=== PATIENT | female | born 1970 | race Caucasian/White ===

== ENCOUNTER 2018-01-13 11:43 | Observation (INO) | payer BC, SELFPAY ==
[2018-01-13] VITALS (8 sets, daily range): BP systolic 118–160; BP diastolic 68–99; PULSE 69–103; RESP 16–19; TEMP 36.6–36.8; O2SAT 94–99; BMI 38.9; BMI 39.0; BMI 38.4
--- NOTE | 2018-01-13 12:11 | EKG12_ITS ---
Test Reason : CP Blood Pressure : / mmHG Vent. Rate : 093 BPM Atrial Rate : 093 BPM P-R Int : 152 ms QRS Dur : 094 ms QT Int : 360 ms P-R-T Axes : 039 -40 021 degrees QTc Int : 447 ms Normal sinus rhythm Left axis deviation /LAHB Possible old AWMI Abnormal ECG Confirmed by STANISLAV THOMSON ([id number]), movie editor MONTSE STEEN ([id number]) on 01/15/2018 2:23:10 PM Referred By: DEYAINRA Confirmed By:STANISLAV THOMSON
[2018-01-13 13:17] LABS: Absolute Lymphocyte Count 1.76 X10^3/ul (0.83-4.51); Basophil# 0.04 X10^3/uL; Basophil% 0.5 % (0-1); Eosinophils% 1.2 % (0-5); Hemoglobin 14.9 g/dl (12.0-15.0); Lymphocyte # 1.76 X10^3/ul (4.0); Lymphocyte % 21.1 % (19-41); Mean Corp Hgb Conc 33.9 g/gl (32-36); Mean Corpuscular Hgb 33.6 pg (27.0-32.0); Mean Corpuscular Volume 99.1 fL (81-99); Mean Platelet Vol. 9.7 fl (6.2-12.0); Monocyte# 0.45 X10^3/uL; Monocyte% 5.4 % (0-10); Neutrophil # 5.98 X10^3/uL (2.7-7.7); Neutrophil % 71.7 % (47-70); POSITIVE COUNT NO; POSITIVE DIFFERENTIAL NO; POSITIVE MORPHOLOGY NO; Platelet Count 338 K/mm3 (150-450); RBC Distribution Width CV 12.5 % (11.6-14.6); RBC Distribution Width SD 45.7 fl (35.1-43.9); Red Blood Count 4.44 M/mm3 (4.2-5.4); White Blood Count 8.3 K/mm3 (4.4-11.0)
[2018-01-13] MEDS: Aspirin 81 MG TAB.CHEW 324 MG PO (13:24)
[2018-01-13 13:25] LABS: AST(SGOT) 13 U/L (15-37); Alanine Aminotransfer ALT/SGPT 24 U/L (13-56); Albumin, Serum 3.8 g/dL (3.2-5.0); Alkaline Phosphatase 93 U/L (45-117); Anion Gap 10 (5-15); BUN 16 mg/dL (7-18); BUN/Creat Ratio 21.9 RATIO (10-20); Bilirubin, Direct 0.14 mg/dL (0.00-0.30); Calcium,Total 8.9 mg/dL (8.5-10.1); Chloride 103 mmol/L (98-107); Creatinine, Serum 0.73 mg/dL (0.55-1.02); EST Glomerular Filtration Rate 91 mL/min (>60); Est Glom Filt Rate - Afr Amer 110 mL/min (>60); Estimated Creatinine Clearance 83.15 ml/min; Globulin 3.8 g/dL (2.2-4.2); Glucose 89 mg/dL (74-106); Lipase 111 U/L (73-393); Potassium 3.3 mmol/L (3.5-5.1); Protein, Total 7.6 g/dL (6.4-8.2); Sodium Level 140 mmol/L (136-145)
[2018-01-13 13:33] LABS: D-Dimer Quantitative (DVT/PE) 0.36 FEU/ug/m (0.27-0.49)
--- NOTE | 2018-01-13 13:35 | RAD_ITS ---
STUDY: X-RAY CHEST REASON FOR EXAM: Female, 47 years old. Chest pain. TECHNIQUE: PA and lateral views of the chest. COMPARISON: Comparison is made with prior study dated February 06, 2017. FINDINGS: EKG electrodes are seen. The lungs are clear and expanded. There is no demonstrated pleural abnormality. Normal size heart. Normal mediastinum and nate. Normal visualized pulmonary arteries. Normal visualized aortic arch and descending thoracic aorta. There are degenerative changes of the visualized thoracic spine. Normal visualized ribs, clavicles, and shoulders. There is no demonstrated abnormality of the visualized soft tissue structures of the upper abdomen. RAD/Chest PA and Lateral IMPRESSION: Normal x-ray examination of the chest. Electronically Signed: Jean Van MD at 13:55 EDT Tel [phone], Service support ,
--- NOTE | 2018-01-13 14:16 | ED.VISSUMM ---
- ER Visit Summary Date of Service: 01/13/18 Chief Complaint: Chest pain and abdominal pain History of Present Illness: The patient is a 47 F presenting for evaluation secondary to chest and abdominal pain. Patient states that over the course last 3 days she has had a waxing and waning type pain that is located in her epigastrium and chest. Patient describes it as a burning sensation that is worse with taking a deep breath. She states it has been associated with some nausea, and today she felt significantly fatigued as well as diaphoretic with it. Patient states that she took some Tums did not really seem to help. Patient denies any history DVT or PE, recent travel was back in August where she flew to and from [place]. She denies any asymmetric leg swelling. Patient does have an underlying history of hypertension, obesity, and a premature family history of cardiac disease. She has never had a cardiac stress test. She denies any dissection or aneurysm risk factors. Review of systems otherwise negative. Physical Examination: Vital signs are within normal limits, patient is afebrile. General: Patient is well-nourished well-developed and in no acute distress. Head: Normocephalic, atraumatic Eyes: Pupils equal round and reactive bilaterally, extra occular motion intact bialterally ENT: Moist mucous membranes Neck: Supple, no lymphadenopathy, no JVD, no meningismus CVS: Heart regular rate and rhythm, no murmurs, rubs or gallops, radial pulses 2+ bilaterally Resp: Respirations nondistressed, lung sounds clear bilaterally Abdomen: Soft, nontender, nondistended, no palpable masses, normal bowel sounds Back: Nontender Extremities: Nontender, atraumatic, active full range of motion, no peripheral edema Skin: warm, no rashes, no petechia Neuro: Alert and oriented x 4, CN 2-12 intact, no lateralizing neurological defecits Psyc: Normal affect Test Results: CBC unremarkable, chemistry shows mildly low potassium at 3.3 liver panel and lipase unremarkable. Troponin negative. D-dimer negative. Chest x-ray two-view per radiology and my personal review are found to be negative. EKG shows sinus rhythm of [address] segments normal T waves. There is some left axis deviation. Emergency Department Course and Treatment: Patient presented secondary to abdominal and chest pain. I was somewhat concerned about a anginal equivalent given the patient's diaphoresis as well as her generalized fatigue and risk factors. Cardiovascular workup was obtained. This was found to be negative. D-dimer was obtained due to the patient's reported pleuritic nature of this pain was negative. Patient's MELL score is 1 her heart score however is 4 I believe that she requires admission for cardiac rule out and stress testing. I will discuss this with the hospitalist. Disposition: Admit Impression: 1. Chest pain This note was generated with [employer] dictation software. It may contain incorrect words, spelling, and punctuation that were not noted in review of the chart prior to signing ED Disposition - Plan for ED Patient: Chief Complaint: Abd Pain Referrals: Shawn Norton MD [Primary Care Provider] -
--- NOTE | 2018-01-13 14:20 | ED.DCSUM_ITS ---
- ER Visit Summary Date of Service: 01/13/18 Chief Complaint: Chest pain and abdominal pain History of Present Illness: The patient is a 47 F presenting for evaluation secondary to chest and abdominal pain. Patient states that over the course last 3 days she has had a waxing and waning type pain that is located in her epigastrium and chest. Patient describes it as a burning sensation that is worse with taking a deep breath. She states it has been associated with some nausea, and today she felt significantly fatigued as well as diaphoretic with it. Patient states that she took some Tums did not really seem to help. Patient denies any history DVT or PE, recent travel was back in August where she flew to and from [place]. She denies any asymmetric leg swelling. Patient does have an underlying history of hypertension, obesity, and a premature family history of cardiac disease. She has never had a cardiac stress test. She denies any dissection or aneurysm risk factors. Review of systems otherwise negative. Physical Examination: Vital signs are within normal limits, patient is afebrile. General: Patient is well-nourished well-developed and in no acute distress. Head: Normocephalic, atraumatic Eyes: Pupils equal round and reactive bilaterally, extra occular motion intact bialterally ENT: Moist mucous membranes Neck: Supple, no lymphadenopathy, no JVD, no meningismus CVS: Heart regular rate and rhythm, no murmurs, rubs or gallops, radial pulses 2 + bilaterally Resp: Respirations nondistressed, lung sounds clear bilaterally Abdomen: Soft, nontender, nondistended, no palpable masses, normal bowel sounds Back: Nontender Extremities: Nontender, atraumatic, active full range of motion, no peripheral edema Skin: warm, no rashes, no petechia Neuro: Alert and oriented x 4, CN 2-12 intact, no lateralizing neurological defecits Psyc: Normal affect Test Results: CBC unremarkable, chemistry shows mildly low potassium at 3.3 liver panel and lipase unremarkable. Troponin negative. D-dimer negative. Chest x-ray two-view per radiology and my personal review are found to be negative. EKG shows sinus rhythm of [address] segments normal T waves. There is some left axis deviation. Emergency Department Course and Treatment: Patient presented secondary to abdominal and chest pain. I was somewhat concerned about a anginal equivalent given the patient's diaphoresis as well as her generalized fatigue and risk factors. Cardiovascular workup was obtained. This was found to be negative. D -dimer was obtained due to the patient's reported pleuritic nature of this pain was negative. Patient's MELL score is 1 her heart score however is 4 I believe that she requires admission for cardiac rule out and stress testing. I will discuss this with the hospitalist. Disposition: Admit Impression: 1. Chest pain This note was generated with [employer] dictation software. It may contain incorrect words, spelling, and punctuation that were not noted in review of the chart prior to signing ED Disposition - Plan for ED Patient: Chief Complaint: Abd Pain Referrals: Shawn Norton MD [Primary Care Provider] -
--- NOTE | 2018-01-13 14:39 | PCM.HP.STD ---
Problem List (1) GERD (gastroesophageal reflux disease) Status: Acute (2) Chest pain Status: Acute History of Present Illness Date of Admission: 01/13/18 Chief Complaint: Worsening GI upset , chest discomfort. The patient is a 47 year old F medical history of essential hypertension, morbid obesity, gastroesophageal reflux disease, she is status post cholecystectomy, the to the emergency room today due to GI upset since Friday, her symptoms worsen times Tums with improvement. Chest discomfort and became diaphoretic and she became concerned and decided to come to the emergency room for further evaluation. Her Cardiac biomarkers are normal and her EKG showed normal sinus rhythm with left axis deviation. Has history of gastroesophageal reflux disease and is on Prevacid but has not taken it for the past 3 months. We are placing her in the hospital for further workup and management. Past Medical History Allergies No Known Allergies Allergy (Verified 02/06/17 12:17) Home Medications: Ambulatory Orders Medication Instructions Recorded Hydrochlorothiazide [Hctz] 25 mg PO DAILY 03/05/17 Lansoprazole [Prevacid] 30 mg PO DAILY 03/05/17 Fexofenadine HCl [Alia Allergy] 180 mg PO DAILY 01/13/18 Losartan Potassium [Losartan 25 mg PO DAILY 01/13/18 Potassium] Smoking Status: Never smoker Review of Systems Comment: All Systems were reviewed with pertinent positives mentioned in the HPI above. VTE Information - Inpt Only VTE Present on Admission: No VTE Mechan Device Prophylaxis: SCD's VTE Pharm Prophylaxis ordered?: Yes Patient Problems: Active and Suspected Problems GERD (gastroesophageal reflux disease) (Acute) Chest pain (Acute) - Physical Exam General: Alert, Oriented x3 HEENT: Atraumatic Oral: Moist Mucosa Neck: Supple, No JVD Lungs: Clear to auscultation Cardiovascular: Regular rate, Normal S1, Normal S2 Abdomen: Bowel Sounds Present, Soft, Non Tender, Non-Distended Extremities: No clubbing Vital Signs Temp Pulse Resp BP Pulse Ox 97.9 F 86 19 H 132/97 H 99 01/13/18 11:44 01/13/18 14:16 01/13/18 14:16 01/13/18 14:16 01/13/18 14:16 Oxygen Delivery Method Room Air Weight: 102.965 kg Body Mass Index (BMI) 38.9 Laboratory Tests Past 24 Hrs 01/13/18 01/13/18 01/13/18 12:50 12:50 12:50 WBC 8.3 RBC 4.44 Hgb 14.9 Hct 44.0 MCV 99.1 H MCH 33.6 H MCHC 33.9 RDW 12.5 RDW Differential 45.7 H Plt Count 338 MPV 9.7 Immature Gran % (Auto) 0.100 Neut % (Auto) 71.7 H Lymph % (Auto) 21.1 [place] % (Auto) 5.4 Eos % (Auto) 1.2 Baso % (Auto) 0.5 Absolute Neuts (auto) 6.0 Absolute Lymphs (auto) 1.76 Total Counted Not Reportable D-Dimer Quant (PE/DVT) 0.36 Sodium 140 Potassium 3.3 L Chloride 103 Carbon Dioxide 27.0 Anion Gap 10 BUN 16 Creatinine 0.73 Estim Creat Clear Calc 83.15 Est GFR (MDRD) Af Amer 110 Est GFR (MDRD) Non-Af 91 BUN/Creatinine Ratio 21.9 H Glucose 89 Calcium 8.9 Total Bilirubin 0.60 Direct Bilirubin 0.14 AST 13 L ALT 24 Alkaline Phosphatase 93 Troponin I < 0.02 Total Protein 7.6 Albumin 3.8 Globulin 3.8 Lipase 111 Assessment/Plan Active and Suspected Problems GERD (gastroesophageal reflux disease) (Acute) Chest pain (Acute) 1. Chest pain; will obtain serial cardiac enzymes and EKGs to rule out acute coronary syndrome. And will be scheduled for a stress test in the morning to rule out ischemia. 2. GERD; we will place her on Protonix,if her stress test t is negative, she would need to undergo EGD as an outpatient. This can be done through her primary care doctor. 3. Essential hypertension; we will continue on her losartan and hydrochlorothiazide without change. 4. Hypokalemia; likely due to hydrochlorothiazide therapy , we would maintain her on 20 mEq of potassium chloride daily while on diuretic therapy. 5. Obesity; weight loss recommended. 6. Early ambulation for DVT prophylaxis.
[2018-01-13] MEDS: Pantoprazole Sodium 40 MG Tablet PO (21:33)
[2018-01-14 03:01] VITALS: PULSE 65
[2018-01-14 03:24] VITALS: BP 109/56; PULSE 72; RESP 16; TEMP 37; O2SAT 96
[2018-01-14 03:25] LABS: Hematocrit 40.8 % (37-47); Hemoglobin 14.2 g/dl (12.0-15.0); Mean Corp Hgb Conc 34.8 g/gl (32-36); Mean Corpuscular Hgb 34.2 pg (27.0-32.0); Mean Corpuscular Volume 98.3 fL (81-99); Mean Platelet Vol. 9.5 fl (6.2-12.0); Platelet Count 334 K/mm3 (150-450); RBC Distribution Width CV 12.2 % (11.6-14.6); RBC Distribution Width SD 43.3 fl (35.1-43.9); Red Blood Count 4.15 M/mm3 (4.2-5.4); White Blood Count 8.4 K/mm3 (4.4-11.0)
[2018-01-14 03:26] LABS: Scan Indicated on CBC? Y/N NO
--- NOTE | 2018-01-14 04:00 | EKG12_ITS ---
Test Reason : AM EKG Blood Pressure : / mmHG Vent. Rate : 065 BPM Atrial Rate : 065 BPM P-R Int : 156 ms QRS Dur : 096 ms QT Int : 452 ms P-R-T Axes : 044 -06 033 degrees QTc Int : 470 ms Normal sinus rhythm Low voltage QRS (LIMB LEADS) Poor R wave progression Confirmed by HARIKA CHAO, GORDON ([id number]), publishing editor MONTSE STEEN ([id number]) on 01/16/2018 1:30:22 PM Referred By: ARGENTINA Confirmed By:GORDON SHABAZZ MD
[2018-01-14 04:08] LABS: Partial Thromboplast Time 28.4 Seconds (24.1-36.2); Prothrombin Time (Protime)PT. 13.4 SECONDS (11.7-14.9)
[2018-01-14 04:16] LABS: Anion Gap 12 (5-15); BUN 16 mg/dL (7-18); BUN/Creat Ratio 22.9 RATIO (10-20); Calcium,Total 8.3 mg/dL (8.5-10.1); Chloride 105 mmol/L (98-107); EST Glomerular Filtration Rate 96 mL/min (>60); Est Glom Filt Rate - Afr Amer 116 mL/min (>60); Estimated Creatinine Clearance 86.72 ml/min; Glucose 101 mg/dL (74-106); Potassium 3.4 mmol/L (3.5-5.1); Sodium Level 143 mmol/L (136-145)
[2018-01-14] MEDS: Losartan Potassium 25 MG Tablet PO (05:29)
[2018-01-14 08:32] VITALS: PULSE 93
--- NOTE | 2018-01-14 09:10 | STRESSREP_ITS ---
Stress Test Report Exercise myocardial perfusion stress test. 47-year-old lady with a history of chest pain. Stress protocol: Resting EKG demonstrates normal sinus rhythm with a rate of 81 bpm resting blood pressure is 130/72 mmHg. The patient exercised according to the regular John protocol for a total duration of 7 minutes. The patient completed 1 minute into stage III of the John protocol. The maximum heart rate attained was 179 bpm. This was 102% of maximum predicted heart rate the maximum workload attained was 8.5 metabolic equivalents. At rest there were no ST or T- wave changes noticed ischemia peak exercise upsloping ST changes were noted with no meet the criteria for ischemia. The resting blood pressure 730/72 with a peak blood pressure 170/64. No clinical angina was noted the test was terminated due to shortness of breath. Myocardial perfusion protocol. 14.6 mCi of technetium 99m sestamibi was injected at rest. The patient exercised according to regular John protocol for 7 minutes. At peak exercise 44.6 mCi of technetium 99m sestamibi was injected stress images were obtained stress and rest images were reconstructed and compared in the short axis vertical long and horizontal long axis. Gated images were also obtained pre- Perfusion SPECT analysis. Review of the stress images demonstrate normal uptake of tracer noted in all areas of the myocardium. The resting images similarly demonstrate normal uptake of tracer noted in all areas of the myocardium. No areas of reversibility are noted suggest ischemia no previous infarct is noted. Gated SPECT analysis: The gated ejection fraction is noted to be 83%. Conclusion: Normal exercise myocardial perfusion stress test at a moderate workload. Preserved ejection fraction. No clinical angina noted.
[2018-01-14 09:20] VITALS: BP 124/66; PULSE 92; RESP 14; TEMP 36.7; O2SAT 96
[2018-01-14] MEDS: Pantoprazole Sodium 40 MG Tablet PO (09:25)
[2018-01-14] MEDS: hydroCHLOROthiazide 25 MG Tablet PO (09:25)
[2018-01-14] MEDS: Loratadine 10 MG Tablet PO (09:25)
--- NOTE | 2018-01-14 10:54 | PCM.DC ---
- Discharge Diagnoses Current Active Problems: Current Active and Chronic Problems GERD (gastroesophageal reflux disease) (Acute) Chest pain (Acute) You will use the following diet at home:: Cardiac Discharge Activity: Return to Normal Activity Call your doctor if you observe: Fever of 101 or Higher, Dizziness, Fainting spells, Chest pain, Increased palpitations (irregular heartbeat) Allergies/Adverse Reactions: Allergies No Known Allergies Allergy (Verified 02/06/17 12:17) Medications to take at Discharge Hydrochlorothiazide [Hctz] 25 mg PO DAILY 03/05/17 Fexofenadine HCl [Alia Allergy] 180 mg PO DAILY 01/13/18 Losartan Potassium 25 mg PO DAILY 01/13/18 Pantoprazole Sodium [Protonix] 40 mg PO BID #60 tab 01/14/18 The following prescriptions were given: Pantoprazole Sodium [Protonix] 40 mg PO BID #60 tab Orders to be completed after discharge: Basic Metabolic Profile (BMP) Time Frame: 1 Week, Location: Laboratory Primary Care Physician: Shawn Norton MD [Primary Care Provider] - Please follow up with your Primary Care Physician in: 1 Week Proposed Discharge Date: 01/14/18
--- NOTE | 2018-01-14 11:00 | PCM.DC.SUM ---
Discharge Date and Diagnosis Date of Admission: 01/13/18 Date of Discharge: 01/14/18 - Primary Discharge Diagnosis Active and Suspected Problems 1. Chest pain-ACS ruled out. Suspect secondary to untreated GERD. 2. Hypokalemia - Secondary Discharge Diagnosis HTN GERD Hospital Course and Treatment Imaging Results: Diagnostic Data Chest X-Ray 01/13/18 13:35 IMPRESSION: Normal x-ray examination of the chest. Electronically Signed: Jean Van MD at 13:55 EDT Tel [phone], Service support , Operations: None Procedures: Stress test Summary of Care Provided: The patient is a 47 year old F admitted 01/13/18 due to worsening esophageal burning and chest discomfort. Patient states she had issues with acid reflux in the past and was placed on Prevacid for a short time. She has a past medical history of hypertension, GERD, morbid obesity. She has not taken Prevacid for approximately 3 months. Troponin negative ?4. EKG without evidence of ischemia. Patient underwent nuclear stress test which was negative for ischemia. Patient was noted to have mild hyperkalemia suspected secondary to hydrochlorothiazide. Her potassium was replaced orally. Recommend repeat BMP in 1 week to be followed by primary care physician. Patient was placed on Protonix 40 mg twice daily for 1 month given increased gastric burning. Recommend Protonix 40 mg daily after 1 month. Patient states she has had an EGD approximately a year ago with Dr. Christiansen. Recommend follow-up with Dr. Richardson in 1-2 weeks. Follow-up with primary care physician in 1 week. Patient seen and examined prior to discharge. Heart rate regular in rate and rhythm, no murmur. Lungs clear. Abdomen soft, nontender. Neuro grossly intact. Vital signs stable. Patient is stable for discharge home with recommendations as noted above. This patient was seen by BHAVESH Clayton under the supervision of Dr. Mortensen. Discharge Diet: Low fat/ Low Cholesterol Discharge Activity: Return to Normal Activity Call your doctor if you observe: Fever of 101 or Higher, Dizziness, Fainting spells, Chest pain, Increased palpitations (irregular heartbeat) Home Medications: Medications to take at Discharge Hydrochlorothiazide [Hctz] 25 mg PO DAILY 03/05/17 Fexofenadine HCl [Alia Allergy] 180 mg PO DAILY 01/13/18 Losartan Potassium 25 mg PO DAILY 01/13/18 Pantoprazole Sodium [Protonix] 40 mg PO BID #60 tab 01/14/18 Following Prescrptions Were Given to Patient: Pantoprazole Sodium [Protonix] 40 mg PO BID #60 tab Other Amb Orders: Basic Metabolic Profile (BMP) Time Frame: 1 Week, Location: Laboratory Primary Care Physician: Shawn Norton MD [Primary Care Provider] - Please follow up with your Primary Care Physician in: 1 Week Disposition: Home Minutes spent on discharge:: 35 Patient Condition:: Stable Medical Necessity - Tobacco Use Smoking Status: Never smoker Meaningful Use Info Meaningful Use Diagnoses (Choose all that apply): None applicable
[2018-01-14 11:01] VITALS: PULSE 112
--- NOTE | 2018-01-14 11:08 | DS.PCM_ITS ---
Addendum entered and electronically signed by BHAVESH Clayton 01/14/18 11:19: Code Visit Additional follow up with Dr. Richardson in 2 weeks. Original Note: Discharge Date and Diagnosis Date of Admission: 01/13/18 Date of Discharge: 01/14/18 - Primary Discharge Diagnosis Active and Suspected Problems 1. Chest pain-ACS ruled out. Suspect secondary to untreated GERD. 2. Hypokalemia - Secondary Discharge Diagnosis HTN GERD Hospital Course and Treatment Imaging Results: Diagnostic Data Chest X-Ray 01/13/18 13:35 IMPRESSION: Normal x-ray examination of the chest. Electronically Signed: Jean Van MD at 13:55 EDT Tel [phone], Service support , Operations: None Procedures: Stress test Summary of Care Provided: The patient is a 47 year old F admitted 01/13/18 due to worsening esophageal burning and chest discomfort. Patient states she had issues with acid reflux in the past and was placed on Prevacid for a short time. She has a past medical history of hypertension, GERD, morbid obesity. She has not taken Prevacid for approximately 3 months. Troponin negative ?4. EKG without evidence of ischemia. Patient underwent nuclear stress test which was negative for ischemia. Patient was noted to have mild hyperkalemia suspected secondary to hydrochlorothiazide. Her potassium was replaced orally. Recommend repeat BMP in 1 week to be followed by primary care physician. Patient was placed on Protonix 40 mg twice daily for 1 month given increased gastric burning. Recommend Protonix 40 mg daily after 1 month. Patient states she has had an EGD approximately a year ago with Dr. Christiansen. Recommend follow-up with Dr. Richardson in 1-2 weeks. Follow-up with primary care physician in 1 week. Patient seen and examined prior to discharge. Heart rate regular in rate and rhythm, no murmur. Lungs clear. Abdomen soft, nontender. Neuro grossly intact. Vital signs stable. Patient is stable for discharge home with recommendations as noted above. This patient was seen by BHAVESH Clayton under the supervision of Dr. Mortensen. Discharge Diet: Low fat/ Low Cholesterol Discharge Activity: Return to Normal Activity Call your doctor if you observe: Fever of 101 or Higher, Dizziness, Fainting spells, Chest pain, Increased palpitations (irregular heartbeat) Home Medications: Medications to take at Discharge Hydrochlorothiazide [Hctz] 25 mg PO DAILY 03/05/17 Fexofenadine HCl [Alia Allergy] 180 mg PO DAILY 01/13/18 Losartan Potassium 25 mg PO DAILY 01/13/18 Pantoprazole Sodium [Protonix] 40 mg PO BID #60 tab 01/14/18 Following Prescrptions Were Given to Patient: Pantoprazole Sodium [Protonix] 40 mg PO BID #60 tab Other Amb Orders: Basic Metabolic Profile (BMP) Time Frame: 1 Week, Location: Laboratory Primary Care Physician: Shawn Norton MD [Primary Care Provider] - Please follow up with your Primary Care Physician in: 1 Week Disposition: Home Minutes spent on discharge:: 35 Patient Condition:: Stable Medical Necessity - Tobacco Use Smoking Status: Never smoker Meaningful Use Info Meaningful Use Diagnoses (Choose all that apply): None applicable
--- NOTE | 2018-01-14 11:30 | NURSING ---
all pt care, medication administration, & documentation by Randal Lundberg, student nurse, done under the supervision of this RN.
== END 2018-01-14 10:55 | disposition home or self-care (01) ==
LOC: ED 14:28 → PCU 14:36
PROVIDERS: Admitting Provider Internal Medicine; Emergency Provider Emergency Medicine; Family Provider Family Medicine; PCP Family Medicine; Visit Provider Internal Medicine
DX: R07.89 Other chest pain (principal); K21.9 Gastro-esophageal reflux disease without esophagitis; I10 Essential (primary) hypertension; E66.01 Morbid (severe) obesity due to excess calories; Z68.38 Body mass index [BMI] 38.0-38.9, adult; Z71.3 Dietary counseling and surveillance; E87.6 Hypokalemia
CPT/HCPCS: 36415; 71046; 78452; 80048; 80076; 83690; 84484; 85025; 85027; 85379; 85610; 85730; 93005; 93017; 99218; 99285; A9500; A4216; G0378

== ENCOUNTER → 2018-01-21 07:31 | Outpatient (CLI) | payer BC, SELFPAY ==
[2018-01-21 08:52] LABS: Anion Gap 7 (5-15); BUN 15 mg/dL (7-18); Calcium,Total 9.2 mg/dL (8.5-10.1); Chloride 106 mmol/L (98-107); Creatinine, Serum 0.68 mg/dL (0.55-1.02); EST Glomerular Filtration Rate 98 mL/min (>60); Est Glom Filt Rate - Afr Amer 119 mL/min (>60); Glucose 101 mg/dL (74-106); Potassium 3.7 mmol/L (3.5-5.1); Sodium Level 141 mmol/L (136-145)
== END ==
PROVIDERS: Family Provider Family Medicine; PCP Family Medicine; Visit Provider Nurse Practitioner Family
DX: E87.6 Hypokalemia (principal)
CPT/HCPCS: 36415; 80048

== ENCOUNTER → 2018-07-20 15:22 | Outpatient (CLI) | payer BC, SELFPAY ==
--- NOTE | 2018-07-20 15:37 | MRI_ITS ---
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 10 ml of Gadavist contrast material was administered intravenously for the contrast portion of the examination. COMPARISON: March 05, 2017 FINDINGS: Normal size of the ventricles and extra-axial spaces for the patient's age. Normal white matter tracts of the supratentorial brain. Normal bilateral basal ganglia. Normal thalami. There is no extra-axial fluid accumulation. Normal flow voids within the major intracranial circulation suggesting patency by spin echo criteria. Normal venous enhancement. There is no enhancing intra-axial or extra-axial abnormality. Normal sella turcica, pituitary gland, infundibular stalk, optic chiasm and hypothalamus. Normal tectal plate and pineal gland. There is a mass measuring 1.3 x 2.3 x 1.05 cm in the posterior fossa immediately posterior and to the right of the medulla and anterior to the right inferior cerebellar hemisphere producing mild mass effect but no evidence for obstructive hydrocephalus which may be consistent with ependymal cyst or other benign cystic neoplasm. Normal basal cisterns. Normal bilateral temporal bones. Normal bilateral internal auditory canals. No demonstrated orbital abnormality, within the constraints of a routine brain study. Mild mucosal thickening of the ethmoid sinuses. Normal calvarium and skull base. Normal visualized soft tissue structures. Normal visualized upper cervical spine. 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 Otherwise unremarkable study Electronically Signed: Shawn Sprague MD at 17:27 EDT , Service support ,
== END ==
PROVIDERS: Family Provider Family Medicine; PCP Family Medicine
DX: G93.0 Cerebral cysts (principal)
CPT/HCPCS: 70553; A9585

== ENCOUNTER 2018-10-05 08:17 | Emergency (ER) | payer BC, SELFPAY ==
[2018-10-05 08:18] VITALS: BP 156/91; PULSE 79; RESP 16; TEMP 36.7; O2SAT 96; BMI 40.4
--- NOTE | 2018-10-05 08:31 | ED.RN ---
LT SIDE ABD PAIN/LT FLANK PAIN.
--- NOTE | 2018-10-05 08:38 | ED.DCSUM_ITS ---
- ER Visit Summary Date of Service: 10/05/18 Chief Complaint: Left upper quadrant abdominal pain History of Present Illness: The patient is a 48 F history of hypertension and gastritis. Has never had upper endoscopy. Patient states that she was diagnosed with this around September 04. Was started on Protonix and it gave her significant relief. He says the pain seems to be slightly more lateral now. At times it is associated with food. Or bending over. She denies any fever. She denies any vomiting. She does intermittently have some nausea. No dysuria. No melena. No hematemesis. No weight change. She has had a prior cholecystectomy. She is scheduled to follow-up with a general surgeon out of [facility] for consideration for upper endoscopy. Physical Examination: Well-appearing middle-age female. Vital signs are stable. She is afebrile. H EENT exam unremarkable. Moist weeks membranes. Neck nontender. No lymphadenopathy. Lungs clear to auscultation bilaterally. Heart regular rate and rhythm no murmur. Abdomen is soft. Nondistended normal bowel sounds. Very minimal if any tenderness in the left upper quadrant. No hernias or masses. Normal bowel sounds. Both the right upper right lower quadrants are unremarkable. Patient is moving all 4 extremities. Neurovascular intact. Calves are nontender without edema. Neurologically patient has no focal deficits. Test Results: CBC shows normal white count of 5. Hemoglobin of 14 which is her baseline. Chemistries normal normal BUN and creatinine and gap. BMP shows Emergency Department Course and Treatment: Patient treated with p.o. Pepcid and GI cocktail. Repeat exam patient is doing well at 0 9:50 AM.. We went over her test results and follow-up. Treatment Plan: We will up with her general surgeon and discuss upper endoscopy. Continue his current medications Disposition: Discharge Impression: Left upper quadrant abdominal pain consistent with gastritis This note was generated with [employer] dictation software. It may contain incorrect words, spelling, and punctuation that were not noted in review of the chart prior to signing ED Disposition - Plan for ED Patient: Disposition: Home or Assisted Living Chief Complaint: Abd Pain Instructions: ED Abdominal Pain Unkn Cause, ED Gastritis Referrals: Shawn Norton MD [Primary Care Provider] - As Needed Additional Instructions: Continue your Protonix. Follow-up with your general surgeon appointment and you on her can discuss possible upper endoscopy.
[2018-10-05] MEDS: Mag Hydrox/Al Hydrox/Simeth 30 ML UDC PO (09:02)
[2018-10-05] MEDS: Famotidine 20 MG Tablet 40 MG PO (09:02)
[2018-10-05 09:22] LABS: Absolute Lymphocyte Count 0.96 X10^3/ul (0.83-4.51); Absolute Neutrophil Count 3.7 X10^3/uL (2.0-7.7); Basophil# 0.04 X10^3/uL; Basophil% 0.7 % (0-1); Eosinophil# 0.16 X10^3/uL; Hematocrit 42.7 % (37-47); Hemoglobin 14.3 g/dl (12.0-15.0); Lymphocyte # 0.96 X10^3/ul (4.0); Lymphocyte % 17.9 % (19-41); Mean Corp Hgb Conc 33.5 g/gl (32-36); Mean Corpuscular Hgb 33.1 pg (27.0-32.0); Mean Corpuscular Volume 98.8 fL (81-99); Mean Platelet Vol. 9.5 fl (6.2-12.0); Monocyte# 0.55 X10^3/uL; Monocyte% 10.2 % (0-10); Neutrophil # 3.65 X10^3/uL (2.7-7.7); Platelet Count 288 K/mm3 (150-450); RBC Distribution Width CV 12.5 % (11.6-14.6); RBC Distribution Width SD 45.5 fl (35.1-43.9); Red Blood Count 4.32 M/mm3 (4.2-5.4); White Blood Count 5.4 K/mm3 (4.4-11.0)
[2018-10-05 09:23] LABS: POSITIVE COUNT NO; POSITIVE DIFFERENTIAL NO; POSITIVE MORPHOLOGY NO
[2018-10-05 09:34] LABS: Anion Gap 7 (5-15); BUN 18 mg/dL (7-18); BUN/Creat Ratio 27.1 RATIO (10-20); Calcium,Total 8.6 mg/dL (8.5-10.1); Chloride 107 mmol/L (98-107); Creatinine, Serum 0.66 mg/dL (0.55-1.02); EST Glomerular Filtration Rate 101 mL/min (>60); Est Glom Filt Rate - Afr Amer 123 mL/min (>60); Estimated Creatinine Clearance 90.99 ml/min; Glucose 109 mg/dL (74-106); Potassium 3.8 mmol/L (3.5-5.1); Sodium Level 140 mmol/L (136-145)
[2018-10-05 10:14] VITALS: BP 143/76; PULSE 83; RESP 14; O2SAT 99
== END 2018-10-05 10:15 | disposition home or self-care (01) ==
PROVIDERS: Emergency Provider Emergency Medicine; Family Provider Family Medicine; PCP Family Medicine
DX: K29.70 Gastritis, unspecified, without bleeding (principal); R10.12 Left upper quadrant pain; I10 Essential (primary) hypertension; Z87.19 Personal history of other diseases of the digestive system; Z90.49 Acquired absence of other specified parts of digestive tract; Z79.899 Other long term (current) drug therapy
CPT/HCPCS: 80048; 85025; 99285; A4216

== ENCOUNTER 2024-09-09 08:43 | Emergency (ER) | payer OTHER, BC, SELFPAY ==
[2024-09-09 08:45] VITALS: BP 136/88; PULSE 84; RESP 16; TEMP 36.7; O2SAT 97; BMI 39.1
--- NOTE | 2024-09-09 08:51 | ED.VIS.FALL ---
HPI HPI - Fall History of Present Illness Chief Complaint: Fall [facility] Medical History (Updated 09/09/24 @ 09:02 by Edith Mitchell) Arachnoid cyst Hypokalemia Hypertension GERD (gastroesophageal reflux disease) Home Medications ?Medication ?Instructions ?Recorded ?Last Taken ?Type hydrochlorothiazide 25 mg tablet 25 mg PO DAILY diuretic/water pill 03/05/17 01/13/18 History losartan 25 mg tablet 25 mg PO DAILY blood pressure 01/13/18 01/13/18 History pantoprazole 40 mg tablet,delayed 40 mg PO DAILY 10/05/18 Unknown History release potassium 99 mg tablet 99 mg PO DAILY 10/05/18 Unknown History Allergy/AdvReac Type Severity Reaction Status Date / Time No Known Allergies Allergy Verified 09/09/24 08:43 Social History Smoking Status: Never smoker EXAM Physical Exam Const Vital Signs: 09/09/24 08:45 Temperature 98.1 F Temperature Source Temporal Pulse Rate 84 Respiratory Rate 16 Blood Pressure 136/88 H Blood Pressure Mean 104 Pulse Ox 97 Oxygen Delivery Method Room Air MDM MDM MDM Narrative Medical decision making narrative: HISTORY OF PRESENT ILLNESS: 54-year-old female who is not anticoagulated presents with mechanical fall. No she was at work and she fell down injuring her head, right wrist, left hip, left knee. She is unsure if she lost consciousness. She is not taking blood thinners. REVIEW OF SYSTEMS: Pertinent positives: Fall, left hip, left knee, right wrist pain, head trauma Pertinent negatives: Focal weakness, loss of sensation, and coordination PHYSICAL EXAM: Nursing triage notes reviewed, Vital signs reviewed Primary Survey Airway: Intact Breathing: Bilateral breath sounds Circulation: Palpable bilateral femorals, Palpable bilateral radial, Palpable bilateral DP and Palpable bilateral PT Disability / Spine precautions GCS Score: Eye Openin Verbal Response: 5 Motor Response: 6 Secondary Survey Constitutional: Please see MDM Head: Atraumatic, Midface stable, NO jaw malocclusion, No Cephalohematoma, and No Lacerations noted Eye: Pupils equal round and reactive to light, Extraocular muscles intact and No periorbital ecchymosis or stepoff, no evidence of entrapment ENT: Oropharynx clear, no lacerations, no hemotympanum, no raccoon eyes or danielson sign Cervical spine / Neck: No cervical spine bony tenderness, crepitance, or stepoff deformity Trachea midline Lungs: Clear to auscultation, No asymmetric rise and No crepitus, no flail chest Cardiac: Regular rate and rhythm and No murmurs Abdomen: Soft, Nontender and No rebound Pelvis: Pelvis stable to compression : No evidence of genital injury Back: No midline bony tenderness to thoracic/lumbar/sacral spines Neuro: At baseline, intact strength and sensation in bilateral upper and lower extremities. 2+ patellar reflexes bilaterally. Extremities: NO gross Deformities Psych: Normal affect Nursing triage notes reviewed, Vital signs reviewed MEDICAL DECISION MAKING: Chief Complaint: Fall, extremity pain External records reviewed: Reviewed prior medications: No blood thinners noted Factors affecting care: Hypertension Social determinants of health: none History obtained from others: none Consults: none MDM Narrative: The patient was initially hemodynamically stable, afebrile and nontoxic-appearing. Primary secondary trauma surveys concerning for I considered the following differential diagnosis: ICH, fracture/dislocation of the wrist/hip/knee Exam was grossly unremarkable. Patient is greater than 16, is not on blood thinners, no seizure after injury, GCS was stable 2 hours postinjury, no depressed skull fracture, no evidence of basilar skull fracture, no vomiting. Age less than 65, no retrograde amnesia and mechanism is not dangerous. CT scan of the head is not indicated at this time. I considered obtaining advanced imaging of the head, extremities however the patient's exam was reassuring. She had no red flag symptoms for ICH or skull fracture. There is no sign of extremity injury. She had full range of motion all extremities able to ambulate without difficulty. She was alert and orient x 3 and displayed no confusion. There is no report of vomiting etc. I offer the patient advanced imaging however the patient refused stating she nothing is necessary. I agree that it was not necessary given lack of high risk features. The patient is appropriate discharge home. Strict return precautions were discussed The patient and/or family, caregivers express understanding. The patient and/or family, caregivers agrees with the plan. Shared decision making: I will have a discussion with the patient and or visitors regarding risk/benefits of further testing or admission. They will be made aware of of the risk/benefits inherent in this decision they will be given the opportunity to voice understanding. Total critical care time today provided was at least 0 minutes. This excludes separately billable procedures. Critical care time (if documented) is secondary to the patient having high probability of clinically significant/life threatening deterioration in the patient's condition which required my urgent intervention. Impression: 1. Closed head injury 2. Concussion 3. Hip contusion 4. Wrist contusion Dispo: Discharge home This note was generated with [employer] dictation software. It may contain incorrect words, spelling, and punctuation that were not noted in review of the chart prior to signing. Discharge Plan Triage Chief Complaint: Fall ED Provider: Jony Huber Dx/Rx/DC Orders Prescriptions: No Action hydrochlorothiazide 25 MG tablet 25 mg PO DAILY losartan 25 MG tablet 25 mg PO DAILY Patient Comments: pantoprazole 40 MG tablet 40 mg PO DAILY potassium 99 MG tablet 99 mg PO DAILY Primary Care Provider: Shawn Norton Referrals: Shawn Norton MD [Primary Care Provider] - Print Language: Citizen Of [place]
== END 2024-09-09 09:36 | disposition home or self-care (01) ==
LOC: ED 09:23
PROVIDERS: Emergency Provider Emergency Medicine; PCP Family Medicine; Visit Provider Emergency Medicine
DX: S06.0X0A Concussion without loss of consciousness, initial encounter (principal); S70.02XA Contusion of left hip, initial encounter; S60.212A Contusion of left wrist, initial encounter; S89.82XA Other specified injuries of left lower leg, initial encounter; W19.XXXA Unspecified fall, initial encounter; Y99.0 Civilian activity done for income or pay; I10 Essential (primary) hypertension; K21.9 Gastro-esophageal reflux disease without esophagitis; Z79.899 Other long term (current) drug therapy
CPT/HCPCS: 99282

== ENCOUNTER 2025-05-06 06:46 | Day surgery (SDC) | payer BC, SELFPAY ==
--- NOTE | 2025-04-27 17:17 | PCM.HP.BLA ---
History and Physical Date of Admission: 05/06/25 Expand All Collapse All Pre-Op History and Physical HPI: The patient is a 54 year old female presenting for discussion regarding AUB, submucosal fibroid. pre-operative visit. She is scheduled for Hysteroscopy D&C and myomectomy, possible polypectomy with symphion, for AUB, submucosal fibroid on 05/06/25. Procedure discussed along with risks, benefits and complications. Other alternatives discussed for management. Consent form signed? Yes. PAST MEDICAL HISTORY PAST MEDICAL HISTORY Diagnosis Date ? Anal fissure 01/04/2019 ? 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 ? GERD (gastroesophageal reflux disease) 10/27/2013 ? Hypertension ? Psoriasis ? Shingles outbreak 09/2017 had for 3.5 weeks PAST SURGICAL HISTORY PAST SURGICAL HISTORY Procedure Laterality Date ? CHOLECYSTECTOMY 02/2017 ? COLONOSCOPY AND BIOPSY 11/02/2018 ? EGD x 2 ? EGD BIOPSY SING OR MULT 11/02/2018 ? ESSURE 03/12/2012 ? LAPROSCOPIC REPAIR UMBILICAL HERNIA 2016 ? REVISE MEDIAN N/CARPAL TUNNEL SURG Right ? SKIN BX, 1 LESION 11/1997 scar tissue r buttocks CURRENT MEDICATIONS Current Outpatient Medications Medication Sig Dispense Refill ? norethindrone (AYGESTIN) 5 mg tablet 1 tab 3x/day until bleeding stops. 1 tab 2x/day x 2 days. 1 tab daily x 5 days 35 tablet 0 ? albuterol HFA (PROVENTIL HFA, VENTOLIN HFA) 90 mcg/actuation inhaler Inhale 2 Puffs as instructed every 6 hours as needed for wheezing/shortness of breath. 8 g 0 ? pantoprazole DR (PROTONIX) 40 mg tablet take 1 tablet daily 90 tablet 3 ? hydroCHLOROthiazide 25 mg tablet take 1 tablet daily 90 tablet 3 ? losartan (COZAAR) 25 mg tablet Take 1 tablet by mouth every afternoon. 90 tablet 3 ? elderberry fruit (ELDERBERRY ORAL) Take 1 tablet by mouth once daily. ? fluticasone (FLONASE) 50 mcg/actuation nasal spray Use 2 Sprays in each nostril once daily. 18.2 mL 3 ? cholecalciferol (VITAMIN D3) 50 mcg (2,000 unit) tablet Take 2,000 Units by mouth once daily. ? ZINC ORAL Take 1 capsule by mouth once daily. ? ascorbic acid, vitamin C, (VITAMIN C) 250 mg tablet Take 250 mg by mouth once daily. ? multivitamin tablet Take 1 tablet by mouth once daily. ? potassium chloride (KLOR-CON 10) 10 mEq tablet Take 1 tablet by mouth daily with breakfast. 0 ? TURMERIC PO Take by mouth as needed. No current facility-administered medications for this visit. ALLERGIES: Keflex [Cephalexin], Dotarem [Gadoterate Meglumine], Pollen, Ragweed Pollen, Valtrex [Valacyclovir], and Dust PERSONAL HISTORY: SOCIAL HISTORY Social History Tobacco Use ? Smoking status: Never ? Smokeless tobacco: Never Vaping Use ? Vaping status: Never Used Substance Use Topics ? Alcohol use: Yes Comment: 1-4 drinks per weekend ? Drug use: No FAMILY HISTORY: FAMILY HISTORY FAMILY HISTORY Problem Relation Age of Onset ? Diabetes Mother ? Heart Mother hx of SC ? Hypertension Mother ? other (endometrosis) Mother Hysterectomy ? Hypertension Father ? Prostate Cancer Father ? Hypertension Brother ? Diabetes Brother ? Heart Maternal Grandmother ? Colon Cancer Paternal Grandmother 74 ? Cancer Paternal Grandfather prostate ? other (Other) Paternal Grandfather No breast/chief technical officer cancer ? No Known Problems Daughter ? No Known Problems Son ? other (pre cancer) Paternal Aunt had to have hysterectomy ? Anesthesia Problems No Family History REVIEW OF SYMPTOMS: negative except as noted above PHYSICAL EXAMINATION: VITALS: Blood pressure 116/72, height 162.6 cm (5' 4), weight 104.8 kg (231 lb), last menstrual period 04/08/2025. GENERAL: The patient is well nourished, well hydrated in no acute distress. , The patient is oriented to time, place, and person. NECK: full range of motion LUNGS: Clear to auscultation bilaterally. no wheezes, rhonchi or rales HEART: Regular rate and rhythm, Normal heart sounds, and No murmurs or gallops IMPRESSION: 54yo with AUB and submucosal fibroid PLAN: Hysteroscopy, D&C, myomectomy with symphion Pt has been counseled on risks/benefits and alternatives of surgery including but not limited to anesthesia, bleeding, infection, uterine perforation with subsequent injury to pelvic structures including bowel, bladder, ureters and vessels. Pt wishes to proceed with surgery at this time. I have reviewed and updated past medical and surgical history, medications and allergies Flavia Garcia MD
[2025-05-06] VITALS (8 sets, daily range): BP systolic 107–137; BP diastolic 70–111; PULSE 77–84; RESP 18–20; TEMP 36.6–36.9; O2SAT 96–100; BMI 39.7
--- OUTSIDE RECORDS SUMMARY | 2025-05-06 06:50 | XMS RPT_ITS | CCD ---
Author Organization [facility] Care Team Providers Care Repair Service Dispatcher Name Role Phone Oliverio Will MD Primary Care Provider Tammie Ramirez Unavailable PROVIDER, UNKNOWN Attending Unavailable PROVIDER, UNKNOWN Admitting Unavailable OLIVERIO WILL Primary Care Unavailable Oliverio Will MD Primary Care Provider Tammie Ramirez Unavailable Tammie Ramirez MD Unavailable [phone] Oliverio Will MD Primary Care Provider Trang CAR PACKER.ROXANE, Jhonny Unavailable JOSE ENCARNACION Referring Unavailable OLIVERIO WILL Primary Care Unavailable JOSE ENCARNACION Attending Unavailable OLIVERIO WILL Primary Care Unavailable OLIVERIO WILL Primary Care Unavailable SHAWN SUN Referring Unavailable OLIVERIO WILL Primary Care Unavailable JHONNY COSTELLO Referring Unavailable OLIVERIO WILL Primary Care Unavailable ANABEL ALANIS Attending Unavailable OLIVERIO WILL Primary Care Unavailable ISELA DORMAN Referring Unavailable OLIVERIO WILL Primary Care Unavailable JHONNY COSTELLO Referring Unavailable OLIVERIO WILL Primary Care Unavailable OLIVERIO WILL Primary Care Unavailable ANABEL ALANIS Attending Unavailable OLIVERIO WILL Primary Care Unavailable ISELA DORMAN Attending Unavailable OLIVERIO WILL Primary Care Unavailable ISELA DORMAN Attending Unavailable ISELA DORMAN Referring Unavailable ISELA DORMAN Referring Unavailable OLIVERIO WILL Primary Care Unavailable FLAVIA MARCELO Attending Unavail able OLIVERIO WILL Primary Care Unavailable OLIVERIO WILL Primary Care Unavailable OLIVERIO WILL Attending Unavailable OLIVERIO WILL Primary Care Unavailable SELF Referring Unavailable JHONNY COSTELLO Attending Unavailable OLIVERIO WILL Primary Care Unavailable OLIVERIO WILL Primary Care Unavailable OLIVERIO WILL Attending Unavailable Flavia Abad Referring Unavail able Flavia Abad Attending Unavail able Shawn Will Primary Care Unavailable Shawn Will Primary Care Unavailable Jony Huber Attending Unavailable Allergies Allergy Classification Reported Allergen(s) Allergy Type Date of Onset Reaction(s) Facility (20 sources) Dust; Translations: [DUST] Propensity to adverse reactions 5 Intolerance [facility] (20 sources) gadoterate meglumine; Translations: [GADOTERATE MEGLUMINE] Drug Allergy 2 Rash [facility] (20 sources) Pollen; Translations: [POLLEN] Propensity to adverse reactions 9 Cough [facility] (20 sources) Ragweed pollen; Translations: [RAGWEED POLLEN] Drug Allergy 8 Unknown, Itching [facility] (20 sources) valACYclovir; Translations: [VALACYCLOVIR] Drug Allergy 8 Rash [facility] Work Phone: (20 sources) mint dental floss [Other] Propensity to adverse reactions 5 Intolerance [facility] (1 source) OTHER; Translations: [OTHER] Propensity to adverse reactions (disorder) 5 [facility] Other [facility] (20 sources) Cephalexin; Translations: [CEPHALEXIN] Drug Allergy 4 Other: See Comments [facility] Work Phone: Medications Current Medications Medication Drug Class(es) Dates Sig (Normalized) Sig (Original) [id number] 200 actuat albuterol 0.09 mg/actuat metered dose inhaler (20 sources) beta2-Adrenergic Agonist Start: 08-16-2024 take 2 puff(s) by inhalation every six hours as needed for wheezing albuterol HFA (PROVENTIL HFA, VENTOLIN HFA) 90 mcg/actuation inhaler Inhale 2 Puffs as instructed every 6 hours as needed for wheezing/shortnes s of breath. 8 g 08/16/2024 Active Start: 07-26-2019 albuterol sulf ate (PROAIR RESPICLICK) 90 mcg/actuation aepb Indications: Cough , Chest tightness Inhale 2 Inhalation as instructed every 6 hours as needed. 1 Inhaler 0 07/26/2019 Active Comment on above: Inhale 2 Inhalation as instructed every 6 hours as needed. amoxicillin 875 mg / clavulanate 125 mg oral tablet (1 source) Penicillin-class Antibacterial Start: End: take 1 tablet by mouth twice daily amoxicillin-clavulana te potassium (AUGMENTIN) 875-125 mg per tablet Indications: Acute non-recurrent maxillary sinusitis Take 1 tablet by mouth two times a day for 7 days. 14 tablet 0 12/08/2023 12/15/2023 Active Comment on above: Take 1 tablet by kirby two times a day for 7 days. ascorbic acid 250 mg oral tablet (20 sources) Vitamin C take 1 tablet by mouth once daily ascorbic acid, vitamin C, (VITAMIN C) 250 mg tablet Take 250 mg by mouth once daily. Active Comment on above: Take 250 mg by mouth once daily. benzonatate 100 mg oral capsule (2 sources) Non-narcotic Antitussive Start: End: take 1 capsule by mouth every eight hours as needed benzonatate (TESSALON PERLE) 100 mg capsule Take 1 capsule by mouth three times a day as needed for cough for up to 7 days. 21 capsule 08/16/2024 08/23/2024 Active cholecalciferol 0.05 mg oral tablet (20 sources) Vitamin D take 1 tablet by mouth once daily cholecalciferol (VITAMIN D3) 50 mcg (2,000 unit) tablet Take 2,000 Units by mouth once daily. Active Comment on above: Take 2,000 Units by mouth once daily. clobetasol propionate 0.5 mg/ml topical cream (6 sources) Corticosteroid Start: End: clobetasol (TEMOVATE) 0.05 % cream Indications: Poison marta Apply to affected area two times a day for 14 days. 45 g 05/19/2024 06/02/2024 Active ELDERBERRY FRUIT (20 sources) take 1 tablet by mouth once daily elderberry fruit (ELDERBERRY ORAL) Take 1 tablet by mouth once daily. Active take 1 tablet by mouth once zoltan y elderberry fruit (ELDERBERRY ORAL) Take 1 tablet by mouth once daily. 0 Active Comment on above: Take 1 tablet by kirby th once daily. fluticasone propionate 0.05 mg/actuat metered dose nasal spray (20 sources) Corticosteroid Start: 2020 End: 2022 take 2 spray(s) nasal route once daily fluticasone (FLONASE) 50 mcg/actuation nasal spray Indications: Sinus congestion Use 2 Sprays in each nostril once daily. 18.2 mL 3 04/08/2023 Active Comment on above: Use 2 Sprays in each nostril once daily. hydroCHLOROthiazide 25 mg oral tablet (20 sources) Thiazide Diuretic Start: 2022 End: 2023 hydroCHLOROthiazide 25 mg tablet Indications: Essential hypertension take 1 tablet daily 90 tablet 3 06/08/2024 Active Start: 09-20-2021 End: 12-19-2021 hydroCHLOROthiazide (HYDRODI URIL, ESIDRIX) 25 mg tablet Indications: Essential hypertension TAKE 1 TABLET DAILY 90 tablet 3 12/19/2021 Active Comment on above: TAKE 1 TABLET DAILY Inhalational Spacing Device (2 sources) Start: End: 4 Inhalational Spacing Device 1 Device one time only for 1 dose. 1 Each 08/16/2024 08/16/2024 Active losartan potassium 25 mg oral tablet (20 sources) Angiotensin 2 Receptor Peter Start: 1 End: 5 losartan (COZAAR) 25 mg tablet Indications: Essential hypertension TAKE 1 TABLET EVERY AFTERNOON 90 tablet 04/25/2025 Active Comment on above: TAKE 1 TABLET DAILY multivitamin tablet (20 sources) take 1 tablet by mouth once daily multivitamin tablet Take 1 tablet by mouth once daily. Active take 1 tablet by mouth once zoltan y multivitamin tablet Take 1 tablet by mouth once daily. 0 Active Comment on above: Take 1 tablet by kirby th once daily. norethindrone acetate 5 mg oral tablet (8 sources) Start: 03-21-2025 norethindrone (AYGESTIN) 5 mg tablet 1 tab 3x/day until bleeding stops. 1 tab 2x/day x 2 days. 1 tab daily x 5 days 35 tablet 03/21/2025 Active pantoprazole 40 mg delayed release oral tablet (20 sources) Proton Pump Inhibitor Start: 07-08-2022 End: 06-28-[address] (PROTONIX) 40 mg tablet Indications: Gastroesophageal reflux disease, unspecified whether esophagitis present take 1 tablet daily 90 tablet 3 06/28/2024 Active Start: 04-08-2022 pantoprazole D R (PROTONIX) 40 mg tablet Indications: Gastroesophageal reflux disease, unspecified whether esophagitis present TAKE 1 TABLET DAILY 90 tablet 0 04/08/2022 Active Start: 01-07-2022 take 1 tablet by kirby th once daily pantoprazole DR (PROTONIX) 40 mg tablet Indications: Gastroesophageal reflux disease, unspecified whether esophagitis present Take 1 tablet by mouth once daily. 90 tablet 0 01/07/2022 Active Start: 10-08-2021 End: 01-05-2022 take 1 tablet by mouth once daily pantoprazole DR (PROTONIX) 40 mg tablet Indications: Gastroesophageal reflux disease, unspecified whether esophagitis present Take 1 tablet by mouth once daily. 90 tablet 0 10/08/2021 01/05/2022 Discontinued Comment on above: Take 1 tablet by kirby once daily. TAKE 1 TABLET DAILY potassium chloride 10 meq extended release oral tablet (20 sources) Start: 01-14-2017 take 1 tablet by mouth once daily at breakfast potassium chloride (KLOR-CON 10) 10 mEq tablet Take 1 tablet by mouth daily with breakfast. 0 01/14/2017 Active Comment on above: Take 1 tablet by kirby th daily with breakfast. Turmeric extract (4 sources) TURMERIC PO Take by mouth as needed. Active Zinc (20 sources) take 1 capsule by mouth once daily ZINC ORAL Take 1 capsule by mouth once daily. Active take 1 capsule by mouth once patrick ly ZINC ORAL Take 1 capsule by mouth once daily. 0 Active ZINC ORAL Take b y mouth. 0 Active Comment on above: Take by mouth. Take 1 capsule by mo [facility] once daily. Completed/Discontinued Medications Medication Drug Class(es) Dates Sig (Normalized) Sig (Original) betamethasone 0.5 mg/ml / calcipotriene 0.05 mg/ml topical lotion (20 sources) Corticosteroid, Vitamin D Analog Start: 10-19-2021 End: 12-08-2023 Betamethasone-Calci potriene (TACLONEX) external suspension Apply 1 application to affected area once daily. Psoriasis on back of neck 120 g 3 10/19/2021 12/08/2023 Discontinued (Course of therapy completed) Comment on above: Apply 1 application to affected area once daily. Psoriasis on back of neck cephalexin 500 mg oral capsule (4 sources) Cephalosporin Antibacterial Start: 05-19-2024 End: 05-26-2024 take 1 capsule by mouth four times daily cephALEXin (KEFLEX) 500 mg capsule Indications: Cellulitis of skin Take 1 capsule by mouth four times daily for 7 days. 28 capsule 05/19/2024 05/21/2024 Discontinued cyclobenzaprine hydrochloride 10 mg oral tablet (12 sources) Muscle Relaxant Start: 07-20-2024 End: 11-02-2024 take 1 tablet by mouth every twenty-four hours as needed cyclobenzaprine (FLEXERIL) 10 mg tablet Take 1 tablet by mouth at bedtime as needed for muscle spasm. 20 tablet 07/20/2024 11/02/2024 Discontinued ergocalciferol, vitamin D2, (VITAMIN D2 ORAL) (4 sources) ergocalciferol, vitamin D2, (VITAMIN D2 ORAL) Take by mouth. 0 Active Comment on above: Take by mouth. fexofenadine hydrochloride 180 mg oral tablet (20 sources) Histamine-1 Receptor Antagonist Start: 10-19-2021 End: 10-31-2023 take 1 tablet by mouth once daily fexofenadine (SUSAN ALLERGY) 180 mg tablet Take 1 tablet by mouth once daily. 0 10/19/2021 10/31/2023 Discontinued Comment on above: Take 1 tablet by kirby once daily. iv contrast (will be provided with radiology test) (20 sources) Start: 11-02-2024 End: 04-25-2025 inject 1 dose intravenously once iv contrast (will be provided with radiology test) Indications: Intracranial arachnoid cysts MRI Brain Inject, intravenously, once for 1 dose.No IV access, insert saline lock prior to beginning of sedation, infusion, injection of imaging exam.Discontinue saline lock post exam. If Pt. has a central line or IVAD, may access for administration according to line specific nursing protocol.Once exam is complete flush line and de-access according to line specific nursing protocol in the MR contrast administration guidelines link 1 Each 11/02/2024 04/25/2025 Discontinued Start: 11-02-2024 inject 1 dose intravenously on ce iv contrast (will be provided with radiology test) Indications: Intracranial arachnoid cysts MRI Brain Inject, intravenously, once for 1 dose.No IV access, insert saline lock prior to beginning of sedation, infusion, injection of imaging exam.Discontinue saline lock post exam. If Pt. has a central line or IVAD, may access for administration according to line specific nursing protocol.Once exam is complete flush line and de-access according to line specific nursing protocol in the MR contrast administration guidelines link 1 Each 11/02/2024 Active Start: 10-26-2024 End: 11-02-2024 inject 1 dose intravenously once iv contrast (will be provided with radiology test) Indications: Intracranial arachnoid cysts MRI Brain Inject, intravenously, once for 1 dose.No IV access, insert saline lock prior to beginning of sedation, infusion, injection of imaging exam.Discontinue saline lock post exam. If Pt. has a central line or IVAD, may access for administration according to line specific nursing protocol.Once exam is complete flush line and de-access according to line specific nursing protocol in the MR contrast administration guidelines link 1 Each 10/26/2024 11/02/2024 Discontinued Start: 10-26-2024 inject 1 dose intravenously on ce iv contrast (will be provided with radiology test) Indications: Intracranial arachnoid cysts MRI Brain Inject, intravenously, once for 1 dose.No IV access, insert saline lock prior to beginning of sedation, infusion, injection of imaging exam.Discontinue saline lock post exam. If Pt. has a central line or IVAD, may access for administration according to line specific nursing protocol.Once exam is complete flush line and de-access according to line specific nursing protocol in the MR contrast administration guidelines link 1 Each 10/26/2024 Active Start: 10-24-2022 End: 04-08-2023 inject 1 dose intravenously once iv contrast (will be provided with radiology test) Indications: Intracranial arachnoid cysts MRI Brain Inject, intravenously, once for 1 dose.No IV access, insert saline lock prior to beginning of sedation, infusion, injection of imaging exam.Discontinue saline lock post exam. If Pt. has a central line or IVAD, may access for administration according to line specific nursing protocol.Once exam is complete flush line and de-access according to line specific nursing protocol in the MR contrast administration guidelines link 1 Each 0 10/24/2022 04/08/2023 Discontinued Start: 10-24-2022 inject 1 dose intravenously on ce iv contrast (will be provided with radiology test) Indications: Intracranial arachnoid cysts MRI Brain Inject, intravenously, once for 1 dose.No IV access, insert saline lock prior to beginning of sedation, infusion, injection of imaging exam.Discontinue saline lock post exam. If Pt. has a central line or IVAD, may access for administration according to line specific nursing protocol.Once exam is complete flush line and de-access according to line specific nursing protocol in the MR contrast administration guidelines link 1 Each 0 10/24/2022 Active Start: 10-25-2021 End: 10-09-2022 inject 1 dose intravenously once iv contrast (will be provided with radiology test) Indications: Intracranial arachnoid cysts , Cerebral cysts MRI Brain Inject, intravenously, once for 1 dose.No IV access, insert saline lock prior to beginning of sedation, infusion, injection of imaging exam.Discontinue saline lock post exam. If Pt. has a central line or IVAD, may access for administration according to line specific nursing protocol.Once exam is complete flush line and de-access according to line specific nursing protocol in the MR contrast administration guidelines link 1 Each 0 10/25/2021 10/09/2022 Discontinued Start: 10-25-2021 inject 1 dose intravenously on ce iv contrast (will be provided with radiology test) Indications: Intracranial arachnoid cysts , Cerebral cysts MRI Brain Inject, intravenously, once for 1 dose.No IV access, insert saline lock prior to beginning of sedation, infusion, injection of imaging exam.Discontinue saline lock post exam. If Pt. has a central line or IVAD, may access for administration according to line specific nursing protocol.Once exam is complete flush line and de-access according to line specific nursing protocol in the MR contrast administration guidelines link 1 Each 0 10/25/2021 Active Comment on above: MRI Brain Inject, in travenously, once for 1 dose.No IV access, insert saline lock prior to beginning of sedation, infusion, injection of imaging exam.Discontinue saline lock post exam. If Pt. has a central line or IVAD, may access for administration according to line specific nursing protocol.Once exam is complete flush line and de-access according to line specific nursing protocol in the MR contrast administration guidelines link traMADol hydrochloride 50 mg oral tablet (1 source) Opioid Agonist Start: End: take 1 tablet by mouth every four hours as needed for pain traMADol (ULTRAM) 50 mg tablet Indications: Postoperative pain Take 1 tablet by mouth every 4 hours as needed for pain. 15 tablet 0 03/04/2023 04/08/2023 Discontinued Comment on above: Take 1 tablet by kirby th every 4 hours as needed for pain. Problems Active Problems Problem Classification Problem Date Documented Date Episodic/Chronic Abdominal pain (20 sources) Abdominal pain; Translations: [Unspecified abdominal pain] Onset: 10-19-2018 Resolved: 11-20-2018 11-20-2018 Episodic Allergic reactions (1 source) Contact dermatitis due to poison marta; Translations: [Allergic contact dermatitis due to plants, except food] 05-19-2024 Episodic Benign neoplasm of uterus (2 sources) Submucous leiomyoma of uterus; Translations: [Submucous leiomyoma of uterus] Onset: 04-25-2025 04-25-2025 Episodic Diabetes mellitus without complication (1 source) Hyperglycemia; Translations: [Hyperglycemia, unspecified] Episodic Esophageal disorders (20 sources) Gastroesophageal reflux disease; Translations: [Gastro-esophageal reflux disease without esophagitis] Onset: 10-27-2013 10-27-2013 Chronic Essential hypertension (20 sources) Essential hypertension; Translations: [Essential (primary) hypertension] Onset: 09-16-2016 Chronic Menstrual disorders (4 sources) Mid-cycle bleeding; Translations: [Ovulation bleeding] Onset: 03-14-2025 Chronic Other ear and sense organ disorders (1 source) Hearing loss of right ear; Translations: [Unspecified hearing loss, right ear] 04-28-2024 Chronic Other female genital disorders (10 sources) Abnormal uterine bleeding; Translations: [Other specified abnormal uterine and vaginal bleeding] Chronic Other female genital disorders (2 sources) Abnormal uterine and vaginal bleeding, unspecified; Translations: [Abnormal uterine bleeding] Onset: 03-14-2025 Chronic Other injuries and conditions due to external causes (1 source) Injury of head; Translations: [Unspecified injury of head, initial encounter] 09-09-2024 Episodic Other lower respiratory disease (2 sources) Cough; Translations: [Acute cough] 08-16-2024 Episodic Other nervous system disorders (20 sources) Cerebral cyst; Translations: [Cerebral cysts] Onset: 03-19-2017 10-17-2020 Chronic Other nervous system disorders (20 sources) Cerebral arachnoid cyst; Translations: [Cerebral cysts] Onset: 06-24-2019 06-24-2019 Chronic Other nervous system disorders (4 sources) Carpal tunnel syndrome of right wrist; Translations: [Carpal tunnel syndrome, right upper limb] Chronic Other nervous system disorders (1 source) Cerebral cysts; Translations: [Intracranial arachnoid cysts] Onset: 06-24-2019 Chronic Other nervous system disorders (2 sources) Pain in limb - multiple; Translations: [Paresthesia of skin] Episodic Other nervous system disorders (1 source) Paresthesia; Translations: [Paresthesia of skin] Episodic Other nervous system disorders (1 source) Other acute postprocedural pain; Translations: [Postoperative pain] Onset: 03-04-2023 Episodic Other non-traumatic joint disorders (1 source) Pain in right knee; Translations: [Pain in joint, lower leg] 04-28-2024 Episodic Other nutritional; endocrine; and metabolic disorders (20 sources) Obese class II; Translations: [Obesity, unspecified] Onset: 02-20-2023 Chronic Other nutritional; endocrine; and metabolic disorders (1 source) Overweight; Translations: [Overweight] 04-29-2025 Episodic Other screening for suspected conditions (not mental disorders or infectious disease) (13 sources) Patient encounter status; Translations: [Encounter for screening for malignant neoplasm of cervix] Onset: 08-13-2024 Episodic Other skin disorders (1 source) Eruption; Translations: [Rash and other nonspecific skin eruption] 06-03-2024 Episodic Other upper respiratory disease (1 source) Seasonal allergic rhinitis; Translations: [Other seasonal allergic rhinitis] Chronic Other upper respiratory disease (1 source) Congestion of nasal sinus; Translations: [Nasal congestion] 04-08-2023 Episodic Other upper respiratory infections (4 sources) Pharyngitis; Translations: [Acute pharyngitis, unspecified] 12-01-2023 Episodic Otitis media and related conditions (1 source) Finding of fluid behind tympanic membrane; Translations: [Unspecified nonsuppurative otitis media, right ear] 12-08-2023 Episodic Residual codes; unclassified (1 source) Past history of procedure; Translations: [Personal history of other specified conditions] Episodic Residual codes; unclassified (1 source) Pain; Translations: [Pain, unspecified] Episodic Skin and subcutaneous tissue infections (1 source) Cellulitis of skin; Translations: [Cellulitis, unspecified] 05-19-2024 Episodic Spondylosis; intervertebral disc disorders; other back problems (2 sources) Acute low back pain; Translations: [Acute left-sided low back pain without sciatica] 07-20-2024 Episodic Unclassified (1 source) Patient encounter status 03-14-2025 Unclassified (1 source) Obesity, Class II, BMI 35-39.9; Translations: [Obesity, Class II, BMI 35-39.9] Onset: 02-20-2023 Unclassified (1 source) Acute cough; Translations: [Acute cough] Onset: 08-16-2024 Viral infection (1 source) Acute viral disease; Translations: [Viral infection, unspecified] 12-01-2023 Episodic Past or Other Problems Problem Classification Problem Date Documented Da te Episodic/Chronic Anal and rectal conditions (20 sources) Anal fissure; Translations: [Anal fissure, unspecified] Onset: 01-04-2019 01-04-2019 Episodic Biliary tract disease (20 sources) Biliary colic; Translations: [Calculus of bile duct without cholangitis or cholecystitis without obstruction] Onset: 03-16-2017 Resolved: 04-07-2017 04-07-2017 Episodic Gastritis and duodenitis (20 sources) Gastritis; Translations: [Gastritis, unspecified, without bleeding] Onset: 10-19-2018 11-02-2018 Episodic Genitourinary symptoms and ill-defined conditions (20 sources) Urinary incontinence; Translations: [Unspecified urinary incontinence] Onset: 10-06-2006 Resolved: 03-10-2013 03-10-2013 Chronic Other connective tissue disease (20 sources) Muscle pain; Translations: [Myalgia, other site] Onset: 11-20-2018 11-20-2018 Episodic Other gastrointestinal disorders (20 sources) Diarrhea; Translations: [Diarrhea, unspecified] Onset: 10-19-2018 11-02-2018 Episodic Other injuries and conditions due to external causes (1 source) Encounter for examination and observation following other accident; Translations: [Encounter for examination and observation following other accident] Onset: 10-18-2024 Episodic Results Test Name Value Interpretation Reference Range Facility [facility] 04-28-2025 CNOV Office Visit ([facility] ) NORMA ROMERO ([id number]) 1970 F Date Time Provider Department 04/28/25 3:40 PM OLIVERIO WILL During your visit today, we recorded the following information about you: Pulse Blood pressure Weight Height 94/minute 110/74 103 kg 1.626 m Oliverio Will MD 04/29/2025 5:27 PM Signed Subjective Norma Romero is a 54-year-old female with a history of GERD, HTN, and obesity, presenting for preoperative evaluation for an upcoming hysteroscopy, DANDC, and fibroid removal. Preoperative Evaluation: - Scheduled for hysteroscopy, DANDC, and fibroid removal via laparoscope on 06/06. - No recent cardiac evaluations since a normal stress test in 2018. - Denies current chest pain or other cardiac symptoms. - Well-controlled HTN. - Denies smoking or diabetes. - Engages in regular physical activity, including chores and yard work. GERD: - Managed with Protonix; experiences flare-ups if doses are missed. - Believes GERD was the reason for the stress test in 2018. - History of cholecystectomy. Obesity: - Weight fluctuates; Norma has tried various weight loss methods including Noom and dietary changes with limited success. - Reports constipation with high-protein diets. - Prefers spinach over iceberg lettuce due to digestive issues. - Allergic to vinegar; uses ranch dressing or cottage cheese on salads. Gastrointestinal: (+) acid reflux, (+) constipation Objective Blood pressure 110/74, pulse 94, height 162.6 cm (5' 4), weight 103 kg (227 lb 1.2 oz), last menstrual period 04/08/2025, SpO2 99%. General: Well-appearing. Imaging: (2018) Nuclear Stress Test: Normal results. Assessment AND Plan 1. Abnormal uterine bleeding (N93.9) 2. Preop general physical exam (Z01.818) - Reviewed normal nuclear stress test from 2018; no cardiac symptoms since. - No significant cardiac risk factors aside from well-controlled hypertension and overweight status. - No contraindications to proceeding with scheduled hysteroscopy, DANDC, and fibroid removal on Friday, the . - Discussed standard surgical risks; advised early postoperative mobilization to reduce risk of DVT. 3. Essential (primary) hypertension (I10) - Well-controlled. - Continue current management. 4. Gastroesophageal reflux disease without esophagitis (K21.9) - Symptoms well managed with Protonix; advised to continue as prescribed. 5. Overweight (E66.3) - Discussed challenges with weight loss, including prior attempts with Noom and dietary modifications. - Advised moderate caloric deficit (200-300 kcal/day) and increased physical activity, emphasizing resistance training for metabolic benefits. - Recommended dietary adjustments: reduce bread, pasta, and rice; incorporate lean protein and healthy fats (e.g., avocado); use low-fat cottage cheese or Pakistani yogurt as salad dressing alternatives. Recording using Studio SBV software for draft documentation of the visit was discussed with the patient/authorized leasing representative; all questions welcomed and answered. Patient/authorized leasing representative agreed to proceed Oliverio Will MD Allergies As of Date: 04/28/2025 Noted Allergy Reaction KEFLEX (CEPHALEXIN) 05/21/2024 14 - Other: See Comments Comments: Racing heartbeat DOTAREM (GADOTERATE MEGLUMINE) 10/19/2021 2 - Rash POLLEN 07/19/2009 3 - Cough RAGWEED POLLEN 11/24/2017 9 - Itching Comments: Eye itching VALTREX (VALACYCLOVIR) 10/10/2017 2 - Rash DUST 09/03/2005 5 - Intolerance Date Reviewed: 04/28/2025 Reviewed by: Dominic Murray LPN - Fully Assessed Reason for Visit: Follow Up [171] Primary Visit Diagnosis:Abnormal uterine bleeding [N93.9] Other Visit Diagnoses:Preop general physical exam [Z01.818] Essential (primary) hypertension [I10] Gastroesophageal reflux disease without esophagitis [K21.9] Overweight [E66.3] Prescriptions as of 04/29/2025 - losartan (COZAAR) 25 mg tablet TAKE 1 TABLET EVERY AFTERNOON - TURMERIC PO Take by mouth as needed. - norethindrone (AYGESTIN) 5 mg tablet 1 tab 3x/day until bleeding stops. 1 tab 2x/day x 2 days. 1 tab daily x 5 days - albuterol HFA (PROVENTIL HFA, VENTOLIN HFA) 90 mcg/actuation inhaler Inhale 2 Puffs as instructed every 6 hours as needed for wheezing/shortness of breath. - pantoprazole DR (PROTONIX) 40 mg tablet take 1 tablet daily - hydroCHLOROthiazide 25 mg tablet take 1 tablet daily - elderberry fruit (ELDERBERRY ORAL) Take 1 tablet by mouth once daily. - fluticasone (FLONASE) 50 mcg/actuation nasal spray Use 2 Sprays in each nostril once daily. - cholecalciferol (VITAMIN D3) 50 mcg (2,000 unit) tablet Take 2,000 Units by mouth once daily. - ZINC ORAL Take 1 capsule by mouth once daily. - ascorbic acid, vitamin C, (VITAMIN C) 250 mg tablet Take 250 mg by mouth once daily. - multivitamin tablet Take 1 tablet by mouth (more content not included)... Normal [facility] 04-28-2025 [facility] Telephone (JOHN) NORMA ROMERO ([id number]) 1970 F Date Time Provider Department 04/28/25 OLIVERIO WILL During your visit today, we recorded the following information about you: Dominic Murray LPN 04/28/2025 10:16 AM Signed Received h and p site technician from [facility]. Placed in provider's inbox for review. Route to MA scanning Allergies As of Date: 04/28/2025 Noted Allergy Reaction KEFLEX (CEPHALEXIN) 05/21/2024 14 - Other: See Comments Comments: Racing heartbeat DOTAREM (GADOTERATE MEGLUMINE) 10/19/2021 2 - Rash POLLEN 07/19/2009 3 - Cough RAGWEED POLLEN 11/24/2017 9 - Itching Comments: Eye itching VALTREX (VALACYCLOVIR) 10/10/2017 2 - Rash DUST 09/03/2005 5 - Intolerance Date Reviewed: 04/25/2025 Reviewed by: Nahomy Polanco MA - Fully Assessed Reason for Visit: Received Outside Medical Records [[id number]] Cmt: [facility] VARNISH MELTER Prescriptions as of 04/28/2025 - losartan (COZAAR) 25 mg tablet TAKE 1 TABLET EVERY AFTERNOON - TURMERIC PO Take by mouth as needed. - norethindrone (AYGESTIN) 5 mg tablet 1 tab 3x/day until bleeding stops. 1 tab 2x/day x 2 days. 1 tab daily x 5 days - albuterol HFA (PROVENTIL HFA, VENTOLIN HFA) 90 mcg/actuation inhaler Inhale 2 Puffs as instructed every 6 hours as needed for wheezing/shortness of breath. - pantoprazole DR (PROTONIX) 40 mg tablet take 1 tablet daily - hydroCHLOROthiazide 25 mg tablet take 1 tablet daily - elderberry fruit (ELDERBERRY ORAL) Take 1 tablet by mouth once daily. - fluticasone (FLONASE) 50 mcg/actuation nasal spray Use 2 Sprays in each nostril once daily. - cholecalciferol (VITAMIN D3) 50 mcg (2,000 unit) tablet Take 2,000 Units by mouth once daily. - ZINC ORAL Take 1 capsule by mouth once daily. - ascorbic acid, vitamin C, (VITAMIN C) 250 mg tablet Take 250 mg by mouth once daily. - multivitamin tablet Take 1 tablet by mouth once daily. - potassium chloride (KLOR-CON 10) 10 mEq tablet Take 1 tablet by mouth daily with breakfast. Problem List As Of Date 04/28/2025 Noted Resolved Unspecified urinary incontinence [R32] 10/06/2006 03/10/2013 GERD (gastroesophageal reflux disease) [K21.9] 10/27/2013 Essential hypertension [I10] 09/16/2016 Biliary colic [K80.50] 03/16/2017 04/07/2017 Thickening of wall of gallbladder [K82.8] 03/16/2017 04/07/2017 Cerebral cysts [G93.0] 03/19/2017 Diarrhea [R19.7] 10/19/2018 Abdominal pain [R10.9] 10/19/2018 11/20/2018 Gastritis [K29.70] 10/19/2018 Pain of paraspinal muscle [M79.18] 11/20/2018 Anal fissure [K60.2] 01/04/2019 Intracranial arachnoid cysts [G93.0] 06/24/2019 Obesity, Class II, BMI 35-39.9 [E66.812] 02/20/2023 Encounter Status:Closed by DOMINIC MURRAY on 04/28/25 [facility] H AND P Exam - OB/GYNon 07-3 H&P Exam - VARNISH MELTER [facility] Medical Records Department [address] [place] [address] H P Exam - VARNISH MELTER 04/27/25 1717 MR#: [id number] Acct: [id number] Name: NORMA ROMERO Rep #: [id number] : 1970 54 From: Flavia Abad MD PCP: Dr. Shawn Will MD Status:PRE [facility] Location: [facility] History and Physical Date of Admission: 05/06/25 Expand All Collapse All Pre-Op History and Physical HPI: The patient is a 54 year old female presenting for discussion regarding AUB, submucosal fibroid. pre-operative visit. She is scheduled for Hysteroscopy D C and myomectomy, possible polypectomy with symphion, for AUB, submucosal fibroid on 05/06/25. Procedure discussed along with risks, benefits and complications. Other alternatives discussed for management. Consent form signed? Yes. PAST MEDICAL HISTORY PAST MEDICAL HISTORY Diagnosis Date ??? Anal fissure 01/04/2019 ??? 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 ??? GERD (gastroesophageal reflux disease) 10/27/2013 ??? Hypertension ??? Psoriasis ??? Shingles outbreak 09/2017 had for 3.5 weeks PAST SURGICAL HISTORY PAST SURGICAL HISTORY Procedure Laterality Date ??? CHOLECYSTECTOMY 02/2017 ??? COLONOSCOPY AND BIOPSY 11/02/2018 ??? EGD x 2 ??? EGD BIOPSY SING OR MULT 11/02/2018 ??? ESSURE 03/12/2012 ??? LAPROSCOPIC REPAIR UMBILICAL HERNIA 2016 ??? REVISE MEDIAN N/CARPAL TUNNEL SURG Right ??? SKIN BX, 1 LESION 11/1997 scar tissue r buttocks CURRENT MEDICATIONS Current Outpatient Medications Medication Sig Dispense Refill ??? norethindrone (AYGESTIN) 5 mg tablet 1 tab 3x/day until bleeding stops. 1 tab 2x/day x 2 days. 1 tab daily x 5 days 35 tablet 0 ??? albuterol HFA (PROVENTIL HFA, VENTOLIN HFA) 90 mcg/actuation inhaler Inhale 2 Puffs as instructed every 6 hours as needed for wheezing/shortness of breath. 8 g 0 ??? pantoprazole DR (PROTONIX) 40 mg tablet take 1 tablet daily 90 tablet 3 ??? hydroCHLOROthiazide 25 mg tablet take 1 tablet daily 90 tablet 3 ??? losartan (COZAAR) 25 mg tablet Take 1 tablet by mouth every afternoon. 90 tablet 3 ??? elderberry fruit (ELDERBERRY ORAL) Take 1 tablet by mouth once daily. ??? fluticasone (FLONASE) 50 mcg/actuation nasal spray Use 2 Sprays in each nostril once daily. 18.2 mL 3 ??? cholecalciferol (VITAMIN D3) 50 mcg (2,000 unit) tablet Take 2,000 Units by mouth once daily. ??? ZINC ORAL Take 1 capsule by mouth once daily. ??? ascorbic acid, vitamin C, (VITAMIN C) 250 mg tablet Take 250 mg by mouth once daily. ??? multivitamin tablet Take 1 tablet by mouth once daily. ??? potassium chloride (KLOR-CON 10) 10 mEq tablet Take 1 tablet by mouth daily with breakfast. 0 ??? TURMERIC PO Take by mouth as needed. No current facility-administered medications for this visit. ALLERGIES: Keflex [Cephalexin], Dotarem [Gadoterate Meglumine], Pollen, Ragweed Pollen, Valtrex [Valacyclovir], and Dust PERSONAL HISTORY: SOCIAL HISTORY Social History Tobacco Use ??? Smoking status: Never ??? Smokeless tobacco: Never Vaping Use ??? Vaping status: Never Used Substance Use Topics ??? Alcohol use: Yes Comment: 1-4 drinks per weekend ??? Drug use: No FAMILY HISTORY: FAMILY HISTORY FAMILY HISTORY Problem Relation Age of Onset ??? Diabetes Mother ??? Heart Mother hx of MD ??? Hypertension Mother ??? other (endometrosis) Mother Hysterectomy ??? Hypertension Father ??? Prostate Cancer Father ??? Hypertension Brother ??? Diabetes Brother ??? Heart Maternal Grandmother ??? Colon Cancer Paternal Grandmother 74 ??? Cancer Paternal Grandfather prostate ??? other (Other) Paternal Grandfather No breast/media center assistant cancer ??? No Known Problems Daughter ??? No Known Problems Son ??? other (pre cancer) Paternal Aunt had to have hysterectomy ??? Anesthesia Problems No Family History REVIEW OF SYMPTOMS: negative except as noted above PHYSICAL EXAMINATION: VITALS: Blood pressure 116/72, height 162.6 cm (5' 4), weight 104.8 kg (231 lb), last menstrual period 04/08/2025. GENERAL: The patient is well nourished, well hydrated in no acute distress. , The patient is oriented to time, place, and person. NECK: full range of motion LUNGS: Clear to auscultation bilaterally. no wheezes, rhonchi or rales HEART: Regular rate and rhythm, Normal heart sounds, and No murmurs or gallops IMPRESSION: 54yo with AUB and submucosal fibroid PLAN: Hysteroscopy, D C, myomectomy with symphion Pt has been counseled on risks/benefits and alternatives of surgery including but not limited to anesthesia, bleeding, infection, uterine perforation with subsequent injury to pelvic structures including bowel, bladder, ureters and vessels. Pt wishes to proceed with surgery at this time. I have reviewed and updated past medical and surgical history, medications and (more content not included)... Normal [facility] CNOVon 04-25-2025 CNOV Office Visit (OBGYWM ) NORMA ROMERO ([id number]) 1970 F Date Time Provider Department 04/25/25 9:40 AM FLAVIA MARCELO OBGYWPauline During your visit today, we recorded the following information about you: Blood pressure Weight Height Last Period 116/72 104.8 kg 1.626 m 04/08/25 Flavia Marcelo MD 04/25/2025 10:00 AM Signed Pre-Op History and Physical HPI: The patient is a 54 year old female presenting for discussion regarding AUB, submucosal fibroid. pre-operative visit. She is scheduled for Hysteroscopy DANDC and myomectomy, possible polypectomy with symphion, for AUB, submucosal fibroid on 05/06/25. Procedure discussed along with risks, benefits and complications. Other alternatives discussed for management. Consent form signed? Yes. 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 GERD (gastroesophageal reflux disease) 10/27/2013 Hypertension Psoriasis Shingles outbreak 09/2017 had for 3.5 weeks PAST SURGICAL HISTORY Procedure Laterality Date CHOLECYSTECTOMY 02/2017 COLONOSCOPY AND BIOPSY 11/02/2018 EGD x 2 EGD BIOPSY SING OR MULT 11/02/2018 ESSURE 03/12/2012 LAPROSCOPIC REPAIR UMBILICAL HERNIA 2017 REVISE MEDIAN N/CARPAL TUNNEL SURG Right SKIN BX, 1 LESION 11/1997 scar tissue r buttocks Current Outpatient Medications Medication Sig Dispense Refill norethindrone (AYGESTIN) 5 mg tablet 1 tab 3x/day until bleeding stops. 1 tab 2x/day x 2 days. 1 tab daily x 5 days 35 tablet 0 albuterol HFA (PROVENTIL HFA, VENTOLIN HFA) 90 mcg/actuation inhaler Inhale 2 Puffs as instructed every 6 hours as needed for wheezing/shortness of breath. [address] (PROTONIX) 40 mg tablet take 1 tablet daily 90 tablet 3 hydroCHLOROthiazide 25 mg tablet take 1 tablet daily 90 tablet 3 losartan (COZAAR) 25 mg tablet Take 1 tablet by mouth every afternoon. 90 tablet 3 elderberry fruit (ELDERBERRY ORAL) Take 1 tablet by mouth once daily. fluticasone (FLONASE) 50 mcg/actuation nasal spray Use 2 Sprays in each nostril once daily. 18.2 mL 3 cholecalciferol (VITAMIN D3) 50 mcg (2,000 unit) tablet Take 2,000 Units by mouth once daily. ZINC ORAL Take 1 capsule by mouth once daily. ascorbic acid, vitamin C, (VITAMIN C) 250 mg tablet Take 250 mg by mouth once daily. multivitamin tablet Take 1 tablet by mouth once daily. potassium chloride (KLOR-CON 10) 10 mEq tablet Take 1 tablet by mouth daily with breakfast. 0 TURMERIC PO Take by mouth as needed. No current facility-administered medications for this visit. ALLERGIES: Keflex [Cephalexin], Dotarem [Gadoterate Meglumine], Pollen, Ragweed Pollen, Valtrex [Valacyclovir], and Dust PERSONAL HISTORY: Social History Tobacco Use Smoking status: Never Smokeless tobacco: Never Vaping Use Vaping status: Never Used Substance Use Topics Alcohol use: Yes Comment: 1-4 drinks per weekend Drug use: No FAMILY HISTORY: FAMILY HISTORY Problem Relation Age of Onset Diabetes Mother Heart Mother hx of MD Hypertension Mother other (endometrosis) Mother Hysterectomy Hypertension Father Prostate Cancer Father Hypertension Brother Diabetes Brother Heart Maternal Grandmother Colon Cancer Paternal Grandmother 74 Cancer Paternal Grandfather prostate other (Other) Paternal Grandfather No breast/media center assistant cancer No Known Problems Daughter No Known Problems Son other (pre cancer) Paternal Aunt had to have hysterectomy Anesthesia Problems No Family History REVIEW OF SYMPTOMS: negative except as noted above PHYSICAL EXAMINATION: VITALS: Blood pressure 116/72, height 162.6 cm (5' 4), weight 104.8 kg (231 lb), last menstrual period 04/08/2025. GENERAL: The patient is well nourished, well hydrated in no acute distress. , The patient is oriented to time, place, and person. NECK: full range of motion LUNGS: Clear to auscultation bilaterally. no wheezes, rhonchi or rales HEART: Regular rate and rhythm, Normal heart sounds, and No murmurs or gallops IMPRESSION: 54yo with AUB and submucosal fibroid PLAN: Hysteroscopy, DANDC, myomectomy with symphion Pt has been counseled on risks/benefits and alternatives of surgery including but not limited to anesthesia, bleeding, infection, uterine perforation with subsequent injury to pelvic structures including bowel, bladder, ureters and vessels. Pt wishes to proceed with surgery at this time. I have reviewed and updated past medical and surgical history, medications and allergies Flavia Anthony MD Allergies As of Date: 04/25/2025 Noted Allergy Reaction KEFLEX (CEPHALEXIN) 05/21/2024 14 - Other: See Comments Comments: Racing heartbeat DOTAREM (GADOTERATE MEGLUMINE) 10/19/2021 2 - Rash POLLEN 07/19/2009 3 - Cough RAGWEED POLLEN 11/24/2017 9 - Itching Comments: Eye itching VALTREX (VALACYCLOVIR) (more content not included)... Normal [facility] HISTORY PHYSICALon HISTORY PHYSICAL HNO ID: [id number] Author: FLAVIA MARCELO MD Service: ? Author Type: Physician Type: H&P Filed: 04/25/2025 10:00 Note Text: Pre-Op History and Physical HPI: The patient is a 54 year old female presenting for discussion regarding AUB, submucosal fibroid. pre-operative visit. She is scheduled for Hysteroscopy DANNM and myomectomy, possible polypectomy with symphion, for AUB, submucosal fibroid on 05/06/25. Procedure discussed along with risks, benefits and complications. Other alternatives discussed for management. Consent form signed? Yes. 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 GERD (gastroesophageal reflux disease) 10/27/2013 Hypertension Psoriasis Shingles outbreak 09/2017 had for 3.5 weeks PAST SURGICAL HISTORY Procedure Laterality Date CHOLECYSTECTOMY 02/2017 COLONOSCOPY AND BIOPSY 11/02/2018 EGD x 2 EGD BIOPSY SING OR MULT 11/02/2018 ESSURE 03/12/2012 LAPROSCOPIC REPAIR UMBILICAL HERNIA 2017 REVISE MEDIAN N/CARPAL TUNNEL SURG Right SKIN BX, 1 LESION 11/1997 scar tissue r buttocks Current Outpatient Medications Medication Sig Dispense Refill norethindrone (AYGESTIN) 5 mg tablet 1 tab 3x/day until bleeding stops. 1 tab 2x/day x 2 days. 1 tab daily x 5 days 35 tablet 0 albuterol HFA (PROVENTIL HFA, VENTOLIN HFA) 90 mcg/actuation inhaler Inhale 2 Puffs as instructed every 6 hours as needed for wheezing/shortness of breath. [address] (PROTONIX) 40 mg tablet take 1 tablet daily 90 tablet 3 hydroCHLOROthiazide 25 mg tablet take 1 tablet daily 90 tablet 3 losartan (COZAAR) 25 mg tablet Take 1 tablet by mouth every afternoon. 90 tablet 3 elderberry fruit (ELDERBERRY ORAL) Take 1 tablet by mouth once daily. fluticasone (FLONASE) 50 mcg/actuation nasal spray Use 2 Sprays in each nostril once daily. 18.2 mL 3 cholecalciferol (VITAMIN D3) 50 mcg (2,000 unit) tablet Take 2,000 Units by mouth once daily. ZINC ORAL Take 1 capsule by mouth once daily. ascorbic acid, vitamin C, (VITAMIN C) 250 mg tablet Take 250 mg by mouth once daily. multivitamin tablet Take 1 tablet by mouth once daily. potassium chloride (KLOR-CON 10) 10 mEq tablet Take 1 tablet by mouth daily with breakfast. 0 TURMERIC PO Take by mouth as needed. No current facility-administered medications for this visit. ALLERGIES: Keflex [Cephalexin], Dotarem [Gadoterate Meglumine], Pollen, Ragweed Pollen, Valtrex [Valacyclovir], and Dust PERSONAL HISTORY: Social History Tobacco Use Smoking status: Never Smokeless tobacco: Never Vaping Use Vaping status: Never Used Substance Use Topics Alcohol use: Yes Comment: 1-4 drinks per weekend Drug use: No FAMILY HISTORY: FAMILY HISTORY Problem Relation Age of Onset Diabetes Mother Heart Mother hx of MD Hypertension Mother other (endometrosis) Mother Hysterectomy Hypertension Father Prostate Cancer Father Hypertension Brother Diabetes Brother Heart Maternal Grandmother Colon Cancer Paternal Grandmother 74 Cancer Paternal Grandfather prostate other (Other) Paternal Grandfather No breast/media center assistant cancer No Known Problems Daughter No Known Problems Son other (pre cancer) Paternal Aunt had to have hysterectomy Anesthesia Problems No Family History REVIEW OF SYMPTOMS: negative except as noted above PHYSICAL EXAMINATION: VITALS: Blood pressure 116/72, height 162.6 cm (5' 4), weight 104.8 kg (231 lb), last menstrual period 04/08/2025. GENERAL: The patient is well nourished, well hydrated in no acute distress. , The patient is oriented to time, place, and person. NECK: full range of motion LUNGS: Clear to auscultation bilaterally. no wheezes, rhonchi or rales HEART: Regular rate and rhythm, Normal heart sounds, and No murmurs or gallops IMPRESSION: 54yo with AUB and submucosal fibroid PLAN: Hysteroscopy, DANDC, myomectomy with symphion Pt has been counseled on risks/benefits and alternatives of surgery including but not limited to anesthesia, bleeding, infection, uterine perforation with subsequent injury to pelvic structures including bowel, bladder, ureters and vessels. Pt wishes to proceed with surgery at this time. I have reviewed and updated past medical and surgical history, medications and allergies Flavia Anthony MD Normal [facility] US Pelvison 03-28-2025 Indication Abnormal uterine bleeding Impression 1. Normal appearing anteverted uterus that measures 81 mm x 46 mm x 47 mm. 2. There is a 10 mm x 8 mm x 8 mm submucosal fibroid noted 3. Both ovaries are visualized and appear normal. 4. No adnexal masses were observed. 5. There is no free fluid visualized in the peritoneal cavity. Recommendations Consider hysteroscopic evaluation and management of intracavitary lesion History [employer] History Other: endometrial biopsy 03-21-2025 Menstrual History LMP on 02/25/2025. Day of cycle 32 Method Transabdominal, transvaginal, 3D ultrasound examination, Color Doppler examination Uterus Uterus: Visualized Uterus position: anteverted Description of uterine malformations: normally shaped Myometrium: heterogeneous Endometrium: possible fibroid Cervix details: normal Uterus length 81 mm Uterus width 47 mm Uterus height 46 mm Uterus Vol 90.8 cm Endometrial thickness, total 5.5 mm Fibroids: Fibroids identified Uterine fibroid D1 10 mm Uterine fibroid D2 8 mm Uterine fibroid D3 8 mm Uterine fibroid mean 8.7 mm Uterine fibroid vol 0.335 cm Uterine fibroids findings: submucosal Right Ovary Rt ovary: Suboptimal Outline: smooth Rt ovary morphology: normal Rt ovary D1 25 mm Rt ovary D2 17 mm Rt ovary D3 11 mm Rt ovary Vol 2.6 cm Left Ovary Lt ovary: Not visualized Cul de Sac Visualized. no free fluid visualized Performed By: Crystal Duran RDMS Read By: Parvin Francois M.D. MATERNAL MEDICINE [facility] Radiology Study observation (narrative) [facility] James 03-22-2025 CNPN Telephone (OBGYWM) NORMA ROMERO ([id number]) 1970 F Date Time Provider Department 03/22/25 ISELA DORMAN During your visit today, we recorded the following information about you: Trudi Smiley RN 03/22/2025 9:06 AM Signed Pt was seen in office on 03/21/25 for EMB for abnormal uterine bleeding. Pt started bleeding yesterday-did pill at noon and dinner time. Has since stopped bleeding. Pt is asking if she should do 3 pills today or just take 2 times like she did yesterday (took this AM) and is it normal to feel slightly light headed/Pt did vomit once this AM after taking pills. Pt states she is staying hydrated, but it is possible she needs to drink more. Advised Pt to continue drinking plenty of fluids-especially with this heat and if she begins to experience increased light headedness/dizziness to let our office know. Informed her message would be sent to MARSHA for further guidance and we would call her back. SHAAN Adame Jessica, APRN.CNM 03/22/2025 11:03 AM Signed I would recommend the three times a day at least for the first 5 days then go to 2 times a day for 5 days then once a day till she returns from her trip. Thanks, ALANA Colon Tara, RN 03/22/2025 1:17 PM Signed Spoke to MARSHA to clarify- Pt will be advised to take 2 tablets for 10 days, then 1 tablet until she returns from trip. Pt should stay hydrated, limit time in the heat/sun exposure with high temperatures at this time, and informed that MARSHA advises Pt to continue to monitor sx and notify office if continues/She does not feel the light headedness/vomiting was from the pill. Caregiverst message sent to Pt. SHAAN Adame Tara, RN 04/11/2025 1:11 PM Signed Pt calling back stating she did 2 tablets for 10 days as advised, then did 1 tablet for 8 days. States the last 3 of 8 days, just spotting. She stopped taking on Friday. On Friday evening, Pt states she started with pelvic pain (not as bad today) AND passing blood clots (a little bit bigger than a 50 cent piece)-happened on Friday and Friday, noted every time she went to the bathroom. Now today smaller clots, but still bleeding. Rating pelvic pain now 5/10. Not taking anything for the pain. Last 2 days has taken ibuprofen-helped a little, and has used ice and heat-Pt states this has helped. Advised Pt that message would be sent to [facility] re: what to do next re: bleeding. Pt is concerned and asking if this is normal after stopping Norethindrone. In the meantime, advised Pt to continue using the heat/ice since it has helped, take ibuprofen/or try tylenol to see if that may help decrease her pelvic pain, and stay hydrated. Pt denies shortness of breath, chest pain, dizziness, AND fatigue AND advised to notify office or go to ER if develops any of these sx or if bleeding increases before we call her back. SHAAN Adame Jessica, APRN.CNM 04/11/2025 3:11 PM Signed Yes, this can happen. If she is ok to continue taking it then to one tablet a day. Can continue until preop visit. ALANA Colon Jennifer, RN 04/11/2025 4:54 PM Signed Spoke with patient. She does not plan to take the Aygestin at this time. Feels that her bleeding should slow and stop soon. Would like to see what her next cycle will be like. She did not take it according to the directions originally. Aware senior master scheduler will reach out to her regarding next surgery dates. Kaci Abreu RN Allergies As of Date: 03/22/2025 Noted Allergy Reaction KEFLEX (CEPHALEXIN) 05/21/2024 14 - Other: See Comments Comments: Racing heartbeat DOTAREM (GADOTERATE MEGLUMINE) 10/19/2021 2 - Rash POLLEN 07/19/2009 3 - Cough RAGWEED POLLEN 11/24/2017 9 - Itching Comments: Eye itching VALTREX (VALACYCLOVIR) 10/10/2017 2 - Rash DUST 09/03/2005 5 - Intolerance Date Reviewed: 03/21/2025 Reviewed by: Reba Tyler MA - Fully Assessed Reason for Visit: Post EMB appointment [Other] Prescriptions as of 04/11/2025 - norethindrone (AYGESTIN) 5 mg tablet 1 tab 3x/day until bleeding stops. 1 tab 2x/day x 2 days. 1 tab daily x 5 days - iv contrast (will be provided with radiology test) MRI Brain Inject, intravenously, once for 1 dose.No IV access, insert saline lock prior to beginning of sedation, infusion, injection of imaging exam.Discontinue saline lock post exam. If Pt. has a central line or IVAD, may access for administration according to line specific nursing protocol.Once exam is complete flush line and de-access according to line specific nursing protocol in the MR contrast administration guidelines link - albuterol HFA (PROVENTIL HFA, VENTOLIN HFA) 90 mcg/actuation inhaler Inhale 2 Puffs as instructed every 6 hours as needed for wheezing/shortness of breath. - pantoprazole DR (PROTONIX) 40 mg tablet take 1 tablet daily - hydroCHLOROthiazide 25 mg (more content not included)... Normal [facility] CNOVon 03-21-2025 CNOV Office Visit (OBGYWM ) NORMA ROMERO ([id number]) 1970 F Date Time Provider Department 03/21/25 9:30 AM ISELA DORMAN OBGYWM During your visit today, we recorded the following information about you: Blood pressure Weight 120/80 103.4 kg Isela Dorman APRN.CNM 03/21/2025 10:21 AM Signed Joint Creaser offered: Patient accepts, visit chaperoned by Reba Tyler MA. Norma is a 54 year old who presents today for an endometrial biopsy for abnormal uterine bleeding. test: negative UNIVERSAL PROTOCOL / SAFETY CHECKLIST Procedure to be Performed: Endometrial Biopsy Sign In: A Moment of CARE was completed. Appropriate PPE (Personal Protective Equipment) worn by all providers involved with the procedure. Special equipment not required. Patient/Surrogate Stated/Verified: Patient name, Date of , Relevant allergies, and The intended procedure Time Out: Relevant labs, photos, and/or imaging studies have been reviewed. Intended patient and procedure match the source document(s) (e.g. consent, HANDP, associated studies [imaging, pathology]) match the intended patient and procedure. Consent obtained and matches the intended procedure. Yes. Correct side/site has been marked and visible. Medications required for this procedure are not applicable. Fire risk assessed and is not applicable. Implants: are not applicable. Sign Out: Specimens are all correctly labeled and sent. All instruments, equipment, possible retained foreign bodies are accounted for. Yes. The post-procedure plan of care has been communicated to the patient or surrogate. PROCEDURE: EXTERNAL GENITALIA: Normal in appearance without lesions VAGINA: Normal in appearance without lesions BIOPSY: Speculum placed into the vagina with excellent visualization of the cervix. Cervix cleaned with betadine. Anterior lip of cervix grasped with single toothed tenaculum. Uterus sounded to 9 cm. Pipelle inserted into the uterus without difficulty and endometrial biopsy obtained. Specimen labeled and sent to pathology. Hemostasis achieved. Procedure Summary: Patient tolerated procedure well. ASSESSMENT: abnormal uterine bleeding PLAN: Specimens labeled and sent to Pathology. Will notify patient of results in 1-2 weeks. Will start Aygestin taper as she is leaving for vacation. Will follow up after results to discuss plan of care. ALANA Colon Jessica, APRN.CNM 03/21/2025 10:04 AM Addendum Endometrial Biopsy Your provider has recommended an endometrial biopsy. For more information, My [facility] Endometrial Biopsy How do I prepare for an endometrial biopsy? You shouldn?t need to do much to prepare for an endometrial biopsy. Let your healthcare provider know what medications or supplements you take and if you have any allergies. They can let you know if you should stop taking certain medications before the biopsy. Some healthcare providers recommend taking a nonsteroidal anti-inflammatory drug (NSAID) like ibuprofen before the biopsy to help with pain. Your provider may recommend a medication to help prepare your cervix for the biopsy, often taken by mouth one and two days before the procedure. Ask your healthcare provider any questions you have before the procedure so you know exactly what to expect. Generally, an endometrial biopsy is very low-risk and safe. Take Aygestin 3 times a day for 7 days then decrease to 2 times a day for the next week and then daily till you return. Referring Provider: ISELA DORMAN [[id number]] Allergies As of Date: 03/21/2025 Noted Allergy Reaction KEFLEX (CEPHALEXIN) 05/21/2024 14 - Other: See Comments Comments: Racing heartbeat DOTAREM (GADOTERATE MEGLUMINE) 10/19/2021 2 - Rash POLLEN 07/19/2009 3 - Cough RAGWEED POLLEN 11/24/2017 9 - Itching Comments: Eye itching VALTREX (VALACYCLOVIR) 10/10/2017 2 - Rash DUST 09/03/2005 5 - Intolerance Date Reviewed: 03/21/2025 Reviewed by: Reba Tyler MA - Fully Assessed Reason for Visit: Endometrial Biopsy [7501] Primary Visit Diagnosis:Pelvic pain in female [R10.2] Other Visit Diagnosis:Abnormal uterine bleeding (AUB) [N93.9] Order(s):ENDOMETRIAL BIOPSY [0586531] Order #: [id number] SURGICAL PATHOLOGY [ZAA0692] Order #: [id number]. #:[id number] UA DIP,URINE HCG (POC) [9083751] Order #: [id number]. #:[id number] norethindrone (AYGESTIN) 5 mg tablet1 tab 3x/day until bleeding stops. 1 tab 2x/day x 2 days. 1 tab daily x 5 daysDisp: 35 tabletRfl: 0 Prescriptions as of 03/21/2025 - norethindrone (AYGESTIN) 5 mg tablet 1 tab 3x/day until bleeding stops. 1 tab 2x/day x 2 days. 1 tab daily x 5 days - iv contrast (will be provided with radiology test) MRI Brain Inject, intravenously, once for 1 dose.No IV access, insert saline lock prior to beginning of sedation, infusion, inje (more content not included)... Normal [facility] Pathology biopsy report Artemio (Tiss)on 03-21-2025 AP DISCLAIMER Normal [facility] Comment on above: Order Comment: Speci men Type: TISSUE SPECIMENOrdering Facility: [facility] Address: [address] [place] [address] Result Comment: Tiffany Art Test (LDT) Disclaimer: Performance characteristics of immunohistochemical, immunofluorescent, and chromogenic in-situ hybridization tests have been determined by the performing laboratory within [facility]'s [facility] Pathology and Laboratory Medicine Department ([facility], [facility], [facility], [facility], [facility], [facility], or [facility]) in a manner consistent with CLIA requirements. One or more of these tests may not have been cleared or approved by the FDA. RT[facility]M is regulated under CLIA as qualified to perform high-complexity testing. These tests are used for clinical purposes. These should not be regarded as investigational or for research. Positive and negative controls stain appropriately. Performed By: #### 6 6121-5 ####[facility] LABCLIA [id number] [place] [address] [place] CASE REPORT Normal [facility] Comment on above: Order Comment: Speci men Type: TISSUE SPECIMENOrdering Facility: [facility] Address: [address] [place] [address] Result Comment: Surg [facility] Pathology Report Case: [id number] Authorizing Provider: Isela Dorman APRN.CNM Collected: 03/21/2025 10:11 AM Ordering Location: OB/Gynecology Received: 03/21/2025 12:11 PM Pathologist: Elizabeth Rubi MD Specimen: Endometrium, Biopsy Performed By: #### 6 6121-5 ####[facility] LABCLIA [id number] [place] [address] [place] CLINICAL HISTORY abnormal uterine bleeding Normal [facility] Comment on above: Order Comment: Speci men Type: TISSUE SPECIMENOrdering Facility: [facility] Address: [address] [place] [address] Performed By: #### 6 6121-5 ####[facility] LABCLIA [id number] [place] [id number] [place] FINAL DIAGNOSIS Normal [facility] Comment on above: Order Comment: Speci men Type: TISSUE SPECIMENOrdering Facility: [facility] Address: [address] [place] [address] Result Comment: A. E ndometrium, Biopsy: - Secretory endometrium. at 1650 EDT Performed By: #### 6 6121-5 ####[facility] LABCLIA [id number] [place] [address] [place] FINAL PERFORMING LAB Normal [facility] Comment on above: Order Comment: Speci men Type: TISSUE SPECIMENOrdering Facility: [facility] Address: [address] [place] [address] Result Comment: Diag nostic interpretation performed at: [facility], [address] [place] [address] CLIA# [id number] Test Technician: Adriano Negron MD Performed By: #### 6 6121-5 ####[facility] LABCLIA [id number] [place] [address] [place] GROSS DESCRIPTION Normal [facility] Comment on above: Order Comment: Speci men Type: TISSUE SPECIMENOrdering Facility: [facility] Address: [address] [place] [address] Result Comment: A. E ndometrium, Biopsy Received in formalin are multiple brown, soft feathery segments of tissue admixed with mucinous material aggregating to 2.0 x 1.5 x 0.5 cm. Totally submitted in one cassette. SS March 22, 2025 12:05 AM Gross examination performed at [facility], [address] [place] [address] Performed By: #### 6 6121-5 ####[facility] LABCLIA [id number] [address] [address] [place] UA DIP,URINE HCG (POC)on Beta HCG ( test) Ql (U) Negative Negative [facility] Comment on above: Location:[facility], [address] , [place], [address] Tin Can Feeder (POCT) Internal QC [facility] Location:[facility], [address] , [place], [address] [facility] POINT OF CARE [facility] CBC W Auto Differential pane l (Bld)on 03-14-2025 Basophils (Bld) [#/Vol] 0.06 10*3/uL [facility] Basophils/100 WBC (Bld) 0.9 % [facility] Differential cell count method Nom (Bld) Auto [facility] Eosinophils (Bld) [#/Vol] 0.26 10*3/uL [facility] Eosinophils/100 WBC (Bld) 3.7 % [facility] Erythrocyte distribution width (RBC) [Ratio] 12.2 % 11.5 - 15.0 % [facility] Hematocrit (Bld) [Volume fraction] 39.7 % 36.0 - 46.0 % [facility] Hemoglobin (Bld) [Mass/Vol] 13.8 g/dL 11.5 - 15.5 g/dL [facility] Immature granulocytes (Bld) [#/Vol] [facility] Immature granulocytes/100 WBC (Bld) 0.1 % [facility] Lymphocytes (Bld) [#/Vol] 1.81 10*3/uL [facility] Lymphocytes/100 WBC (Bld) 25.7 % [facility] MCH (RBC) [Entitic mass] 33.3 pg 26.0 - 34.0 pg [facility] MCHC (RBC) [Mass/Vol] 34.8 g/dL 30.5 - 36.0 g/dL [facility] MCV (RBC) [Entitic vol] 95.9 fL 80.0 - 100.0 fL [facility] Monocytes (Bld) [#/Vol] 0.61 10*3/uL [facility] Monocytes/100 WBC (Bld) 8.7 % [facility] Neutrophils (Bld) [#/Vol] 4.29 10*3/uL [facility] Neutrophils/100 WBC (Bld) 60.9 % [facility] Nucleated RBC (Bld) [#/Vol] NINF [facility] Nucleated RBC/100 WBC (Bld) [Ratio] 0 % /100 WBC [facility] Platelet mean volume (Bld) [Entitic vol] 9.7 fL 9.0 - 12.7 fL [facility] Platelets (Bld) [#/Vol] 296 10*3/uL [facility] RBC (Bld) [#/Vol] 4.14 10*6/uL 3.90 - 5.2 0 m/uL [facility] WBC (Bld) [#/Vol] 7.04 10*3/uL [facility] Basophils (Bld) [#/Vol] 0.06 10*3/uL Normal <0.11 [facility] Comment on above: Order Comment: Speci men Type: BLOOD SPECIMENOrdering Facility: [facility] Address: [address] [place] [address] Performed By: #### 5 7021-8 ####[facility] [id number] [place] [address] [place] Basophils/100 WBC (Bld) 0.9 % Normal [facility] Comment on above: Order Comment: Speci men Type: BLOOD SPECIMENOrdering Facility: [facility] Address: [address] [place] [address] Performed By: #### 5 7021-8 ####[facility] [id number] [place] [address] [place] Differential cell count method Nom (Bld) Auto Normal [facility] Comment on above: Order Comment: Speci men Type: BLOOD SPECIMENOrdering Facility: [facility] Address: [address] [place] [address] Performed By: #### 5 7021-8 ####[facility] [id number] [place] [address] [place] Eosinophils (Bld) [#/Vol] 0.26 10*3/uL Normal <0.46 [facility] Comment on above: Order Comment: Speci men Type: BLOOD SPECIMENOrdering Facility: [facility] Address: [address] [place] [address] Performed By: #### 5 7021-8 ####[facility] MANSI AVILA [id number] [place] [address] [place] Eosinophils/100 WBC (Bld) 3.7 % Normal [facility] Comment on above: Order Comment: Speci men Type: BLOOD SPECIMENOrdering Facility: [facility] Address: [address] [place] [address] Performed By: #### 5 7021-8 ####[facility] AURELIANURISCresencio [id number] [place] [address] [place] Erythrocyte distribution width (RBC) [Ratio] 12.2 % Normal 11.5-15.0 [facility] Comment on above: Order Comment: Speci men Type: BLOOD SPECIMENOrdering Facility: [facility] Address: [address] [place] [address] Performed By: #### 5 7021-8 ####[facility] KATHARINEMARLETTENURISA [id number] [place] [address] [place] Hematocrit (Bld) [Volume fraction] 39.7 % Normal 36.0-46.0 [facility] Comment on above: Order Comment: Speci men Type: BLOOD SPECIMENOrdering Facility: [facility] Address: [address] [place] [address] Performed By: #### 5 7021-8 ####[facility] KATHARINEMARLETTEDARINLIA [id number] [place] [address] [place] Hemoglobin (Bld) [Mass/Vol] 13.8 g/dL Normal 11.5-15.5 [facility] Comment on above: Order Comment: Speci men Type: BLOOD SPECIMENOrdering Facility: [facility] Address: [address] [place] [address] Performed By: #### 5 7021-8 ####[facility] MILLWNCLIA [id number] [place] [address] [place] Immature granulocytes (Bld) [#/Vol] 10*3/uL Normal <0.10 [facility] Comment on above: Order Comment: Speci men Type: BLOOD SPECIMENOrdering Facility: [facility] Address: [address] [place] [address] Performed By: #### 5 7021-8 ####[facility]ENTERLIA [id number] [place] [address] [place] Immature granulocytes/100 WBC (Bld) 0.1 % Normal [facility] Comment on above: Order Comment: Speci men Type: BLOOD SPECIMENOrdering Facility: [facility] Address: [address] [place] [address] Performed By: #### 5 7021-8 ####[facility] [id number] [place] [address] [place] Lymphocytes (Bld) [#/Vol] 1.81 10*3/uL Normal 1.00-4.00 [facility] Comment on above: Order Comment: Speci men Type: BLOOD SPECIMENOrdering Facility: [facility] Address: [address] [place] [address] Performed By: #### 5 7021-8 ####[facility]ENTERLIA [id number] [place] [address] [place] Lymphocytes/100 WBC (Bld) 25.7 % Normal [facility] Comment on above: Order Comment: Speci men Type: BLOOD SPECIMENOrdering Facility: [facility] Address: [address] [place] [address] Performed By: #### 5 7021-8 ####[facility] [id number] [place] [address] [place] MCH (RBC) [Entitic mass] 33.3 pg Normal 26.0-34.0 [facility] Comment on above: Order Comment: Speci men Type: BLOOD SPECIMENOrdering Facility: [facility] Address: [address] [place] [address] Performed By: #### 5 7021-8 ####[facility] [id number] [place] [address] [place] MCHC (RBC) [Mass/Vol] 34.8 g/dL Normal 30.5-36.0 [facility] Comment on above: Order Comment: Speci men Type: BLOOD SPECIMENOrdering Facility: [facility] Address: [address] [place] [address] Performed By: #### 5 7021-8 ####[facility] [id number] [place] [address] [place] MCV (RBC) [Entitic vol] 95.9 fL Normal 80.0-100.0 [facility] Comment on above: Order Comment: Speci men Type: BLOOD SPECIMENOrdering Facility: [facility] Address: [address] [place] [address] Performed By: #### 5 7021-8 ####[facility] [id number] [place] [address] [place] Monocytes (Bld) [#/Vol] 0.61 10*3/uL Normal <0.87 [facility] Comment on above: Order Comment: Speci men Type: BLOOD SPECIMENOrdering Facility: [facility] Address: [address] [place] [address] Performed By: #### 5 7021-8 ####[facility] [id number] [place] [address] [place] Monocytes/100 WBC (Bld) 8.7 % Normal [facility] Comment on above: Order Comment: Speci men Type: BLOOD SPECIMENOrdering Facility: [facility] Address: [address] [place] [address] Performed By: #### 5 7021-8 ####[facility]ENTERLIA [id number] [place] [address] [place] Neutrophils (Bld) [#/Vol] 4.29 10*3/uL Normal 1.45-7.50 [facility] Comment on above: Order Comment: Speci men Type: BLOOD SPECIMENOrdering Facility: [facility] Address: [address] [place] [address] Performed By: #### 5 7021-8 ####[facility]ENTERLIA [id number] [place] [address] [place] Neutrophils/100 WBC (Bld) 60.9 % Normal [facility] Comment on above: Order Comment: Speci men Type: BLOOD SPECIMENOrdering Facility: [facility] Address: [address] [place] [address] Performed By: #### 5 7021-8 ####[facility] [id number] [place] [address] [place] Nucleated RBC (Bld) [#/Vol] 10*3/uL Normal <0.01 [facility] Comment on above: Order Comment: Speci men Type: BLOOD SPECIMENOrdering Facility: [facility] Address: [address] [place] [address] Performed By: #### 5 7021-8 ####[facility]ENC[facility]CL[facility] [id number] [place] [address] [place] Nucleated RBC/100 WBC (Bld) [Ratio] 0.0 /100 WBC Normal [facility] Comment on above: Order Comment: Speci men Type: BLOOD SPECIMENOrdering Facility: [facility] Address: [address] [place] [address] Performed By: #### 5 7021-8 ####[facility]ENTERWNCLIA [id number] [place] [address] [place] Platelet mean volume (Bld) [Entitic vol] 9.7 fL Normal 9.0-12.7 [facility] Comment on above: Order Comment: Speci men Type: BLOOD SPECIMENOrdering Facility: [facility] Address: [address] [place] [address] Performed By: #### 5 7021-8 ####[facility] KATHARINEANTONIALIA [id number] [place] [address] [place] Platelets (Bld) [#/Vol] 296 10*3/uL Normal 150-400 [facility] Comment on above: Order Comment: Speci men Type: BLOOD SPECIMENOrdering Facility: [facility] Address: [address] [place] [address] Performed By: #### 5 7021-8 ####[facility]GENCYDARINDENISEA [id number] [place] [address] [place] RBC (Bld) [#/Vol] 4.14 10*6/uL Normal 3.90-5.20 [facility] Comment on above: Order Comment: Speci men Type: BLOOD SPECIMENOrdering Facility: [facility] Address: [address] [place] [address] Performed By: #### 5 7021-8 ####[facility]GENCYDARINLIA [id number] [place] [address] [place] WBC (Bld) [#/Vol] 7.04 10*3/uL Normal 3.70-11.00 [facility] Comment on above: Order Comment: Speci men Type: BLOOD SPECIMENOrdering Facility: [facility] Address: [address] [place] [address] Performed By: #### 5 7021-8 ####[facility]ERGENCYNCLIA [id number] [place] [address] [facility] CNOVon 03-14-2025 CNOV Office Visit (OBGYWM ) NORMA ROMERO ([id number]) 1970 F Date Time Provider Department 03/14/25 10:50 AM ISELA DORMAN OBGYWM During your visit today, we recorded the following information about you: Blood pressure Weight Height Last Period 128 103.6 kg 1.626 m 02/25/25 Isela Dorman APRN.CNM 03/14/2025 11:55 AM Signed Joint Creaser offered: Patient declines. Norma is a 54 year old who presents for an annual gynecologic exam with complaints, has multiple concerns: bleeding every 3 weeks, bleeds for 5 days, passes big clots and junks of jell-o. Cannnot use tampons, gets swollen. Wonders if she has endometriosis, has a family history of it. Postmenopausal: No. Menstrual cycle every 21 days Flow 5 days HRT use: No. Still get period: Yes LMP: 02/25/2025 Menses: cycles every 21 days and 5 days of flow Bleeding amount bothersome: Yes Bleeding between periods: Yes Period symptoms: Breast tenderness; Cramps; Mood change; Pelvic pain Menopause symptoms: Hot flashes; Night sweats; Vaginal dryness Time with current partner: 37 year Number of lifetime partners: 1 Other control: Essure control frequency: Never HPV vaccine: Unsure; Last pap smear: 04/25/2022 History of abnormal pap: No, all prior PAP smears have been normal Bothersome pelvic pain: Yes Last mammogram: 2023 normal History of abnormal mammogram: No OB History Gravida2 Para2 Term2 Preterm0 AB0 Living2 SAB0 IAB0 Ectopic0 Multiple0 Live Births0 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 History LMP: 02/25/2025 (Exact Date), Perimenopausal Age at Menarche: 14 Age at First : Age at Menopause: 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 History Comments: Sexual Activity: Yes; Male; Essure Contraception: No contraception data on record Menstrual Tracking History Flowsheet Row Office Visit from 03/14/2025 in OB/Gynecology Period Duration (Days) 5 Menstrual Flow Heavy 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 GERD (gastroesophageal reflux disease) 10/27/2013 Hypertension Psoriasis Shingles outbreak 09/2017 had for 3.5 weeks PAST SURGICAL HISTORY Procedure Laterality Date CHOLECYSTECTOMY 02/2017 COLONOSCOPY AND BIOPSY 11/02/2018 EGD x 2 EGD BIOPSY SING OR MULT 11/02/2018 ESSURE 03/12/2012 LAPROSCOPIC REPAIR UMBILICAL HERNIA 2016 REVISE MEDIAN N/CARPAL TUNNEL SURG Right SKIN BX, 1 LESION 11/1997 scar tissue r buttocks FAMILY HISTORY Problem Relation Age of Onset Diabetes Mother Heart Mother hx of MD Hypertension Mother other (endometrosis) Mother Hysterectomy Hypertension Father Prostate Cancer Father Hypertension Brother Diabetes Brother Heart Maternal Grandmother Colon Cancer Paternal Grandmother 74 Cancer Paternal Grandfather prostate other (Other) Paternal Grandfather No breast/media center assistant cancer No Known Problems Daughter No Known Problems Son other (pre cancer) Paternal Aunt had to have hysterectomy Anesthesia Problems No Family History SOCIAL HISTORY Social History Tobacco Use Smoking status: Never Smokeless tobacco: Never Vaping Use Vaping status: Never Used Substance Use Topics Alcohol use: Yes Comment: 1-4 drinks per weekend Drug use: No REVIEW OF SYSTEMS Abdomen: No abdominal pain, nausea, vomiting, diarrhea, or constipation. No bloating, early satiety, indigestion, or increased flatulence. Bladder: No dysuria, gross hematuria, urinary frequency, urinary urgency, or incontinence Breast: No breast lumps, nipple d/c, overlying skin changes, redness or skin retraction Allergies and current medication updated:Yes SENSITIVE EXAM: The sensitive examination was discussed with the Patient or Patient's Authorized Drill Press Operator Helper. As applicable, any other physician, advance practice provider, medical student, or other health professional student that will be observing or involved in the sensitive examination for educational or training purposes was discussed with the Patient or Authorized Drill Press Operator Helper. The Patient or Authorized Drill Press Operator Helper has agreed to proceed with the sensitive examination. (Sensitive examination includes inspection and/or palpation of the breasts, pelvis, prostate and anorectal regions). EXAM: BP 128/84 Ht 5' 4 (1.63m) Wt 228 lb 6.4 oz (103.6kg) LMP 02/25/2025 BMI 39.19 kg/(m2). GENERAL: pleasant, female in no apparent distress HEENT: Normocephalic, atraumatic, mucus membranes moist, and no lesions NECK: Supple, full range of motion, no adenopathy, and thyroid normal DERMATOLOGY: Normal, without lesions, non-icteric, and non-hirsute BREAST: soft, non-tender, symmetric, no dominant mass, normal nipple-areolar complex, no lymphadenopathy, and no nipple discharge CHEST: Normal inspiratory effort ABDOMEN: soft, non-tender, and no masses PELVIC: external genitalia normal, normal Bartholin's gland (more content not included)... Normal [facility] Prolactin SerP-ncon 03-14 Prolactin [Mass/Vol] 18.2 ng/mL Normal 4.4-33.8 [facility] Comment on above: Order Comment: Speci men Type: BLOOD SPECIMENOrdering Facility: [facility] Address: [address] [place] [address] Result Comment: Prol actin test is performed using the [employer] Electrochemiluminescence Immunoassay method. Results obtained with different methods or kits cannot be used interchangeably. Performed By: #### 3 016-3, 2842-3 ####[facility] LABIA [id number] [place] [address] [place] TSH SerPl-aCncon 03-14-2025 TSH Qn 2.290 m[IU]/L Normal 0.270-4.200 [facility] Comment on above: Order Comment: Speci men Type: BLOOD SPECIMENOrdering Facility: [facility] Address: [address] [place] [address] Performed By: #### 3 016-3, 2842-3 ####[facility] LABIA [id number] [place] [address] [place] CNCOon 11-02-2024 CNCO Letter Text Normal [facility] CNOVon 11-02-2024 CNOV Office Visit (NEAGCL M) NORMA ROMERO ([id number]) 1970 F Date Time Provider Department 11/02/24 1:00 PM JOSE ENCARNACION NEAGCLM During your visit today, we recorded the following information about you: Pulse Respiration Blood pressure Weight 86/minute 16/minute 122/77 106 kg Height 1.638 m Jose Encarnacion MD 11/02/2024 1:13 PM Signed NEUROSURGERY FOLLOW UP OFFICE NOTE Dr. Jose Encarnacion MD, [facility] Date of visit: November 02, 2024 Patient Name: Ms.Misty Pauline Romero Date of : 1970 Current Age: [age] year old Sex: female MRN/E# [id number] Last Office Visit: October 31, 2023 CHIEF COMPLAINT: Patient presents with: Established Patient SUBJECTIVE: The patient presents as a follow up with imaging (MRI B) for evaluation. This is a 54-year-old female with a PMHx of GERD, HTN, psoriasis and cerebral cyst. 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 This has been nonsurgical in nature. She has been seen over the years routinely for evaluation with imaging and has overall remained stable. She was last seen in October 2023 and denied any new or concerning issues. She continued with intermittent headaches which were unchanged and chronic in nature. Neurologically she was intact on exam without focal deficit. MRI was reviewed and showed that the cyst in the right foramen of Luschka with a CSF signal density had not changed when compared to prior imaging.When compared to 2016 through 2023 there had been a slight decrease in the maximum size of the described cyst. Once again no surgical intervention was advised. Recommendation was to follow-up in 1 year with repeat MRI prompting her visit today. Since last visit she states she is overall doing well. She denies headache, visual changes, speech deficits, seizure activity, motor or sensory deficits. She presents for image review, evaluation and plan of care. 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 GERD (gastroesophageal reflux disease) 10/27/2013 Hypertension Psoriasis Shingles outbreak 09/2017 had for 3.5 weeks PAST SURGICAL HISTORY Procedure Laterality Date CHOLECYSTECTOMY 02/2017 COLONOSCOPY AND BIOPSY 11/02/2018 EGD x 2 EGD BIOPSY SING OR MULT 11/02/2018 ESSURE 03/12/2012 LAPROSCOPIC REPAIR UMBILICAL HERNIA 2016 SKIN BX, 1 LESION 11/1997 scar tissue r buttocks FAMILY HISTORY Problem Relation Age of Onset Diabetes Mother Heart Mother hx of MD Hypertension Mother other (endometrosis) Mother Hysterectomy Hypertension Father Prostate Cancer Father Hypertension Brother Diabetes Brother No Known Problems Daughter No Known Problems Son Heart Maternal Grandmother Colon Cancer Paternal Grandmother 74 Cancer Paternal Grandfather prostate other (Other) Paternal Grandfather 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 [address] (PROTONIX) 40 mg tablet take 1 tablet daily 90 tablet 3 hydroCHLOROthiazide 25 mg tablet take 1 tablet daily 90 tablet 3 losartan (COZAAR) 25 mg tablet Take 1 tablet by mouth every afternoon. 90 tablet 3 elderberry fruit (ELDERBERRY ORAL) Take 1 tablet by mouth once daily. fluticasone (FLONASE) 50 mcg/actuation nasal spray Use 2 Sprays in each nostril once daily. 18.2 mL 3 cholecalciferol (VITAMIN D3) 50 mcg (2,000 unit) tablet Take 2,000 Units by mouth once daily. ZINC ORAL Take 1 capsule by mouth once daily. ascorbic acid, vitamin C, (VITAMIN C) 250 mg tablet Take 250 mg by mouth once daily. multivitamin tablet Take 1 tablet by mouth once daily. potassium chloride (KLOR-CON 10) 10 mEq tablet Take 1 tablet by mouth daily with breakfast. 0 iv contrast (will be provided with radiology test) MRI Brain Inject, intravenously, once for 1 dose.No IV access, insert saline lock prior to beginning of sedation, infusion, injection of imaging exam.Discontinue saline lock post exam. If Pt. has a central line or IVAD, may access (more content not included)... Normal [facility] CNCOon 10-29-2024 CNCO Letter Text Normal [facility] MRI BRAIN WO/W IVCONon 10-29 MRI BRAIN WO/W IVCON * * *Final Report* * * DATE OF EXAM: Oct 29 2024 8:55AM A1M 0295 - MRI BRAIN WO/W IVCON / PROCEDURE REASON: Intracranial arachnoid cysts * * * * Physician Interpretation * * * * COMPARISONS: 10/24/2023. HISTORY: Intracranial arachnoid cyst. TECHNIQUE: MRI brain without and with contrast. MQ: [id number] CONTRAST: 10 mL Elucirem IV. RESULT: MRI BRAIN: Acute abnormality: None. Allowing for change in scan plane stable CSF intensity 7 (AP) x 11 (T) x 25 (CC) mm CSF intensity focus at dorsal inferior medulla oblongata projecting into fourth ventricle with ballooning of inferior aspect of fourth ventricle with questionable fibrotic strand inferiorly with mass effect and distortion of subjacent anatomy without gliosis or enhancement or restricted diffusion. Given appearance possibility of arachnoid cyst versus fibrotic stranding and trapping of CSF at foramen of Luschka/Magendie causing ballooning of inferior fourth ventricle would be the differential. No associated proximal obstruction to cause hydrocephalus or dilation of proximal fourth ventricle. No restricted diffusion concerning for acute ischemia. No susceptibility concerning for acute hemorrhage. Age expected stable sulci, gyri, ventricles, CSF spaces, brain, bones and skull base. No mass effect or collections. On contrast no abnormal enhancement in brain or meninges. IMPRESSION: Stable cystic focus at inferior fourth ventricle with differential provided. Shine Worker: NATTY Transcribe Date/Time: Oct 30 2024 2:07P Dictated by : MELLISA DE LA VEGA MD This examination was interpreted and the report reviewed and electronically signed by: MELLISA DE LA VEGA MD on Oct 30 2024 2:11PM EST [id number] Normal [facility] CNOVon 09-09-2024 CNOV Office Visit (UCWSTR ) NORMA RMOERO ([id number]) 1970 F Date Time Provider Department 09/09/24 8:30 AM TAMMIE BENTLEY [facility] During your visit today, we recorded the following information about you: Tammie Bentley PA-C 09/09/2024 8:39 AM Signed This note was created using [employer]. Subjective Norma Romero is a 54 year old female. Patient is a 54-year-old female who is brought by her son for evaluation of head pain and confusion secondary to a fall injury that the patient sustained immediately prior to arrival this morning. Patient states that she slipped on the ice and fell backwards onto the pavement striking her head forcefully. Patient is able to bear weight and ambulate but does complain of knee and wrist pain. Upon arrival at this [facility] the patient was unable to recall her address and other details. Patient denies blurred vision, double vision, tinnitus but is experiencing mild dizziness. Patient does not take anticoagulant medication. Review of Systems Neurological: Positive for dizziness and headaches. Psychiatric/Behavioral: Positive for confusion. All other systems reviewed and are negative. Objective [facility] 07/01/2024 (Exact Date) Physical Exam Vitals and nursing note reviewed. Constitutional: Appearance: Normal appearance. She is normal weight. HENT: Head: Normocephalic and atraumatic. Right Ear: External ear normal. Left Ear: External ear normal. Nose: Nose normal. Mouth/Throat: Mouth: Mucous membranes are moist. Pharynx: Oropharynx is clear. Eyes: Extraocular Movements: Extraocular movements intact. Conjunctiva/sclera: Conjunctivae normal. Pupils: Pupils are equal, round, and reactive to light. Cardiovascular: Rate and Rhythm: Normal rate. Pulses: Normal pulses. Heart sounds: Normal heart sounds. Pulmonary: Effort: Pulmonary effort is normal. Breath sounds: Normal breath sounds. Abdominal: General: Abdomen is flat. Palpations: Abdomen is soft. Musculoskeletal: General: Normal range of motion. Cervical back: Normal range of motion and neck supple. No rigidity or tenderness. Skin: General: Skin is warm and dry. Capillary Refill: Capillary refill takes less than 2 seconds. Neurological: General: No focal deficit present. Mental Status: She is alert and oriented to person, place, and time. Cranial Nerves: No cranial nerve deficit. Motor: No weakness. Gait: Gait normal. Psychiatric: Mood and Affect: Mood normal. Behavior: Behavior normal. Judgment: Judgment normal. Assessment and Plan Physical exam findings as noted above. Patient was immediately advised that she requires evaluation in an emergency department where CT scan imaging is available. Patient and her son verbalized complete agreement with this recommendation and state that they will report to the [facility] emergency department after [facility]. CLINICAL IMPRESSION: Head Injury ASSESSMENT/PLAN: 1. Traumatic injury of head, initial encounter - ICD9: 959.01, ICD10: S09.90XA Tammie Bentley PA-C Referring Provider: SELF [200] Allergies As of Date: 09/09/2024 Noted Allergy Reaction KEFLEX (CEPHALEXIN) 05/21/2024 14 - Other: See Comments Comments: Racing heartbeat DOTAREM (GADOTERATE MEGLUMINE) 10/19/2021 2 - Rash POLLEN 07/19/2009 3 - Cough RAGWEED POLLEN 11/24/2017 9 - Itching Comments: Eye itching VALTREX (VALACYCLOVIR) 10/10/2017 2 - Rash DUST 09/03/2005 5 - Intolerance Date Reviewed: 08/25/2024 Reviewed by: Anabel Alanis RD - Fully Assessed Primary Visit Diagnosis:Traumatic injury of head, initial encounter [S09.90XA] Prescriptions as of 09/09/2024 - albuterol HFA (PROVENTIL HFA, VENTOLIN HFA) 90 mcg/actuation inhaler Inhale 2 Puffs as instructed every 6 hours as needed for wheezing/shortness of breath. - cyclobenzaprine (FLEXERIL) 10 mg tablet Take 1 tablet by mouth at bedtime as needed for muscle spasm. - pantoprazole DR (PROTONIX) 40 mg tablet take 1 tablet daily - hydroCHLOROthiazide 25 mg tablet take 1 tablet daily - losartan (COZAAR) 25 mg tablet Take 1 tablet by mouth every afternoon. - elderberry fruit (ELDERBERRY ORAL) Take 1 tablet by mouth once daily. - fluticasone (FLONASE) 50 mcg/actuation nasal spray Use 2 Sprays in each nostril once daily. - cholecalciferol (VITAMIN D3) 50 mcg (2,000 unit) tablet Take 2,000 Units by mouth once daily. - ZINC ORAL Take 1 capsule by mouth once daily. - ascorbic acid, vitamin C, (VITAMIN C) 250 mg tablet Take 250 mg by mouth once daily. - multivitamin tablet Take 1 tablet by mouth once daily. - potassium chloride (KLOR-CON 10) 10 mEq tablet Take 1 tablet by mouth daily with breakfast. Problem List As Of Date 09/09/2024 Noted Resolved Unspecified urinary incontinence [R32] 10/06/2006 03/10/2013 GERD (gastroesophageal ref (more content not included)... Normal [facility] James 09-09-2024 ROXANEN Telephone (SABRINAWA) NORMA ROMERO ([id number]) 1970 F Date Time Provider Department 09/09/24 OLIVERIO WILL During your visit today, we recorded the following information about you: Dominic Murray LPN 09/09/2024 2:46 PM Signed Received visit summary for a fall from [facility] ED. Placed in provider's inbox for review. Route to MA scanning Allergies As of Date: 09/09/2024 Noted Allergy Reaction KEFLEX (CEPHALEXIN) 05/21/2024 14 - Other: See Comments Comments: Racing heartbeat DOTAREM (GADOTERATE MEGLUMINE) 10/19/2021 2 - Rash POLLEN 07/19/2009 3 - Cough RAGWEED POLLEN 11/24/2017 9 - Itching Comments: Eye itching VALTREX (VALACYCLOVIR) 10/10/2017 2 - Rash DUST 09/03/2005 5 - Intolerance Date Reviewed: 08/25/2024 Reviewed by: Anabel Alanis RD - Fully Assessed Reason for Visit: Received Outside Medical Records [[id number]] Cmt: [facility] ED Prescriptions as of 09/09/2024 - albuterol HFA (PROVENTIL HFA, VENTOLIN HFA) 90 mcg/actuation inhaler Inhale 2 Puffs as instructed every 6 hours as needed for wheezing/shortness of breath. - cyclobenzaprine (FLEXERIL) 10 mg tablet Take 1 tablet by mouth at bedtime as needed for muscle spasm. - pantoprazole DR (PROTONIX) 40 mg tablet take 1 tablet daily - hydroCHLOROthiazide 25 mg tablet take 1 tablet daily - losartan (COZAAR) 25 mg tablet Take 1 tablet by mouth every afternoon. - elderberry fruit (ELDERBERRY ORAL) Take 1 tablet by mouth once daily. - fluticasone (FLONASE) 50 mcg/actuation nasal spray Use 2 Sprays in each nostril once daily. - cholecalciferol (VITAMIN D3) 50 mcg (2,000 unit) tablet Take 2,000 Units by mouth once daily. - ZINC ORAL Take 1 capsule by mouth once daily. - ascorbic acid, vitamin C, (VITAMIN C) 250 mg tablet Take 250 mg by mouth once daily. - multivitamin tablet Take 1 tablet by mouth once daily. - potassium chloride (KLOR-CON 10) 10 mEq tablet Take 1 tablet by mouth daily with breakfast. Problem List As Of Date 09/09/2024 Noted Resolved Unspecified urinary incontinence [R32] 10/06/2006 03/10/2013 GERD (gastroesophageal reflux disease) [K21.9] 10/27/2013 Essential hypertension [I10] 09/16/2016 Biliary colic [K80.50] 03/16/2017 04/07/2017 Thickening of wall of gallbladder [K82.8] 03/16/2017 04/07/2017 Cerebral cysts [G93.0] 03/19/2017 Diarrhea [R19.7] 10/19/2018 Abdominal pain [R10.9] 10/19/2018 11/20/2018 Gastritis [K29.70] 10/19/2018 Pain of paraspinal muscle [M79.18] 11/20/2018 Anal fissure [K60.2] 01/04/2019 Intracranial arachnoid cysts [G93.0] 06/24/2019 Obesity, Class II, BMI 35-39.9 [E66.812] 02/20/2023 Encounter Status:Closed by DOMINIC MURRAY on 09/09/24 Normal [facility] Emergency Department Summary on 09-09-2024 Emergency Department Summary [facility] Medical Records Department [address] [place] [address] Emergency Department Summary 09/09/24 MR#: [id number] Acct: [id number] Name: NORMA ROMERO Rep #: [id number] : 1970 54 From: Jony Huber DO PCP: Dr. Shawn Will MD Status:PRE ER Location: ED HPI HPI - Fall History of Present Illness Chief Complaint: Fall [facility] Medical History (Updated 09/09/24 @ 09:02 by Edith Mitchell) Arachnoid cyst Hypokalemia Hypertension GERD (gastroesophageal reflux disease) Home Medications ???Medication ???Instructions ???Recorded ???Last Taken ???Type hydrochlorothiazide 25 mg tablet 25 mg PO DAILY diuretic/water pill 03/05/17 01/13/18 History losartan 25 mg tablet 25 mg PO DAILY blood pressure 01/13/18 01/13/18 History pantoprazole 40 mg tablet,delayed 40 mg PO DAILY 10/05/18 Unknown History release potassium 99 mg tablet 99 mg PO DAILY 10/05/18 Unknown History Allergy/AdvReac Type Severity Reaction Status Date / Time No Known Allergies Allergy Verified 09/09/24 08:43 Social History Smoking Status: Never smoker EXAM Physical Exam Const Vital Signs: 09/09/24 08:45 Temperature 98.1 F Temperature Source Temporal Pulse Rate 84 Respiratory Rate 16 Blood Pressure 136/88 H Blood Pressure Mean 104 Pulse Ox 97 Oxygen Delivery Method Room Air MDM MDM MDM Narrative Medical decision making narrative: HISTORY OF PRESENT ILLNESS: 54-year-old female who is not anticoagulated presents with mechanical fall. No she was at work and she fell down injuring her head, right wrist, left hip, left knee. She is unsure if she lost consciousness. She is not taking blood thinners. REVIEW OF SYSTEMS: Pertinent positives: Fall, left hip, left knee, right wrist pain, head trauma Pertinent negatives: Focal weakness, loss of sensation, and coordination PHYSICAL EXAM: Nursing triage notes reviewed, Vital signs reviewed Primary Survey Airway: Intact Breathing: Bilateral breath sounds Circulation: Palpable bilateral femorals, Palpable bilateral radial, Palpable bilateral DP and Palpable bilateral PT Disability / Spine precautions GCS Score: Eye Openin Verbal Response: 5 Motor Response: 6 Secondary Survey Constitutional: Please see [facility] Head: Atraumatic, Midface stable, NO jaw malocclusion, No Cephalohematoma, and No Lacerations noted Eye: Pupils equal round and reactive to light, Extraocular muscles intact and No periorbital ecchymosis or stepoff, no evidence of entrapment ENT: Oropharynx clear, no lacerations, no hemotympanum, no raccoon eyes or danielson sign Cervical spine / Neck: No cervical spine bony tenderness, crepitance, or stepoff deformity Trachea midline Lungs: Clear to auscultation, No asymmetric rise and No crepitus, no flail chest Cardiac: Regular rate and rhythm and No murmurs Abdomen: Soft, Nontender and No rebound Pelvis: Pelvis stable to compression : No evidence of genital injury Back: No midline bony tenderness to thoracic/lumbar/sacral spines Neuro: At baseline, intact strength and sensation in bilateral upper and lower extremities. 2+ patellar reflexes bilaterally. Extremities: NO gross Deformities Psych: Normal affect Nursing triage notes reviewed, Vital signs reviewed MEDICAL DECISION MAKING: Chief Complaint: Fall, extremity pain External records reviewed: Reviewed prior medications: No blood thinners noted Factors affecting care: Hypertension Social determinants of health: none History obtained from others: none Consults: none [facility] Narrative: The patient was initially hemodynamically stable, afebrile and nontoxic-appearing. Primary secondary trauma surveys concerning for I considered the following differential diagnosis: ICH, fracture/dislocation of the wrist/hip/knee Exam was grossly unremarkable. Patient is greater than 16, is not on blood thinners, no seizure after injury, GCS was stable 2 hours postinjury, no depressed skull fracture, no evidence of basilar skull fracture, no vomiting. Age less than 65, no retrograde amnesia and mechanism is not dangerous. CT scan of the head is not indicated at this time. I considered obtaining advanced imaging of the head, extremities however the patient's exam was reassuring. She had no red flag symptoms for ICH or skull fracture. There is no sign of extremity injury. She had full range of motion all extremities able to ambulate without difficulty. She was alert and orient x 3 and displayed no confusion. There is no report of vomiting etc. I offer the patient advanced imaging however the patient refused stating she nothing is necessary. I agree that it was not necessary given lack of high risk features. The patient is appropriate discharge home. Strict return preca (more content not included)... Normal [facility] CNOVon 08-16-2024 CNOV Office Visit (UCWSTR ) NORMA ROMERO ([id number]) 1970 F Date Time Provider Department 08/16/24 7:15 AM SHAWN SUN [facility] During your visit today, we recorded the following information about you: Temperature Pulse Respiration Blood pressure 97.7 degrees 80/minute 16/minute 136/80 Weight 106.5 kg Shawn Sun APRN.PUPPET MAKER 08/16/2024 8:29 AM Signed Subjective HPI Nontoxic-appearing female presents urgent care chief complaint cough sore throat. Duration of symptoms 5 days. Associated symptoms listed above. Most prominent symptom today is cough. Has became productive. 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 Denies any chest pain or shortness of breath. No hemoptysis. Afebrile today. Did have a fever beginning of illness. Past medical history prescription medications and allergies reviewed. .Patient presents with: Cough: congestion, drainage and sore throat x 5 days 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 GERD (gastroesophageal reflux disease) 10/27/2013 Hypertension Psoriasis Shingles outbreak 09/2017 had for 3.5 weeks PAST SURGICAL HISTORY Procedure Laterality Date CHOLECYSTECTOMY 02/2017 COLONOSCOPY AND BIOPSY 11/02/2018 EGD x 2 EGD BIOPSY SING OR MULT 11/02/2018 ESSURE 03/12/2012 LAPROSCOPIC REPAIR UMBILICAL HERNIA 2017 SKIN BX, 1 LESION 11/1997 scar tissue r buttocks ALLERGIES Keflex [Cephalexin], Dotarem [Gadoterate Meglumine], Pollen, Ragweed Pollen, Valtrex [Valacyclovir], and Dust MEDICATIONS cyclobenzaprine (FLEXERIL) 10 mg tablet Take 1 tablet by mouth at bedtime as needed for muscle spasm. pantoprazole DR (PROTONIX) 40 mg tablet take 1 tablet daily hydroCHLOROthiazide 25 mg tablet take 1 tablet daily losartan (COZAAR) 25 mg tablet Take 1 tablet by mouth every afternoon. elderberry fruit (ELDERBERRY ORAL) Take 1 tablet by mouth once daily. fluticasone (FLONASE) 50 mcg/actuation nasal spray Use 2 Sprays in each nostril once daily. cholecalciferol (VITAMIN D3) 50 mcg (2,000 unit) tablet Take 2,000 Units by mouth once daily. ZINC ORAL Take 1 capsule by mouth once daily. ascorbic acid, vitamin C, (VITAMIN C) 250 mg tablet Take 250 mg by mouth once daily. multivitamin tablet Take 1 tablet by mouth once daily. potassium chloride (KLOR-CON 10) 10 mEq tablet Take 1 tablet by mouth daily with breakfast. FAMILY HISTORY Problem Relation Age of Onset Diabetes Mother Heart Mother hx of MD Hypertension Mother other (endometrosis) Mother Hysterectomy Hypertension Father Prostate Cancer Father Hypertension Brother Diabetes Brother No Known Problems Daughter No Known Problems Son Heart Maternal Grandmother Colon Cancer Paternal Grandmother 74 Cancer Paternal Grandfather prostate other (Other) Paternal Grandfather No breast/media center assistant cancer Anesthesia Problems No Family History Social History Tobacco Use Smoking status: Never Smokeless tobacco: Never Vaping Use Vaping status: Never Used Substance Use Topics Alcohol use: Yes Comment: 1-4 drinks per weekend Drug use: No BP 136/80 Pulse 80 Temp 36.5 ?C (97.7 ?F) Resp 16 Wt 106.5 kg (234 lb 12.6 oz) LMP 07/01/2024 (Exact Date) SpO2 96% BMI 39.69 kg/m? Review of Systems Constitutional: Positive for malaise/fatigue. Negative for chills and fever. HENT: Positive for congestion and sore throat. Negative for ear discharge, ear pain and sinus pain. Eyes: Negative for blurred vision, pain, discharge and redness. Respiratory: Positive for cough. Negative for hemoptysis, sputum production, shortness of breath, wheezing and stridor. Cardiovascular: Negative for chest pain. Gastrointestinal: Negative for abdominal pain, diarrhea, nausea and vomiting. Musculoskeletal: Positive for myalgias. Skin: Negative for itching and rash. Neurological: Negative for dizziness and headaches. Objective Physical Exam Constitutional: General: She is not in acute distress. Appearance: She is not diaphoretic. HENT: Head: Normocephalic. Jaw: No trismus, tenderness, swelling or pain on movement. Nose: Congestion present. Mouth/Throat: Mouth: Mucous membranes are moist. Pharynx: Oropharynx is clear. Uvula midline. Posterior oropharyngeal erythema present. No pharyngeal swelling, oropharyngeal exudate or uvula swelling. Eyes: Conjunctiva/sclera: Conjunctivae normal. Pupils: Pupils are equal, round, and reactive to light. Cardiovascular: Rate and Rhythm: Normal rate and regular rhythm. Heart sounds: Normal heart sounds. Pulmonary: Effort: Pulmonary effort is normal. No tachypnea, accessory muscle usage or respiratory distress. Breath sounds: No stridor. Wheezing present. No rhonchi or rales. Abdominal: General: There is no distension. Palpations: Abdomen is soft (more content not included)... Normal [facility] NORMA ROMERO ([id number]) 1970 F Date Time Provider Department 08/16/24 SHAWN SUN [facility] During your visit today, we recorded the following information about you: Shawn Sun APRN.ROXANE 08/16/2024 8:39 AM Signed Please inform patient that chest x-ray was negative. Medication sent to pharmacy. Follow-up if symptoms do not improve or fever develops. Shawn Sun APRN.Jessie Orlando MA 08/16/2024 9:04 AM Signed Patient given results and verbalized understanding of instructions given. Jessie Mckeon MA Allergies As of Date: 08/16/2024 Noted Allergy Reaction KEFLEX (CEPHALEXIN) 05/21/2024 14 - Other: See Comments Comments: Racing heartbeat DOTAREM (GADOTERATE MEGLUMINE) 10/19/2021 2 - Rash POLLEN 07/19/2009 3 - Cough RAGWEED POLLEN 11/24/2017 9 - Itching Comments: Eye itching VALTREX (VALACYCLOVIR) 10/10/2017 2 - Rash DUST 09/03/2005 5 - Intolerance Date Reviewed: 08/16/2024 Reviewed by: Shawn Sun APRN.PUPPET MAKER - Fully Assessed Reason for Visit: Results [95] Prescriptions as of 08/16/2024 - albuterol HFA (PROVENTIL HFA, VENTOLIN HFA) 90 mcg/actuation inhaler Inhale 2 Puffs as instructed every 6 hours as needed for wheezing/shortness of breath. - Inhalational Spacing Device 1 Device one time only for 1 dose. - benzonatate (TESSALON PERLE) 100 mg capsule Take 1 capsule by mouth three times a day as needed for cough for up to 7 days. - cyclobenzaprine (FLEXERIL) 10 mg tablet Take 1 tablet by mouth at bedtime as needed for muscle spasm. - pantoprazole DR (PROTONIX) 40 mg tablet take 1 tablet daily - hydroCHLOROthiazide 25 mg tablet take 1 tablet daily - losartan (COZAAR) 25 mg tablet Take 1 tablet by mouth every afternoon. - elderberry fruit (ELDERBERRY ORAL) Take 1 tablet by mouth once daily. - fluticasone (FLONASE) 50 mcg/actuation nasal spray Use 2 Sprays in each nostril once daily. - cholecalciferol (VITAMIN D3) 50 mcg (2,000 unit) tablet Take 2,000 Units by mouth once daily. - ZINC ORAL Take 1 capsule by mouth once daily. - ascorbic acid, vitamin C, (VITAMIN C) 250 mg tablet Take 250 mg by mouth once daily. - multivitamin tablet Take 1 tablet by mouth once daily. - potassium chloride (KLOR-CON 10) 10 mEq tablet Take 1 tablet by mouth daily with breakfast. Problem List As Of Date 08/16/2024 Noted Resolved Unspecified urinary incontinence [R32] 10/06/2006 03/10/2013 GERD (gastroesophageal reflux disease) [K21.9] 10/27/2013 Essential hypertension [I10] 09/16/2016 Biliary colic [K80.50] 03/16/2017 04/07/2017 Thickening of wall of gallbladder [K82.8] 03/16/2017 04/07/2017 Cerebral cysts [G93.0] 03/19/2017 Diarrhea [R19.7] 10/19/2018 Abdominal pain [R10.9] 10/19/2018 11/20/2018 Gastritis [K29.70] 10/19/2018 Pain of paraspinal muscle [M79.18] 11/20/2018 Anal fissure [K60.2] 01/04/2019 Intracranial arachnoid cysts [G93.0] 06/24/2019 Obesity, Class II, BMI 35-39.9 [E66.812] 02/20/2023 Encounter Status:Closed by JESSIE MCKEON on 08/16/24 Normal [facility] STREP A MOLECULAR (POC)on Procedural Control Valid [facility] Strep A (POCT) Negative Negative [facility] XR CHEST 2V FRONTAL/LATon XR CHEST 2V FRONTAL/LAT * * *Final Report* * * DATE OF EXAM: Aug 16 2024 8:14AM WOX [id number] - XR CHEST 2V FRONTAL/LAT / PROCEDURE REASON: Acute cough * * * * Physician Interpretation * * * * EXAMINATION: CHEST RADIOGRAPH (2 VIEW FRONTAL and LATERAL) CLINICAL HISTORY: Acute cough MQ: XC2_6 EXAM DATE/TIME: 08/16/2024 8:14 AM COMPARISON: Chest x-ray on 07/26/2019 RESULT: Lines, tubes, and devices: None. Lungs and pleura: No consolidation. No lung mass. No pleural effusion. No pneumothorax. Cardiomediastinal silhouette: Normal cardiomediastinal silhouette. Bones and soft tissues: There are degenerative changes in the spine. IMPRESSION: No acute radiographic abnormality. Shine Worker: NATTY Transcribe Date/Time: Aug 16 2024 8:18A Dictated by : JESSIE GAMBOA MD This examination was interpreted and the report reviewed and electronically signed by: JESSIE GAMBOA MD on Aug 16 2024 8:19AM EST [id number] Normal [facility] XR Chest PA and Lateralon IMPRESSION: No acute radiographic abnormality. Shine Worker: NATTY Transcribe Date/Time: Aug 16 2024 8:18A Dictated by : JESSIE GAMBOA MD This examination was interpreted and the report reviewed and electronically signed by: JESSIE GAMBOA MD on Aug 16 2024 8:19AM EST DIVISION OF RADIOLOGY * * *Final Report* * * DATE OF EXAM: Aug 16 2024 8:14AM WOX [id number] - XR CHEST 2V FRONTAL/LAT / PROCEDURE REASON: Acute cough * * * * Physician Interpretation * * * * EXAMINATION: CHEST RADIOGRAPH (2 VIEW FRONTAL & LATERAL) CLINICAL HISTORY: Acute cough MQ: XC2_6 EXAM DATE/TIME: 08/16/2024 8:14 AM COMPARISON: Chest x-ray on 07/26/2019 RESULT: Lines, tubes, and devices: None. Lungs and pleura: No consolidation. No lung mass. No pleural effusion. No pneumothorax. Cardiomediastinal silhouette: Normal cardiomediastinal silhouette. Bones and soft tissues: There are degenerative changes in the spine. DIVISION OF RADIOLOGY Provider, [facility] - 08/16/2024 * * *Final Report* * * DATE OF EXAM: Aug 16 2024 8:14AM WOX [id number] - XR CHEST 2V FRONTAL/LAT / PROCEDURE REASON: Acute cough * * * * Physician Interpretation * * * * EXAMINATION: CHEST RADIOGRAPH (2 VIEW FRONTAL & LATERAL) CLINICAL HISTORY: Acute cough MQ: XC2_6 EXAM DATE/TIME: 08/16/2024 8:14 AM COMPARISON: Chest x-ray on 07/26/2019 RESULT: Lines, tubes, and devices: None. Lungs and pleura: No consolidation. No lung mass. No pleural effusion. No pneumothorax. Cardiomediastinal silhouette: Normal cardiomediastinal silhouette. Bones and soft tissues: There are degenerative changes in the spine. IMPRESSION IMPRESSION: No acute radiographic abnormality. Shine Worker: NATTY Transcribe Date/Time: Aug 16 2024 8:18A Dictated by : JESSIE GAMBOA MD This examination was interpreted and the report reviewed and electronically signed by: JESSIE GAMBOA MD on Aug 16 2024 8:19AM EST [facility] Radiology Study observation (narrative) [facility] XR Chest PA and LateralOrder ed By: [facility] Provider on 08-16-2024 [facility] MARY ELLEN SCREENING W TOMOon 08-13 MARY ELLEN SCREENING W BIB * * *Final Report* * * DATE OF EXAM: Aug 13 2024 11:26AM [id number] - MARY ELLEN SCREENING W BIB / PROCEDURE REASON: Screening mammogram for breast cancer * * * * Physician Interpretation * * * * RESULT: [address] [address] [place] [address] HISTORY: Patient is 54 years old and is seen for screening and is asymptomatic in both breasts. Patient states no personal history of breast cancer. Patient states no personal history of other cancers. COMPARISON STUDIES: The present examination has been compared to prior imaging studies dated 06/13/2020 (mammogram), 06/19/2021 (mammogram), 06/10/2022 (mammogram) and 08/11/2023 (mammogram). MAMMOGRAM TECHNIQUE: The study was acquired using full field digital technology and interpreted from soft copy. Digital Breast Tomosynthesis (DBT) images were obtained and used to assist in the interpretation of this examination. Computer-aided detection was utilized by the radiologist in the interpretation of this examination. MAMMOGRAM FINDINGS: There are scattered areas of fibroglandular density. No suspicious masses, calcifications or other abnormalities are seen in either breast. There are no significant changes from the prior study. IMPRESSION: There is no mammographic evidence of malignancy in either breast. Routine screening mammogram is recommended. Annual mammogram will be due in 1 year. BI-RADS Category 1: Negative RISK: Based on the Tyrer-Cuzick (TC) risk assessment model, this patient has a 6.8% lifetime risk of developing breast cancer, meaning they are at average risk for developing breast cancer. However, this is only an estimate based on available history provided on the patient's questionnaire. We encourage all patients to talk with their providers about these results, further recommendations for managing breast health, and appropriate supplemental screening options if the patient has dense breast tissue. Interpreting Radiologist: Sameer Morales M.D. Electronically signed on: 08/15/2024 Shine Worker: BRITNEY Transcribe Date/Time: Aug 13 2024 11:15A Dictated by: SAMEER MORALES MD This examination was interpreted and the report reviewed and electronically signed by: SAMEER MORALES MD on Aug 15 2024 3:12PM EST [id number] Normal [facility] CNCOon 07-20-2024 CNCO Letter Text Normal [facility] CNOVon 07-20-2024 CNOV Office Visit (FPWADS ) NORMA ROMERO ([id number]) 1970 F Date Time Provider Department 07/20/24 11:00 AM OLIVERIO WILL FPWADS During your visit today, we recorded the following information about you: Temperature Pulse Blood pressure Weight 98.7 degrees 76/minute 126/82 106 kg Height Last Period 1.638 m 07/01/24 Oliverio Will MD 07/20/2024 5:23 PM Signed CHIEF COMPLAINT Patient presents with: Back Pain HISTORY OF PRESENT ILLNESS Norma Romero is a 53 year old female who presents here today for back pain. I last saw this patient on 04/08/2023. - Endorses left back pain, mid back - Pain radiates down to low back - Originally though it might be a pinched nerve - Today pain is radiating up towards shoulder - Ongoing for 2 weeks - States that she was at work on Friday, when she thought she pulled a muscle, a child pushed on her back - Friday pain was a little worse - Tried ice therapy with some benefit - Denies leg swelling or pain radiating down leg - Also reports having a swollen gland in axilla area - Flares with cycle, notes that she should start her next cycle in about 1 week Health Maintenance Due for Influenza Vaccine (1) Due for Covid-19 Vaccine ( season) Due for Hep B Vaccine (1 of 3-3 dose series) Labs reviewed. Past medical history, appointments, medications, allergies reviewed. REVIEW OF SYSTEMS General: Feels well, no weight changes, fevers or chills. HEENT: No sinus congestion, earache, sore throat. Cardiac: No chest pain, palpitations Resp: No cough, wheeze, shortness of breath GI: No reflux symptoms, food intolerance, bowel changes. : No urinary frequency, dysuria. MS: +left sided mid back pain PAST MEDICAL HISTORY 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 GERD (gastroesophageal reflux disease) 10/27/2013 Hypertension Psoriasis Shingles outbreak 09/2017 had for 3.5 weeks PHYSICAL EXAMINATION BP 126/82 Pulse 76 Temp 37.1 ?C (98.7 ?F) Ht 163.8 cm (5' 4.49) Wt 106 kg (233 lb 11 oz) LMP 07/01/2024 (Exact Date) SpO2 98% BMI 39.51 kg/m? General: Alert, well developed, well nourished, no distress, pleasant and cooperative. Obese. Heart: Regular rate and rhythm. Normal S1 and S2. No murmurs, rubs, or gallops. Lungs: Clear to auscultation bilaterally. No respiratory distress. No wheezes, rales, or rhonchi. Abdomen: Soft, non-tender, no distention., no abd pain. Back: pain L lateral flank area, no CVAT. Tenderness lower rib area. Upper lateral lumbar. Extremities: Feet/ankles without edema, posterior tibial pulses full and symmetrical. Data Reviewed Assessment/Plan (M54.50) Acute left-sided low back pain without sciatica (primary encounter diagnosis) (M54.6) Lower thoracic back pain (R10.9) Left flank pain Comment: Ongoing x 2 weeks. Will check urine to rule out kidney stone Plan: UA DIP, URINE (POC)- negative Start cyclobenzaprine (FLEXERIL) 10 mg tablet Requested Prescriptions Signed Prescriptions Disp Refills cyclobenzaprine (FLEXERIL) 10 mg tablet 20 tablet 0 Sig: Take 1 tablet by mouth at bedtime as needed for muscle spasm. RTO: as needed Scribe Attestation: By signing my name below, I, Mandi Mckinnon, attest that this documentation has been prepared under the direction and in the presence of Shawn Will M.D. Electronically Signed: Maninder Kohli. July 20, 2024 11:15 AM Provider Attestation: I, Oliverio Will MD, personally performed the services described in this documentation. All medical record entries made by the scribe were at my direction and in my telephonic presence. I have reviewed the chart and discharge instructions (if applicable), and agree that the record reflects my personal performance and is accurate and complete. Electronically Signed: Oliverio Will MD July 20, 2024 5:21 PM Allergies As of Date: 07/20/2024 Noted Allergy Reaction KEFLEX (CEPHALEXIN) 05/21/2024 14 - Other: See Comments Comments: Racing heartbeat DOTAREM (GADOTERATE MEGLUMINE) 10/19/2021 2 - Rash POLLEN 07/19/2009 3 - Cough RAGWEED POLLEN 11/24/2017 9 - Itching Comments: Eye itching VALTREX (VALACYCLOVIR) 10/10/2017 2 - Rash DUST 09/03/2005 5 - Intolerance Date Reviewed: 07/20/2024 Reviewed by: Dominic Murray LPN - Fully Assessed Reason for Visit: Back Pain [12] Primary Visit Diagnosis:Acute left-sided low back pain without sciatica [M54.50] Other Visit Diagnoses:Lower thoracic back pain [M54.6] Left flank pain [R10.9] Order(s):UA DIP, URINE (POC) [[id number]] Order #: [id number]. #:[id number] cyclobenzaprine (FLEXERIL) 10 mg tabletTake 1 tablet by mouth at bedtime as needed for muscle spasm.Disp: 20 tabletRfl: 0 Prescriptions as of 07/20/2024 - cyclobenzaprine (FLEXERIL) 10 mg tablet (more content not included)... Normal [facility] UA DIP, URINE (POC)on 2023 BILIRUBIN UA (POCT) Negative Negative [facility] CLARITY UA (POCT) Clear [facility] COLOR UA (POCT) Yellow [facility] GLUCOSE UA (POCT) Negative Negative mg/dL [facility] Hemoglobin Ql (U) Negative Negative [facility] KETONE UA (POCT) Negative Negative mg/dL [facility] LEUKOCYTES UA (POCT) Negative Negative [facility] NITRITE UA (POCT) Negative Negative [facility] PH UA (POCT) 7.0 4.5 - 8.0 [facility] Protein Ql (U) Negative Negative mg/dL [facility] SPECIFIC GRAVITY UA (POCT) 1.020 1.005 - 1.030 [facility] UROBILINOGEN UA (POCT) 0.2 Normal E.U./dL [facility] Location:[facility] Office, [address] [place] [address], [address] [place] [address] POINT OF CARE [facility] CNOVon 06-03-2024 CNOV Office Visit (FPWADS ) NORMA ROMERO ([id number]) 1970 F Date Time Provider Department 06/03/24 3:20 PM JHONNY QUESADA FPWADS During your visit today, we recorded the following information about you: Temperature Pulse Blood pressure Weight 98.2 degrees 87/minute 113/77 106.7 kg Height 1.638 m Jhonny Quesdaa APRN.PUPPET MAKER 06/03/2024 3:54 PM Signed This note was created using NoteWriter. Subjective Norma Romero is a 53 year old female. Patient was treated on 05/19 for right arm possible poison marta and cellulitis with cephalexin and topical steroid. She had heart palpitations with the cephalexin and stopped it, the rash and redness has resolved. Patient has new rashes since treatment for poison marta on chest, abdomen, and arms. Has taken claritin and topical steroid with no improvement. Cold water helps. Very itchy at night when under the covers, states that she'll have more flares and bumps at night. No new plant exposures. Denies any other new exposures. No ill symptoms, feels at baseline. Does have a couple sores at end of tongue. 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 The history is provided by the patient. Review of Systems Constitutional: Negative for chills, fatigue and fever. Skin: Positive for rash. Negative for color change. PAST MEDICAL HISTORY 01/04/2019: Anal fissure 03/19/2017: Brain cyst Comment: posterior fossa 10/27/2013: GERD (gastroesophageal reflux disease) No date: Hypertension No date: Psoriasis 09/2017: Shingles outbreak Comment: had for 3.5 weeks PAST SURGICAL HISTORY 02/2017: CHOLECYSTECTOMY 11/02/2018: COLONOSCOPY AND BIOPSY No date: EGD Comment: x 2 11/02/2018: EGD BIOPSY SING OR MULT 03/12/2012: ESSURE 2017: LAPROSCOPIC REPAIR UMBILICAL HERNIA 11/1997: SKIN BX, 1 LESION Comment: scar tissue r buttocks ALLERGIES Keflex [Cephalexin], Dotarem [Gadoterate Meglumine], Pollen, Ragweed Pollen, Valtrex [Valacyclovir], and Dust MEDICATIONS losartan (COZAAR) 25 mg tablet Take 1 tablet by mouth every afternoon. elderberry fruit (ELDERBERRY ORAL) Take 1 tablet by mouth once daily. pantoprazole DR (PROTONIX) 40 mg tablet take 1 tablet daily hydroCHLOROthiazide 25 mg tablet take 1 tablet daily fluticasone (FLONASE) 50 mcg/actuation nasal spray Use 2 Sprays in each nostril once daily. cholecalciferol (VITAMIN D3) 50 mcg (2,000 unit) tablet Take 2,000 Units by mouth once daily. ZINC ORAL Take 1 capsule by mouth once daily. ascorbic acid, vitamin C, (VITAMIN C) 250 mg tablet Take 250 mg by mouth once daily. multivitamin tablet Take 1 tablet by mouth once daily. potassium chloride (KLOR-CON 10) 10 mEq tablet Take 1 tablet by mouth daily with breakfast. FAMILY HISTORY Problem Relation Age of Onset Diabetes Mother Heart Mother hx of MD Hypertension Mother other (endometrosis) Mother Hysterectomy Hypertension Father Prostate Cancer Father Hypertension Brother Diabetes Brother No Known Problems Daughter No Known Problems Son Heart Maternal Grandmother Colon Cancer Paternal Grandmother 74 Cancer Paternal Grandfather prostate other (Other) Paternal Grandfather No breast/media center assistant cancer Anesthesia Problems No Family History Social History Tobacco Use Smoking status: Never Smokeless tobacco: Never Vaping Use Vaping status: Never Used Substance Use Topics Alcohol use: Yes Comment: 1-4 drinks per weekend Drug use: No Objective BP 113/77 (BP Site: Left Arm, BP Position: Sitting, BP Cuff Size: Large Adult) Pulse 87 Temp 36.8 ?C (98.2 ?F) Ht 163.8 cm (5' 4.49) Wt 106.7 kg (235 lb 3.7 oz) LMP 04/19/2024 (Exact Date) BMI 39.77 kg/m? Physical Exam Vitals and nursing note reviewed. Constitutional: Appearance: She is well-developed. She is not ill-appearing. Pulmonary: Effort: Pulmonary effort is normal. Skin: General: Skin is warm and dry. Comments: Right forearm with small healing scab, no surrounding erythema/edema, no drainage Bilateral upper breasts with a few scattered erythematous macules and linear areas; upper mid abdomen with a few vertical pink linear streaks, not raised; lower right abdomen with one small pink patch, nontender Neurological: Mental Status: She is alert and oriented to person, place, and time. Gait: Gait normal. Psychiatric: Mood and Affect: Mood normal. Assessment and Plan 1. Rash Unclear etiology. Recommend to continue claritin in the morning, add oral Benadryl at night. Stop topical steroid, trial topical benadryl. Cool compresses/ice packs PRN for itching. F/u with PCP in one week if new/worsening. Jhonny Quesada APRN.PUPPET MAKER Referring Provider: SELF [[id number]] Allergies As of Date: 06/03/2024 Noted Allergy Reaction KEFLEX (CEPHALEXIN) 05/21/2024 14 - Other: See Comments Comments: Racing heartbeat DOTAREM (GADOTERATE MEGLUMINE) 10/19/2021 2 - R (more content not included)... Normal [facility] CNOVon 05-19-2024 CNOV Office Visit (WALKWA ) NORMA ROMERO ([id number]) 1970 F Date Time Provider Department 05/19/24 6:40 PM MARIA ISABEL MCELROY During your visit today, we recorded the following information about you: Pulse Respiration Blood pressure Weight 87/minute 16/minute 137/89 103.3 kg Nguyen APRN. [facility] 05/19/2024 7:07 PM Signed Chief Complaint Patient presents with: Rash: Right forearm has a spot. Thinks it might be poison marta HPI Patient presents today for concerns for poison marta. Reports she was pulling out poison marta 3 days ago. 2 days ago looked to be a hole with scabbed spot on right forearm. Since there has been severeal bumpy rash. There is expanding redness around initial spot. Area is itchy and tender. This morning noticed red streak coming from red area. Streak has not gotten bigger. She has been using calamine lotion. 9 x 6.5, 10. PAST MEDICAL HISTORY 01/04/2019: Anal fissure 03/19/2017: Brain cyst Comment: posterior fossa 10/27/2013: GERD (gastroesophageal reflux disease) No date: Hypertension No date: Psoriasis 09/2017: Shingles outbreak Comment: had for 3.5 weeks ALLERGIES Allergen Reactions Dotarem [Gadoterate* Rash Pollen Cough Ragweed Pollen Itching Eye itching Valtrex [Valacyclov* Rash Dust Intolerance Review of Systems Review of Systems Constitutional: Negative for chills and fever. Gastrointestinal: Negative for nausea and vomiting. Skin: Positive for color change and rash. BP 137/89 Pulse 87 Resp 16 Wt 103.3 kg (227 lb 10 oz) LMP 04/19/2024 (Exact Date) SpO2 98% BMI 38.48 kg/m? Physical Exam Vitals and nursing note reviewed. Constitutional: General: She is awake. She is not in acute distress. Appearance: Normal appearance. She is not ill-appearing or toxic-appearing. Cardiovascular: Rate and Rhythm: Normal rate. Pulmonary: Effort: Pulmonary effort is normal. Skin: Findings: Erythema and rash present. Rash is vesicular. Comments: Vesicular/ulcerated rash noted to distal right anterior forearm. There is 9 cm by 6.5 cm area of erythema, tenderness and mild swelling and warmth. There is a 10 cm erythematous streak extending proximally. Mildly erythematous papulovesicular rash noted to right upper arm. Neurological: Mental Status: She is alert. Psychiatric: Behavior: Behavior is cooperative. Assessment and Plan 1. Cellulitis of skin - ICD9: 682.9, ICD10: L03.90 (primary diagnosis) Vesicular/ulcerated rash noted to distal right anterior forearm. There is 9 cm by 6.5 cm area of erythema, tenderness and mild swelling and warmth. There is a 10 cm erythematous streak extending proximally. No fevers, chills, nausea, vomiting. Discussed secondary bacterial infection from poison marta vs possible insect bite. Discussed strict follow up and ER precautions. - Begin treatment with Cephalaxin (Keflex) - Area of cellulitis/lymphangitis defined with pen, seek further attention if this area continues to enlarge -Follow up in 48-72 hours if no improvement or for worsening redness, swelling, tenderness, warmth or drainage. -ER for significant worsening redness, swelling, tenderness, warmth, drainage, fevers, chills, nausea, vomiting or any other concerning symptoms. 2. Poison marta - ICD9: 692.6, ICD10: L23.7 - Topical steriod tx with CLOBETASOL 0.05 % TOPICAL CREAM - Anti itch therapy of Oral Benydryl and or Zyrtec recommended - discussed skin care of rash - follow up if symptoms persist or worsen. VÍCTOR Carballo Stephanie, APRN.CNP 05/19/2024 6:55 PM Signed -Keflex every 6 hours for 7 days -Clobetasol cream twice daily -Keep wound clean and dry -Follow up in 48-72 hours if no improvement or for worsening redness, swelling, tenderness, warmth or drainage. -ER for significant worsening redness, swelling, tenderness, warmth, drainage, fevers, chills, nausea, vomiting or any other concerning symptoms. Maria Isabel Mcelroy APRN.CNP 05/19/2024 7:16 PM Signed Addended by: MARIA ISABEL MCELROY on: 05/19/2024 07:16 PM Modules accepted: Orders Allergies As of Date: 05/19/2024 Noted Allergy Reaction DOTAREM (GADOTERATE MEGLUMINE) 10/19/2021 2 - Rash POLLEN 07/19/2009 3 - Cough RAGWEED POLLEN 11/24/2017 9 - Itching Comments: Eye itching VALTREX (VALACYCLOVIR) 10/10/2017 2 - Rash DUST 09/03/2005 5 - Intolerance Date Reviewed: 05/19/2024 Reviewed by: Maria Isabel Mcelroy APRN.PUPPET MAKER - Fully Assessed Reason for Visit: Rash [1087] Cmt: Right forearm has a spot. Thinks it might be poison marta Primary Visit Diagnosis:Cellulitis of skin [L03.90] Other Visit Diagnosis:Poison marta [L23.7] Order(s):cephALEXin (KEFLEX) 500 mg capsuleTake 1 capsule by mouth four times daily for 7 days.Disp: 28 capsuleRfl: 0 clobetasol (TEMOVATE) 0.05 % creamApply to affected area two times a day for 14 days.Disp: 45 gRfl: 0 Prescriptio (more content not included)... Normal [facility] STREP A MOLECULAR (POC)on Procedural Control Valid [facility] Strep A (POCT) Negative Negative [facility] ANES POSTPROC EVALon 023 ANES POSTPROC EVAL HNO ID: [id number] Author: Qamar Oropeza MD Service: Anesthesiology Author Type: Anesthesiologist Type: Anesthesia Postprocedure Evaluation Filed: 03/04/2023 12:24 PM Note Text: POST ANESTHESIA EVALUATION NOTE : 1970 Procedure Summary Date: 03/04/23 [facility] An[facility]hesia Start: 1013 Anesthesia Stop: 1048 Procedure: DECOMPRESSION NERVE MEDIAN CARPAL TUNNEL (Right: Wrist) Diagnosis: Carpal tunnel syndrome, right (Carpal tunnel syndrome, right [G56.01]) Surgeons: Nory Sevilla DO Responsible Provider: Qamar Oropeza MD Anesthesia Type: MAC ASA Status: 3 Anesthesia Type: MAC Last Vitals Vitals Value Taken Time BP 161/82 03/04/23 1115 Temp 36 ?C (96.8 ?F) 03/04/23 1050 Pulse 79 03/04/23 1120 Resp 17 03/04/23 1120 SpO2 98 % 03/04/23 1120 Vitals shown include unvalidated device data. Post Anesthesia Patient Status Patient Evaluation: PACU. PACU/ICU Patient Condition: stable. Anticipated Disposition: phase 2 then home. Neurological Status: aware and responsive. Pulmonary Status: breathing comfortably on room air Airway Control: returned to baseline unsupported. Cardiovascular Status: stable. Pain Management: clinically adequate - multimodal analgesia pain management approach Postoperative Hydration: acceptable. Intraoperative Events: no significant anesthesia events Recommendation: continue current plan of care. Anesthesia Observations No Documentation SIGNATURE: Qamar Oropeza MD PATIENT NAME: Norma Romero DATE: March 04, 2023 TIME: 12:24 PM CSN: [id number] [facility] ANES PRE-OPon 03-04-2023 ANES PRE-OP HNO ID: [id number] Author: Qamar Oropeza MD Service: Anesthesiology Author Type: Anesthesiologist Type: Anesthesia Preprocedure Evaluation Filed: 03/04/2023 9:21 AM Note Text: ANESTHESIOLOGY DAY OF SURGERY NOTE : 1970 Procedure Information Date/Time: 03/04/23 1007 Procedure: DECOMPRESSION NERVE MEDIAN CARPAL TUNNEL (Right: Wrist) [facility] Surgeons: Nory Sevilla DO Estimated body mass index is 39.48 kg/m? as calculated from the following: Height as of 02/20/23: 162.6 cm (5' 4). Weight as of 02/20/23: 104.3 kg (230 lb). Most recent hematocrit and potassium results: Hematocrit 40.5 06/05/2021 Potassium 4.0 10/03/2022 Relevant Problems CARDIO (+) Essential hypertension GI (+) GERD (gastroesophageal reflux disease) I - PHYSICAL EVALUATION AIRWAY Patient intubated: No. Tracheostomy tube not present Mallampati: II. TM distance: >3 FB. Neck ROM: full ROM without neurological symptoms. Mouth opening: adequate. Additional exam findings: yes. CARDIOVASCULAR Rhythm: regular PULMONARY Breath sounds clear to auscultation. II - ANESTHESIA PLAN ASA Score: 3 Anesthetic Plan: MAC NPO Status: adequate Beta Peter Monitoring Plan Monitoring plan: standard ASA. Post Procedure Analgesic Plan Postoperative analgesic plan: parenteral or oral opioids and multimodal analgesia. Patient / Surrogate agrees to blood products: blood products not planned Significant changes in the patient condition since the History and Physical, not otherwise documented in primary service progress note: no. No vitals data found for the desired time range. Facility-Administered Medications as of 03/04/2023 Medication Dose Route Frequency - lactated ringers iv infusion 5-30 mL/hr INTRAVENOUS CONTINUOUS - metoclopramide HCl 10 mg injection (REGLAN) 10 mg INTRAVENOUS Pre-Op Once - famotidine 20 mg injection (PEPCID) 20 mg INTRAVENOUS Pre-Op Once Outpatient Medications as of 03/04/2023 Medication Sig - hydroCHLOROthiazide 25 mg tablet TAKE 1 TABLET DAILY - iv contrast (will be provided with radiology test) MRI Brain Inject, intravenously, once for 1 dose.No IV access, insert saline lock prior to beginning of sedation, infusion, injection of imaging exam.Discontinue saline lock post exam. If Pt. has a central line or IVAD, may access for administration according to line specific nursing protocol.Once exam is complete flush line and de-access according to line specific nursing protocol in the MR contrast administration guidelines link - pantoprazole DR (PROTONIX) 40 mg tablet TAKE 1 TABLET DAILY - cholecalciferol (VITAMIN D3) 50 mcg (2,000 unit) tablet Take 2,000 Units by mouth once daily. - fexofenadine (SUSAN ALLERGY) 180 mg tablet Take 1 tablet by mouth once daily. - Betamethasone-Calcipotriene (TACLONEX) external suspension Apply 1 application to affected area once daily. Psoriasis on back of neck - fluticasone (FLONASE) 50 mcg/actuation nasal spray Use 2 Sprays in each nostril once daily. - ZINC ORAL Take 1 capsule by mouth once daily. - ascorbic acid, vitamin C, (VITAMIN C) 250 mg tablet Take 250 mg by mouth once daily. - multivitamin tablet Take 1 tablet by mouth once daily. - potassium chloride (KLOR-CON 10) 10 mEq tablet Take 1 tablet by mouth daily with breakfast. I have interviewed and examined the patient. I have reviewed the medical record and/or the pre-anesthesia evaluation, pertinent labs, and test results. This contains updated information obtained within 48 hours of Surgery/Procedure. SIGNATURE: Qamar Oropeza MD PATIENT NAME: Norma Romero DATE: March 04, 2023 TIME: 9:11 AM CSN: [id number] [facility] OPERATIVE NOon 03-04-2023 OPERATIVE NO HNO ID: [id number] Author: Nory Sevilla DO Service: Orthopaedic Surgery Author Type: Physician Type: Operative Report Filed: 03/04/2023 11:05 AM Note Text: OPERATIVE/PROCEDURE REPORT LOG ID: [id number] SURGERY/PROCEDURE DATE: 03/04/2023 INCISION/PROCEDURE START TIME: 10:30 AM INCISION CLOSE/PROCEDURE END TIME: 10:43 AM SURGEON(S)/PROCEDURALIST(S) AND IT DIRECTOR(S): Surgeon(s) and Role: * Nory Sevilla DO - Primary Physician Barbed Wire Machine Operator: Claudette Watson PA-C Registered Nurse Aoc Director Combat Plans Officer: Katty De Leon RN SURGERY/PROCEDURE(S): OPERATIVE/PROCEDURE REPORT LOG ID: [id number] Surgery/Procedure Date: 03/04/2023 Incision/Procedure Start Time: 10:30 AM Incision Close/Procedure End Time: 10:43 AM Surgeon(s)/Proceduralist(s) and Barbed Wire Machine Operator(s): Surgeon(s) and Role: * Nory Sevilla DO - Primary Physician Barbed Wire Machine Operator: Claudette Watson PA-C Registered Nurse Aoc Director Combat Plans Officer: Katty De Leon RN Procedure(s): OPERATION: Right carpal tunnel release, open. ANESTHESIA: local. PREOPERATIVE DIAGNOSIS: Right carpal tunnel syndrome. POSTOPERATIVE DIAGNOSIS: Right carpal tunnel syndrome. OPERATIVE INDICATIONS: This is a pleasant 52 year old female who had worsening, numbness, and tingling. Her electrodiagnostic showed carpal tunnel syndrome. She exhausted conservative management and in the office, we discussed the risks, benefits, alternatives, and potential complications involving carpal tunnel release and he wished to pursue surgical intervention. OPERATIVE FINDINGS: Consistent with postoperative diagnosis. OPERATIVE PROCEDURE: On March 04, 2023, the patient was clearly identified in the preoperative area and marked accordingly on the Right palm by myself. She was taken to the operative suite and placed in the supine position with an armboard on the Right. All other bony landmarks were appropriately padded in standard fashion. The arm was then sterilely prepped and draped in standard fashion after ever block. An appropriate time-out was conducted and all in the room were in agreement, signed consent form was on the chart. A longitudinal incision was made with in line with the third web space from 1 cm distal of the wrist crease to Esparza's cardinal line. I used Harshil Rakes to retract the soft tissues. Bipolar electrocautery was used for hemostasis. I bluntly dissected down with Littler scissors to distal edge of the transverse carpal ligament until a flash of fat was noted. I directly divided distal edge of the transverse carpal ligament with a #15 blade. Attention was then focused on the proximal portion and I used Littler scissors to bluntly dissect off the volar surface of the transverse carpal ligament. A carpal tunnel and median nerve protection guide was slid directly under the ligament for dilation and a second time for appropriate positioning, this was passed freely without any resistance. Subsequently, I selected a mini meniscotome Red Devil blade and slid this in the protective guide, completely dividing the transverse carpal ligament. Harshil rakes were used to view up the wound to visualize for complete release and a [place] elevator was used to palpate for complete release. hemostasis was observed. The wound was copiously irrigated with normal saline and I closed with 3-0 nylons in horizontal mattress fashion for a total of 3. Xeroform gauze, sterile 4 x 4 gauze, Webril padding, and a Bias roll was used for final bandage. There were no complications during the procedure. The patient was safely transferred to the Postanesthetic Care Unit in stable condition. I performed the entire procedure. SIGNATURE: Nory Sevilla DO PATIENT NAME: Norma Romero DATE: March 04, 2023 TIME: 11:03 AM PAGER/CONTACT #: ANESTHESIA: Monitored Anesthesia Care SURGERY/PROCEDURE DETAILS: right carpal tunnel release PRE-OP/PRE-PROCEDURE DIAGNOSIS: right carpal tunnel POST-OP/POST-PROCEDURE DIAGNOSIS: Same as Preop ESTIMATED BLOOD LOSS: 0 ml SPECIMENS: None IMPLANTABLE DEVICES: NONE DRAINS: None COMPLICATIONS: None CLOSURE TECHNIQUE: Primary PARTICIPATION IN SURGERY/PROCEDURE: I/primary surgeon/proceduralist performed the procedure with assistance. No qualified resident/fellow was available. SIGNATURE: Nory Sevilla DO PATIENT NAME: Norma Romero DATE: March 04, 2023 TIME: 11:03 AM [facility] EMG(NEURO/NI)on 11-15-2022 [facility] MRI BRAIN WO/W IVCONon 01-18 -2023 [facility] MARY ELLEN SCREENING W TOMOon 06-10 [facility] HCG QUAL UR B/Oon 05-31-2022 status Negative neg - pos Priscilla mixon [facility] Quality Check Yes [facility] MRI BRAIN WO/W IVCONon 09-20 MRI BRAIN WO/W IVCON Final Report DATE OF EXAM: Sep 20 2020 9:10AM A1M 0295 - MRI BRAIN WO/W IVCON / PROCEDURE REASON: multiple diagnoses Physician Interpretation EXAMINATION: MRI BRAIN WO/W IVCON CLINICAL HISTORY: Intracranial arachnoid cysts Cerebral cysts TECHNIQUE: Routine brain MRI protocol without and with contrast including diffusion images. MQ: [id number] Contrast: 19cc mL Dotarem IV COMPARISON: MR brain 06/14/2019 RESULT: Acute Change: There is no evidence of an acute intracranial process. Hemorrhage: No evidence of prior parenchymal hemorrhage on the gradient echo images. Mass Lesion/ Mass Effect: Unchanged 2.3 x 1 x 2.2 cm nonenhancing lesion in the right fourth ventricle following CSF signal on all sequences, with stable mass effect to the adjacent parenchyma. No extra-axial fluid collection. No abnormal parenchymal or leptomeningeal enhancement is noted following contrast administration. Chronic Change: The white matter is within normal limits of signal intensity for age. Parenchyma: No significant volume loss for age. The brain parenchyma is otherwise within normal limits of signal intensity and morphology. Ventricles: Normal caliber and morphology. Skull Base: Hypothalamic and pituitary region are grossly normal. Craniocervical junction is normal. No significant marrow replacement process. Vasculature: Major intracranial arterial structures, and dural venous sinuses show typical flow void, suggesting patency by spin echo criteria. Other: The visualized paranasal sinuses and mastoid air cells are clear. The orbits and extracranial soft tissues are unremarkable. IMPRESSION: Stable fourth ventricle CSF signal lesion, which may represent an ependymal cyst, and is almost certainly benign. No hydrocephalus. Otherwise unremarkable study. Shine Worker: PSCB Transcribe Date/Time: Sep 20 2020 1:53P Dictated by : JHON DONALD MD This examination was interpreted and the report reviewed and electronically signed by: JHON DONALD MD on Sep 20 2020 2:05PM EST Normal [facility] BUNon 09-02-2017 Urea nitrogen 14 mg/dL Normal 7-21 [facility] Comment on above: Performed By: #### B UN, CRET1 ####[facility] LaboratoriesRoutine [id number], [place] [phone] Creatinineon 09-02-2017 Creatinine 0.73 mg/dL Normal 0.58-0.96 [facility] Comment on above: Performed By: #### B UN, CRET1 ####[facility] [address], [place] [phone] eGFR (non-black) mL/min/{1.73_m2} Normal [facility] Comment on above: Performed By: #### B CHANI, CRET1 ####[facility] [id number] [place], [place] [phone] Vital Signs Date Time Vital Sign Value Performing Clinician Faci lity 04-28-2025 15:35-0400 Body height 162.6 cm Oliverio Will MD Work Phone: [facility] 04-28-2025 15:35-0400 Body mass index (BMI) [Ratio] 38.98 kg/m2 Oliverio Will MD Work Phone: [facility] 04-28-2025 15:35-0400 Body weight 103 kg Oliverio Will MD Work Phone: [facility] 04-28-2025 15:35-0400 Diastolic blood pressure 74 mm[Hg] Oliverio Will MD Work Phone: [facility] 04-28-2025 15:35-0400 Heart rate 94 /min Oliverio Will MD Work Phone: [facility] 04-28-2025 15:35-0400 SaO2% (BldA) [Mass fraction] 99 % Oliverio Will MD Work Phone: [facility] 04-28-2025 15:35-0400 Systolic blood pressure 110 mm[Hg] Oliverio Will MD Work Phone: [facility] 04-25-2025 09:31-0400 Body height 162.6 cm Flavia Anthony MD Work Phone: [facility] 04-25-2025 09:31-0400 Body mass index (BMI) [Ratio] 39.65 kg/m2 Flavia Anthony MD Work Phone: [facility] 04-25-2025 09:31-0400 Body weight 104.78 kg Flavia Anthony MD Work Phone: [facility] 04-25-2025 09:31-0400 Diastolic blood pressure 72 mm[Hg] Flavia Anthony MD Work Phone: [facility] 04-25-2025 09:31-0400 Systolic blood pressure 116 mm[Hg] Flaiva Anthony MD Work Phone: [facility] 03-21-2025 09:47-0400 Body mass index (BMI) [Ratio] 39.14 kg/m2 Isela Dorman CAR PACKER.CNM Work Phone: [facility] 03-21-2025 09:47-0400 Body weight 103.42 kg Isela Dorman CAR PACKER.CNM Work Phone: [facility] 03-21-2025 09:47-0400 Diastolic blood pressure 80 mm[Hg] Isela Dorman CAR PACKER.CNM Work Phone: [facility] 03-21-2025 09:47-0400 Systolic blood pressure 120 mm[Hg] Isela Dorman CAR PACKER.CNM Work Phone: [facility] 03-14-2025 10:30-0400 Body height 162.6 cm Isela Dorman CAR PACKER.CNM Work Phone: [facility] 03-14-2025 10:30-0400 Body mass index (BMI) [Ratio] 39.2 kg/m2 Isela Dorman CAR PACKER.CNM Work Phone: [facility] 03-14-2025 10:30-0400 Body weight 103.6 kg Isela Dorman CAR PACKER.CNM Work Phone: [facility] 03-14-2025 10:30-0400 Diastolic blood pressure 84 mm[Hg] Iselatracy Dorman APRN.CNM Work Phone: [facility] 03-14-2025 10:30-0400 Systolic blood pressure 128 mm[Hg] Isela Dorman APRN.CNM Work Phone: [facility] 11-02-2024 12:54-0500 Body height 163.8 cm oJse Encarnacion MD Work Phone: [facility] 11-02-2024 12:54-0500 Body mass index (BMI) [Ratio] 39.49 kg/m2 Jose Encarnacion MD Work Phone: [facility] 11-02-2024 12:54-0500 Body weight 106 kg Jose Encarnacion MD Work Phone: [facility] 11-02-2024 12:54-0500 Diastolic blood pressure 77 mm[Hg] Jose Encarnacion MD Work Phone: [facility] 11-02-2024 12:54-0500 Heart rate 86 /min Jose Encarnacion MD Work Phone: [facility] 11-02-2024 12:54-0500 Respiratory rate 16 /min Jose Encarnacion MD Work Phone: [facility] 11-02-2024 12:54-0500 SaO2% (BldA) [Mass fraction] 98 % Jose Encarnacion MD Work Phone: [facility] 11-02-2024 12:54-0500 Systolic blood pressure 122 mm[Hg] Jose Encarnacion MD Work Phone: [facility] 10-11-2024 15:05-0500 Body height 163.[address] [facility] 10-11-2024 15:05-0500 Body mass index (BMI) [Ratio] 38.04 kg/m2 Anabel Alanis [facility] 10-11-2024 15:05-0500 Body weight 102.[address] [facility] 08-25-2024 08:42-0500 Body height 163.[address] [facility] 08-25-2024 08:42-0500 Body mass index (BMI) [Ratio] 38.8 kg/m2 Anabel Alanis RD [facility] 08-25-2024 08:42-0500 Body weight 104.[address] [facility] 08-16-2024 07:10-0500 Body mass index (BMI) [Ratio] 39.69 kg/m2 Shawn Sun CAR PACKER.PUPPET MAKER Work Phone: [facility] 08-16-2024 07:10-0500 Body temperature 97.7 [degF] Shawn Mendozajosé manuel CAR PACKER.PUPPET MAKER Work Phone: [facility] 08-16-2024 07:10-0500 Body weight 106.5 kg Shawn Sun CAR PACKER.PUPPET MAKER Work Phone: [facility] 08-16-2024 07:10-0500 Diastolic blood pressure 80 mm[Hg] Shawn [facility] CAR PACKER.PUPPET MAKER Work Phone: [facility] 08-16-2024 07:10-0500 Heart rate 80 /min Shawnpearl Mendozayale [facility] CAR PACKER.PUPPET MAKER Work Phone: [facility] 08-16-2024 07:10-0500 Respiratory rate 16 /min Shawn Mendozayale [facility] CAR PACKER.PUPPET MAKER Work Phone: [facility] 08-16-2024 07:10-0500 SaO2% (BldA) [Mass fraction] 96 % Shawn Mendozajosé manuel CAR PACKER.PUPPET MAKER Work Phone: [facility] 08-16-2024 07:10-0500 Systolic blood pressure 136 mm[Hg] Shawn Mendozayale [facility] CAR PACKER.PUPPET MAKER Work Phone: [facility] 07-20-2024 11:03-0400 Body height 163.8 cm Oliverio Will MD Work Phone: [facility] 07-20-2024 11:03-0400 Body mass index (BMI) [Ratio] 39.51 kg/m2 Oliverio Will MD Work Phone: [facility] 07-20-2024 11:03-0400 Body temperature 98.71 [degF] Oliverio Will MD Work Phone: [facility] 07-20-2024 11:03-0400 Body weight 106 kg Oliverio Will MD Work Phone: [facility] 07-20-2024 11:03-0400 Diastolic blood pressure 82 mm[Hg] Oliverio Will MD Work Phone: [facility] 07-20-2024 11:03-0400 Heart rate 76 /min Oliverio Will MD Work Phone: [facility] 07-20-2024 11:03-0400 SaO2% (BldA) [Mass fraction] 98 % Oliverio Will MD Work Phone: [facility] 07-20-2024 11:03-0400 Systolic blood pressure 126 mm[Hg] Oliverio Will MD Work Phone: [facility] 06-03-2024 15:00-0400 Body height 163.8 cm Jhonny Tita CAR PACKER.PUPPET MAKER Work Phone: [facility] [facility] 06-03-2024 15:00-0400 Body mass index (BMI) [Ratio] 39.77 kg/m2 Jhonny Tita CAR PACKER.PUPPET MAKER Work Phone: [facility] 06-03-2024 15:00-0400 Body temperature 98.2 [degF] Jhonny Tita CAR PACKER.PUPPET MAKER Work Phone: [facility] 06-03-2024 15:00-0400 Body weight 106.7 kg Jhonny Tita CAR PACKER.PUPPET MAKER Work Phone: [facility] 06-03-2024 15:00-0400 Diastolic blood pressure 77 mm[Hg] Jhonny Tita CAR PACKER.PUPPET MAKER Work Phone: [facility] 06-03-2024 15:00-0400 Heart rate 87 /min Jhonny Gabrielins CAR PACKER.PUPPET MAKER Work Phone: [facility] 06-03-2024 15:00-0400 Systolic blood pressure 113 mm[Hg] Jhonny Itta CAR PACKER.PUPPET MAKER Work Phone: [facility] 05-19-2024 18:43-0400 Body mass index (BMI) [Ratio] 38.48 kg/m2 Maria Isabel Nguyen CAR PACKER.PUPPET MAKER Work Phone: [facility] 05-19-2024 18:43-0400 Body weight 103.25 kg Maria Isabel Mcelroy CAR PACKER.PUPPET MAKER Work Phone: [facility] 05-19-2024 18:43-0400 Diastolic blood pressure 89 mm[Hg] Maria Isabel Ashrafome CAR PACKER.PUPPET MAKER Work Phone: [facility] 05-19-2024 18:43-0400 Heart rate 87 /min Maria Isabel Ashrafome CAR PACKER.PUPPET MAKER Work Phone: [facility] 05-19-2024 18:43-0400 Respiratory rate 16 /min Maria Isabel Ashrafome CAR PACKER.PUPPET MAKER Work Phone: [facility] 05-19-2024 18:43-0400 SaO2% (BldA) [Mass fraction] 98 % Maria Isabel Barnes CAR PACKER.PUPPET MAKER Work Phone: [facility] 05-19-2024 18:43-0400 Systolic blood pressure 137 mm[Hg] Maria Isabel Nguyen CAR PACKER.PUPPET MAKER Work Phone: [facility] 04-28-2024 10:06-0400 Body height 163.8 cm Jhonny Tita CAR PACKER.PUPPET MAKER Work Phone: [facility] 04-28-2024 10:06-0400 Body mass index (BMI) [Ratio] 38.72 kg/m2 Jhonny Tita CAR PACKER.PUPPET MAKER Work Phone: [facility] 04-28-2024 10:06-0400 Body weight 103.9 kg Jhonny Tita CAR PACKER.PUPPET MAKER Work Phone: [facility] 04-28-2024 10:06-0400 Diastolic blood pressure 77 mm[Hg] Jhonny Tita CAR PACKER.PUPPET MAKER Work Phone: [facility] 04-28-2024 10:06-0400 Heart rate 83 /min Jhonny Tita CAR PACKER.PUPPET MAKER Work Phone: [facility] 04-28-2024 10:06-0400 SaO2% (BldA) [Mass fraction] 98 % Jhonny Tita CAR PACKER.PUPPET MAKER Work Phone: [facility] 04-28-2024 10:06-0400 Systolic blood pressure 112 mm[Hg] Jhonny Tita CAR PACKER.PUPPET MAKER Work Phone: [facility] 12-08-2023 13:57-0400 Body height 163.8 cm Jhonny Tita CAR PACKER.PUPPET MAKER Work Phone: [facility] 12-08-2023 13:57-0400 Body weight 103.9 kg Jhonny Tita CAR PACKER.PUPPET MAKER Work Phone: [facility] 12-08-2023 13:57-0400 Diastolic blood pressure 82 mm[Hg] Jhonny Tita CAR PACKER.PUPPET MAKER Work Phone: [facility] 12-08-2023 13:57-0400 Heart rate 84 /min Jhonny Tita CAR PACKER.PUPPET MAKER Work Phone: [facility] 12-08-2023 13:57-0400 Systolic blood pressure 118 mm[Hg] Jhonny Tita CAR PACKER.PUPPET MAKER Work Phone: [facility] 12-01-2023 11:42-0500 Body height 163.8 cm Jhonny Tita CAR PACKER.PUPPET MAKER Work Phone: [facility] 12-01-2023 11:42-0500 Body temperature 98.01 [degF] Jhonny Tita CAR PACKER.PUPPET MAKER Work Phone: [facility] 12-01-2023 11:42-0500 Body weight 103 kg Jhonny Tita CAR PACKER.PUPPET MAKER Work Phone: [facility] 12-01-2023 11:42-0500 Diastolic blood pressure 79 mm[Hg] Jhonny Tita CAR PACKER.PUPPET MAKER Work Phone: [facility] 12-01-2023 11:42-0500 Heart rate 92 /min Jhonny Tita CAR PACKER.PUPPET MAKER Work Phone: [facility] 12-01-2023 11:42-0500 Systolic blood pressure 115 mm[Hg] Jhonny Tita CAR PACKER.PUPPET MAKER Work Phone: [facility] 10-31-2023 11:37-0500 Body height 163.8 cm Jose Encarnacion MD Work Phone: [facility] 10-31-2023 11:37-0500 Body weight 106.3 kg Jose Encarnacion MD Work Phone: [facility] 10-31-2023 11:37-0500 Diastolic blood pressure 78 mm[Hg] Jose Encarnacion MD Work Phone: [facility] 10-31-2023 11:37-0500 Heart rate 87 /min Jose Encarnacion MD Work Phone: [facility] 10-31-2023 11:37-0500 Respiratory rate 16 /min Jose Encarnacion MD Work Phone: [facility] 10-31-2023 11:37-0500 SaO2% (BldA) [Mass fraction] 99 % Jose Encarnacion MD Work Phone: [facility] 10-31-2023 11:37-0500 Systolic blood pressure 121 mm[Hg] Jose Encarnacion MD Work Phone: [facility] 04-08-2023 10:03-0400 Body height 163.8 cm Oliverio Will MD Work Phone: [facility] 04-08-2023 10:03-0400 Body weight 105.69 kg Oliverio Will MD Work Phone: [facility] 04-08-2023 10:03-0400 Diastolic blood pressure 70 mm[Hg] Oliverio Will MD Work Phone: [facility] 04-08-2023 10:03-0400 Heart rate 75 /min Oliverio Will MD Work Phone: [facility] 04-08-2023 10:03-0400 SaO2% (BldA) [Mass fraction] 96 % Oliverio Will MD Work Phone: [facility] 04-08-2023 10:03-0400 Systolic blood pressure 127 mm[Hg] Oliverio Will MD Work Phone: [facility] 10-24-2022 14:06-0500 Body height 163.8 cm Jose Encarnacion MD Work Phone: [facility] 10-24-2022 14:06-0500 Body weight 104.78 kg Jose Encarnacion MD Work Phone: [facility] 10-24-2022 14:06-0500 Diastolic blood pressure 84 mm[Hg] Jose Encarnacion MD Work Phone: [facility] 10-24-2022 14:06-0500 Heart rate 83 /min Jose Encarnacion MD Work Phone: [facility] 10-24-2022 14:06-0500 Systolic blood pressure 133 mm[Hg] Jose Encarnacion MD Work Phone: [facility] 10-09-2022 15:50-0500 Body height 163.8 cm Oliverio Will MD Work Phone: [facility] 10-09-2022 15:50-0500 Body weight 104.78 kg Oliverio Will MD Work Phone: [facility] 10-09-2022 15:50-0500 Diastolic blood pressure 75 mm[Hg] Oliverio Will MD Work Phone: [facility] 10-09-2022 15:50-0500 Heart rate 86 /min Oliverio Will MD Work Phone: [facility] 10-09-2022 15:50-0500 SaO2% (BldA) [Mass fraction] 97 % Oliverio Will MD Work Phone: [facility] 10-09-2022 15:50-0500 Systolic blood pressure 115 mm[Hg] Oliverio Will MD Work Phone: [facility] 05-31-2022 09:10-0400 Body weight 103.78 kg Domonique Sharma MD Work Phone: [facility] 05-31-2022 09:10-0400 Diastolic blood pressure 70 mm[Hg] Domonique Sharma MD Work Phone: [facility] 05-31-2022 09:10-0400 Systolic blood pressure 110 mm[Hg] Domonique Sharma MD Work Phone: [facility] 04-24-2022 09:04-0400 Body height 163.8 cm Domonique Sharma MD Work Phone: [facility] 04-24-2022 09:04-0400 Body weight 104.33 kg Domonique Sahrma MD Work Phone: [facility] 04-24-2022 09:04-0400 Diastolic blood pressure 74 mm[Hg] Domonique Sharma MD Work Phone: [facility] 04-24-2022 09:04-0400 Systolic blood pressure 122 mm[Hg] Domonique Sharma MD Work Phone: [facility] Encounters Encounter Date Encounter Type Care Provider Facility Start: 05-06-2025 ambulatory Flaviajustin Abad Facility:[facility] Start: 04-29-2025 Encounter for other preprocedural examination Flavia Abad [facility] Start: 04-28-2025 End: 04-28-2025 Office outpatient visit 25 minutes Oliverio Will MD Work Phone: [facility] Comment on above: Abnormal uterine ble eding (Primary Dx); Preop general physical exam; Essential (primary) hypertension; Gastroesophageal reflux disease without esophagitis; Overweight Start: 04-28-2025 End: 04-28-2025 ambulatory OLIVERIO WILL Facility:[facility] Start: 04-28-2025 End: 04-28-2025 Physical examination Oliverio Will MD Work Phone: [facility] Start: 04-28-2025 End: 04-28-2025 Telephone encounter Oliverio Will MD Work Phone: [facility] Comment on above: Received Outside [facility] Records ([facility]) Start: 04-25-2025 End: 04-25-2025 Refill Jhonny Costello APRN.CNP Work Phone: [facility] Comment on above: Refill Request Start: 04-25-2025 End: 04-25-2025 Patient encounter procedure Flavia Anthony MD Work Phone: OB/Gynecology Comment on above: Abnormal uterine ble eding (AUB) (Primary Dx); Submucous uterine fibroid; Pre-op exam Start: 04-25-2025 End: 04-25-2025 Preprocedural examination done Flavia Anthony MD Work Phone: [facility] Start: 04-25-2025 End: 04-25-2025 ambulatory FLAVIA ANTHONY Facility:[facility] Start: 04-25-2025 Encounter for other preprocedural examination FLAVIA ANTHONY [facility] Start: 03-28-2025 End: 03-28-2025 Patient encounter procedure Us Tech 1 [facility] Work Phone: OB/Gynecology Start: 03-28-2025 End: 03-28-2025 ambulatory Family Consultant [facility] Work Phone: OB/Gynecology Start: 03-23-2025 End: 04-22-2025 Follow-up encounter Isela Dorman APRN.CNM Work Phone: OB/Gynecology Start: 03-22-2025 End: 03-24-2025 Telephone encounter Isela Dorman APRN.CNM Work Phone: OB/Gynecology Comment on above: Post EMB appointment Start: 03-21-2025 End: 03-21-2025 Patient encounter procedure Isela Dorman APRN.CNM Work Phone: OB/Gynecology Comment on above: Pelvic pain in femal e (Primary Dx); Abnormal uterine bleeding (AUB) Start: 03-21-2025 End: 03-21-2025 ambulatory OLIVERIO WILL Facility:[facility] Start: 03-14-2025 End: 03-14-2025 Patient encounter procedure Isela Dorman APRN.CNM Work Phone: OB/Gynecology Comment on above: Encounter for gyneco logical examination (general) (routine) without abnormal findings (Primary Dx); Encounter for screening mammogram for breast cancer; Abnormal uterine bleeding (AUB); Dysmenorrhea; Pelvic pain in female Start: 03-14-2025 End: 03-14-2025 Patient encounter status Isela Dorman APRN.CNM Work Phone: [facility] Start: 03-14-2025 End: 03-14-2025 ambulatory OLIVERIO WILL Facility:[facility] Start: 03-14-2025 Encounter for gynecological examination (general) (routine) without abnormal findings ISELA DORMAN [facility] Start: 11-02-2024 End: 11-02-2024 Patient encounter procedure Jose Encarnacion MD Work Phone: [facility] Comment on above: Intracranial arachno id cysts (Primary Dx) Start: 11-02-2024 End: 11-02-2024 ambulatory JOSE ENCARNACION Facility:[facility] Start: 10-29-2024 ambulatory JOSE ENCARNACION Facil ity:[facility] Start: 10-29-2024 End: 10-29-2024 Subsequent hospital visit by physician Mri [place] [employer] [facility] [employer] Comment on above: brain Start: 10-26-2024 End: 10-26-2024 Orders Only Mar Winter APRN.PUPPET MAKER Work Phone: [facility] Comment on above: Intracranial arachno id cysts (Primary Dx) Start: 10-11-2024 End: 10-11-2024 ambulatory OLIVERIO WILL Facility:[facility] Start: 10-11-2024 End: 10-11-[address] Anabel Alanis RD Nutrition Therapy Comment on above: Obesity, Class II, B MD 35-39.9 (Primary Dx); Hypertension, unspecified type; Dietary counseling Start: 10-11-2024 End: 10-11-2024 Telemedicine consultation with patient Anabel Alanis RD Nutrition Therapy Start: 09-09-2024 End: 09-09-2024 Telephone encounter Oliverio Will MD Work Phone: [facility] Comment on above: [facility] Start: 09-09-2024 End: 09-09-2024 Emergency department patient visit Shawn Will Facility:[facility] Start: 09-09-2024 End: 09-09-2024 ambulatory OLIVERIO R [facility] Facility:[facility] Start: 09-09-2024 End: 09-09-2024 Office outpatient new 30 minutes Tammie Bentley PA-C Work Phone: [facility] Comment on above: Traumatic injury of head, initial encounter (Primary Dx) Start: 08-25-2024 End: 08-25-2024 ambulatory JHONNY [facility] Facility:[facility] Start: 08-25-2024 End: 08-25-2024 Nutrition therapy Anabel Alanis RD Nutrition Therapy Comment on above: Dietary counseling ( Primary Dx); Obesity, Class II, BMI 35-39.9 Start: 08-25-2024 End: 08-25-2024 Telemedicine consultation with patient Anabel Alanis RD Nutrition Therapy Start: 08-16-2024 End: 08-16-2024 Telephone encounter Shawn Sun APRN.PUPPET MAKER Work Phone: [facility] Comment on above: Results Start: 08-16-2024 End: 08-16-2024 Subsequent hospital visit by physician Xr [facility] Work Phone: Radiology Comment on above: Acute cough [R05.1] Start: 08-16-2024 End: 08-16-2024 ambulatory OLIVERIO WILL Facility:[facility] Start: 08-16-2024 End: 08-16-2024 Office outpatient visit 25 minutes Shawn Sun APRN.PUPPET MAKER Work Phone: [facility] Comment on above: Sore throat (Primary Dx); Acute cough; URI with cough and congestion Start: 08-13-2024 End: 08-13-2024 ambulatory JHONNY COSTELLO Facility:[facility] Start: 08-13-2024 End: 08-13-2024 Subsequent hospital visit by physician Screen Mammo [facility] Comment on above: Screening mammogram for breast cancer [Z12.31] Start: 07-20-2024 End: 07-20-2024 ambulatory OLIVERIO WILL Facility:[facility] Start: 07-20-2024 End: 07-20-2024 Office outpatient visit 15 minutes Oliverio Will MD Work Phone: [facility] Comment on above: Acute left-sided low back pain without sciatica (Primary Dx); Lower thoracic back pain; Left flank pain Start: 07-14-2024 End: 07-14-2024 ambulatory David Senior RN NURSE NOC TECHNICIAN Comment on above: Overdose Start: 06-28-2024 End: 06-28-2024 Refill Maria Isabel Grullon APRN.CNP Work Phone: Internal Medicine [place] Comment on above: Refill Request Start: 06-07-2024 End: 06-08-2024 Refill Jhonny Quesada APRN.PUPPET MAKER Work Phone: [facility] Comment on above: Refill Request Start: 06-03-2024 End: 06-03-2024 ambulatory SELF Facility:[facility] Start: 06-03-2024 End: 06-03-2024 Office outpatient visit 15 minutes Jhonny Quesada APRN.PUPPET MAKER Work Phone: [facility] Comment on above: Rash (Primary Dx) Start: 06-02-2024 End: 06-02-2024 ambulatory Angela Blancas LPN NURSE NOC TECHNICIAN Start: 06-02-2024 End: 06-02-2024 Patient encounter procedure Angela Blancas LPN NURSE NOC TECHNICIAN Comment on above: Appointment Start: 05-25-2024 End: 05-25-2024 ambulatory Oliverio Will MD Work Phone: [facility] Comment on above: Picture of arm Start: 05-21-2024 End: 05-25-2024 ambulatory Oliverio Will MD Work Phone: [facility] Comment on above: Question about medic ation. Start: 05-19-2024 End: 05-19-2024 Patient encounter procedure Maria Isabel Mcelroy APRN.PUPPET MAKER Work Phone: [facility] Comment on above: Cellulitis of skin ( Primary Dx); Poison marta Start: 05-19-2024 End: 05-20-2024 ambulatory Kaci Camacho RN NURSE NOC TECHNICIAN Comment on above: Rash Opened In Error Poison marta Start: 04-28-2024 End: 04-28-2024 Patient encounter procedure Jhonny Quesada APRN.PUPPET MAKER Work Phone: [facility] Comment on above: Well adult exam (Torie bianca Dx); Essential hypertension; Gastroesophageal reflux disease without esophagitis; Acute pain of right knee; Hearing loss of right ear, unspecified hearing loss type; Obesity, Class II, BMI 35-39.9; Screening for depression; Encounter for screening examination for other mental health and behavioral disorders; Screening mammogram for breast cancer; Encounter for immunization Start: 04-28-2024 End: 04-28-2024 Patient encounter status Jhonny Quesada APRN.PUPPET MAKER Work Phone: [facility] Work Phone: Start: 02-18-2024 Refill Jhonny AYALA.PUPPET MAKER Work Phone: [facility] Comment on above: Refill Request Start: 12-08-2023 End: 12-08-2023 Office outpatient visit 15 minutes Jhonny Tita CAR PACKER.PUPPET MAKER Work Phone: [facility] Comment on above: Acute non-recurrent maxillary sinusitis (Primary Dx); Middle ear effusion, right Start: 12-01-2023 End: 12-01-2023 Office outpatient visit 15 minutes Jhonny Tita CAR PACKER.PUPPET MAKER Work Phone: [facility] Comment on above: Pharyngitis, unspeci fied etiology (Primary Dx); Acute viral syndrome Start: 10-31-2023 End: 10-31-2023 Patient encounter procedure Jose Encarnacion MD Work Phone: [facility] Comment on above: Intracranial arachno id cysts (Primary Dx) Start: 08-12-2023 Documentation procedure Mammog carrie Coordinator [facility] Start: 08-12-2023 Letter encounter Mammography Coordinator [facility] Department Start: 08-11-2023 End: 08-11-2023 Subsequent hospital visit by physician Screen Mammo [facility] Comment on above: Encounter for screen ing mammogram for breast cancer [Z12.31] Start: 07-16-2023 ambulatory Oliverio patel MD Work Phone: Internal Medicine [facility] Start: 07-02-2023 Refill Jhonny Tita A PRN.PUPPET MAKER Work Phone: Internal Medicine [place] Comment on above: Refill Request Start: 06-12-2023 Refill Jhonny Tita A PRN.PUPPET MAKER Work Phone: [facility] Comment on above: Refill Request Start: 04-08-2023 End: 04-08-2023 Patient encounter procedure Oliverio Will MD Work Phone: [facility] Comment on above: Essential hypertensi on (Primary Dx); Sinus congestion; Obesity, Class II, BMI 35-39.9; S/P carpal tunnel release; Gastroesophageal reflux disease, unspecified whether esophagitis present Start: 03-04-2023 End: 03-04-2023 ambulatory UNKNOWN PROVIDER Facility:[facility] Start: 02-24-2023 Refill Jhonny Tita A PRN.PUPPET MAKER Work Phone: [facility] Comment on above: Refill Request Start: 01-03-2023 Orders Only Nory geiger DO Work Phone: Orthopaedics Comment on above: Carpal tunnel syndro me, right (Primary Dx) Start: 01-02-2023 End: 01-02-2023 Patient encounter procedure Nory Sevilla DO Work Phone: Orthopaedics Comment on above: Carpal tunnel syndro me, right Start: 11-19-2022 Orders Only Nory geiger DO Work Phone: Appointment Center Comment on above: Pain (Primary Dx) Start: 11-18-2022 ambulatory Oliverio patel MD Work Phone: [facility] Comment on above: nerve test Start: 11-18-2022 E-mail encounter fro m caregiver Oliverio Will MD Work Phone: [facility] Start: 11-18-2022 Telephone encounter Oliverio Will MD Work Phone: [facility] Comment on above: Results Start: 11-15-2022 End: 11-15-2022 ambulatory Emg 850) Neurology Comment on above: EMG Start: 11-15-2022 End: 11-15-2022 Patient encounter procedure Emg 1 Neur Jamari (Max Weight: 850) [facility] Start: 10-24-2022 End: 10-24-2022 Patient encounter procedure Jose Encarnacion MD Work Phone: [facility] [place] Comment on above: Intracranial arachno id cysts (Primary Dx) Start: 10-16-2022 End: 10-16-2022 Subsequent hospital visit by physician Mri [place] Operator 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 [employer] [facility] [employer] Comment on above: Intracranial arachno id cysts [G93.0] Start: 10-09-2022 End: 10-09-2022 Patient encounter procedure Oliverio Will MD Work Phone: [facility] Comment on above: Essential hypertensi on (Primary Dx); Seasonal allergic rhinitis, unspecified trigger; Obesity, Class II, BMI 35-39.9; Hyperglycemia; Paresthesia and pain of both upper extremities Start: 09-24-2022 ambulatory Oliverio patel MD Work Phone: Internal Medicine [facility] [place] Start: 06-10-2022 Documentation procedure Mammog carrie Coordinator [facility] Start: 06-10-2022 Letter encounter Mammography Coordinator [facility] Department Start: 06-10-2022 End: 06-10-2022 Subsequent hospital visit by physician Screen Mammo [facility] Comment on above: History of abnormal mammogram [Z87.898] Start: 05-31-2022 End: 05-31-2022 Patient encounter procedure Domonique Sharma MD Work Phone: OB/Gynecology Comment on above: DUB (dysfunctional u terine bleeding) (Primary Dx) Start: 04-29-2022 Telephone encounter Domonique moore MD Work Phone: OB/Gynecology Comment on above: Patient Question Start: 04-24-2022 End: 04-24-2022 Patient encounter procedure Domonique Sharma MD Work Phone: OB/Gynecology Comment on above: Encounter for gyneco logical examination (general) (routine) without abnormal findings (Primary Dx); Pap smear for cervical cancer screening; Intermenstrual spotting; DUB (dysfunctional uterine bleeding) Start: 04-24-2022 End: 04-24-2022 Patient encounter status Domonique Sharma MD Work Phone: OB/Gynecology Start: 02-28-2022 Refill Zainab negro PA-C Work Phone: Family [facility] Comment on above: Refill Request Start: 01-05-2022 Refill Oliverio patel MD Work Phone: Internal Medicine [facility] Comment on above: Refill Request Start: 01-04-2022 Refill [facility]el MD Work Phone: [facility] Comment on above: Refill Request Start: 12-19-2021 Refill Oliverio patel MD Work Phone: Family [facility] Comment on above: Refill Request Procedures Date Procedure Procedure Detail Performing Clinician Start: 03-28-2025 Us pelvic nonobstetr ic real-time image complete Isela Dorman APRN.CNM Work Phone: Start: 03-21-2025 UA DIP,URINE HCG (POC) Iselabalbir Dorman APRN.CNM Work Phone: Start: 08-16-2024 Radiologic exam ches t 2 views Shawn Sun APRN.PUPPET MAKER Work Phone: Start: 08-16-2024 STREP A MOLECULAR (POC) Shawn Sun CAR PACKER.PUPPET MAKER Work Phone: Start: 07-20-2024 Urnls dip stick/tabl et rgnt auto w/o microscopy Oliverio Will MD Work Phone: Start: 04-28-2024 Adult depression screening assessment Jhonny Quesada APRN.PUPPET MAKER Work Phone: Start: 12-01-2023 STREP A MOLECULAR (POC) Jhonny Quesada APRN.PUPPET MAKER Work Phone: Start: 11-15-2022 Nerve conduction gio dies 5-6 studies Oliverio Will MD Work Phone: Start: 10-16-2022 Mri brain brain stem w/o w/contrast material Mar Winter CAR PACKER.PUPPET MAKER Work Phone: Start: 06-10-2022 MARY ELLEN SCREENING W BIB Frandy Will MD Work Phone: Start: 06-10-2022 Mammography Screen Wst r Start: 05-31-2022 Urine test visual color cmprsn meths Domonique Sharma MD Work Phone: Start: 10-16-2021 Lipid 1996 panel - S reji or Plasma Jhonny Quesada APRN.PUPPET MAKER Work Phone: Start: 06-19-2021 Mammography Oliveiro roth MD Work Phone: Start: 06-24-2019 Adult depression screening assessment Oliverio Will MD Work Phone: Start: 11-02-2018 Colonoscopy Oliverio roth MD Work Phone: History of decompres kyleigh of median nerve S/P carpal tunnel release Oliverio Will MD Work Phone: Plan of Treatment Date Care Activity Detail Author Start: 04-28-2034 Urine microalbumin profile DTaP,Tdap,Td Vaccine (3 - Td or Tdap) [facility] Start: 11-02-2028 Colonoscopy COLONOSCOPY [facility] Start: 11-02-2028 COLORECTAL CANCER SCREENING COLORECTAL CANCER SCREENING [facility] Start: 11-02-2028 Screening for malign ant neoplasm of colon [facility] Start: 04-27-2027 Diabetes Screening Diabetes Screenin g [facility] Start: 04-24-2027 HPV TESTING HPV TESTING [facility] Start: 04-24-2027 PAP TESTING PAP TESTING [facility] Start: 04-24-2027 Screening for malign ant neoplasm of cervix [facility] Start: 10-16-2026 Lipid 1996 panel - Serum or Plasma Lipid Screening [facility] Start: 10-16-2026 Lipid panel Lipid Screening [facility] Start: 10-16-2026 LIPID SCREEN LIPID SCREEN [facility] Start: 04-28-2026 Annual PCP Team Return Agent romel Disease Visit Annual PCP Team Chronic Disease Visit [facility] Start: 11-02-2025 BP Controlled (<130/80) BP Controlle d (<130/80) [facility] Start: 10-03-2025 DIABETES SCREEN DIABETES SCREEN [facility] Start: 10-03-2025 Diabetes Screening Diabetes Screenin g [facility] Start: 08-13-2025 Screening for malign ant neoplasm of breast Mammogram Screening [facility] Start: 07-20-2025 Annual PCP Team Return Agent romel Disease Visit Annual PCP Team Chronic Disease Visit [facility] Start: 06-13-2025 End: 09-12-2025 Basic metabolic 2000 panel - Serum or Plasma BASIC METABOLIC PANEL Lab Routine Essential hypertension Expected: 06/13/2025, Expires: 09/12/2025 [facility] Work Phone: Comment on above: Expected: 06/13/2025 , Expires: 09/12/2025 Start: 06-03-2025 Annual PCP Team Return Agent romel Disease Visit Annual PCP Team Chronic Disease Visit [facility] Start: 06-03-2025 BP Controlled (<130/80) BP Controlle d (<130/80) [facility] Start: 05-30-2025 Influenza vaccination [facility] Start: 04-28-2025 End: 04-28-2025 Patient encounter procedure 04/28/2025 3:40 PM EDT Office Visit Family Practice [address] [facility] [address] [place], [place] [id number] Oliverio Will MD [address] [facility] [address] [place], [place] [phone] office visit [facility] Comment on above: office visit Start: 04-28-2025 Annual PCP Team Return Agent romel Disease Visit Annual PCP Team Chronic Disease Visit [facility] Start: 04-28-2025 Anxiety Screening Anxiety Screening [facility] Start: 04-28-2025 BP Controlled (<130/80) BP Controlle d (<130/80) [facility] Start: 04-28-2025 Depression Screening Depression Scre ening [facility] Start: 04-25-2025 End: 04-25-2025 Patient encounter procedure 04/25/2025 9:40 AM EDT Office Visit OB/Gynecology [address] [place] [address] Flavia Marcelo MD [address] [place] [address] surgery 05/06/ @[facility] OB/Gynecology Comment on above: surgery 05/06/ @[facility] Start: 04-09-2025 DIABETES SCREEN DIABETES SCREEN [facility] Start: 03-28-2025 End: 03-28-2025 Manual pelvic examination 03/28/2025 11:30 AM EDT Procedure OB/Gynecology [address] [place] [address] Us, Family Consultant [facility] [address] [place] [address] PELVIC US WHI - Abnormal uterine bleeding (AUB) [N93.9] OB/Gynecology Comment on above: PELVIC US WHI - Abno rmal uterine bleeding (AUB) [N93.9] Start: 03-21-2025 End: 03-21-2025 Patient encounter procedure 03/21/2025 9:30 AM EDT Office Visit OB/Gynecology [address] [place] [address] Isela Dormna APRN.CNM [address] [place] [address] [facility] OB/Gynecology Comment on above: [facility] Start: 03-18-2025 End: 03-18-2025 Patient encounter procedure 03/18/2025 11:10 AM EDT Appointment Mammogram [address] [place] [address] Mammogram Start: 03-14-2025 End: 06-13-2025 Prolactin [Mass/volume] in Serum or Plasma [facility] Comment on above: Expected: 03/14/2025 , Expires: 06/13/2025 Start: 03-14-2025 End: 06-13-2025 Thyrotropin [Units/volume] in Serum or Plasma [facility] Comment on above: Expected: 03/14/2025 , Expires: 06/13/2025 Start: 03-14-2025 End: 03-14-2026 US Pelvis PELVIC US [facility] Anc Imaging Routine Abnormal uterine bleeding (AUB) Expected: 03/14/2025, Expires: 03/14/2026 [facility] Comment on above: Expected: 03/14/2025 , Expires: 03/14/2026 Start: 12-07-2024 Annual PCP Team Return Agent romel Disease Visit Annual PCP Team Chronic Disease Visit [facility] Start: 11-30-2024 Annual PCP Team Return Agent romel Disease Visit Annual PCP Team Chronic Disease Visit [facility] Start: 11-30-2024 BP Controlled (<130/80) BP Controlle d (<130/80) [facility] Start: 11-02-2024 End: 11-02-2024 Patient encounter procedure 11/02/2024 1:00 PM EST Office Visit [facility] [address] [place] [phone] Jose Encarnacion MD [address] [facility] [address] 1 year follow up [facility] Comment on above: 1 year follow up Start: 10-31-2024 BP Controlled (<130/80) BP Controlle d (<130/80) [facility] Start: 10-29-2024 End: 10-29-2024 Patient encounter procedure [facility] Comment on above: MRI BRAIN (need orde r) MRI BRAIN WO/W Start: 10-16-2024 DIABETES SCREEN DIABETES SCREEN [facility] Start: 10-11-2024 End: 10-11-2024 Follow-up encounter 10/11/2024 3:15 PM EST [facility] [address] [place] [address] [place] [address] follow up Nutrition Therapy Comment on above: follow up Start: 08-25-2024 End: 08-25-2024 Nutrition therapy 08/25/2024 8:45 AM EST [facility] [address] [place] [address] I want to lose weight, and be healthy Nutrition Therapy Comment on above: I want to lose weigh t, and be healthy Start: 08-13-2024 End: 08-13-2024 Patient encounter procedure 08/13/2024 11:30 AM EST Appointment Mammogram [address] [place] [address] Mammogram Start: 08-12-2024 End: 05-28-2025 DBT Breast - bilateral screening MARY ELLEN SCREENING W BIB Radiology Routine Screening mammogram for breast cancer Expected: 08/12/2024, Expires: 05/28/2025 [facility] Work Phone: Comment on above: Expected: 08/12/2024 , Expires: 05/28/2025 Start: 08-11-2024 Mammography Mammogram Screening [facility] Start: 08-11-2024 Screening for malign ant neoplasm of breast Mammogram Screening [facility] Start: 06-03-2024 End: 06-03-2024 Patient encounter procedure 06/03/2024 3:20 PM EDT Office Visit Family Practice [address] [facility] [address] [place], [place] [phone] Jhonny Quesada, CAR PACKER.PUPPET MAKER [address] [facility] [place] [address] Poison Marta follow up [facility] Comment on above: Poison Marta follow up Start: 05-30-2024 Covid-19 Vaccine () Covid-19 Vaccine () [facility] Start: 05-30-2024 Covid-19 Vaccine () Covid-19 Vaccine () [facility] Start: 05-30-2024 Influenza vaccination [facility] Start: 04-08-2024 ANNUAL PCP TEAM WEATHER STRIPPER ROMEL DISEASE VISIT ANNUAL PCP TEAM CHRONIC DISEASE VISIT [facility] Start: 04-08-2024 BP CONTROLLED (<130/80) BP CONTROLLE D (<130/80) [facility] Start: 04-08-2024 COVID-19 VACCINE (4 - Pfizer series) COVID-19 VACCINE (4 - Pfizer series) [facility] Comment on above: Postponed from 11/19 (Declined at this time) Start: 02-18-2024 End: 05-19-2024 Basic metabolic 2000 panel - Serum or Plasma BASIC METABOLIC PANEL Lab Routine Essential hypertension Expected: 02/18/2024, Expires: 05/19/2024 [facility] Work Phone: Comment on above: Expected: 02/18/2024 , Expires: 05/19/2024 Start: 10-09-2023 ANNUAL PCP TEAM WEATHER STRIPPER ROMEL DISEASE VISIT ANNUAL PCP TEAM CHRONIC DISEASE VISIT [facility] Start: 10-09-2023 BP CONTROLLED (<130/80) BP CONTROLLE D (<130/80) [facility] Start: 09-29-2023 Behavioral Health Screening Behavioral Health Screening [facility] Start: 09-29-2023 Depression Assessment Depression Ass essment [facility] Start: 06-10-2023 Mammography [facility] Start: 05-31-2023 BP CONTROLLED (<130/80) BP CONTROLLE D (<130/80) [facility] Start: 05-30-2023 Covid-19 Vaccine ( season) Covid-19 Vaccine () [facility] Start: 05-30-2023 Influenza vaccination [facility] Start: 04-24-2023 BP CONTROLLED (<130/80) BP CONTROLLE D (<130/80) [facility] Start: 04-08-2023 ANNUAL PCP TEAM WEATHER STRIPPER ROMEL DISEASE VISIT ANNUAL PCP TEAM CHRONIC DISEASE VISIT [facility] Start: 03-10-2023 Urine microalbumin profile [facility] Start: 11-24-2022 HPV TESTING HPV TESTING [facility] Start: 11-24-2022 PAP TESTING PAP TESTING [facility] Start: 10-19-2022 ANNUAL PCP TEAM WEATHER STRIPPER ROMEL DISEASE VISIT ANNUAL PCP TEAM CHRONIC DISEASE VISIT [facility] Start: 09-29-2022 DEPRESSION ASSESSMENT DEPRESSION ASS ESSMENT [facility] Start: 09-24-2022 End: 11-24-2022 Basic metabolic 2000 panel - Serum or Plasma BASIC METABOLIC PNL Lab Routine Essential hypertension Expected: 09/24/2022, Expires: 11/24/2022 [facility] Work Phone: Comment on above: Expected: 09/24/2022 , Expires: 11/24/2022 Start: 09-24-2022 End: 11-24-2022 SCHEDULE LAB TESTING SCHEDULE LAB TESTING Lab Routine Expected: 09/24/2022, Expires: 11/24/2022 [facility] Work Phone: Comment on above: Expected: 09/24/2022 , Expires: 11/24/2022 Start: 06-19-2022 Mammography MAMMOGRAM [facility] Start: 05-30-2022 Influenza vaccination INFLUENZA (#1) [facility] Start: 01-23-2022 COVID-19 VACCINE (4 - Booster for Pfizer series) COVID-19 VACCINE (4 - Booster for Pfizer series) [facility] Start: 12-14-2021 SHINGRIX VACCINE (2 of 2) SHINGRIX VACCINE (2 of 2) [facility] Start: 11-19-2021 COVID-19 VACCINE (4 - Booster for Pfizer series) COVID-19 VACCINE (4 - Booster for Pfizer series) [facility] Start: 10-17-2021 BP CONTROLLED (<130/80) BP CONTROLLE D (<130/80) [facility] Start: 2021 Pneumococcal Vaccine : 50+ (1 of 1 - PCV) Pneumococcal Vaccine: 50+ (1 of 1 - PCV) [facility] Start: 06-24-2020 Adult depression screening assessment DEPRESSION SCREENING [facility] Start: 2016 COLOGUARD (FIT-DNA) COLOGUARD (FIT-D NA) [facility] Start: [address] [facility] Start: 2016 FECAL OCCULT BLOOD FECAL OCCULT BLOO D [facility] Start: 2016 Screening for malign ant neoplasm of colon [facility] Start: 2016 SIGMOIDOSCOPY SIGMOIDOSCOPY [facility] Start: 1990 Hepatitis B Vaccine (1 of 3 - 19+ 3-dose series) Hepatitis B Vaccine (1 of 3 - 19+ 3-dose series) [facility] Start: 1989 HEPATITIS C SCREENING HEPATITIS C SC REENING [facility] Start: 1989 HIV SCREENING HIV SCREENING [facility] Start: 1971 HEPATITIS B (1 of 3 - 3-dose series) HEPATITIS B (1 of 3 - 3-dose series) [facility] Start: 1971 Hepatitis B Vaccine (1 of 3 - 3-dose series) Hepatitis B Vaccine (1 of 3 - 3-dose series) [facility] DBT Breast - bilater al screening MARY ELLEN SCREENING W BIB Radiology Routine Screening mammogram for breast cancer 08/13/2024 11:26 AM EST [facility] Work Phone: End: 04-13-2026 DBT Breast - bilateral screening MARY ELLEN SCREENING W BIB Radiology Routine Encounter for screening mammogram for breast cancer 1 Occurrences starting 03/14/2025 until 04/13/2026 [facility] Work Phone: Comment on above: 1 Occurrences starti ng 03/14/2025 until 04/13/2026 End: 10-09-2023 EMG(NEURO/NI) EMG(NEURO/NI) EMG Routine Paresthesia and pain of both upper extremities 1 Occurrences starting 10/09/2022 until 10/09/2023 [facility] Work Phone: Comment on above: 1 Occurrences starti ng 10/09/2022 until 10/09/2023 Endometrial bx w/wo endocervix bx w/o dilat spx ENDOMETRIAL BIOPSY Procedures Routine Abnormal uterine bleeding (AUB) Dysmenorrhea Pelvic pain in female Ordered: 03/14/2025 [facility] Comment on above: Ordered: 03/14/2025 Endometrial bx w/wo endocervix bx w/o dilat spx ENDOMETRIAL BIOPSY Procedures Routine Pelvic pain in female Abnormal uterine bleeding (AUB) Ordered: 03/21/2025 [facility] Work Phone: Comment on above: Ordered: 03/21/2025 Influenza virus A an d B RNA and SARS-CoV-2 (COVID-19) N gene panel - Respiratory specimen by JUAN with probe detection COVID & INFLUENZA A/B NAAT, ROUTINE Microbiology Routine Acute viral syndrome Ordered: 12/01/2023 [facility] Work Phone: Comment on above: Ordered: 12/01/2023 End: 2024 MARY ELLEN SCREENING W BIB MARY ELLEN SCREENING W BIB Radiology Routine Encounter for screening mammogram for breast cancer 1 Occurrences starting 07/16/2023 until 2024 [facility] Work Phone: Comment on above: 1 Occurrences starti ng 07/16/2023 until 2024 MARY ELLEN SCREENING W BIB MARY ELLEN SCREENI NG W BIB Radiology Routine Encounter for screening mammogram for breast cancer 08/11/2023 8:59 AM EST [facility] Work Phone: End: 11-25-2025 MR Brain WO and W contrast IV MRI BRAIN WO/W IVCON Radiology Routine Intracranial arachnoid cysts 1 Occurrences starting 10/26/2024 until 11/25/2025 [facility] Work Phone: Comment on above: 1 Occurrences starti ng 10/26/2024 until 11/25/2025 MR Brain WO and W contrast IV MRI BRAIN WO/W IVCON Radiology Routine Intracranial arachnoid cysts 10/29/2024 8:55 AM EST [facility] Work Phone: End: 12-02-2025 MR Brain WO and W contrast IV MRI BRAIN WO/W IVCON Radiology Routine Intracranial arachnoid cysts 1 Occurrences starting 11/02/2024 until 12/02/2025 [facility] Work Phone: Comment on above: 1 Occurrences starti ng 11/02/2024 until 12/02/2025 End: 11-23-2023 Mri brain brain stem w/o w/contrast material MRI BRAIN WO/W IVCON Radiology Routine Intracranial arachnoid cysts 1 Occurrences starting 10/24/2022 until 11/23/2023 [facility] Work Phone: Comment on above: 1 Occurrences starti ng 10/24/2022 until 11/23/2023 OFFICE HYSTEROSCOPY OFFICE HYSTE ROSCOPY Procedures Routine Intermenstrual spotting DUB (dysfunctional uterine bleeding) 1 Occurrences starting 04/24/2022 [facility] Work Phone: Comment on above: 1 Occurrences starti ng 04/24/2022 PAP FLUID CERVICAL SCREENING PAP FLUID CERVICAL SCREENING Lab Routine Pap smear for cervical cancer screening Intermenstrual spotting DUB (dysfunctional uterine bleeding) Ordered: 04/24/2022 [facility] Work Phone: Comment on above: Ordered: 04/24/2022 SURGICAL PATHOLOGY SURGICAL PATH OLOGY Lab Routine DUB (dysfunctional uterine bleeding) 05/31/2022 10:02 AM EDT [facility] Work Phone: Tissue Pathology bio psy report SURGICAL PATHOLOGY Lab Routine Pelvic pain in female Abnormal uterine bleeding (AUB) 03/21/2025 10:11 AM T [facility] End: 12-19-2023 XR HAND GENERAL 3V PA/LAT/OBL RIGHT XR HAND GENERAL 3V PA/LAT/OBL RIGHT Radiology Routine Pain 1 Occurrences starting 11/19/2022 until 12/19/2023 [facility] Work Phone: Comment on above: 1 Occurrences starti ng 11/19/2022 until 12/19/2023 [facility] Immunizations Immunization Date Immunization Notes Care Provider Kathy jacinto 04-28-2024 tetanus toxoid, redu anushka diphtheria toxoid, and acellular pertussis vaccine, adsorbed Jhonny Tita CAR PACKER.PUPPET MAKER Work Phone: [facility] 08-25-2022 Seasonal, quadrivale nt, recombinant, injectable influenza vaccine, preservative free Oliverio Will MD Work Phone: [facility] 08-25-2022 influenza virus vaccine, unspecified formulation Jhonny Tita [employer] P[employer]ER.PUPPET MAKER Work Phone: [facility] 04-08-2022 zoster vaccine recombinant Domonique Sharma MD Work Phone: [facility] 10-19-2021 zoster vaccine recombinant Oliverio Will MD Work Phone: [facility] 08-26-2021 Seasonal, quadrivale nt, recombinant, injectable influenza vaccine, preservative free Oliverio Will MD Work Phone: [facility] 12-15-2020 COVID-19 vaccine, ag e 12+ yr (PFIZER-BIONTECH - PURPLE TOP) Oliverio Will MD Work Phone: [facility] Work Phone: 11-24-2020 COVID-19 vaccine, ag e 12+ yr (PFIZER-BIONTECH - PURPLE TOP) Oliverio Will MD Work Phone: [facility] Work Phone: 07-09-2020 influenza virus vaccine, unspecified formulation Oliverio Will MD Work Phone: [facility] 07-09-2020 Seasonal, quadrivale nt, recombinant, injectable influenza vaccine, preservative free Oliverio Will MD Work Phone: [facility] 07-23-2019 influenza, injectabl e, quadrivalent, preservative free Oliverio Will MD Work Phone: [facility] 06-30-2019 influenza virus vaccine, unspecified formulation Oliverio Will MD Work Phone: [facility] 06-28-2018 influenza, injectabl e, quadrivalent, preservative free Oliverio Will MD Work Phone: [facility] 03-10-2013 tetanus toxoid, redu anushka diphtheria toxoid, and acellular pertussis vaccine, adsorbed Oliverio Will MD Work Phone: [facility] Payers Date Payer Category Payer Self-pay 2024 Unknown PENDING 2024 Unknown [id number] 2018 [employer] BLUE CARD PPO OOS [id number] 2018 Unknown ANTHEM BLUE CARD PPO OOS [id number] 2018-Present [phone] [address] [place] [address] PPO [id number] 2018 Unknown [id number] 2018 Unknown [id number] Unknown [id number] Unknown [id number] Social History Date Type Detail Facility Start: 05-31-2022 Tobacco smoking stat us NHIS Never smoked tobacco [facility] Start: 10-25-2021 End: 04-28-2025 Alcohol intake Current drinker of alcohol (finding) [facility] Start: 10-15-2020 End: 04-05-2022 History SDOH Alcohol Frequency 4 [facility] Start: 10-15-2020 End: 10-03-2022 History SDOH Alcohol Std Drinks 1 [facility] Start: 10-15-2020 End: 10-03-2022 [facility] Start: 07-22-2016 History SDOH Alcohol Comment Occasionally [facility] Start: 10-15-2020 End: 10-03-2022 History SDOH Social Connections Phone 5 [facility] Start: 10-15-2020 End: 10-03-2022 History SDOH Social Connections Get Together 2 [facility] Start: 10-15-2020 Education 15 [facility] Start: 1970 Sex Assigned At Not on file [facility] Start: 03-29-2022 End: 06-10-2022 Exposure to SARS-CoV-2 (event) Not sure [facility] Start: 05-31-2022 Tobacco use and exposure Smoke less tobacco non-user [facility] Start: 10-03-2022 History SDOH Alcohol Binge 98 [facility] Start: 10-03-2022 History SDOH Physica l Activity DPW 0 [facility] Start: 02-20-2023 Alcohol Comment 1-4 drinks per weeke nd [facility] Start: 10-02-2022 End: 02-20-2023 [facility] of [facility] Start: 10-02-2022 End: 02-20-2023 Social connection and isolation panel [facility] Do you belong to any clubs or organizations such as caodaism groups, unions, fraternal or athletic groups, or school groups? No [facility] How often do you att end meetings of the clubs or organizations you belong to? Patient refused [facility] Are you now , , , , never or living with a partner? [facility] How often to you hav e a drink containing alcohol? Monthly or less [facility] How many standard dr inks containing alcohol do you have on a typical day? 1 or 2 [facility] Do you feel stress - tense, restless, nervous, or anxious, or unable to sleep at night because your mind is troubled all the time - these days [OSQ] Not at all [facility] (I/We) worried wheth er (my/our) food would run out before (I/we) got money to buy more. Never true [facility] Do you belong to any clubs or organizations such as caodaism groups, unions, fraClearFit or athletic groups, or school groups? Yes [facility] How often do you hav e 6 or more drinks on 1 occasion? Never [facility] How often to you hav e a drink containing alcohol? 2-4 times a month [facility] Functional Status Date Assessment Result Facility 02-13-2015 Are you deaf, or do you have serious difficulty hearing No 02/13/2015 9:35 AM Kita Gonsalez LPN No [facility] 02-13-2015 Are you blind, or do you have serious difficulty seeing, even when wearing glasses No 02/13/2015 9:35 AM Kita Gonsalez LPN No [facility] 02-13-2015 Do you have serious difficulty walking or climbing stairs No 02/13/2015 9:35 AM Kita Gonsalez LPN No [facility] 02-13-2015 Do you have difficul ty dressing or bathing No 02/13/2015 9:35 AM Kita Gonsalez LPN No [facility] 02-13-2015 Because of a physica l, mental, or emotional condition, do you have difficulty doing errands alone such as visiting a physician's office or shopping No 02/13/2015 9:35 AM Kita Gonsalez LPN No [facility] Mental Status Date Assessment Result Facility 02-13-2015 Because of a physica l, mental, or emotional condition, do you have serious difficulty concentrating, remembering, or making decisions No 02/13/2015 9:35 AM Kita Gonsalez LPN No [facility] Clinical Notes 10-19-2018 to 04-29-2025 Oliverio Will MD - 04/29/2025 5:20 PM EDTTelephone Encounter - [place] EDUARDO Alfaro - 04/28/2025 10:14 AM EDTTelephone Encounter - [place] EDUARDO Alfaro - 04/28/2025 10:14 AM EDT Note Date & Type Note Facility 04-29-2025 Note HNO ID: [id number] Author: OLIVERIO WILL MD Service: ? Author Type: Physician Type: Progress Notes Filed: 04/29/2025 17:27 Note Text: Subjective Norma Romero is a 54-year-old female with a history of GERD, HTN, and obesity, presenting for preoperative evaluation for an upcoming hysteroscopy, DANDC, and fibroid removal. Preoperative Evaluation: - Scheduled for hysteroscopy, DANDC, and fibroid removal via laparoscope on 06/06. - No recent cardiac evaluations since a normal stress test in 2018. - Denies current chest pain or other cardiac symptoms. - Well-controlled HTN. - Denies smoking or diabetes. - Engages in regular physical activity, including chores and yard work. GERD: - Managed with Protonix; experiences flare-ups if doses are missed. - Believes GERD was the reason for the stress test in 2018. - History of cholecystectomy. Obesity: - Weight fluctuates; Norma has tried various weight loss methods including Noom and dietary changes with limited success. - Reports constipation with high-protein diets. - Prefers spinach over iceberg lettuce due to digestive issues. - Allergic to vinegar; uses ranch dressing or cottage cheese on salads. Gastrointestinal: (+) acid reflux, (+) constipation Objective Blood pressure 110/74, pulse 94, height 162.6 cm (5' 4), weight 103 kg (227 lb 1.2 oz), last menstrual period 04/08/2025, SpO2 99%. General: Well-appearing. Imaging: (2018) Nuclear Stress Test: Normal results. Assessment AND Plan 1. Abnormal uterine bleeding (N93.9) 2. Preop general physical exam (Z01.818) - Reviewed normal nuclear stress test from 2018; no cardiac symptoms since. - No significant cardiac risk factors aside from well-controlled hypertension and overweight status. - No contraindications to proceeding with scheduled hysteroscopy, DANDC, and fibroid removal on Friday, the . - Discussed standard surgical risks; advised early postoperative mobilization to reduce risk of DVT. 3. Essential (primary) hypertension (I10) - Well-controlled. - Continue current management. 4. Gastroesophageal reflux disease without esophagitis (K21.9) - Symptoms well managed with Protonix; advised to continue as prescribed. 5. Overweight (E66.3) - Discussed challenges with weight loss, including prior attempts with Noom and dietary modifications. - Advised moderate caloric deficit (200-300 kcal/day) and increased physical activity, emphasizing resistance training for metabolic benefits. - Recommended dietary adjustments: reduce bread, pasta, and rice; incorporate lean protein and healthy fats (e.g., avocado); use low-fat cottage cheese or Pakistani yogurt as salad dressing alternatives. Recording using Studio SBV software for draft documentation of the visit was discussed with the patient/authorized leasing representative; all questions welcomed and answered. Patient/authorized leasing representative agreed to proceed Oliverio Will MD [facility] 04-29-2025 History of Present illness Narrative Subjective Norma Romero is a 54-year-old female with a history of GERD, HTN, and obesity, presenting for preoperative evaluation for an upcoming hysteroscopy, D&C, and fibroid removal. Preoperative Evaluation: - Scheduled for hysteroscopy, D&C, and fibroid removal via laparoscope on 06/06. - No recent cardiac evaluations since a normal stress test in 2018. - Denies current chest pain or other cardiac symptoms. - Well-controlled HTN. - Denies smoking or diabetes. - Engages in regular physical activity, including chores and yard work. GERD: - Managed with Protonix; experiences flare-ups if doses are missed. - Believes GERD was the reason for the stress test in 2018. - History of cholecystectomy. Obesity: - Weight fluctuates; Norma has tried various weight loss methods including Noom and dietary changes with limited success. - Reports constipation with high-protein diets. - Prefers spinach over iceberg lettuce due to digestive issues. - Allergic to vinegar; uses ranch dressing or cottage cheese on salads. Gastrointestinal: (+) acid reflux, (+) constipation Objective Blood pressure 110/74, pulse 94, height 162.6 cm (5' 4), weight 103 kg (227 lb 1.2 oz), last menstrual period 04/08/2025, SpO2 99%. General: Well-appearing. Imaging: (2018) Nuclear Stress Test: Normal results. Assessment & Plan 1. Abnormal uterine bleeding (N93.9) 2. Preop general physical exam (Z01.818) - Reviewed normal nuclear stress test from 2018; no cardiac symptoms since. - No significant cardiac risk factors aside from well-controlled hypertension and overweight status. - No contraindications to proceeding with scheduled hysteroscopy, D&C, and fibroid removal on Friday, the . - Discussed standard surgical risks; advised early postoperative mobilization to reduce risk of DVT. 3. Essential (primary) hypertension (I10) - Well-controlled. - Continue current management. 4. Gastroesophageal reflux disease without esophagitis (K21.9) - Symptoms well managed with Protonix; advised to continue as prescribed. 5. Overweight (E66.3) - Discussed challenges with weight loss, including prior attempts with Noom and dietary modifications. - Advised moderate caloric deficit (200-300 kcal/day) and increased physical activity, emphasizing resistance training for metabolic benefits. - Recommended dietary adjustments: reduce bread, pasta, and rice; incorporate lean protein and healthy fats (e.g., avocado); use low-fat cottage cheese or Pakistani yogurt as salad dressing alternatives. Recording using Studio SBV software for draft documentation of the visit was discussed with the patient/authorized leasing representative; all questions welcomed and answered. Patient/authorized leasing representative agreed to proceed Oliverio Will MD documented in this encounter [facility] 04-28-2025 Miscellaneous Notes Received h and p site technician from [facility]. Placed in provider's inbox for review. Route to MA scanning documented in this encounter [facility] 04-28-2025 Telephone encounter Note Received h and p site technician from [facility]. Placed in provider's inbox for review. Route to MA scanning [facility] 04-25-2025 Telephone encounter Note Spoke with patient and scheduled office visit with Dr. Will. [facility] 04-25-2025 Miscellaneous Notes Spoke with patient and scheduled office visit with Dr. Will. OK 1 fill , due for lab and visit by June. Refill on 04/25/25 BASIC METABOLIC PANEL The following approved medication requests have been transmitted electronically. Requested Prescriptions Signed Prescriptions Disp Refills losartan (COZAAR) 25 mg tablet 90 tablet 0 Sig: TAKE 1 TABLET EVERY AFTERNOON Authorizing Provider: OLIVERIO WILL MD Prescription Refill Information The patient has been identified by name and date of : Yes Caregiver verified no other encounters exist for this prescription request: Yes Caregiver confirmed with patient/requestor that no other refills are due, in the near future, with this provider at this time: Yes The last office visit in the department: 03/21/2025 Does the patient have a future office visit with this provider/department: No Requested Prescriptions Pending Prescriptions Disp Refills losartan (COZAAR) 25 mg tablet [Pharmacy Med Name: LOSARTAN TABS 25MG] 90 tablet 3 Sig: TAKE 1 TABLET EVERY AFTERNOON Joycelyn Marie LPN April 25, 2025 11:38 AM documented in this encounter [facility] 04-25-2025 Telephone encounter Note OK 1 fill , due for lab and visit by June. Refill on 04/25/25 BASIC METABOLIC PANEL The following approved medication requests have been transmitted electronically. Requested Prescriptions Signed Prescriptions Disp Refills losartan (COZAAR) 25 mg tablet 90 tablet 0 Sig: TAKE 1 TABLET EVERY AFTERNOON Authorizing Provider: OLIVERIO WILL MD [facility] 04-25-2025 Telephone encounter Note Prescription Refill Information The patient has been identified by name and date of : Yes Caregiver verified no other encounters exist for this prescription request: Yes Caregiver confirmed with patient/requestor that no other refills are due, in the near future, with this provider at this time: Yes The last office visit in the department: 03/21/2025 Does the patient have a future office visit with this provider/department: No Requested Prescriptions Pending Prescriptions Disp Refills losartan (COZAAR) 25 mg tablet [Pharmacy Med Name: LOSARTAN TABS 25MG] 90 tablet 3 Sig: TAKE 1 TABLET EVERY AFTERNOON Joycelyn Marie LPN April 25, 2025 11:38 AM [facility] 04-25-2025 History and physical note Pre-Op History and Physical HPI: The patient is a 54 year old female presenting for discussion regarding AUB, submucosal fibroid. pre-operative visit. She is scheduled for Hysteroscopy D&C and myomectomy, possible polypectomy with symphion, for AUB, submucosal fibroid on 05/06/25. Procedure discussed along with risks, benefits and complications. Other alternatives discussed for management. Consent form signed? Yes. 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 GERD (gastroesophageal reflux disease) 10/27/2013 Hypertension Psoriasis Shingles outbreak 09/2017 had for 3.5 weeks PAST SURGICAL HISTORY Procedure Laterality Date CHOLECYSTECTOMY 02/2017 COLONOSCOPY AND BIOPSY 11/02/2018 EGD x 2 EGD BIOPSY SING OR MULT 11/02/2018 ESSURE 03/12/2012 LAPROSCOPIC REPAIR UMBILICAL HERNIA 2016 REVISE MEDIAN N/CARPAL TUNNEL SURG Right SKIN BX, 1 LESION 11/1997 scar tissue r buttocks Current Outpatient Medications Medication Sig Dispense Refill norethindrone (AYGESTIN) 5 mg tablet 1 tab 3x/day until bleeding stops. 1 tab 2x/day x 2 days. 1 tab daily x 5 days 35 tablet 0 albuterol HFA (PROVENTIL HFA, VENTOLIN HFA) 90 mcg/actuation inhaler Inhale 2 Puffs as instructed every 6 hours as needed for wheezing/shortness of breath. [address] (PROTONIX) 40 mg tablet take 1 tablet daily 90 tablet 3 hydroCHLOROthiazide 25 mg tablet take 1 tablet daily 90 tablet 3 losartan (COZAAR) 25 mg tablet Take 1 tablet by mouth every afternoon. 90 tablet 3 elderberry fruit (ELDERBERRY ORAL) Take 1 tablet by mouth once daily. fluticasone (FLONASE) 50 mcg/actuation nasal spray Use 2 Sprays in each nostril once daily. 18.2 mL 3 cholecalciferol (VITAMIN D3) 50 mcg (2,000 unit) tablet Take 2,000 Units by mouth once daily. ZINC ORAL Take 1 capsule by mouth once daily. ascorbic acid, vitamin C, (VITAMIN C) 250 mg tablet Take 250 mg by mouth once daily. multivitamin tablet Take 1 tablet by mouth once daily. potassium chloride (KLOR-CON 10) 10 mEq tablet Take 1 tablet by mouth daily with breakfast. 0 TURMERIC PO Take by mouth as needed. No current facility-administered medications for this visit. ALLERGIES: Keflex [Cephalexin], Dotarem [Gadoterate Meglumine], Pollen, Ragweed Pollen, Valtrex [Valacyclovir], and Dust PERSONAL HISTORY: Social History Tobacco Use Smoking status: Never Smokeless tobacco: Never Vaping Use Vaping status: Never Used Substance Use Topics Alcohol use: Yes Comment: 1-4 drinks per weekend Drug use: No FAMILY HISTORY: FAMILY HISTORY Problem Relation Age of Onset Diabetes Mother Heart Mother hx of MD Hypertension Mother other (endometrosis) Mother Hysterectomy Hypertension Father Prostate Cancer Father Hypertension Brother Diabetes Brother Heart Maternal Grandmother Colon Cancer Paternal Grandmother 74 Cancer Paternal Grandfather prostate other (Other) Paternal Grandfather No breast/media center assistant cancer No Known Problems Daughter No Known Problems Son other (pre cancer) Paternal Aunt had to have hysterectomy Anesthesia Problems No Family History REVIEW OF SYMPTOMS: negative except as noted above PHYSICAL EXAMINATION: VITALS: Blood pressure 116/72, height 162.6 cm (5' 4), weight 104.8 kg (231 lb), last menstrual period 04/08/2025. GENERAL: The patient is well nourished, well hydrated in no acute distress. , The patient is oriented to time, place, and person. NECK: full range of motion LUNGS: Clear to auscultation bilaterally. no wheezes, rhonchi or rales HEART: Regular rate and rhythm, Normal heart sounds, and No murmurs or gallops IMPRESSION: 54yo with AUB and submucosal fibroid PLAN: Hysteroscopy, D&C, myomectomy with symphion Pt has been counseled on risks/benefits and alternatives of surgery including but not limited to anesthesia, bleeding, infection, uterine perforation with subsequent injury to pelvic structures including bowel, bladder, ureters and vessels. Pt wishes to proceed with surgery at this time. I have reviewed and updated past medical and surgical history, medications and allergies Flavia Anthony MD [facility] 04-25-2025 History and physical note Pre-Op History and Physical HPI: The patient is a 54 year old female presenting for discussion regarding AUB, submucosal fibroid. pre-operative visit. She is scheduled for Hysteroscopy D&C and myomectomy, possible polypectomy with symphion, for AUB, submucosal fibroid on 05/06/25. Procedure discussed along with risks, benefits and complications. Other alternatives discussed for management. Consent form signed? Yes. 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 GERD (gastroesophageal reflux disease) 10/27/2013 Hypertension Psoriasis Shingles outbreak 09/2017 had for 3.5 weeks PAST SURGICAL HISTORY Procedure Laterality Date CHOLECYSTECTOMY 02/2017 COLONOSCOPY AND BIOPSY 11/02/2018 EGD x 2 EGD BIOPSY SING OR MULT 11/02/2018 ESSURE 03/12/2012 LAPROSCOPIC REPAIR UMBILICAL HERNIA 2017 REVISE MEDIAN N/CARPAL TUNNEL SURG Right SKIN BX, 1 LESION 11/1997 scar tissue r buttocks Current Outpatient Medications Medication Sig Dispense Refill norethindrone (AYGESTIN) 5 mg tablet 1 tab 3x/day until bleeding stops. 1 tab 2x/day x 2 days. 1 tab daily x 5 days 35 tablet 0 albuterol HFA (PROVENTIL HFA, VENTOLIN HFA) 90 mcg/actuation inhaler Inhale 2 Puffs as instructed every 6 hours as needed for wheezing/shortness of breath. [address] (PROTONIX) 40 mg tablet take 1 tablet daily 90 tablet 3 hydroCHLOROthiazide 25 mg tablet take 1 tablet daily 90 tablet 3 losartan (COZAAR) 25 mg tablet Take 1 tablet by mouth every afternoon. 90 tablet 3 elderberry fruit (ELDERBERRY ORAL) Take 1 tablet by mouth once daily. fluticasone (FLONASE) 50 mcg/actuation nasal spray Use 2 Sprays in each nostril once daily. 18.2 mL 3 cholecalciferol (VITAMIN D3) 50 mcg (2,000 unit) tablet Take 2,000 Units by mouth once daily. ZINC ORAL Take 1 capsule by mouth once daily. ascorbic acid, vitamin C, (VITAMIN C) 250 mg tablet Take 250 mg by mouth once daily. multivitamin tablet Take 1 tablet by mouth once daily. potassium chloride (KLOR-CON 10) 10 mEq tablet Take 1 tablet by mouth daily with breakfast. 0 TURMERIC PO Take by mouth as needed. No current facility-administered medications for this visit. ALLERGIES: Keflex [Cephalexin], Dotarem [Gadoterate Meglumine], Pollen, Ragweed Pollen, Valtrex [Valacyclovir], and Dust PERSONAL HISTORY: Social History Tobacco Use Smoking status: Never Smokeless tobacco: Never Vaping Use Vaping status: Never Used Substance Use Topics Alcohol use: Yes Comment: 1-4 drinks per weekend Drug use: No FAMILY HISTORY: FAMILY HISTORY Problem Relation Age of Onset Diabetes Mother Heart Mother hx of MD Hypertension Mother other (endometrosis) Mother Hysterectomy Hypertension Father Prostate Cancer Father Hypertension Brother Diabetes Brother Heart Maternal Grandmother Colon Cancer Paternal Grandmother 74 Cancer Paternal Grandfather prostate other (Other) Paternal Grandfather No breast/media center assistant cancer No Known Problems Daughter No Known Problems Son other (pre cancer) Paternal Aunt had to have hysterectomy Anesthesia Problems No Family History REVIEW OF SYMPTOMS: negative except as noted above PHYSICAL EXAMINATION: VITALS: Blood pressure 116/72, height 162.6 cm (5' 4), weight 104.8 kg (231 lb), last menstrual period 04/08/2025. GENERAL: The patient is well nourished, well hydrated in no acute distress. , The patient is oriented to time, place, and person. NECK: full range of motion LUNGS: Clear to auscultation bilaterally. no wheezes, rhonchi or rales HEART: Regular rate and rhythm, Normal heart sounds, and No murmurs or gallops IMPRESSION: 54yo with AUB and submucosal fibroid PLAN: Hysteroscopy, D&C, myomectomy with symphion Pt has been counseled on risks/benefits and alternatives of surgery including but not limited to anesthesia, bleeding, infection, uterine perforation with subsequent injury to pelvic structures including bowel, bladder, ureters and vessels. Pt wishes to proceed with surgery at this time. I have reviewed and updated past medical and surgical history, medications and allergies Flavia Anthony MD documented in this encounter [facility] 03-28-2025 Note HNO ID: [id number] Author: PARVIN FRANCOIS DO Service: ? Author Type: Physician Type: Progress Notes Filed: 03/28/2025 11:16 Note Text: Patient presents for ultrasound Please refer to report and images tab for documentation Recommend follow up with ordering provider Parvin Francois DO 11:15 AM March 28, 2025 [facility] 03-28-2025 History of Present illness Narrative Images from the original note were not included. Patient presents for ultrasound Please refer to report and images tab for documentation Recommend follow up with ordering provider Parvin Francois DO 11:15 AM March 28, 2025 documented in this encounter [facility] 03-22-2025 Telephone encounter Note Spoke to MARSHA to clarify- Pt will be advised to take 2 tablets for 10 days, then 1 tablet until she returns from trip. Pt should stay hydrated, limit time in the heat/sun exposure with high temperatures at this time, and informed that MARSHA advises Pt to continue to monitor sx and notify office if continues/She does not feel the light headedness/vomiting was from the pill. [employer] message sent to Pt. Trudi Smiley RN [facility] 03-22-2025 Miscellaneous Notes Spoke to MARSHA to clarify- Pt will be advised to take 2 tablets for 10 days, then 1 tablet until she returns from trip. Pt should stay hydrated, limit time in the heat/sun exposure with high temperatures at this time, and informed that MARSHA advises Pt to continue to monitor sx and notify office if continues/She does not feel the light headedness/vomiting was from the pill. [employer] message sent to Pt. Trudi Smiley RN I would recommend the three times a day at least for the first 5 days then go to 2 times a day for 5 days then once a day till she returns from her trip. Thanks, Isela Dorman APRN.CNM Pt was seen in office on 03/21/25 for EMB for abnormal uterine bleeding. Pt started bleeding yesterday-did pill at noon and dinner time. Has since stopped bleeding. Pt is asking if she should do 3 pills today or just take 2 times like she did yesterday (took this AM) and is it normal to feel slightly light headed/Pt did vomit once this AM after taking pills. Pt states she is staying hydrated, but it is possible she needs to drink more. Advised Pt to continue drinking plenty of fluids-especially with this heat and if she begins to experience increased light headedness/dizziness to let our office know. Informed her message would be sent to MARSHA for further guidance and we would call her back. Trudi Smiley RN documented in this encounter [facility] 03-22-2025 Telephone encounter Note I would recommend the three times a day at least for the first 5 days then go to 2 times a day for 5 days then once a day till she returns from her trip. Carl, Isela Dorman APRN.CNM T [facility] 03-22-2025 Telephone encounter Note Pt was seen in office on 03/21/25 for EMB for abnormal uterine bleeding. Pt started bleeding yesterday-did pill at noon and dinner time. Has since stopped bleeding. Pt is asking if she should do 3 pills today or just take 2 times like she did yesterday (took this AM) and is it normal to feel slightly light headed/Pt did vomit once this AM after taking pills. Pt states she is staying hydrated, but it is possible she needs to drink more. Advised Pt to continue drinking plenty of fluids-especially with this heat and if she begins to experience increased light headedness/dizziness to let our office know. Informed her message would be sent to MARSHA for further guidance and we would call her back. Trudi Smiley RN T [facility] 03-21-2025 Instructions Isela Dorman APRN.CNM - 03/21/2025 9:39 AM EDT Endometrial Biopsy Your provider has recommended an endometrial biopsy. For more information, My [facility] Endometrial Biopsy How do I prepare for an endometrial biopsy? You shouldn t need to do much to prepare for an endometrial biopsy. Let your healthcare provider know what medications or supplements you take and if you have any allergies. They can let you know if you should stop taking certain medications before the biopsy. Some healthcare providers recommend taking a nonsteroidal anti-inflammatory drug (NSAID) like ibuprofen before the biopsy to help with pain. Your provider may recommend a medication to help prepare your cervix for the biopsy, often taken by mouth one and two days before the procedure. Ask your healthcare provider any questions you have before the procedure so you know exactly what to expect. Generally, an endometrial biopsy is very low-risk and safe. Take Aygestin 3 times a day for 7 days then decrease to 2 times a day for the next week and then daily till you return. documented in this encounter [facility] 03-21-2025 Note HNO ID: [id number] Author: ISELA DORMAN APRN.CNM Service: ? Author Type: Contract Lead Type: Progress Notes Filed: 03/21/2025 10:21 Note Text: Joint Creaser offered: Patient accepts, visit chaperoned by Reba Tyler MA. Norma is a 54 year old who presents today for an endometrial biopsy for abnormal uterine bleeding. test: negative UNIVERSAL PROTOCOL / SAFETY CHECKLIST Procedure to be Performed: Endometrial Biopsy Sign In: A Moment of CARE was completed. Appropriate PPE (Personal Protective Equipment) worn by all providers involved with the procedure. Special equipment not required. Patient/Surrogate Stated/Verified: Patient name, Date of , Relevant allergies, and The intended procedure Time Out: Relevant labs, photos, and/or imaging studies have been reviewed. Intended patient and procedure match the source document(s) (e.g. consent, HANDP, associated studies [imaging, pathology]) match the intended patient and procedure. Consent obtained and matches the intended procedure. Yes. Correct side/site has been marked and visible. Medications required for this procedure are not applicable. Fire risk assessed and is not applicable. Implants: are not applicable. Sign Out: Specimens are all correctly labeled and sent. All instruments, equipment, possible retained foreign bodies are accounted for. Yes. The post-procedure plan of care has been communicated to the patient or surrogate. PROCEDURE: EXTERNAL GENITALIA: Normal in appearance without lesions VAGINA: Normal in appearance without lesions BIOPSY: Speculum placed into the vagina with excellent visualization of the cervix. Cervix cleaned with betadine. Anterior lip of cervix grasped with single toothed tenaculum. Uterus sounded to 9 cm. Pipelle inserted into the uterus without difficulty and endometrial biopsy obtained. Specimen labeled and sent to pathology. Hemostasis achieved. Procedure Summary: Patient tolerated procedure well. ASSESSMENT: abnormal uterine bleeding PLAN: Specimens labeled and sent to Pathology. Will notify patient of results in 1-2 weeks. Will start Aygestin taper as she is leaving for vacation. Will follow up after results to discuss plan of care. Isela Dorman APRN.CNM [facility] 03-21-2025 History of Present illness Narrative Joint Creaser offered: Patient accepts, visit chaperoned by Reba Tyler MA. Norma is a 54 year old who presents today for an endometrial biopsy for abnormal uterine bleeding. test: negative UNIVERSAL PROTOCOL / SAFETY CHECKLIST Procedure to be Performed: Endometrial Biopsy Sign In: A Moment of CARE was completed. Appropriate PPE (Personal Protective Equipment) worn by all providers involved with the procedure. Special equipment not required. Patient/Surrogate Stated/Verified: Patient name, Date of , Relevant allergies, and The intended procedure Time Out: Relevant labs, photos, and/or imaging studies have been reviewed. Intended patient and procedure match the source document(s) (e.g. consent, H&P, associated studies [imaging, pathology]) match the intended patient and procedure. Consent obtained and matches the intended procedure. Yes. Correct side/site has been marked and visible. Medications required for this procedure are not applicable. Fire risk assessed and is not applicable. Implants: are not applicable. Sign Out: Specimens are all correctly labeled and sent. All instruments, equipment, possible retained foreign bodies are accounted for. Yes. The post-procedure plan of care has been communicated to the patient or surrogate. PROCEDURE: EXTERNAL GENITALIA: Normal in appearance without lesions VAGINA: Normal in appearance without lesions BIOPSY: Speculum placed into the vagina with excellent visualization of the cervix. Cervix cleaned with betadine. Anterior lip of cervix grasped with single toothed tenaculum. Uterus sounded to 9 cm. Pipelle inserted into the uterus without difficulty and endometrial biopsy obtained. Specimen labeled and sent to pathology. Hemostasis achieved. Procedure Summary: Patient tolerated procedure well. ASSESSMENT: abnormal uterine bleeding PLAN: Specimens labeled and sent to Pathology. Will notify patient of results in 1-2 weeks. Will start Aygestin taper as she is leaving for vacation. Will follow up after results to discuss plan of care. Isela Dorman APRN.CNM documented in this encounter [facility] 03-14-2025 Note HNO ID: [id number] Author: ISELA DORMAN APRN.CNM Service: ? Author Type: Contract Lead Type: Progress Notes Filed: 03/14/2025 11:55 Note Text: Joint Creaser offered: Patient declines. Norma is a 54 year old who presents for an annual gynecologic exam with complaints, has multiple concerns: bleeding every 3 weeks, bleeds for 5 days, passes big clots and junks of jell-o. Cannnot use tampons, gets swollen. Wonders if she has endometriosis, has a family history of it. Postmenopausal: No. Menstrual cycle every 21 days Flow 5 days HRT use: No. Still get period: Yes LMP: 02/25/2025 Menses: cycles every 21 days and 5 days of flow Bleeding amount bothersome: Yes Bleeding between periods: Yes Period symptoms: Breast tenderness; Cramps; Mood change; Pelvic pain Menopause symptoms: Hot flashes; Night sweats; Vaginal dryness Time with current partner: 37 year Number of lifetime partners: 1 Other control: Essure control frequency: Never HPV vaccine: Unsure; Last pap smear: 04/25/2022 History of abnormal pap: No, all prior PAP smears have been normal Bothersome pelvic pain: Yes Last mammogram: 2023 normal History of abnormal mammogram: No OB History Gravida2 Para2 Term2 Preterm0 AB0 Living2 SAB0 IAB0 Ectopic0 Multiple0 Live Births0 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 History LMP: 02/25/2025 (Exact Date), Perimenopausal Age at Menarche: 14 Age at First : Age at Menopause: 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 History Comments: Sexual Activity: Yes; Male; Essure Contraception: No contraception data on record Menstrual Tracking History Flowsheet Row Office Visit from 03/14/2025 in OB/Gynecology Period Duration (Days) 5 Menstrual Flow Heavy 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 GERD (gastroesophageal reflux disease) 10/27/2013 Hypertension Psoriasis Shingles outbreak 09/2017 had for 3.5 weeks PAST SURGICAL HISTORY Procedure Laterality Date CHOLECYSTECTOMY 02/2017 COLONOSCOPY AND BIOPSY 11/02/2018 EGD x 2 EGD BIOPSY SING OR MULT 11/02/2018 ESSURE 03/12/2012 LAPROSCOPIC REPAIR UMBILICAL HERNIA 2017 REVISE MEDIAN N/CARPAL TUNNEL SURG Right SKIN BX, 1 LESION 11/1997 scar tissue r buttocks FAMILY HISTORY Problem Relation Age of Onset Diabetes Mother Heart Mother hx of MD Hypertension Mother other (endometrosis) Mother Hysterectomy Hypertension Father Prostate Cancer Father Hypertension Brother Diabetes Brother Heart Maternal Grandmother Colon Cancer Paternal Grandmother 74 Cancer Paternal Grandfather prostate other (Other) Paternal Grandfather No breast/media center assistant cancer No Known Problems Daughter No Known Problems Son other (pre cancer) Paternal Aunt had to have hysterectomy Anesthesia Problems No Family History SOCIAL HISTORY Social History Tobacco Use Smoking status: Never Smokeless tobacco: Never Vaping Use Vaping status: Never Used Substance Use Topics Alcohol use: Yes Comment: 1-4 drinks per weekend Drug use: No REVIEW OF SYSTEMS Abdomen: No abdominal pain, nausea, vomiting, diarrhea, or constipation. No bloating, early satiety, indigestion, or increased flatulence. Bladder: No dysuria, gross hematuria, urinary frequency, urinary urgency, or incontinence Breast: No breast lumps, nipple d/c, overlying skin changes, redness or skin retraction Allergies and current medication updated:Yes SENSITIVE EXAM: The sensitive examination was discussed with the Patient or Patient's Authorized Drill Press Operator Helper. As applicable, any other physician, advance practice provider, medical student, or other health professional student that will be observing or involved in the sensitive examination for educational or training purposes was discussed with the Patient or Authorized Drill Press Operator Helper. The Patient or Authorized Drill Press Operator Helper has agreed to proceed with the sensitive examination. (Sensitive examination includes inspection and/or palpation of the breasts, pelvis, prostate and anorectal regions). EXAM: BP 128/84 Ht 5' 4 (1.63m) Wt 228 lb 6.4 oz (103.6kg) LMP 02/25/2025 BMI 39.19 kg/(m2). GENERAL: pleasant, female in no apparent distress HEENT: Normocephalic, atraumatic, mucus membranes moist, and no lesions NECK: Supple, full range of motion, no adenopathy, and thyroid normal DERMATOLOGY: Normal, without lesions, non-icteric, and non-hirsute BREAST: soft, non-tender, symmetric, no dominant mass, normal nipple-areolar complex, no lymphadenopathy, and no nipple discharge CHEST: Normal inspiratory effort ABDOMEN: soft, non-tender, and no masses PELVIC: external genitalia normal, normal Bartholin's glands, urethra, Plummer's glands, no vulvar lesions, no cervical lesions, good vaginal support, physiologic discharge present, normal appearing perineal body and perianal region BIMANUAL: uterus normal size, shape and consistency, no adnexal masses. Tenderness with m (more content not included)... [facility] 03-14-2025 History of Present illness Narrative Joint Creaser offered: Patient declines. Norma is a 54 year old who presents for an annual gynecologic exam with complaints, has multiple concerns: bleeding every 3 weeks, bleeds for 5 days, passes big clots and junks of jell-o. Cannnot use tampons, gets swollen. Wonders if she has endometriosis, has a family history of it. Postmenopausal: No. Menstrual cycle every 21 days Flow 5 days HRT use: No. Still get period: Yes LMP: 02/25/2025 Menses: cycles every 21 days and 5 days of flow Bleeding amount bothersome: Yes Bleeding between periods: Yes Period symptoms: Breast tenderness; Cramps; Mood change; Pelvic pain Menopause symptoms: Hot flashes; Night sweats; Vaginal dryness Time with current partner: 37 year Number of lifetime partners: 1 Other control: Essure control frequency: Never HPV vaccine: Unsure; Last pap smear: 04/25/2022 History of abnormal pap: No, all prior PAP smears have been normal Bothersome pelvic pain: Yes Last mammogram: 2023 normal History of abnormal mammogram: No OB History Gravida2 Para2 Term2 Preterm0 AB0 Living2 SAB0 IAB0 Ectopic0 Multiple0 Live Births0 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 History LMP: 02/25/2025 (Exact Date), Perimenopausal Age at Menarche: 14 Age at First : Age at Menopause: 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 History Comments: Sexual Activity: Yes; Male; Essure Contraception: No contraception data on record Menstrual Tracking History Flowsheet Row Office Visit from 03/14/2025 in OB/Gynecology Period Duration (Days) 5 Menstrual Flow Heavy 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 GERD (gastroesophageal reflux disease) 10/27/2013 Hypertension Psoriasis Shingles outbreak 09/2017 had for 3.5 weeks PAST SURGICAL HISTORY Procedure Laterality Date CHOLECYSTECTOMY 02/2017 COLONOSCOPY AND BIOPSY 11/02/2018 EGD x 2 EGD BIOPSY SING OR MULT 11/02/2018 ESSURE 03/12/2012 LAPROSCOPIC REPAIR UMBILICAL HERNIA 2017 REVISE MEDIAN N/CARPAL TUNNEL SURG Right SKIN BX, 1 LESION 11/1997 scar tissue r buttocks FAMILY HISTORY Problem Relation Age of Onset Diabetes Mother Heart Mother hx of MD Hypertension Mother other (endometrosis) Mother Hysterectomy Hypertension Father Prostate Cancer Father Hypertension Brother Diabetes Brother Heart Maternal Grandmother Colon Cancer Paternal Grandmother 74 Cancer Paternal Grandfather prostate other (Other) Paternal Grandfather No breast/media center assistant cancer No Known Problems Daughter No Known Problems Son other (pre cancer) Paternal Aunt had to have hysterectomy Anesthesia Problems No Family History SOCIAL HISTORY Social History Tobacco Use Smoking status: Never Smokeless tobacco: Never Vaping Use Vaping status: Never Used Substance Use Topics Alcohol use: Yes Comment: 1-4 drinks per weekend Drug use: No REVIEW OF SYSTEMS Abdomen: No abdominal pain, nausea, vomiting, diarrhea, or constipation. No bloating, early satiety, indigestion, or increased flatulence. Bladder: No dysuria, gross hematuria, urinary frequency, urinary urgency, or incontinence Breast: No breast lumps, nipple d/c, overlying skin changes, redness or skin retraction Allergies and current medication updated:Yes SENSITIVE EXAM: The sensitive examination was discussed with the Patient or Patient's Authorized Drill Press Operator Helper. As applicable, any other physician, advance practice provider, medical student, or other health professional student that will be observing or involved in the sensitive examination for educational or training purposes was discussed with the Patient or Authorized Drill Press Operator Helper. The Patient or Authorized Drill Press Operator Helper has agreed to proceed with the sensitive examination. (Sensitive examination includes inspection and/or palpation of the breasts, pelvis, prostate and anorectal regions). EXAM: BP 128/84 Ht 5' 4 (1.63m) Wt 228 lb 6.4 oz (103.6kg) LMP 02/25/2025 BMI 39.19 kg/(m^2). GENERAL: pleasant, female in no apparent distress HEENT: Normocephalic, atraumatic, mucus membranes moist, and no lesions NECK: Supple, full range of motion, no adenopathy, and thyroid normal DERMATOLOGY: Normal, without lesions, non-icteric, and non-hirsute BREAST: soft, non-tender, symmetric, no dominant mass, normal nipple-areolar complex, no lymphadenopathy, and no nipple discharge CHEST: Normal inspiratory effort ABDOMEN: soft, non-tender, and no masses PELVIC: external genitalia normal, normal Bartholin's glands, urethra, Plummer's glands, no vulvar lesions, no cervical lesions, good vaginal support, physiologic discharge present, normal appearing perineal body and perianal region BIMANUAL: uterus normal size, shape and consistency, no adnexal masses. Tenderness with midline pelvic palpation. RECTOVAGINAL: deferred. NEURO: alert and oriented x3,exam grossly non-focal EXTREMITIES: normal ASSESSMENT/PLAN: 1. Encounter for gynecological examination (general) (routine) without abnormal findings - ICD9: V72.31, ICD10: Z01.419 (primary diagnosis) - Completed pelvic and breast exam - Encouraged monthly BSE - Follow up for annual exam in one year. 2. Encounter for screening mammogram for breast cancer - ICD9: V76.12, ICD10: Z12.31 - Completed pelvic and breast exam - Encouraged monthly BSE - Follow up for annual exam in one year. - MARY ELLEN SCREENING W BIB 3. Abnormal uterine bleeding (AUB) - ICD9: 626.9, ICD10: N93.9 - PELVIC US WHI - THYROID STIMULATING HORMONE - COMPLETE BLOOD COUNT AND DIFFERENTIAL - PROLACTIN 4. Dysmenorrhea - ICD9: 625.3, ICD10: N94.6 5. Pelvic pain in female - ICD9: 625.9, ICD10: R10.2 -History of adenomyosis. Declined IUD in the past and states would decline again. -Pelvic US and EMB -Will discuss management after results. 1) Health maintenance: Pap/HPV up to date. Mammogram ordered Nutrition, exercise and routine health maintenance exams reviewed. Calcium/Vitamin D supplementation information provided. Colon cancer screenin, repeat in 10 year TSH/lipids/glucose: followed by PCP Vitamin D: followed by PCP 2) Follow up one year or sooner as needed Domonique Sharma MD documented in this encounter [facility] 11-02-2024 History of Present illness Narrative NEUROSURGERY FOLLOW UP OFFICE NOTE Dr. Jose Encarnacion MD, FACS Date of visit: November 02, 2024 Patient Name: Ms.Misty Pauline Romero Date of : 1970 Current Age: [age] year old Sex: female MRN/E# [id number] Last Office Visit: October 31, 2023 CHIEF COMPLAINT: Patient presents with: Established Patient SUBJECTIVE: The patient presents as a follow up with imaging (MRI B) for evaluation. This is a 54-year-old female with a PMHx of GERD, HTN, psoriasis and cerebral cyst. 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 This has been nonsurgical in nature. She has been seen over the years routinely for evaluation with imaging and has overall remained stable. She was last seen in October 2023 and denied any new or concerning issues. She continued with intermittent headaches which were unchanged and chronic in nature. Neurologically she was intact on exam without focal deficit. MRI was reviewed and showed that the cyst in the right foramen of Luschka with a CSF signal density had not changed when compared to prior imaging.When compared to 2016 through 2023 there had been a slight decrease in the maximum size of the described cyst. Once again no surgical intervention was advised. Recommendation was to follow-up in 1 year with repeat MRI prompting her visit today. Since last visit she states she is overall doing well. She denies headache, visual changes, speech deficits, seizure activity, motor or sensory deficits. She presents for image review, evaluation and plan of care. 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 GERD (gastroesophageal reflux disease) 10/27/2013 Hypertension Psoriasis Shingles outbreak 09/2017 had for 3.5 weeks PAST SURGICAL HISTORY Procedure Laterality Date CHOLECYSTECTOMY 02/2017 COLONOSCOPY AND BIOPSY 11/02/2018 EGD x 2 EGD BIOPSY SING OR MULT 11/02/2018 ESSURE 03/12/2012 LAPROSCOPIC REPAIR UMBILICAL HERNIA 2017 SKIN BX, 1 LESION 11/1997 scar tissue r buttocks FAMILY HISTORY Problem Relation Age of Onset Diabetes Mother Heart Mother hx of MD Hypertension Mother other (endometrosis) Mother Hysterectomy Hypertension Father Prostate Cancer Father Hypertension Brother Diabetes Brother No Known Problems Daughter No Known Problems Son Heart Maternal Grandmother Colon Cancer Paternal Grandmother 74 Cancer Paternal Grandfather prostate other (Other) Paternal Grandfather 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 [address] (PROTONIX) 40 mg tablet take 1 tablet daily 90 tablet 3 hydroCHLOROthiazide 25 mg tablet take 1 tablet daily 90 tablet 3 losartan (COZAAR) 25 mg tablet Take 1 tablet by mouth every afternoon. 90 tablet 3 elderberry fruit (ELDERBERRY ORAL) Take 1 tablet by mouth once daily. fluticasone (FLONASE) 50 mcg/actuation nasal spray Use 2 Sprays in each nostril once daily. 18.2 mL 3 cholecalciferol (VITAMIN D3) 50 mcg (2,000 unit) tablet Take 2,000 Units by mouth once daily. ZINC ORAL Take 1 capsule by mouth once daily. ascorbic acid, vitamin C, (VITAMIN C) 250 mg tablet Take 250 mg by mouth once daily. multivitamin tablet Take 1 tablet by mouth once daily. potassium chloride (KLOR-CON 10) 10 mEq tablet Take 1 tablet by mouth daily with breakfast. 0 iv contrast (will be provided with radiology test) MRI Brain Inject, intravenously, once for 1 dose.No IV access, insert saline lock prior to beginning of sedation, infusion, injection of imaging exam.Discontinue saline lock post exam. If Pt. has a central line or IVAD, may access for administration according to line specific nursing protocol.Once exam is complete flush line and de-access according to line specific nursing protocol in the MR contrast administration guidelines link 1 Each 0 No current facility-administered medications for this visit. REVIEW OF SYSTEMS: Review of Systems Constitutional: Negative for chills, diaphoresis (Negative for night sweats.) and fever. HENT: Negative for ear discharge and rhinorrhea. Eyes: Negative for discharge. Respiratory: Negative for cough, shortness of breath and wheezing. Cardiovascular: Negative for chest pain, palpitations and leg swelling. Gastrointestinal: Negative for constipation, diarrhea, nausea and vomiting. Endocrine: Negative for cold intolerance and heat intolerance. Genitourinary: Negative for frequency. Negative for urinary incontinence and urinary retention. Musculoskeletal: Negative for back pain, joint swelling, myalgias and neck pain. Skin: Negative for rash (Negative for hives and skin lesions.). Allergic/Immunologic: Negative for environmental allergies and food allergies. Negative for contact allergy, seasonal allergies. Neurological: Negative for dizziness, seizures, syncope, weakness, light-headedness, numbness (Negative for numbness in extremities.) and headaches. Hematological: Does not bruise/bleed easily. Psychiatric/Behavioral: The patient is not nervous/anxious. Negative for depression. OBJECTIVE: BP 122/77 Pulse 86 Resp 16 Ht 5' 4.5 (1.64m) Wt 233 lb 11 oz (106.0kg) SpO2 98% LMP 07/01/2024 BMI 39.51 kg/(m^2). PHYSICAL EXAM: Mental State : Alert. Attention span and concentration normal for patient's age. Speech normal, fluent. No receptive or expressive speech deficit. Recent and remote memory normal. Orientation : Oriented to person, place and time. Higher Cortical Function : Intact speech and language. Comprehension normal. Fund of knowledge intact for pt level of education. Cranial Nerves : II: No visual field cut, no blurring. Makes and sustains eye contact. III, IV, : No double vision or lid drooping. Pupils equal and reactive to light. Extraocular muscles intact. No nystagmus. V: Normal sensation on the face, normal jaw movements. VII: No paresis on either side. VIII: No gross hearing deficit IX: Good and equal shoulder shrugs. XII: Tongue midline, no fasciculations. Sensory: SILT. Normal Sensation in bilateral upper and bilateral lower extremities to touch and noxious stimuli. Motor: Normal muscle tone and bulk. No spasticity, tremor or uncontrollable movements. Strength: Upper Extremities : R L Deltoid 5/5 5/5 Biceps 5/5 5/5 Triceps 5/5 5/5 Wrist Ext 5/5 5/5 Wrist Flx 5/5 5/5 Hand Int 5/5 5/5 Lower Extremities : Hip Flexors 5/5 5/5 Hip Extensors 5/5 5/5 Hip Abductors 5/5 5/5 Straight leg Neg Neg Ankle dorsiflex 5/5 5/5 Ankle Plantar 5/5 5/5 Reflexes : Biceps 2+ 2+ Triceps 2+ 2+ Wrist 2+ 2+ Patellar 2+ 2+ Achilles 2+ 2+ Cerebellar Function : Normal finger to nose. Normal rapid alternating movements. No ataxia. Negative Romberg. Gait and Station: Normal gait. No assistive device usage. Pulmonary: Lungs without cough, audible wheeze. Respirations unlabored. Cardiac: Regular rate and rhythm. No murmer, gallop or rub. IMAGING: MRI Brain WO/W IVCON performed on 10/29/24 demonstrates: IMPRESSION: Stable cystic focus at inferior fourth ventricle with differential provided. ASSESSMENT/PLAN: 1. 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 Patient comes today and is asymptomatic. Her neurological examination is normal. I reviewed the images and the report and agree. I discussed this with her and recommended that we continue doing follow-ups on this by obtaining an MRI scan in 1 year. - MRI BRAIN WO/W IVCON - IV CONTRAST (RADIOLOGY PROCEDURE) - NOT ON MAR Jose Encarnacion MD FOLLOW UP: Return in about 1 year (around 11/02/2025) for review of MRI. Please Note: This note has been partially generated using [employer], a speech recognition software program, and may contain errors including punctuation, grammar, spelling, gender, and inappropriate words or phrases that pertain to the system. documented in this encounter [facility] 11-02-2024 Note HNO ID: [id number] Author: JOSE ENCARNACION MD Service: ? Author Type: Physician Type: Progress Notes Filed: 11/02/2024 13:13 Note Text: NEUROSURGERY FOLLOW UP OFFICE NOTE Dr. Jose Encarnacion MD, FACS Date of visit: November 02, 2024 Patient Name: Ms.Misty Pauline Romero Date of : 1970 Current Age: [age] year old Sex: female MRN/E# [id number] Last Office Visit: October 31, 2023 CHIEF COMPLAINT: Patient presents with: Established Patient SUBJECTIVE: The patient presents as a follow up with imaging (MRI B) for evaluation. This is a 54-year-old female with a PMHx of GERD, HTN, psoriasis and cerebral cyst. 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 This has been nonsurgical in nature. She has been seen over the years routinely for evaluation with imaging and has overall remained stable. She was last seen in October 2023 and denied any new or concerning issues. She continued with intermittent headaches which were unchanged and chronic in nature. Neurologically she was intact on exam without focal deficit. MRI was reviewed and showed that the cyst in the right foramen of Luschka with a CSF signal density had not changed when compared to prior imaging.When compared to 2016 through 2023 there had been a slight decrease in the maximum size of the described cyst. Once again no surgical intervention was advised. Recommendation was to follow-up in 1 year with repeat MRI prompting her visit today. Since last visit she states she is overall doing well. She denies headache, visual changes, speech deficits, seizure activity, motor or sensory deficits. She presents for image review, evaluation and plan of care. 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 GERD (gastroesophageal reflux disease) 10/27/2013 Hypertension Psoriasis Shingles outbreak 09/2017 had for 3.5 weeks PAST SURGICAL HISTORY Procedure Laterality Date CHOLECYSTECTOMY 02/2017 COLONOSCOPY AND BIOPSY 11/02/2018 EGD x 2 EGD BIOPSY SING OR MULT 11/02/2018 ESSURE 03/12/2012 LAPROSCOPIC REPAIR UMBILICAL HERNIA 2017 SKIN BX, 1 LESION 11/1997 scar tissue r buttocks FAMILY HISTORY Problem Relation Age of Onset Diabetes Mother Heart Mother hx of MD Hypertension Mother other (endometrosis) Mother Hysterectomy Hypertension Father Prostate Cancer Father Hypertension Brother Diabetes Brother No Known Problems Daughter No Known Problems Son Heart Maternal Grandmother Colon Cancer Paternal Grandmother 74 Cancer Paternal Grandfather prostate other (Other) Paternal Grandfather 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 [address] (PROTONIX) 40 mg tablet take 1 tablet daily 90 tablet 3 hydroCHLOROthiazide 25 mg tablet take 1 tablet daily 90 tablet 3 losartan (COZAAR) 25 mg tablet Take 1 tablet by mouth every afternoon. 90 tablet 3 elderberry fruit (ELDERBERRY ORAL) Take 1 tablet by mouth once daily. fluticasone (FLONASE) 50 mcg/actuation nasal spray Use 2 Sprays in each nostril once daily. 18.2 mL 3 cholecalciferol (VITAMIN D3) 50 mcg (2,000 unit) tablet Take 2,000 Units by mouth once daily. ZINC ORAL Take 1 capsule by mouth once daily. ascorbic acid, vitamin C, (VITAMIN C) 250 mg tablet Take 250 mg by mouth once daily. multivitamin tablet Take 1 tablet by mouth once daily. potassium chloride (KLOR-CON 10) 10 mEq tablet Take 1 tablet by mouth daily with breakfast. 0 iv contrast (will be provided with radiology test) MRI Brain Inject, intravenously, once for 1 dose.No IV access, insert saline lock prior to beginning of sedation, infusion, injection of imaging exam.Discontinue saline lock post exam. If Pt. has a central line or IVAD, may access for administration according to line specific nursing protocol.Once exam is complete flush line and de-access according to line specific nursing protocol in the MR contrast administration guidelines link 1 Each 0 No current facility-administered medications for this visit. REVIEW (more content not included)... [facility] 10-11-[address] - 10/11/2024 3:17 PM EST Consider tracking with ghada such as Cronometer aiming for 1600 calories; OK to track 2-3 days per week if really busy. Don;t adjust for exercise except for water aerobics then OK to add ~200 calories Include protein in each meal- aimf or 20 grams protein at breakfast, 30 grams at lunch and dinner Follow the Plate Method at lunch and dinner: Use a 9 plate - 1/2 plate vegetables-non starchy such as green beans, greens, broccoli, cauliflower, etc (1 serving of fruit optional outside of plate) - 1/4 plate lean protein-primarily chicken, turkey fish, lean red 1-2 x per week at most (size of palm) - 1/4 plate whole grain or starchy vegetable such as corn, peas, potatoes, beans (size of fist, 1 cup) All meals and snacks at the dinner table; minimize distractions, no TV while eating. Make meals last at least 20 min, chew each bite of food 20 x per bite.Portion out all foods, never eat out of container. Become more mindful of meal: Enjoy flavors, textures etc. Use hunger/fullness scale. documented in this encounter [facility] 10-11-2024 Note HNO ID: [id number] Author: ANABEL ALANIS RD Service: ? Author Type: Registered Dietitian Type: Progress Notes Filed: 10/11/2024 15:20 Note Text: [facility] Nutrition Therapy: Virtual Consult - Re-assessment I have communicated my name and active licensure. The patient?s identity and physical location were verified at the time of this visit. Either the patient or their legal leasing representative has been informed of the risks and benefits of -- and alternatives to -- treatment through a remote evaluation and consents to proceed with the evaluation remotely. Nutrition Diagnosis: Overweight/obesity, related to, excess energy intake and physical inactivity, as evidenced by BMI above normative standard for age and gender RECOMMENDED MALNUTRITION DIAGNOSIS: NO MALNUTRITION IDENTIFIED NUTRITION CARE PLAN: Nutrition Intervention 10/11/2024: modify type and amount of food or beverage Consider tracking with ghada such as Cronometer aiming for 1600 calories; OK to track 2-3 days per week if really busy. Don;t adjust for exercise except for water aerobics then OK to add ~200 calories Include protein in each meal- aimf or 20 grams protein at breakfast, 30 grams at lunch and dinner Follow the Plate Method at lunch and dinner: Use a 9 plate - 1/2 plate vegetables-non starchy such as green beans, greens, broccoli, cauliflower, etc (1 serving of fruit optional outside of plate) - 1/4 plate lean protein-primarily chicken, turkey fish, lean red 1-2 x per week at most (size of palm) - 1/4 plate whole grain or starchy vegetable such as corn, peas, potatoes, beans (size of fist, 1 cup) All meals and snacks at the dinner table; minimize distractions, no TV while eating. Make meals last at least 20 min, chew each bite of food 20 x per bite.Portion out all foods, never eat out of container. Become more mindful of meal: Enjoy flavors, textures etc. Use hunger/fullness scale. Nutrition Monitoring AND Evaluation: 1-2 lb weight loss per week Need for Follow up: 4-6 weeks PROGRESS: Interval History: following as relates to class 2 obesity Body mass index is 38.04 kg/m?. HTN, GERD. Did not focus on plan over the holidays and has been sick last couple week. Here to get back on track, is motivated. Was able to lose 1.5 lbs since last visit. Nutrition Intervention 08/25/24 Consider tracking with ghada such as SkyBridgeometer or Reality Mobile aiming for 1600 calories; OK to track 2-3 days per week if really busy. Don;t adjust for exercise except for water aerobics then OK to add ~200 calories Include protein in each meal- aimf or 20 grams protein in each meal, 30 grams at lunch and dinner Follow the Plate Method at lunch and dinner: Use a 9 plate - 1/2 plate vegetables-non starchy such as green beans, greens, broccoli, cauliflower, etc (1 serving of fruit optional outside of plate) - 1/4 plate lean protein-primarily chicken, turkey fish, lean red 1-2 x per week at most (size of palm) - 1/4 plate whole grain or starchy vegetable such as corn, peas, potatoes, beans (size of fist, 1 cup) All meals and snacks at the dinner table; minimize distractions, no TV while eating. Make meals last at least 20 min, chew each bite of food 20 x per bite.Portion out all foods, never eat out of container. Become more mindful of meal: Enjoy flavors, textures etc. Use hunger/fullness scale. Actions to implement interventions: Joined a gym Water exercise twice per week Just got a divided plate Skipping meals lately not feeling well, no appetite Diet History: Breakfast - protein and fruit Snack - no Lunch - normally at school 10:30- Snack - home at 3-protein bar Dinner - hamburgers on lettuce wrap and veggies Snack - not usually, Friday eat after work 7-7:30 Beverages - water, coffee with sugar free creamer, Alcohol - one day on a weekend of vodka tonic Vitamins/Supplements - vit C, D3, zinc, elderberry, MVI Activity: Activities of Daily Living: Active 75% of the day. 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 Resting Metabolic Rate: 1621 Malnutrition Screening Significant unintentional weight loss? No Eating less than 75% of usual intake for more than 2 weeks? No Potential Signs of Inflammation: no identifiable sources Nutritional status: Education Materials Provided: None this visit READINESS TO LEARN Cognitive ability: Alert and oriented Motivation to learn: Interested Family support: Unable to assess - Family not present Instruction provided to: Patient Patient learns best by: Individual Instruction Factors affecting learning: None Physical limitations affecting learning: None Likelihood of (more content not included)... [facility] 10-11-2024 History of Present illness Narrative [facility] Nutrition Therapy: Virtual Consult - Re-assessment I have communicated my name and active licensure. The patient s identity and physical location were verified at the time of this visit. Either the patient or their legal leasing representative has been informed of the risks and benefits of -- and alternatives to -- treatment through a remote evaluation and consents to proceed with the evaluation remotely. Nutrition Diagnosis: Overweight/obesity, related to, excess energy intake and physical inactivity, as evidenced by BMI above normative standard for age and gender RECOMMENDED MALNUTRITION DIAGNOSIS: NO MALNUTRITION IDENTIFIED NUTRITION CARE PLAN: Nutrition Intervention 10/11/2024: modify type and amount of food or beverage Consider tracking with ghada such as Cronometer aiming for 1600 calories; OK to track 2-3 days per week if really busy. Don;t adjust for exercise except for water aerobics then OK to add ~200 calories Include protein in each meal- aimf or 20 grams protein at breakfast, 30 grams at lunch and dinner Follow the Plate Method at lunch and dinner: Use a 9 plate - 1/2 plate vegetables-non starchy such as green beans, greens, broccoli, cauliflower, etc (1 serving of fruit optional outside of plate) - 1/4 plate lean protein-primarily chicken, turkey fish, lean red 1-2 x per week at most (size of palm) - 1/4 plate whole grain or starchy vegetable such as corn, peas, potatoes, beans (size of fist, 1 cup) All meals and snacks at the dinner table; minimize distractions, no TV while eating. Make meals last at least 20 min, chew each bite of food 20 x per bite.Portion out all foods, never eat out of container. Become more mindful of meal: Enjoy flavors, textures etc. Use hunger/fullness scale. Nutrition Monitoring & Evaluation: 1-2 lb weight loss per week Need for Follow up: 4-6 weeks PROGRESS: Interval History: following as relates to class 2 obesity Body mass index is 38.04 kg/m . HTN, GERD. Did not focus on plan over the holidays and has been sick last couple week. Here to get back on track, is motivated. Was able to lose 1.5 lbs since last visit. Nutrition Intervention 08/25/24 Consider tracking with ghada such as SkyBridgeometer or Reality Mobile aiming for 1600 calories; OK to track 2-3 days per week if really busy. Don;t adjust for exercise except for water aerobics then OK to add ~200 calories Include protein in each meal- aimf or 20 grams protein in each meal, 30 grams at lunch and dinner Follow the Plate Method at lunch and dinner: Use a 9 plate - 1/2 plate vegetables-non starchy such as green beans, greens, broccoli, cauliflower, etc (1 serving of fruit optional outside of plate) - 1/4 plate lean protein-primarily chicken, turkey fish, lean red 1-2 x per week at most (size of palm) - 1/4 plate whole grain or starchy vegetable such as corn, peas, potatoes, beans (size of fist, 1 cup) All meals and snacks at the dinner table; minimize distractions, no TV while eating. Make meals last at least 20 min, chew each bite of food 20 x per bite.Portion out all foods, never eat out of container. Become more mindful of meal: Enjoy flavors, textures etc. Use hunger/fullness scale. Actions to implement interventions: Joined a gym Water exercise twice per week Just got a divided plate Skipping meals lately not feeling well, no appetite Diet History: Breakfast - protein and fruit Snack - no Lunch - normally at school 10:30- Snack - home at 3-protein bar Dinner - hamburgers on lettuce wrap and veggies Snack - not usually, Friday eat after work 7-7:30 Beverages - water, coffee with sugar free creamer, Alcohol - one day on a weekend of vodka tonic Vitamins/Supplements - vit C, D3, zinc, elderberry, MVI Activity: Activities of Daily Living: Active 75% of the day. 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 Resting Metabolic Rate: 1621 Malnutrition Screening Significant unintentional weight loss? No Eating less than 75% of usual intake for more than 2 weeks? No Potential Signs of Inflammation: no identifiable sources Nutritional status: Education Materials Provided: None this visit READINESS TO LEARN Cognitive ability: Alert and oriented Motivation to learn: Interested Family support: Unable to assess - Family not present Instruction provided to: Patient Patient learns best by: Individual Instruction Factors affecting learning: None Physical limitations affecting learning: None Likelihood of Adherence: Moderate Referred by: Errol VICKERS Billing Type: Re-assess/15 min 1 unit SIGNATURE: Anabel Alanis RD PATIENT NAME: Norma Romero DATE: October 11, 2024 TIME: 3:06 PM documented in this encounter [facility] 09-09-2024 Telephone encounter Note Received visit summary for a fall from [facility]. Placed in provider's inbox for review. Route to MA scanning [facility] 09-09-2024 Miscellaneous Notes Received visit summary for a fall from [facility]. Placed in provider's inbox for review. Route to MA scanning documented in this encounter [facility] 09-09-2024 Note HNO ID: [id number] Author: TAMMIE BENTLEY PA-C Service: ? 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 Subjective Norma Romero is a 54 year old female. Patient is a 54-year-old female who is brought by her son for evaluation of head pain and confusion secondary to a fall injury that the patient sustained immediately prior to arrival this morning. Patient states that she slipped on the ice and fell backwards onto the pavement striking her head forcefully. Patient is able to bear weight and ambulate but does complain of knee and wrist pain. Upon arrival at this [facility] facility the patient was unable to recall her address and other details. Patient denies blurred vision, double vision, tinnitus but is experiencing mild dizziness. Patient does not take anticoagulant medication. Review of Systems Neurological: Positive for dizziness and headaches. Psychiatric/Behavioral: Positive for confusion. All other systems reviewed and are negative. Objective LMP 07/01/2024 (Exact Date) Physical Exam Vitals and nursing note reviewed. Constitutional: Appearance: Normal appearance. She is normal weight. HENT: Head: Normocephalic and atraumatic. Right Ear: External ear normal. Left Ear: External ear normal. Nose: Nose normal. Mouth/Throat: Mouth: Mucous membranes are moist. Pharynx: Oropharynx is clear. Eyes: Extraocular Movements: Extraocular movements intact. Conjunctiva/sclera: Conjunctivae normal. Pupils: Pupils are equal, round, and reactive to light. Cardiovascular: Rate and Rhythm: Normal rate. Pulses: Normal pulses. Heart sounds: Normal heart sounds. Pulmonary: Effort: Pulmonary effort is normal. Breath sounds: Normal breath sounds. Abdominal: General: Abdomen is flat. Palpations: Abdomen is soft. Musculoskeletal: General: Normal range of motion. Cervical back: Normal range of motion and neck supple. No rigidity or tenderness. Skin: General: Skin is warm and dry. Capillary Refill: Capillary refill takes less than 2 seconds. Neurological: General: No focal deficit present. Mental Status: She is alert and oriented to person, place, and time. Cranial Nerves: No cranial nerve deficit. Motor: No weakness. Gait: Gait normal. Psychiatric: Mood and Affect: Mood normal. Behavior: Behavior normal. Judgment: Judgment normal. Assessment and Plan Physical exam findings as noted above. Patient was immediately advised that she requires evaluation in an emergency department where CT scan imaging is available. Patient and her son verbalized complete agreement with this recommendation and state that they will report to the [facility] emergency department after [facility]. CLINICAL IMPRESSION: Head Injury ASSESSMENT/PLAN: 1. Traumatic injury of head, initial encounter - ICD9: 959.01, ICD10: S09.90XA Tammie Bentley PA-C [facility] 09-09-2024 History of Present illness Narrative This note was created using NoteWriter. Subjective Norma Romero is a 54 year old female. Patient is a 54-year-old female who is brought by her son for evaluation of head pain and confusion secondary to a fall injury that the patient sustained immediately prior to arrival this morning. Patient states that she slipped on the ice and fell backwards onto the pavement striking her head forcefully. Patient is able to bear weight and ambulate but does complain of knee and wrist pain. Upon arrival at this express care facility the patient was unable to recall her address and other details. Patient denies blurred vision, double vision, tinnitus but is experiencing mild dizziness. Patient does not take anticoagulant medication. Review of Systems Neurological: Positive for dizziness and headaches. Psychiatric/Behavioral: Positive for confusion. All other systems reviewed and are negative. Objective [facility] 07/01/2024 (Exact Date) Physical Exam Vitals and nursing note reviewed. Constitutional: Appearance: Normal appearance. She is normal weight. HENT: Head: Normocephalic and atraumatic. Right Ear: External ear normal. Left Ear: External ear normal. Nose: Nose normal. Mouth/Throat: Mouth: Mucous membranes are moist. Pharynx: Oropharynx is clear. Eyes: Extraocular Movements: Extraocular movements intact. Conjunctiva/sclera: Conjunctivae normal. Pupils: Pupils are equal, round, and reactive to light. Cardiovascular: Rate and Rhythm: Normal rate. Pulses: Normal pulses. Heart sounds: Normal heart sounds. Pulmonary: Effort: Pulmonary effort is normal. Breath sounds: Normal breath sounds. Abdominal: General: Abdomen is flat. Palpations: Abdomen is soft. Musculoskeletal: General: Normal range of motion. Cervical back: Normal range of motion and neck supple. No rigidity or tenderness. Skin: General: Skin is warm and dry. Capillary Refill: Capillary refill takes less than 2 seconds. Neurological: General: No focal deficit present. Mental Status: She is alert and oriented to person, place, and time. Cranial Nerves: No cranial nerve deficit. Motor: No weakness. Gait: Gait normal. Psychiatric: Mood and Affect: Mood normal. Behavior: Behavior normal. Judgment: Judgment normal. Assessment and Plan Physical exam findings as noted above. Patient was immediately advised that she requires evaluation in an emergency department where CT scan imaging is available. Patient and her son verbalized complete agreement with this recommendation and state that they will report to the [facility] emergency department after departing this express care facility. CLINICAL IMPRESSION: Head Injury ASSESSMENT/PLAN: 1. Traumatic injury of head, initial encounter - ICD9: 959.01, ICD10: S09.90XA Tammie Bentley PA-C documented in this encounter [facility] 08-25-[address] - 08/25/2024 9:18 AM EST Consider tracking with ghada such as SkyBridgeometer or Reality Mobile aiming for 1600 calories; OK to track 2-3 days per week if really busy. Don;t adjust for exercise except for water aerobics then OK to add ~200 calories Include protein in each meal- aimf or 20 grams protein in each meal, 30 grams at lunch and dinner Follow the Plate Method at lunch and dinner: Use a 9 plate - 1/2 plate vegetables-non starchy such as green beans, greens, broccoli, cauliflower, etc (1 serving of fruit optional outside of plate) - 1/4 plate lean protein-primarily chicken, turkey fish, lean red 1-2 x per week at most (size of palm) - 1/4 plate whole grain or starchy vegetable such as corn, peas, potatoes, beans (size of fist, 1 cup) All meals and snacks at the dinner table; minimize distractions, no TV while eating. Make meals last at least 20 min, chew each bite of food 20 x per bite.Portion out all foods, never eat out of container. Become more mindful of meal: Enjoy flavors, textures etc. Use hunger/fullness scale. documented in this encounter [facility] 08-25-2024 Note HNO ID: [id number] Author: ANABEL ALANIS RD Service: ? Author Type: Registered Dietitian Type: Progress Notes Filed: 08/25/2024 10:09 Note Text: [facility] Nutrition Therapy: Virtual Consult - Initial Assessment I have communicated my name and active licensure. The patient?s identity and physical location were verified at the time of this visit. Either the patient or their legal leasing representative has been informed of the risks and benefits of -- and alternatives to -- treatment through a remote evaluation and consents to proceed with the evaluation remotely. Nutrition Diagnosis: Overweight/obesity, related to, excess energy intake and physical inactivity, as evidenced by BMI above normative standard for age and gender. RECOMMENDED MALNUTRITION DIAGNOSIS: NO MALNUTRITION IDENTIFIED NUTRITION CARE PLAN Nutrition Intervention 08/25/2024: modify type and amount of food or beverage Consider tracking with ghada such as SYLLETA or Reality Mobile aiming for 1600 calories; OK to track 2-3 days per week if really busy. Don;t adjust for exercise except for water aerobics then OK to add ~200 calories Include protein in each meal- aimf or 20 grams protein in each meal, 30 grams at lunch and dinner Follow the Plate Method at lunch and dinner: Use a 9 plate - 1/2 plate vegetables-non starchy such as green beans, greens, broccoli, cauliflower, etc (1 serving of fruit optional outside of plate) - 1/4 plate lean protein-primarily chicken, turkey fish, lean red 1-2 x per week at most (size of palm) - 1/4 plate whole grain or starchy vegetable such as corn, peas, potatoes, beans (size of fist, 1 cup) All meals and snacks at the dinner table; minimize distractions, no TV while eating. Make meals last at least 20 min, chew each bite of food 20 x per bite.Portion out all foods, never eat out of container. Become more mindful of meal: Enjoy flavors, textures etc. Use hunger/fullness scale. Nutrition Monitoring AND Evaluation: 1-2 lb weight loss per week Need for Follow up: 4-6 weeks Patient presents for initial MNT as relates to class 2 obesity Body mass index is 38.8 kg/m?. Other medical issues HTN, GERD, occ Gastritis, hiatial hernia . Highest weight 238, lowest 200 lbs, before kids 150-160. Had lost before Covid on IDEAL diet losing 40 lbs but had issues with constipation; some loss with Noom but hit a plateau and could not lose past about 20 lbs. 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 Weekends to be more higher calorie beverages coffee drinks and alcohol . Protein less than recommended. Appears intake meeting needs overall for cause of no weight loss. Currently no regular exercise but is active during the day. Starting back with regular exercise. Patient's symptoms are: Weight Concerns: failure to lose weight Diet History: Breakfast - banana or cereal (raisin bran)/2% or a plant milk; Snack - not during the week Lunch - yesterday a Thanksgiving meal at school. Usually Pakistani yogurt with fruit; occ pizza at school or just vegetables and yogurt and occ apple sauce no sugar Snack - may at school B day cake with kids Dinner - usually just chicken and fish, lately more red meat with parents living with them; starch: potatoes, occ pasta, veg: corn, carrots, occ broccoli; Snack - not usually, occ ,last night Ital ice, occ snack cake or nutty butter, Beverages - water , coffee, with sugar free FF creamer, Alcohol- on weekends Vitamins/Supplements - vit C, D3,zinc, elderberry, MVI Weekends; coffee out; alcohol in evening Activity: Activities of Daily Living: Active 75% of the day. 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 Resting Metabolic Rate: 1641 Malnutrition Screening Significant unintentional weight loss? No Eating less than 75% of usual intake for more than 2 weeks? No Potential Signs of Inflammation: no identifiable sources Education Materials Provided: Lean Protein; Plate method READINESS TO LEARN Cognitive ability: Alert and oriented Motivation to learn: Interested Family support: High - Very involved in pt care Instruction provided to: Patient and Spouse Patient learns best by: Individual Instruction Factors affecting learning: None Physical limitations affecting learning: None Referred by: Trang VICKERS Billing Type: Initial Assess/15 min 2 units SIGNATURE: Anabel Alanis RD PATIENT NAME: Norma Romero DATE: August 25, 2024 TIME: 8:45 AM [facility] 08-25-2024 History of Present illness Narrative [facility] Nutrition Therapy: Virtual Consult - Initial Assessment I have communicated my name and active licensure. The patient s identity and physical location were verified at the time of this visit. Either the patient or their legal leasing representative has been informed of the risks and benefits of -- and alternatives to -- treatment through a remote evaluation and consents to proceed with the evaluation remotely. Nutrition Diagnosis: Overweight/obesity, related to, excess energy intake and physical inactivity, as evidenced by BMI above normative standard for age and gender. RECOMMENDED MALNUTRITION DIAGNOSIS: NO MALNUTRITION IDENTIFIED NUTRITION CARE PLAN Nutrition Intervention 08/25/2024: modify type and amount of food or beverage Consider tracking with ghada such as [employer] or [employer] aiming for 1600 calories; OK to track 2-3 days per week if really busy. Don;t adjust for exercise except for water aerobics then OK to add ~200 calories Include protein in each meal- aimf or 20 grams protein in each meal, 30 grams at lunch and dinner Follow the Plate Method at lunch and dinner: Use a 9 plate - 1/2 plate vegetables-non starchy such as green beans, greens, broccoli, cauliflower, etc (1 serving of fruit optional outside of plate) - 1/4 plate lean protein-primarily chicken, turkey fish, lean red 1-2 x per week at most (size of palm) - 1/4 plate whole grain or starchy vegetable such as corn, peas, potatoes, beans (size of fist, 1 cup) All meals and snacks at the dinner table; minimize distractions, no TV while eating. Make meals last at least 20 min, chew each bite of food 20 x per bite.Portion out all foods, never eat out of container. Become more mindful of meal: Enjoy flavors, textures etc. Use hunger/fullness scale. Nutrition Monitoring & Evaluation: 1-2 lb weight loss per week Need for Follow up: 4-6 weeks Patient presents for initial MNT as relates to class 2 obesity Body mass index is 38.8 kg/m . Other medical issues HTN, GERD, occ Gastritis, hiatial hernia . Highest weight 238, lowest 200 lbs, before kids 150-160. Had lost before Covid on IDEAL diet losing 40 lbs but had issues with constipation; some loss with Noom but hit a plateau and could not lose past about 20 lbs. 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 Weekends to be more higher calorie beverages coffee drinks and alcohol . Protein less than recommended. Appears intake meeting needs overall for cause of no weight loss. Currently no regular exercise but is active during the day. Starting back with regular exercise. Patient's symptoms are: Weight Concerns: failure to lose weight Diet History: Breakfast - banana or cereal (raisin bran)/2% or a plant milk; Snack - not during the week Lunch - yesterday a Thanksgiving meal at school. Usually Pakistani yogurt with fruit; occ pizza at school or just vegetables and yogurt and occ apple sauce no sugar Snack - may at school B day cake with kids Dinner - usually just chicken and fish, lately more red meat with parents living with them; starch: potatoes, occ pasta, veg: corn, carrots, occ broccoli; Snack - not usually, occ ,last night Ital ice, occ snack cake or nutty butter, Beverages - water , coffee, with sugar free FF creamer, Alcohol- on weekends Vitamins/Supplements - vit C, D3,zinc, elderberry, MVI Weekends; coffee out; alcohol in evening Activity: Activities of Daily Living: Active 75% of the day. 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 Resting Metabolic Rate: 1641 Malnutrition Screening Significant unintentional weight loss? No Eating less than 75% of usual intake for more than 2 weeks? No Potential Signs of Inflammation: no identifiable sources Education Materials Provided: Lean Protein; Plate method READINESS TO LEARN Cognitive ability: Alert and oriented Motivation to learn: Interested Family support: High - Very involved in pt care Instruction provided to: Patient and Spouse Patient learns best by: Individual Instruction Factors affecting learning: None Physical limitations affecting learning: None Referred by: Trang VICKERS Billing Type: Initial Assess/15 min 2 units SIGNATURE: Anabel Alanis RD PATIENT NAME: Norma Romero DATE: August 25, 2024 TIME: 8:45 AM documented in this encounter [facility] 08-16-2024 Telephone encounter Note Patient given results and verbalized understanding of instructions given. Jessie Mckeon MA [facility] 08-16-2024 Miscellaneous Notes Patient given results and verbalized understanding of instructions given. Jessie Mckeon MA Please inform patient that chest x-ray was negative. Medication sent to pharmacy. Follow-up if symptoms do not improve or fever develops. Shawn Sun APRN.ROXANE documented in this encounter [facility] 08-16-2024 Telephone encounter Note Please inform patient that chest x-ray was negative. Medication sent to pharmacy. Follow-up if symptoms do not improve or fever develops. Shawn Sun APRN.PUPPET MAKER [facility] 08-16-2024 History of Present illness Narrative Radiology Service Progress Note PATIENT NAME: Norma Romero DATE OF SERVICE: August 16, 2024 TIME: 8:13 AM PATIENT IDENTITY VERIFICATION COMPLETED USING TWO (2) IDENTIFIERS: Name and Date of confirmed by patient verbally. FALL SCREENING: Has the patient had 2 falls in the last year or 1 fall with injury or currently using an Ambulatory Assistive Device (Walker, Cane, Wheelchair, Crutches, etc.)? No PATIENT GENDER DATA: Female. status: : No status: NO. PATIENT RELEVANT IMPLANT DATA REVIEWED: Yes PATIENT PRESENTS WITH AN IMPLANTABLE OR ATTACHED ARTIFICIAL LOG MACHINE OPERATOR: No RADIOLOGY DEPARTMENT: General X-ray: Exam(s) Completed: Chest X-Ray PERIPHERAL IV DATA: Not applicable SIGNED BY: RT Rissa(Benjamín) August 16, 2024 8:13 AM documented in this encounter [facility] 08-16-2024 Note HNO ID: [id number] Author: LESLY CHASE RT(R) Service: ? Author Type: Skip Hoist Operator Type: Progress Notes Filed: 08/16/2024 08:14 Note Text: Radiology Service Progress Note PATIENT NAME: Norma Romero DATE OF SERVICE: August 16, 2024 TIME: 8:13 AM PATIENT IDENTITY VERIFICATION COMPLETED USING TWO (2) IDENTIFIERS: Name and Date of confirmed by patient verbally. FALL SCREENING: Has the patient had 2 falls in the last year or 1 fall with injury or currently using an Ambulatory Assistive Device (Walker, Cane, Wheelchair, Crutches, etc.)? No PATIENT GENDER DATA: Female. status: : No status: NO. PATIENT RELEVANT IMPLANT DATA REVIEWED: Yes PATIENT PRESENTS WITH AN IMPLANTABLE OR ATTACHED ARTIFICIAL LOG MACHINE OPERATOR: No RADIOLOGY DEPARTMENT: General X-ray: Exam(s) Completed: Chest X-Ray PERIPHERAL IV DATA: Not applicable SIGNED BY: RT Rissa(Benjamín) August 16, 2024 8:13 AM [facility] 08-16-2024 Note HNO ID: [id number] Author: SHAWN SUN APRN.PUPPET MAKER Service: ? Author Type: Nurse Practitioner Type: Progress Notes Filed: 08/16/2024 08:29 Note Text: Subjective HPI Nontoxic-appearing female presents urgent care chief complaint cough sore throat. Duration of symptoms 5 days. Associated symptoms listed above. Most prominent symptom today is cough. Has became productive. 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 Denies any chest pain or shortness of breath. No hemoptysis. Afebrile today. Did have a fever beginning of illness. Past medical history prescription medications and allergies reviewed. .Patient presents with: Cough: congestion, drainage and sore throat x 5 days 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 GERD (gastroesophageal reflux disease) 10/27/2013 Hypertension Psoriasis Shingles outbreak 09/2017 had for 3.5 weeks PAST SURGICAL HISTORY Procedure Laterality Date CHOLECYSTECTOMY 02/2017 COLONOSCOPY AND BIOPSY 11/02/2018 EGD x 2 EGD BIOPSY SING OR MULT 11/02/2018 ESSURE 03/12/2012 LAPROSCOPIC REPAIR UMBILICAL HERNIA 2016 SKIN BX, 1 LESION 11/1997 scar tissue r buttocks ALLERGIES Keflex [Cephalexin], Dotarem [Gadoterate Meglumine], Pollen, Ragweed Pollen, Valtrex [Valacyclovir], and Dust MEDICATIONS cyclobenzaprine (FLEXERIL) 10 mg tablet Take 1 tablet by mouth at bedtime as needed for muscle spasm. pantoprazole DR (PROTONIX) 40 mg tablet take 1 tablet daily hydroCHLOROthiazide 25 mg tablet take 1 tablet daily losartan (COZAAR) 25 mg tablet Take 1 tablet by mouth every afternoon. elderberry fruit (ELDERBERRY ORAL) Take 1 tablet by mouth once daily. fluticasone (FLONASE) 50 mcg/actuation nasal spray Use 2 Sprays in each nostril once daily. cholecalciferol (VITAMIN D3) 50 mcg (2,000 unit) tablet Take 2,000 Units by mouth once daily. ZINC ORAL Take 1 capsule by mouth once daily. ascorbic acid, vitamin C, (VITAMIN C) 250 mg tablet Take 250 mg by mouth once daily. multivitamin tablet Take 1 tablet by mouth once daily. potassium chloride (KLOR-CON 10) 10 mEq tablet Take 1 tablet by mouth daily with breakfast. FAMILY HISTORY Problem Relation Age of Onset Diabetes Mother Heart Mother hx of MD Hypertension Mother other (endometrosis) Mother Hysterectomy Hypertension Father Prostate Cancer Father Hypertension Brother Diabetes Brother No Known Problems Daughter No Known Problems Son Heart Maternal Grandmother Colon Cancer Paternal Grandmother 74 Cancer Paternal Grandfather prostate other (Other) Paternal Grandfather No breast/media center assistant cancer Anesthesia Problems No Family History Social History Tobacco Use Smoking status: Never Smokeless tobacco: Never Vaping Use Vaping status: Never Used Substance Use Topics Alcohol use: Yes Comment: 1-4 drinks per weekend Drug use: No BP 136/80 Pulse 80 Temp 36.5 ?C (97.7 ?F) Resp 16 Wt 106.5 kg (234 lb 12.6 oz) LMP 07/01/2024 (Exact Date) SpO2 96% BMI 39.69 kg/m? Review of Systems Constitutional: Positive for malaise/fatigue. Negative for chills and fever. HENT: Positive for congestion and sore throat. Negative for ear discharge, ear pain and sinus pain. Eyes: Negative for blurred vision, pain, discharge and redness. Respiratory: Positive for cough. Negative for hemoptysis, sputum production, shortness of breath, wheezing and stridor. Cardiovascular: Negative for chest pain. Gastrointestinal: Negative for abdominal pain, diarrhea, nausea and vomiting. Musculoskeletal: Positive for myalgias. Skin: Negative for itching and rash. Neurological: Negative for dizziness and headaches. Objective Physical Exam Constitutional: General: She is not in acute distress. Appearance: She is not diaphoretic. HENT: Head: Normocephalic. Jaw: No trismus, tenderness, swelling or pain on movement. Nose: Congestion present. Mouth/Throat: Mouth: Mucous membranes are moist. Pharynx: Oropharynx is clear. Uvula midline. Posterior oropharyngeal erythema present. No pharyngeal swelling, oropharyngeal exudate or uvula swelling. Eyes: Conjunctiva/sclera: Conjunctivae normal. Pupils: Pupils are equal, round, and reactive to light. Cardiovascular: Rate and Rhythm: Normal rate and regular rhythm. Heart sounds: Normal heart sounds. Pulmonary: Effort: Pulmonary effort is normal. No tachypnea, accessory muscle usage or respiratory distress. Breath sounds: No stridor. Wheezing present. No rhonchi or rales. Abdominal: General: There is no distension. Palpations: Abdomen is soft. Tenderness: There is no abdominal tenderness. There is no guarding or rebound. Musculoskeletal: Cervical back: Normal range of motion and neck supple. No edema, erythema, rigidity or tenderness. No pain with movement. Normal range of motion. Lymphadenopathy: Cervical: No cervical a (more content not included)... [facility] 08-16-2024 History of Present illness Narrative Subjective HPI Nontoxic-appearing female presents urgent care chief complaint cough sore throat. Duration of symptoms 5 days. Associated symptoms listed above. Most prominent symptom today is cough. Has became productive. 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 Denies any chest pain or shortness of breath. No hemoptysis. Afebrile today. Did have a fever beginning of illness. Past medical history prescription medications and allergies reviewed. .Patient presents with: Cough: congestion, drainage and sore throat x 5 days 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 GERD (gastroesophageal reflux disease) 10/27/2013 Hypertension Psoriasis Shingles outbreak 09/2017 had for 3.5 weeks PAST SURGICAL HISTORY Procedure Laterality Date CHOLECYSTECTOMY 02/2017 COLONOSCOPY AND BIOPSY 11/02/2018 EGD x 2 EGD BIOPSY SING OR MULT 11/02/2018 ESSURE 03/12/2012 LAPROSCOPIC REPAIR UMBILICAL HERNIA 2016 SKIN BX, 1 LESION 11/1997 scar tissue r buttocks ALLERGIES Keflex [Cephalexin], Dotarem [Gadoterate Meglumine], Pollen, Ragweed Pollen, Valtrex [Valacyclovir], and Dust MEDICATIONS cyclobenzaprine (FLEXERIL) 10 mg tablet Take 1 tablet by mouth at bedtime as needed for muscle spasm. pantoprazole DR (PROTONIX) 40 mg tablet take 1 tablet daily hydroCHLOROthiazide 25 mg tablet take 1 tablet daily losartan (COZAAR) 25 mg tablet Take 1 tablet by mouth every afternoon. elderberry fruit (ELDERBERRY ORAL) Take 1 tablet by mouth once daily. fluticasone (FLONASE) 50 mcg/actuation nasal spray Use 2 Sprays in each nostril once daily. cholecalciferol (VITAMIN D3) 50 mcg (2,000 unit) tablet Take 2,000 Units by mouth once daily. ZINC ORAL Take 1 capsule by mouth once daily. ascorbic acid, vitamin C, (VITAMIN C) 250 mg tablet Take 250 mg by mouth once daily. multivitamin tablet Take 1 tablet by mouth once daily. potassium chloride (KLOR-CON 10) 10 mEq tablet Take 1 tablet by mouth daily with breakfast. FAMILY HISTORY Problem Relation Age of Onset Diabetes Mother Heart Mother hx of MD Hypertension Mother other (endometrosis) Mother Hysterectomy Hypertension Father Prostate Cancer Father Hypertension Brother Diabetes Brother No Known Problems Daughter No Known Problems Son Heart Maternal Grandmother Colon Cancer Paternal Grandmother 74 Cancer Paternal Grandfather prostate other (Other) Paternal Grandfather No breast/media center assistant cancer Anesthesia Problems No Family History Social History Tobacco Use Smoking status: Never Smokeless tobacco: Never Vaping Use Vaping status: Never Used Substance Use Topics Alcohol use: Yes Comment: 1-4 drinks per weekend Drug use: No BP 136/80 Pulse 80 Temp 36.5 C (97.7 F) Resp 16 Wt 106.5 kg (234 lb 12.6 oz) LMP 07/01/2024 (Exact Date) SpO2 96% BMI 39.69 kg/m Review of Systems Constitutional: Positive for malaise/fatigue. Negative for chills and fever. HENT: Positive for congestion and sore throat. Negative for ear discharge, ear pain and sinus pain. Eyes: Negative for blurred vision, pain, discharge and redness. Respiratory: Positive for cough. Negative for hemoptysis, sputum production, shortness of breath, wheezing and stridor. Cardiovascular: Negative for chest pain. Gastrointestinal: Negative for abdominal pain, diarrhea, nausea and vomiting. Musculoskeletal: Positive for myalgias. Skin: Negative for itching and rash. Neurological: Negative for dizziness and headaches. Objective Physical Exam Constitutional: General: She is not in acute distress. Appearance: She is not diaphoretic. HENT: Head: Normocephalic. Jaw: No trismus, tenderness, swelling or pain on movement. Nose: Congestion present. Mouth/Throat: Mouth: Mucous membranes are moist. Pharynx: Oropharynx is clear. Uvula midline. Posterior oropharyngeal erythema present. No pharyngeal swelling, oropharyngeal exudate or uvula swelling. Eyes: Conjunctiva/sclera: Conjunctivae normal. Pupils: Pupils are equal, round, and reactive to light. Cardiovascular: Rate and Rhythm: Normal rate and regular rhythm. Heart sounds: Normal heart sounds. Pulmonary: Effort: Pulmonary effort is normal. No tachypnea, accessory muscle usage or respiratory distress. Breath sounds: No stridor. Wheezing present. No rhonchi or rales. Abdominal: General: There is no distension. Palpations: Abdomen is soft. Tenderness: There is no abdominal tenderness. There is no guarding or rebound. Musculoskeletal: Cervical back: Normal range of motion and neck supple. No edema, erythema, rigidity or tenderness. No pain with movement. Normal range of motion. Lymphadenopathy: Cervical: No cervical adenopathy. Skin: General: Skin is warm and dry. Neurological: Mental Status: She is alert and oriented to person, place, and time. ASSESSMENT/PLAN: 1. Sore throat - ICD9: 462, ICD10: J02.9 (primary diagnosis) - STREP A MOLECULAR (POC) 2. Acute cough - ICD9: 786.2, ICD10: R05.1 - XR CHEST 2V FRONTAL/LAT 3. URI with cough and congestion - ICD9: 465.9, ICD10: J06.9 - Discussed viral etiology and rationale for treatment. - Symptomatic treatment with prn analgesia - Supportive care with fluids and rest IMPRESSION: No acute radiographic abnormality. Chest x-ray negative. No evidence of bacterial faction on today's exam. Treat as viral etiology. Patient was educated on supportive therapies. Patient will follow up with primary care provider as needed. Patient was instructed to immediately proceed to emergency room for any new, worsening, or symptoms lasting longer than anticipated. The patient's clinical presentation is otherwise unremarkable at this time. Based on exam and clinical finding, the patient is stable for discharge. Plan of care was discussed with patient. Patient verbalizes understanding and agrees to plan of care. This note was generated using [employer] software. It may contain errors in wording, punctuation, or spelling. Shawn Sun APRN.ROXANE documented in this encounter [facility] 08-13-2024 History of Present illness Narrative Radiology Service Progress Note PATIENT NAME: Norma Romero DATE OF SERVICE: August 13, 2024 TIME: 11:32 AM PATIENT IDENTITY VERIFICATION COMPLETED USING TWO (2) IDENTIFIERS: Name and Date of confirmed by patient verbally. FALL SCREENING: Has the patient had 2 falls in the last year or 1 fall with injury or currently using an Ambulatory Assistive Device (Walker, Cane, Wheelchair, Crutches, etc.)? No PATIENT GENDER DATA: Female. status: : No status: NO. PATIENT RELEVANT IMPLANT DATA REVIEWED: Not Applicable PATIENT PRESENTS WITH AN IMPLANTABLE OR ATTACHED ARTIFICIAL LOG MACHINE OPERATOR: No RADIOLOGY DEPARTMENT: Mammography PERIPHERAL IV DATA: Not applicable SIGNED BY: Simone Lowery August 13, 2024 11:32 AM documented in this encounter [facility] 08-13-2024 Note HNO ID: [id number] Author: JIMBO CHRISTIAN Mammo Tech Service: ? Author Type: Skip Hoist Operator Type: Progress Notes Filed: 08/13/2024 11:32 Note Text: Radiology Service Progress Note PATIENT NAME: Norma Romero DATE OF SERVICE: August 13, 2024 TIME: 11:32 AM PATIENT IDENTITY VERIFICATION COMPLETED USING TWO (2) IDENTIFIERS: Name and Date of confirmed by patient verbally. FALL SCREENING: Has the patient had 2 falls in the last year or 1 fall with injury or currently using an Ambulatory Assistive Device (Walker, Cane, Wheelchair, Crutches, etc.)? No PATIENT GENDER DATA: Female. status: : No status: NO. PATIENT RELEVANT IMPLANT DATA REVIEWED: Not Applicable PATIENT PRESENTS WITH AN IMPLANTABLE OR ATTACHED ARTIFICIAL LOG MACHINE OPERATOR: No RADIOLOGY DEPARTMENT: Mammography PERIPHERAL IV DATA: Not applicable SIGNED BY: Simone Lowery August 13, 2024 11:32 AM [facility] 07-20-2024 Note HNO ID: [id number] Author: OLIVERIO WILL MD Service: ? Author Type: Physician Type: Progress Notes Filed: 07/20/2024 17:23 Note Text: CHIEF COMPLAINT Patient presents with: Back Pain HISTORY OF PRESENT ILLNESS Norma Romero is a 53 year old female who presents here today for back pain. I last saw this patient on 04/08/2023. - Endorses left back pain, mid back - Pain radiates down to low back - Originally though it might be a pinched nerve - Today pain is radiating up towards shoulder - Ongoing for 2 weeks - States that she was at work on Friday, when she thought she pulled a muscle, a child pushed on her back - Friday pain was a little worse - Tried ice therapy with some benefit - Denies leg swelling or pain radiating down leg - Also reports having a swollen gland in axilla area - Flares with cycle, notes that she should start her next cycle in about 1 week Health Maintenance Due for Influenza Vaccine (1) Due for Covid-19 Vaccine ( season) Due for Hep B Vaccine (1 of 3-3 dose series) Labs reviewed. Past medical history, appointments, medications, allergies reviewed. REVIEW OF SYSTEMS General: Feels well, no weight changes, fevers or chills. HEENT: No sinus congestion, earache, sore throat. Cardiac: No chest pain, palpitations Resp: No cough, wheeze, shortness of breath GI: No reflux symptoms, food intolerance, bowel changes. : No urinary frequency, dysuria. MS: +left sided mid back pain PAST MEDICAL HISTORY 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 GERD (gastroesophageal reflux disease) 10/27/2013 Hypertension Psoriasis Shingles outbreak 09/2017 had for 3.5 weeks PHYSICAL EXAMINATION BP 126/82 Pulse 76 Temp 37.1 ?C (98.7 ?F) Ht 163.8 cm (5' 4.49) Wt 106 kg (233 lb 11 oz) LMP 07/01/2024 (Exact Date) SpO2 98% BMI 39.51 kg/m? General: Alert, well developed, well nourished, no distress, pleasant and cooperative. Obese. Heart: Regular rate and rhythm. Normal S1 and S2. No murmurs, rubs, or gallops. Lungs: Clear to auscultation bilaterally. No respiratory distress. No wheezes, rales, or rhonchi. Abdomen: Soft, non-tender, no distention., no abd pain. Back: pain L lateral flank area, no CVAT. Tenderness lower rib area. Upper lateral lumbar. Extremities: Feet/ankles without edema, posterior tibial pulses full and symmetrical. Data Reviewed Assessment/Plan (M54.50) Acute left-sided low back pain without sciatica (primary encounter diagnosis) (M54.6) Lower thoracic back pain (R10.9) Left flank pain Comment: Ongoing x 2 weeks. Will check urine to rule out kidney stone Plan: UA DIP, URINE (POC)- negative Start cyclobenzaprine (FLEXERIL) 10 mg tablet Requested Prescriptions Signed Prescriptions Disp Refills cyclobenzaprine (FLEXERIL) 10 mg tablet 20 tablet 0 Sig: Take 1 tablet by mouth at bedtime as needed for muscle spasm. RTO: as needed Scribe Attestation: By signing my name below, I, Mandi Mckinnon, attest that this documentation has been prepared under the direction and in the presence of Shawn Will M.D. Electronically Signed: Mnainder Kohli. July 20, 2024 11:15 AM Provider Attestation: I, Oliverio Will MD, personally performed the services described in this documentation. All medical record entries made by the melissaibe were at my direction and in my telephonic presence. I have reviewed the chart and discharge instructions (if applicable), and agree that the record reflects my personal performance and is accurate and complete. Electronically Signed: Oliverio Will MD July 20, 2024 5:21 PM [facility] 07-20-2024 History of Present illness Narrative CHIEF COMPLAINT Patient presents with: Back Pain HISTORY OF PRESENT ILLNESS Norma Romero is a 53 year old female who presents here today for back pain. I last saw this patient on 04/08/2023. - Endorses left back pain, mid back - Pain radiates down to low back - Originally though it might be a pinched nerve - Today pain is radiating up towards shoulder - Ongoing for 2 weeks - States that she was at work on Friday, when she thought she pulled a muscle, a child pushed on her back - Friday pain was a little worse - Tried ice therapy with some benefit - Denies leg swelling or pain radiating down leg - Also reports having a swollen gland in axilla area - Flares with cycle, notes that she should start her next cycle in about 1 week Health Maintenance Due for Influenza Vaccine (1) Due for Covid-19 Vaccine ( season) Due for Hep B Vaccine (1 of 3-3 dose series) Labs reviewed. Past medical history, appointments, medications, allergies reviewed. REVIEW OF SYSTEMS General: Feels well, no weight changes, fevers or chills. HEENT: No sinus congestion, earache, sore throat. Cardiac: No chest pain, palpitations Resp: No cough, wheeze, shortness of breath GI: No reflux symptoms, food intolerance, bowel changes. : No urinary frequency, dysuria. MS: +left sided mid back pain PAST MEDICAL HISTORY 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 GERD (gastroesophageal reflux disease) 10/27/2013 Hypertension Psoriasis Shingles outbreak 09/2017 had for 3.5 weeks PHYSICAL EXAMINATION BP 126/82 Pulse 76 Temp 37.1 C (98.7 F) Ht 163.8 cm (5' 4.49) Wt 106 kg (233 lb 11 oz) LMP 07/01/2024 (Exact Date) SpO2 98% BMI 39.51 kg/m General: Alert, well developed, well nourished, no distress, pleasant and cooperative. Obese. Heart: Regular rate and rhythm. Normal S1 and S2. No murmurs, rubs, or gallops. Lungs: Clear to auscultation bilaterally. No respiratory distress. No wheezes, rales, or rhonchi. Abdomen: Soft, non-tender, no distention., no abd pain. Back: pain L lateral flank area, no CVAT. Tenderness lower rib area. Upper lateral lumbar. Extremities: Feet/ankles without edema, posterior tibial pulses full and symmetrical. Data Reviewed Assessment/Plan (M54.50) Acute left-sided low back pain without sciatica (primary encounter diagnosis) (M54.6) Lower thoracic back pain (R10.9) Left flank pain Comment: Ongoing x 2 weeks. Will check urine to rule out kidney stone Plan: UA DIP, URINE (POC)- negative Start cyclobenzaprine (FLEXERIL) 10 mg tablet Requested Prescriptions Signed Prescriptions Disp Refills cyclobenzaprine (FLEXERIL) 10 mg tablet 20 tablet 0 Sig: Take 1 tablet by mouth at bedtime as needed for muscle spasm. RTO: as needed Scribe Attestation: By signing my name below, IMandi, attest that this documentation has been prepared under the direction and in the presence of Shawn Will M.D. Electronically Signed: Maninder Kohli. July 20, 2024 11:15 AM Provider Attestation: Oliverio Yanes MD, personally performed the services described in this documentation. All medical record entries made by the scribe were at my direction and in my telephonic presence. I have reviewed the chart and discharge instructions (if applicable), and agree that the record reflects my personal performance and is accurate and complete. Electronically Signed: Oliverio Will MD July 20, 2024 5:21 PM documented in this encounter [facility] 07-14-2024 Telephone encounter Note Reason for Call: patient states that she accidentally took double dose of Protonix today. Patient took 40mg Protonix at 12pm, and again at 10pm. Patient is asymptomatic, does not have concern for overdose with any other medications. Outcome: Paged provider [employer] per protocol dispo, see info below. Patient verbalized understanding of instructions, no further questions/concerns at this time. Advised patient to call NOC with any other questions/concerns, or to go to ER/call 911 for any acute changes. Name of Provider contacted for further advice: Dr. Lujan Provider's recommendation: Monitor and observe, no acute concerns Reason for Disposition [1] DOUBLE DOSE (an extra dose or lesser amount) of prescription drug AND [2] NO symptoms (Exception: A double dose of antibiotics.) Protocols used: [id number] [facility] 07-14-2024 Miscellaneous Notes Reason for Call: patient states that she accidentally took double dose of Protonix today. Patient took 40mg Protonix at 12pm, and again at 10pm. Patient is asymptomatic, does not have concern for overdose with any other medications. Outcome: Paged provider [employer] per protocol dispo, see info below. Patient verbalized understanding of instructions, no further questions/concerns at this time. Advised patient to call NOC with any other questions/concerns, or to go to ER/call 911 for any acute changes. Name of Provider contacted for further advice: Dr. Lujan Provider's recommendation: Monitor and observe, no acute concerns Reason for Disposition [1] DOUBLE DOSE (an extra dose or lesser amount) of prescription drug AND [2] NO symptoms (Exception: A double dose of antibiotics.) Protocols used: [id number] documented in this encounter [facility] 06-28-2024 Telephone encounter Note Prescription Refill Information The patient has been identified by name and date of : Yes Caregiver verified no other encounters exist for this prescription request: Yes Caregiver confirmed with patient/requestor that no other refills are due, in the near future, with this provider at this time: Yes The last office visit in the department: 06/03/2024 Does the patient have a future office visit with this provider/department: No Requested Prescriptions Pending Prescriptions Disp Refills pantoprazole DR (PROTONIX) 40 mg tablet [Pharmacy Med Name: PANTOPRAZOLE SODIUM DR TABS 40MG] 90 tablet 3 Sig: take 1 tablet daily Joycelyn Marie LPN June 28, 2024 3:19 PM [facility] 06-28-2024 Miscellaneous Notes Prescription Refill Information The patient has been identified by name and date of : Yes Caregiver verified no other encounters exist for this prescription request: Yes Caregiver confirmed with patient/requestor that no other refills are due, in the near future, with this provider at this time: Yes The last office visit in the department: 06/03/2024 Does the patient have a future office visit with this provider/department: No Requested Prescriptions Pending Prescriptions Disp Refills pantoprazole DR (PROTONIX) 40 mg tablet [Pharmacy Med Name: PANTOPRAZOLE SODIUM DR TABS 40MG] 90 tablet 3 Sig: take 1 tablet daily Joycelyn Marie LPN June 28, 2024 3:19 PM documented in this encounter [facility] 06-07-2024 Miscellaneous Notes Pharmacy verified in [facility] Patient has been identified by name and date of : Yes Patient aware RX will be sent to pharmacy. No need to notify patient. Patient phones for refill(s): Requested Prescriptions Pending Prescriptions Disp Refills hydroCHLOROthiazide 25 mg tablet [Pharmacy Med Name: HYDROCHLOROTHIAZIDE TABS 25MG] 90 tablet 3 Sig: take 1 tablet daily Date of last office visit : 06/03/2024 Date of next office visit : Visit date not found Last 2 Encounter Wt Readings: Date: Wt: 06/03/2024 106.7 kg (235 lb 3.7 oz) 05/19/2024 103.3 kg (227 lb 10 oz) Please advise. Treasure Cannon MA documented in this encounter [facility] 06-07-2024 Telephone encounter Note Pharmacy verified in [facility] Patient has been identified by name and date of : Yes Patient aware RX will be sent to pharmacy. No need to notify patient. Patient phones for refill(s): Requested Prescriptions Pending Prescriptions Disp Refills hydroCHLOROthiazide 25 mg tablet [Pharmacy Med Name: HYDROCHLOROTHIAZIDE TABS 25MG] 90 tablet 3 Sig: take 1 tablet daily Date of last office visit : 06/03/2024 Date of next office visit : Visit date not found Last 2 Encounter Wt Readings: Date: Wt: 06/03/2024 106.7 kg (235 lb 3.7 oz) 05/19/2024 103.3 kg (227 lb 10 oz) Please advise. Treasure Cannon MA [facility] 06-03-2024 Note HNO ID: [id number] Author: JHONNY QUESADA APRN.PUPPET MAKER Service: ? Author Type: Nurse Practitioner Type: Progress Notes Filed: 06/03/2024 15:54 Note Text: This note was created using Shoutter. Debbi Romero is a 53 year old female. Patient was treated on 05/19 for right arm possible poison marta and cellulitis with cephalexin and topical steroid. She had heart palpitations with the cephalexin and stopped it, the rash and redness has resolved. Patient has new rashes since treatment for poison marta on chest, abdomen, and arms. Has taken claritin and topical steroid with no improvement. Cold water helps. Very itchy at night when under the covers, states that she'll have more flares and bumps at night. No new plant exposures. Denies any other new exposures. No ill symptoms, feels at baseline. Does have a couple sores at end of tongue. 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 The history is provided by the patient. Review of Systems Constitutional: Negative for chills, fatigue and fever. Skin: Positive for rash. Negative for color change. PAST MEDICAL HISTORY 01/04/2019: Anal fissure 03/19/2017: Brain cyst Comment: posterior fossa 10/27/2013: GERD (gastroesophageal reflux disease) No date: Hypertension No date: Psoriasis 09/2017: Shingles outbreak Comment: had for 3.5 weeks PAST SURGICAL HISTORY 02/2017: CHOLECYSTECTOMY 11/02/2018: COLONOSCOPY AND BIOPSY No date: EGD Comment: x 2 11/02/2018: EGD BIOPSY SING OR MULT 03/12/2012: ESSURE 2017: LAPROSCOPIC REPAIR UMBILICAL HERNIA 11/1997: SKIN BX, 1 LESION Comment: scar tissue r buttocks ALLERGIES Keflex [Cephalexin], Dotarem [Gadoterate Meglumine], Pollen, Ragweed Pollen, Valtrex [Valacyclovir], and Dust MEDICATIONS losartan (COZAAR) 25 mg tablet Take 1 tablet by mouth every afternoon. elderberry fruit (ELDERBERRY ORAL) Take 1 tablet by mouth once daily. pantoprazole DR (PROTONIX) 40 mg tablet take 1 tablet daily hydroCHLOROthiazide 25 mg tablet take 1 tablet daily fluticasone (FLONASE) 50 mcg/actuation nasal spray Use 2 Sprays in each nostril once daily. cholecalciferol (VITAMIN D3) 50 mcg (2,000 unit) tablet Take 2,000 Units by mouth once daily. ZINC ORAL Take 1 capsule by mouth once daily. ascorbic acid, vitamin C, (VITAMIN C) 250 mg tablet Take 250 mg by mouth once daily. multivitamin tablet Take 1 tablet by mouth once daily. potassium chloride (KLOR-CON 10) 10 mEq tablet Take 1 tablet by mouth daily with breakfast. FAMILY HISTORY Problem Relation Age of Onset Diabetes Mother Heart Mother hx of MD Hypertension Mother other (endometrosis) Mother Hysterectomy Hypertension Father Prostate Cancer Father Hypertension Brother Diabetes Brother No Known Problems Daughter No Known Problems Son Heart Maternal Grandmother Colon Cancer Paternal Grandmother 74 Cancer Paternal Grandfather prostate other (Other) Paternal Grandfather No breast/media center assistant cancer Anesthesia Problems No Family History Social History Tobacco Use Smoking status: Never Smokeless tobacco: Never Vaping Use Vaping status: Never Used Substance Use Topics Alcohol use: Yes Comment: 1-4 drinks per weekend Drug use: No Objective BP 113/77 (BP Site: Left Arm, BP Position: Sitting, BP Cuff Size: Large Adult) Pulse 87 Temp 36.8 ?C (98.2 ?F) Ht 163.8 cm (5' 4.49) Wt 106.7 kg (235 lb 3.7 oz) LMP 04/19/2024 (Exact Date) BMI 39.77 kg/m? Physical Exam Vitals and nursing note reviewed. Constitutional: Appearance: She is well-developed. She is not ill-appearing. Pulmonary: Effort: Pulmonary effort is normal. Skin: General: Skin is warm and dry. Comments: Right forearm with small healing scab, no surrounding erythema/edema, no drainage Bilateral upper breasts with a few scattered erythematous macules and linear areas; upper mid abdomen with a few vertical pink linear streaks, not raised; lower right abdomen with one small pink patch, nontender Neurological: Mental Status: She is alert and oriented to person, place, and time. Gait: Gait normal. Psychiatric: Mood and Affect: Mood normal. Assessment and Plan 1. Rash Unclear etiology. Recommend to continue claritin in the morning, add oral Benadryl at night. Stop topical steroid, trial topical benadryl. Cool compresses/ice packs PRN for itching. F/u with PCP in one week if new/worsening. Jhonny Quesada APRN.[facility] 06-03-2024 History of Present illness Narrative Images from the original note were not included. This note was created using Policardriter. Subjective Norma Romero is a 53 year old female. Patient was treated on 05/19 for right arm possible poison marta and cellulitis with cephalexin and topical steroid. She had heart palpitations with the cephalexin and stopped it, the rash and redness has resolved. Patient has new rashes since treatment for poison marta on chest, abdomen, and arms. Has taken claritin and topical steroid with no improvement. Cold water helps. Very itchy at night when under the covers, states that she'll have more flares and bumps at night. No new plant exposures. Denies any other new exposures. No ill symptoms, feels at baseline. Does have a couple sores at end of tongue. 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 The history is provided by the patient. Review of Systems Constitutional: Negative for chills, fatigue and fever. Skin: Positive for rash. Negative for color change. PAST MEDICAL HISTORY 01/04/2019: Anal fissure 03/19/2017: Brain cyst Comment: posterior fossa 10/27/2013: GERD (gastroesophageal reflux disease) No date: Hypertension No date: Psoriasis 09/2017: Shingles outbreak Comment: had for 3.5 weeks PAST SURGICAL HISTORY 02/2017: CHOLECYSTECTOMY 11/02/2018: COLONOSCOPY AND BIOPSY No date: EGD Comment: x 2 11/02/2018: EGD BIOPSY SING OR MULT 03/12/2012: ESSURE 2017: LAPROSCOPIC REPAIR UMBILICAL HERNIA 11/1997: SKIN BX, 1 LESION Comment: scar tissue r buttocks ALLERGIES Keflex [Cephalexin], Dotarem [Gadoterate Meglumine], Pollen, Ragweed Pollen, Valtrex [Valacyclovir], and Dust MEDICATIONS losartan (COZAAR) 25 mg tablet Take 1 tablet by mouth every afternoon. elderberry fruit (ELDERBERRY ORAL) Take 1 tablet by mouth once daily. pantoprazole DR (PROTONIX) 40 mg tablet take 1 tablet daily hydroCHLOROthiazide 25 mg tablet take 1 tablet daily fluticasone (FLONASE) 50 mcg/actuation nasal spray Use 2 Sprays in each nostril once daily. cholecalciferol (VITAMIN D3) 50 mcg (2,000 unit) tablet Take 2,000 Units by mouth once daily. ZINC ORAL Take 1 capsule by mouth once daily. ascorbic acid, vitamin C, (VITAMIN C) 250 mg tablet Take 250 mg by mouth once daily. multivitamin tablet Take 1 tablet by mouth once daily. potassium chloride (KLOR-CON 10) 10 mEq tablet Take 1 tablet by mouth daily with breakfast. FAMILY HISTORY Problem Relation Age of Onset Diabetes Mother Heart Mother hx of MD Hypertension Mother other (endometrosis) Mother Hysterectomy Hypertension Father Prostate Cancer Father Hypertension Brother Diabetes Brother No Known Problems Daughter No Known Problems Son Heart Maternal Grandmother Colon Cancer Paternal Grandmother 74 Cancer Paternal Grandfather prostate other (Other) Paternal Grandfather No breast/media center assistant cancer Anesthesia Problems No Family History Social History Tobacco Use Smoking status: Never Smokeless tobacco: Never Vaping Use Vaping status: Never Used Substance Use Topics Alcohol use: Yes Comment: 1-4 drinks per weekend Drug use: No Objective BP 113/77 (BP Site: Left Arm, BP Position: Sitting, BP Cuff Size: Large Adult) Pulse 87 Temp 36.8 C (98.2 F) Ht 163.8 cm (5' 4.49) Wt 106.7 kg (235 lb 3.7 oz) LMP 04/19/2024 (Exact Date) BMI 39.77 kg/m Physical Exam Vitals and nursing note reviewed. Constitutional: Appearance: She is well-developed. She is not ill-appearing. Pulmonary: Effort: Pulmonary effort is normal. Skin: General: Skin is warm and dry. Comments: Right forearm with small healing scab, no surrounding erythema/edema, no drainage Bilateral upper breasts with a few scattered erythematous macules and linear areas; upper mid abdomen with a few vertical pink linear streaks, not raised; lower right abdomen with one small pink patch, nontender Neurological: Mental Status: She is alert and oriented to person, place, and time. Gait: Gait normal. Psychiatric: Mood and Affect: Mood normal. Assessment and Plan 1. Rash Unclear etiology. Recommend to continue claritin in the morning, add oral Benadryl at night. Stop topical steroid, trial topical benadryl. Cool compresses/ice packs PRN for itching. F/u with PCP in one week if new/worsening. Jhonny Quesada APRN.ROXANE documented in this encounter [facility] 06-02-2024 Telephone encounter Note Patient calling with needs to make an appointment Patient denies any new or worsening symptoms of which a provider is not aware:Yes patient transferred to appointment center to make an appointment. Angela Blancas LPN [facility] 06-02-2024 Miscellaneous Notes Patient calling with needs to make an appointment Patient denies any new or worsening symptoms of which a provider is not aware:Yes patient transferred to appointment center to make an appointment. Angela Blancas LPN documented in this encounter [facility] 05-25-2024 Miscellaneous Notes Provider's recommendations sent via My Chart message. I would hold off on antibiotic for now and continue to monitor, she can also send a picture via [employer] Jhonny Quesada APRN.ROXANE Called patient. She stopped the cephalexin Friday, and feels much better r/t her heart pounding. As for the cellulitis: On 05/19 she did have a 10 cm streak. That is now gone. On 05/19 she did have a 9 cm x 6.5 cm area of erythema. That is decreased to 3.8 cm x 3.8 cm. The small area of erythema remains is a little warm to touch still. She will send a current image to [employer]. Should she try a different antibiotic now, or hold off and monitor? Looks like Dr. Will's note and recommendations from last week did not get passed along to the patient, can you follow up with her about holding the cephalexin per his recommendation and see how she's feeling? Jhonny Quesada APRN.ROXANE Likely side effect from cephalexin . Hold it for now. Would rather not start another antibiotic. Report progress on 05/24 (Friday) Oliverio Will MD documented in this encounter [facility] 05-25-2024 Telephone encounter Note Provider's recommendations sent via My Chart message. [facility] 05-25-2024 Telephone encounter Note I would hold off on antibiotic for now and continue to monitor, she can also send a picture via [employer] Jhonny Quesada APRN.ROXANE [facility] 05-25-2024 Telephone encounter Note Called patient. She stopped the cephalexin Friday, and feels much better r/t her heart pounding. As for the cellulitis: On 05/19 she did have a 10 cm streak. That is now gone. On 05/19 she did have a 9 cm x 6.5 cm area of erythema. That is decreased to 3.8 cm x 3.8 cm. The small area of erythema remains is a little warm to touch still. She will send a current image to [employer]. Should she try a different antibiotic now, or hold off and monitor? [facility] 05-25-2024 Telephone encounter Note Looks like Dr. Will's note and recommendations from last week did not get passed along to the patient, can you follow up with her about holding the cephalexin per his recommendation and see how she's feeling? Jhonny Quesada APRN.PUPPET MAKER [facility] 05-21-2024 Telephone encounter Note Likely side effect from cephalexin . Hold it for now. Would rather not start another antibiotic. Report progress on 05/24 (Friday) Oliverio Will MD [facility] 05-20-2024 Telephone encounter Note Pt seen in walk in [facility] 05-20-2024 Miscellaneous Notes Pt seen in walk in documented in this encounter [facility] 05-20-2024 Telephone encounter Note Pt seen in walk in [facility] 05-20-2024 Miscellaneous Notes Pt seen in walk in Please triage. documented in this encounter [facility] 05-19-2024 Note Addended by: MARIA ISABEL MCELROY on: 05/19/2024 07:16 PM Modules accepted: Orders [facility] 05-19-2024 Miscellaneous Notes Addended by: MARIA ISABEL MCELROY on: 05/19/2024 07:16 PM Modules accepted: Orders documented in this encounter [facility] 05-19-2024 Telephone encounter Note Reason for Call: error [facility] 05-19-2024 Miscellaneous Notes Reason for Call: error documented in this encounter [facility] 05-19-2024 Instructions Maria Isabel Mcelroy APRN.CNP - 05/19/2024 6:55 PM EDT -Keflex every 6 hours for 7 days -Clobetasol cream twice daily -Keep wound clean and dry -Follow up in 48-72 hours if no improvement or for worsening redness, swelling, tenderness, warmth or drainage. -ER for significant worsening redness, swelling, tenderness, warmth, drainage, fevers, chills, nausea, vomiting or any other concerning symptoms. documented in this encounter [facility] 05-19-2024 Note HNO ID: [id number] Author: MARIA ISABEL MCELROY APRN.CNP Service: ? Author Type: Nurse Practitioner Type: Progress Notes Filed: 05/19/2024 19:07 Note Text: Chief Complaint Patient presents with: Rash: Right forearm has a spot. Thinks it might be poison marta HPI Patient presents today for concerns for poison marta. Reports she was pulling out poison marta 3 days ago. 2 days ago looked to be a hole with scabbed spot on right forearm. Since there has been severeal bumpy rash. There is expanding redness around initial spot. Area is itchy and tender. This morning noticed red streak coming from red area. Streak has not gotten bigger. She has been using calamine lotion. 9 x 6.5, 10. PAST MEDICAL HISTORY 01/04/2019: Anal fissure 03/19/2017: Brain cyst Comment: posterior fossa 10/27/2013: GERD (gastroesophageal reflux disease) No date: Hypertension No date: Psoriasis 09/2017: Shingles outbreak Comment: had for 3.5 weeks ALLERGIES Allergen Reactions Dotarem [Gadoterate* Rash Pollen Cough Ragweed Pollen Itching Eye itching Valtrex [Valacyclov* Rash Dust Intolerance Review of Systems Review of Systems Constitutional: Negative for chills and fever. Gastrointestinal: Negative for nausea and vomiting. Skin: Positive for color change and rash. BP 137/89 Pulse 87 Resp 16 Wt 103.3 kg (227 lb 10 oz) LMP 04/19/2024 (Exact Date) SpO2 98% BMI 38.48 kg/m? Physical Exam Vitals and nursing note reviewed. Constitutional: General: She is awake. She is not in acute distress. Appearance: Normal appearance. She is not ill-appearing or toxic-appearing. Cardiovascular: Rate and Rhythm: Normal rate. Pulmonary: Effort: Pulmonary effort is normal. Skin: Findings: Erythema and rash present. Rash is vesicular. Comments: Vesicular/ulcerated rash noted to distal right anterior forearm. There is 9 cm by 6.5 cm area of erythema, tenderness and mild swelling and warmth. There is a 10 cm erythematous streak extending proximally. Mildly erythematous papulovesicular rash noted to right upper arm. Neurological: Mental Status: She is alert. Psychiatric: Behavior: Behavior is cooperative. Assessment and Plan 1. Cellulitis of skin - ICD9: 682.9, ICD10: L03.90 (primary diagnosis) Vesicular/ulcerated rash noted to distal right anterior forearm. There is 9 cm by 6.5 cm area of erythema, tenderness and mild swelling and warmth. There is a 10 cm erythematous streak extending proximally. No fevers, chills, nausea, vomiting. Discussed secondary bacterial infection from poison marta vs possible insect bite. Discussed strict follow up and ER precautions. - Begin treatment with Cephalaxin (Keflex) - Area of cellulitis/lymphangitis defined with pen, seek further attention if this area continues to enlarge -Follow up in 48-72 hours if no improvement or for worsening redness, swelling, tenderness, warmth or drainage. -ER for significant worsening redness, swelling, tenderness, warmth, drainage, fevers, chills, nausea, vomiting or any other concerning symptoms. 2. Poison marta - ICD9: 692.6, ICD10: L23.7 - Topical steriod tx with CLOBETASOL 0.05 % TOPICAL CREAM - Anti itch therapy of Oral Benydryl and or Zyrtec recommended - discussed skin care of rash - follow up if symptoms persist or worsen. Maria Isabel Mcelroy APRN.[facility] 05-19-2024 History of Present illness Narrative Images from the original note were not included. Chief Complaint Patient presents with: Rash: Right forearm has a spot. Thinks it might be poison marta HPI Patient presents today for concerns for poison marta. Reports she was pulling out poison marta 3 days ago. 2 days ago looked to be a hole with scabbed spot on right forearm. Since there has been severeal bumpy rash. There is expanding redness around initial spot. Area is itchy and tender. This morning noticed red streak coming from red area. Streak has not gotten bigger. She has been using calamine lotion. 9 x 6.5, 10. PAST MEDICAL HISTORY 01/04/2019: Anal fissure 03/19/2017: Brain cyst Comment: posterior fossa 10/27/2013: GERD (gastroesophageal reflux disease) No date: Hypertension No date: Psoriasis 09/2017: Shingles outbreak Comment: had for 3.5 weeks ALLERGIES Allergen Reactions Dotarem [Gadoterate* Rash Pollen Cough Ragweed Pollen Itching Eye itching Valtrex [Valacyclov* Rash Dust Intolerance Review of Systems Review of Systems Constitutional: Negative for chills and fever. Gastrointestinal: Negative for nausea and vomiting. Skin: Positive for color change and rash. BP 137/89 Pulse 87 Resp 16 Wt 103.3 kg (227 lb 10 oz) LMP 04/19/2024 (Exact Date) SpO2 98% BMI 38.48 kg/m Physical Exam Vitals and nursing note reviewed. Constitutional: General: She is awake. She is not in acute distress. Appearance: Normal appearance. She is not ill-appearing or toxic-appearing. Cardiovascular: Rate and Rhythm: Normal rate. Pulmonary: Effort: Pulmonary effort is normal. Skin: Findings: Erythema and rash present. Rash is vesicular. Comments: Vesicular/ulcerated rash noted to distal right anterior forearm. There is 9 cm by 6.5 cm area of erythema, tenderness and mild swelling and warmth. There is a 10 cm erythematous streak extending proximally. Mildly erythematous papulovesicular rash noted to right upper arm. Neurological: Mental Status: She is alert. Psychiatric: Behavior: Behavior is cooperative. Assessment and Plan 1. Cellulitis of skin - ICD9: 682.9, ICD10: L03.90 (primary diagnosis) Vesicular/ulcerated rash noted to distal right anterior forearm. There is 9 cm by 6.5 cm area of erythema, tenderness and mild swelling and warmth. There is a 10 cm erythematous streak extending proximally. No fevers, chills, nausea, vomiting. Discussed secondary bacterial infection from poison marta vs possible insect bite. Discussed strict follow up and ER precautions. - Begin treatment with Cephalaxin (Keflex) - Area of cellulitis/lymphangitis defined with pen, seek further attention if this area continues to enlarge -Follow up in 48-72 hours if no improvement or for worsening redness, swelling, tenderness, warmth or drainage. -ER for significant worsening redness, swelling, tenderness, warmth, drainage, fevers, chills, nausea, vomiting or any other concerning symptoms. 2. Poison marta - ICD9: 692.6, ICD10: L23.7 - Topical steriod tx with CLOBETASOL 0.05 % TOPICAL CREAM - Anti itch therapy of Oral Benydryl and or Zyrtec recommended - discussed skin care of rash - follow up if symptoms persist or worsen. Maria Isabel Mcelroy APRN.PUPPET MAKER documented in this encounter [facility] 05-19-2024 Telephone encounter Note Please triage. [facility] 05-19-2024 Telephone encounter Note Reason for Call: Poison Marta rash Outcome: Be seen within 4 hours Patient will go to [facility] Reason for Disposition Large blisters or oozing sores Answer Assessment - Initial Assessment Questions 1. APPEARANCE of RASH: ring to right arm and some to lower abdomen near genital area 2. LOCATION: right arm and lower abdomen near genital area 3. SIZE: ring to forearm, draining and red streak to elbow 4. ONSET: Pulled poison marta from brick of house on Friday, started Friday morning and then swelling and draining and getting worse 5. ITCHING: yes, cold water helps 6. EXPOSURE: see above 7. PAST HISTORY: no Protocols used: Poison Marta - Burket - [id number] [facility] 05-19-2024 Miscellaneous Notes Reason for Call: Poison Marta rash Outcome: Be seen within 4 hours Patient will go to [facility] Reason for Disposition Large blisters or oozing sores Answer Assessment - Initial Assessment Questions 1. APPEARANCE of RASH: ring to right arm and some to lower abdomen near genital area 2. LOCATION: right arm and lower abdomen near genital area 3. SIZE: ring to forearm, draining and red streak to elbow 4. ONSET: Pulled poison marta from brick of house on Friday, started Friday morning and then swelling and draining and getting worse 5. ITCHING: yes, cold water helps 6. EXPOSURE: see above 7. PAST HISTORY: no Protocols used: Poison Marta - Burket - [id number] documented in this encounter [facility] 04-28-2024 History of Present illness Narrative This note was created using Milk Mantra. Subjective HPI: Norma Romero is a 53 year old female who presents today for annual physical exam. Patient express concern regarding weight loss and diet. Has tried noom in the past but stopped in October. Recommend seeing retail client solutions analyst and start exercising/walking more. Also, patient has new onset right knee pain after stepping into a hole and feeling it twist slight. Pain is getting better and recommend keeping an eye on it. Patient also endorses right sided hearing loss that has progressively happened over the last 3 years. GERD is controlled on protonix, only has symptoms if she misses doses. Review of Systems Constitutional: Negative. HENT: Positive for hearing loss (R sided). Eyes: Negative. Respiratory: Negative. Cardiovascular: Negative. Gastrointestinal: Negative. Endocrine: Negative. Genitourinary: Negative. Musculoskeletal: Positive for joint swelling (R knee). Skin: Negative. Allergic/Immunologic: Negative. Neurological: Negative. Hematological: Negative. Psychiatric/Behavioral: Negative. PAST MEDICAL HISTORY 01/04/2019: Anal fissure 03/19/2017: Brain cyst Comment: posterior fossa 10/27/2013: GERD (gastroesophageal reflux disease) No date: Hypertension No date: Psoriasis 09/2017: Shingles outbreak Comment: had for 3.5 weeks PAST SURGICAL HISTORY 02/2017: CHOLECYSTECTOMY 11/02/2018: COLONOSCOPY AND BIOPSY No date: EGD Comment: x 2 11/02/2018: EGD BIOPSY SING OR MULT 03/12/2012: ESSURE 2017: LAPROSCOPIC REPAIR UMBILICAL HERNIA 11/1997: SKIN BX, 1 LESION Comment: scar tissue r buttocks ALLERGIES Dotarem [Gadoterate Meglumine], Pollen, Ragweed Pollen, Valtrex [Valacyclovir], and Dust MEDICATIONS elderberry fruit (ELDERBERRY ORAL) Take 1 tablet by mouth once daily. pantoprazole DR (PROTONIX) 40 mg tablet take 1 tablet daily hydroCHLOROthiazide 25 mg tablet take 1 tablet daily fluticasone (FLONASE) 50 mcg/actuation nasal spray Use 2 Sprays in each nostril once daily. cholecalciferol (VITAMIN D3) 50 mcg (2,000 unit) tablet Take 2,000 Units by mouth once daily. ZINC ORAL Take 1 capsule by mouth once daily. ascorbic acid, vitamin C, (VITAMIN C) 250 mg tablet Take 250 mg by mouth once daily. multivitamin tablet Take 1 tablet by mouth once daily. potassium chloride (KLOR-CON 10) 10 mEq tablet Take 1 tablet by mouth daily with breakfast. losartan (COZAAR) 25 mg tablet Take 1 tablet by mouth every afternoon. FAMILY HISTORY Problem Relation Age of Onset Diabetes Mother Heart Mother hx of MD Hypertension Mother other (endometrosis) Mother Hysterectomy Hypertension Father Prostate Cancer Father Hypertension Brother Diabetes Brother No Known Problems Daughter No Known Problems Son Heart Maternal Grandmother Colon Cancer Paternal Grandmother 74 Cancer Paternal Grandfather prostate other (Other) Paternal Grandfather No breast/media center assistant cancer Anesthesia Problems No Family History Social History Tobacco Use Smoking status: Never Smokeless tobacco: Never Vaping Use Vaping Use: Never used Substance Use Topics Alcohol use: Yes Comment: 1-4 drinks per weekend Drug use: No Objective BP 112/77 Pulse 83 Ht 163.8 cm (5' 4.49) Wt 103.9 kg (229 lb 0.9 oz) LMP 04/19/2024 (Exact Date) SpO2 98% BMI 38.72 kg/m Physical Exam Constitutional: Appearance: Normal appearance. She is obese. HENT: Head: Normocephalic. Right Ear: Tympanic membrane, ear canal and external ear normal. Left Ear: Tympanic membrane, ear canal and external ear normal. Mouth/Throat: Mouth: Mucous membranes are moist. Eyes: Extraocular Movements: Extraocular movements intact. Pupils: Pupils are equal, round, and reactive to light. Cardiovascular: Rate and Rhythm: Normal rate and regular rhythm. Pulses: Normal pulses. Heart sounds: Normal heart sounds. Pulmonary: Breath sounds: Normal breath sounds. Abdominal: General: Abdomen is flat. Bowel sounds are normal. Palpations: Abdomen is soft. Musculoskeletal: Cervical back: Normal range of motion. Right knee: Swelling (mild over patella) present. No effusion, erythema, ecchymosis or bony tenderness. Normal range of motion. Tenderness (mild generalized) present. Right lower leg: No edema. Left lower leg: No edema. Skin: General: Skin is warm. Neurological: General: No focal deficit present. Mental Status: She is alert and oriented to person, place, and time. Psychiatric: Mood and Affect: Mood normal. Behavior: Behavior normal. Assessment and Plan 1. Well adult exam Follow up in 1 year. 2. Essential hypertension Controlled, continue current medications. 3. Gastroesophageal reflux disease without esophagitis Symptoms controlled on Protonix, continue. 4. Acute pain of right knee -Improving, likley sprain. -continue with ice and OTC medications PRN -reach out if pain gets worse 5. Hearing loss of right ear, unspecified hearing loss type - CONSULT TO ENT; Future 6. Obesity, Class II, BMI 35-39.9 - CONSULT TO NUTRITION THERAPY; Future 7. Screening for depression - DEPRESSION SCREENING 8. Encounter for screening examination for other mental health and behavioral disorders - ANXIETY SCREENING 9. Screening mammogram for breast cancer - MARY ELLEN SCREENING W BIB; Future 10. Encounter for immunization - TDAP VACCINE, AGE 7+ YR (ADACEL, BOOSTRIX) SHIREEN Maya-Student TEACHING PROVIDER (Physician/PA/CAR PACKER) NOTE OF PERSONAL INVOLVEMENT IN CARE: I have personally seen and examined the patient and performed the medical decision-making components. I have reviewed the Advanced Practice Registered Nurse (CAR PACKER) Student's documentation and verified the findings in the note as written. Any additions or changes are noted in bold/italics. Signature: Jhonny Quesada Date: 04/28/2024 Time: 4:25 PM documented in this encounter [facility] 02-18-2024 Telephone encounter Note Due for lab to monitor kidney function/electrolytes, order placed. Jhonny Quesada APRN.CNP [facility] 02-18-2024 Miscellaneous Notes Due for lab to monitor kidney function/electrolytes, order placed. Jhonny Quesada APRN.CNP Pharmacy verified in [facility] Patient has been identified by name and date of : Yes Patient aware RX will be sent to pharmacy. No need to notify patient. Pharmacy phones for refill(s): Requested Prescriptions Pending Prescriptions Disp Refills losartan (COZAAR) 25 mg tablet [Pharmacy Med Name: LOSARTAN TABS 25MG] 90 tablet 3 Sig: take 1 tablet daily Date of last office visit : 06/23/2017 Date of next office visit : Visit date not found Last 2 Encounter Wt Readings: Date: Wt: 12/08/2023 103.9 kg (229 lb 0.9 oz) 12/01/2023 103 kg (227 lb 1.2 oz) Blood Pressure: BUN (mg/dL) Date Value 10/03/2022 17 10/16/2021 13 Creatinine (mg/dL) Date Value 10/03/2022 0.76 10/16/2021 0.72 Sodium (mmol/L) Date Value 10/03/2022 140 10/16/2021 138 Potassium (mmol/L) Date Value 10/03/2022 4.0 10/16/2021 4.1 Last 1 Encounter BP Readings: Date: BP: 12/08/2023 118/82 Please advise. Dominic Murray LPN documented in this encounter [facility] 02-18-2024 Telephone encounter Note Pharmacy verified in [facility] Patient has been identified by name and date of : Yes Patient aware RX will be sent to pharmacy. No need to notify patient. Pharmacy phones for refill(s): Requested Prescriptions Pending Prescriptions Disp Refills losartan (COZAAR) 25 mg tablet [Pharmacy Med Name: LOSARTAN TABS 25MG] 90 tablet 3 Sig: take 1 tablet daily Date of last office visit : 06/23/2017 Date of next office visit : Visit date not found Last 2 Encounter Wt Readings: Date: Wt: 12/08/2023 103.9 kg (229 lb 0.9 oz) 12/01/2023 103 kg (227 lb 1.2 oz) Blood Pressure: BUN (mg/dL) Date Value 10/03/2022 17 10/16/2021 13 Creatinine (mg/dL) Date Value 10/03/2022 0.76 10/16/2021 0.72 Sodium (mmol/L) Date Value 10/03/2022 140 10/16/2021 138 Potassium (mmol/L) Date Value 10/03/2022 4.0 10/16/2021 4.1 Last 1 Encounter BP Readings: Date: BP: 12/08/2023 118/82 Please advise. Dominic Murray LPN [facility] 12-08-2023 History of Present illness Narrative This note was created using Milk Mantra. Subjective Norma Romero is a 53 year old female. Patient here for persistent ear pain and sore throat. Saw this provider on 11/30, tested negative for covid/flu/strep. Is taking tylenol with little relief during the day but not at night. Feels a little swollen in right maxillary area. The history is provided by the patient. Review of Systems Constitutional: Negative for fever. HENT: Positive for congestion, ear pain (right), sinus pressure and sore throat. Negative for sinus pain. Respiratory: Positive for cough (very minimal). Negative for shortness of breath and wheezing. Cardiovascular: Negative for chest pain. Allergic/Immunologic: Negative for immunocompromised state. 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 GERD (gastroesophageal reflux disease) 10/27/2013 Hypertension Psoriasis Shingles outbreak 09/2017 had for 3.5 weeks PAST SURGICAL HISTORY Procedure Laterality Date CHOLECYSTECTOMY 02/2017 COLONOSCOPY AND BIOPSY 11/02/2018 EGD x 2 EGD BIOPSY SING OR MULT 11/02/2018 ESSURE 03/12/2012 LAPROSCOPIC REPAIR UMBILICAL HERNIA 2017 SKIN BX, 1 LESION 11/1997 scar tissue r buttocks ALLERGIES Dotarem [Gadoterate Meglumine], Pollen, Ragweed Pollen, Valtrex [Valacyclovir], Dust, and Mint Dental Floss [Other] MEDICATIONS elderberry fruit (ELDERBERRY ORAL) Take 1 tablet by mouth once daily. pantoprazole DR (PROTONIX) 40 mg tablet take 1 tablet daily hydroCHLOROthiazide 25 mg tablet take 1 tablet daily fluticasone (FLONASE) 50 mcg/actuation nasal spray Use 2 Sprays in each nostril once daily. losartan (COZAAR) 25 mg tablet TAKE 1 TABLET DAILY cholecalciferol (VITAMIN D3) 50 mcg (2,000 unit) tablet Take 2,000 Units by mouth once daily. Betamethasone-Calcipotriene (TACLONEX) external suspension Apply 1 application to affected area once daily. Psoriasis on back of neck (Patient taking differently: Apply 1 application to affected area as needed. Psoriasis on back of neck) ZINC ORAL Take 1 capsule by mouth once daily. ascorbic acid, vitamin C, (VITAMIN C) 250 mg tablet Take 250 mg by mouth once daily. multivitamin tablet Take 1 tablet by mouth once daily. potassium chloride (KLOR-CON 10) 10 mEq tablet Take 1 tablet by mouth daily with breakfast. FAMILY HISTORY Problem Relation Age of Onset Diabetes Mother Heart Mother hx of MD Hypertension Mother other (endometrosis) Mother Hysterectomy Hypertension Father Prostate Cancer Father Hypertension Brother Diabetes Brother No Known Problems Daughter No Known Problems Son Heart Maternal Grandmother Colon Cancer Paternal Grandmother 74 Cancer Paternal Grandfather prostate other (Other) Paternal Grandfather No breast/media center assistant cancer Anesthesia Problems No Family History Social History Tobacco Use Smoking status: Never Smokeless tobacco: Never Vaping Use Vaping Use: Never used Substance Use Topics Alcohol use: Yes Comment: 1-4 drinks per weekend Drug use: No Objective BP 118/82 Pulse 84 Ht 163.8 cm (5' 4.49) Wt 103.9 kg (229 lb 0.9 oz) LMP 11/28/2023 (Approximate) BMI 38.72 kg/m Physical Exam Vitals and nursing note reviewed. HENT: Right Ear: Ear canal normal. A middle ear effusion is present. Tympanic membrane is retracted. Tympanic membrane is not erythematous or bulging. Left Ear: Tympanic membrane and ear canal normal. Nose: Right Sinus: Maxillary sinus tenderness present. No frontal sinus tenderness. Left Sinus: No maxillary sinus tenderness or frontal sinus tenderness. Mouth/Throat: Mouth: Mucous membranes are moist. Pharynx: Uvula midline. No oropharyngeal exudate or posterior oropharyngeal erythema. Cardiovascular: Rate and Rhythm: Normal rate and regular rhythm. Heart sounds: Normal heart sounds. Pulmonary: Effort: Pulmonary effort is normal. Breath sounds: Normal breath sounds. Musculoskeletal: Cervical back: No tenderness. Lymphadenopathy: Cervical: No cervical adenopathy. Skin: General: Skin is warm and dry. Neurological: Mental Status: She is alert and oriented to person, place, and time. Assessment and Plan 1. Acute non-recurrent maxillary sinusitis Complete entire course of antibiotic, take with food, recommend probiotic while on this medication. Recommend warm compresses on right maxillary sinus area, OTC Sudafed, Flonase, and analgesics PRN. If no improvement in 3-5 days, new/worsening, return or see PCP for further evaluation. All questions answered, verbalized understanding. - amoxicillin-clavulanate potassium (AUGMENTIN) 875-125 mg per tablet; Take 1 tablet by mouth two times a day for 7 days. Dispense: 14 tablet; Refill: 0 2. Middle ear effusion, right Jhonny Quesada APRN.PUPPET MAKER documented in this encounter [facility] 12-01-2023 History of Present illness Narrative Strep This note was created using Policardriter. Subjective Norma Romero is a 53 year old female. Patient here for sore throat and right ear pain, fever yesterday. Has a little postnasal drainage, throat clearing. 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 The history is provided by the patient. Review of Systems Constitutional: Positive for fever. HENT: Positive for sore throat. Negative for congestion. Respiratory: Negative for cough, shortness of breath and wheezing. Cardiovascular: Negative for chest pain. Allergic/Immunologic: Negative for immunocompromised state. 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 GERD (gastroesophageal reflux disease) 10/27/2013 Hypertension Psoriasis Shingles outbreak 09/2017 had for 3.5 weeks PAST SURGICAL HISTORY Procedure Laterality Date CHOLECYSTECTOMY 02/2017 COLONOSCOPY AND BIOPSY 11/02/2018 EGD x 2 EGD BIOPSY SING OR MULT 11/02/2018 ESSURE 03/12/2012 LAPROSCOPIC REPAIR UMBILICAL HERNIA 2016 SKIN BX, 1 LESION 11/1997 scar tissue r buttocks ALLERGIES Dotarem [Gadoterate Meglumine], Pollen, Ragweed Pollen, Valtrex [Valacyclovir], Dust, and Mint Dental Floss [Other] MEDICATIONS elderberry fruit (ELDERBERRY ORAL) Take 1 tablet by mouth once daily. pantoprazole DR (PROTONIX) 40 mg tablet take 1 tablet daily hydroCHLOROthiazide 25 mg tablet take 1 tablet daily fluticasone (FLONASE) 50 mcg/actuation nasal spray Use 2 Sprays in each nostril once daily. losartan (COZAAR) 25 mg tablet TAKE 1 TABLET DAILY cholecalciferol (VITAMIN D3) 50 mcg (2,000 unit) tablet Take 2,000 Units by mouth once daily. Betamethasone-Calcipotriene (TACLONEX) external suspension Apply 1 application to affected area once daily. Psoriasis on back of neck (Patient taking differently: Apply 1 application to affected area as needed. Psoriasis on back of neck) ZINC ORAL Take 1 capsule by mouth once daily. ascorbic acid, vitamin C, (VITAMIN C) 250 mg tablet Take 250 mg by mouth once daily. multivitamin tablet Take 1 tablet by mouth once daily. potassium chloride (KLOR-CON 10) 10 mEq tablet Take 1 tablet by mouth daily with breakfast. FAMILY HISTORY Problem Relation Age of Onset Diabetes Mother Heart Mother hx of MD Hypertension Mother other (endometrosis) Mother Hysterectomy Hypertension Father Prostate Cancer Father Hypertension Brother Diabetes Brother No Known Problems Daughter No Known Problems Son Heart Maternal Grandmother Colon Cancer Paternal Grandmother 74 Cancer Paternal Grandfather prostate other (Other) Paternal Grandfather No breast/media center assistant cancer Anesthesia Problems No Family History Social History Tobacco Use Smoking status: Never Smokeless tobacco: Never Vaping Use Vaping Use: Never used Substance Use Topics Alcohol use: Yes Comment: 1-4 drinks per weekend Drug use: No Objective BP 115/79 Pulse 92 Temp 36.7 C (98 F) (Oral) Ht 163.8 cm (5' 4.49) Wt 103 kg (227 lb 1.2 oz) LMP 11/28/2023 (Approximate) BMI 38.39 kg/m Physical Exam Vitals and nursing note reviewed. Constitutional: Appearance: She is not ill-appearing. HENT: Right Ear: Tympanic membrane and ear canal normal. Left Ear: Tympanic membrane and ear canal normal. Mouth/Throat: Mouth: Mucous membranes are moist. Pharynx: Uvula midline. No oropharyngeal exudate or posterior oropharyngeal erythema. Comments: Drainage in posterior pharynx Cardiovascular: Rate and Rhythm: Normal rate and regular rhythm. Heart sounds: Normal heart sounds. Pulmonary: Effort: Pulmonary effort is normal. Breath sounds: Normal breath sounds. Musculoskeletal: Cervical back: No tenderness. Lymphadenopathy: Cervical: No cervical adenopathy. Skin: General: Skin is warm and dry. Neurological: Mental Status: She is alert and oriented to person, place, and time. Assessment and Plan 1. Pharyngitis, unspecified etiology Negative strep. Likely viral, rule out covid/flu. Continue supportive care. Follow up PRN. - STREP A MOLECULAR (POC) 2. Acute viral syndrome - COVID & INFLUENZA A/B NAAT, ROUTINE Jhonny Quesada APRN.PUPPET MAKER documented in this encounter [facility] 10-31-2023 History of Present illness Narrative NEUROSURGERY FOLLOW UP OFFICE NOTE Dr. Jose Encarnacion MD, FACS Date of visit: October 31, 2023 Patient Name: Ms.Misty Pauline Romero Date of : 1970 Current Age: [age] year old Sex: female MRN/E# [id number] Last Office Visit: October 24, 2022 CHIEF COMPLAINT: Patient presents with: Established Patient SUBJECTIVE: The patient presents as a follow-up with imaging (MRI B) for evaluation. This is a 53-year-old female with a PMHx of GERD, HTN, psoriasis and cerebral cyst. 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 This has been nonsurgical in nature. She has been seen over the years routinely for evaluation with imaging and has overall remained stable. She was last seen in September 2022 and denied any new or concerning issues. Neurologically she was intact on exam without focal deficit. MRI was reviewed and showed that the cyst in the right foramen of Luschka with a CSF signal density had not changed when compared to prior imaging. Once again no surgical intervention was advised. Recommendation was to follow-up in 1 year with repeat MRI prompting her visit today. Since last visit she states she is overall doing well. She reports intermittent headaches which are unchanged. She denies any other issues. She presents for image review, evaluation and plan of care. 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 GERD (gastroesophageal reflux disease) 10/27/2013 Hypertension Psoriasis Shingles outbreak 09/2017 had for 3.5 weeks PAST SURGICAL HISTORY Procedure Laterality Date CHOLECYSTECTOMY 02/2017 COLONOSCOPY AND BIOPSY 11/02/2018 EGD x 2 EGD BIOPSY SING OR MULT 11/02/2018 ESSURE 03/12/2012 LAPROSCOPIC REPAIR UMBILICAL HERNIA 2016 SKIN BX, 1 LESION 11/1997 scar tissue r buttocks FAMILY HISTORY Problem Relation Age of Onset Diabetes Mother Heart Mother hx of MD Hypertension Mother other (endometrosis) Mother Hysterectomy Hypertension Father Prostate Cancer Father Hypertension Brother Diabetes Brother No Known Problems Daughter No Known Problems Son Heart Maternal Grandmother Colon Cancer Paternal Grandmother 74 Cancer Paternal Grandfather prostate other (Other) Paternal Grandfather No breast/media center assistant cancer Anesthesia Problems No Family History ALLERGIES Allergen Reactions Dotarem [Gadoterate* Rash Pollen Cough Ragweed Pollen Itching Eye itching Valtrex [Valacyclov* Rash Dust Intolerance Mint Dental Floss [* Intolerance Current Outpatient Medications Medication Sig Dispense Refill pantoprazole DR (PROTONIX) 40 mg tablet take 1 tablet daily 90 tablet 3 hydroCHLOROthiazide 25 mg tablet take 1 tablet daily 90 tablet 3 fluticasone (FLONASE) 50 mcg/actuation nasal spray Use 2 Sprays in each nostril once daily. 18.2 mL 3 losartan (COZAAR) 25 mg tablet TAKE 1 TABLET DAILY 90 tablet 3 cholecalciferol (VITAMIN D3) 50 mcg (2,000 unit) tablet Take 2,000 Units by mouth once daily. Betamethasone-Calcipotriene (TACLONEX) external suspension Apply 1 application to affected area once daily. Psoriasis on back of neck (Patient taking differently: Apply 1 application to affected area as needed. Psoriasis on back of neck) 120 g 3 ZINC ORAL Take 1 capsule by mouth once daily. ascorbic acid, vitamin C, (VITAMIN C) 250 mg tablet Take 250 mg by mouth once daily. multivitamin tablet Take 1 tablet by mouth once daily. potassium chloride (KLOR-CON 10) 10 mEq tablet Take 1 tablet by mouth daily with breakfast. 0 No current facility-administered medications for this visit. REVIEW OF SYSTEMS: Review of Systems Constitutional: Negative for chills, diaphoresis (Negative for night sweats.) and fever. HENT: Negative for ear discharge and rhinorrhea. Eyes: Negative for discharge. Respiratory: Negative for cough, shortness of breath and wheezing. Cardiovascular: Negative for chest pain, palpitations and leg swelling. Gastrointestinal: Negative for constipation, diarrhea, nausea and vomiting. Endocrine: Negative for cold intolerance and heat intolerance. Genitourinary: Negative for frequency. Negative for urinary incontinence and urinary retention. Musculoskeletal: Negative for back pain, joint swelling, myalgias and neck pain. Skin: Negative for rash (Negative for hives and skin lesions.). Allergic/Immunologic: Negative for environmental allergies and food allergies. Negative for contact allergy, seasonal allergies. Neurological: Negative for dizziness, seizures, syncope, weakness, light-headedness, numbness (Negative for numbness in extremities.) and headaches. Hematological: Does not bruise/bleed easily. Psychiatric/Behavioral: The patient is not nervous/anxious. Negative for depression. OBJECTIVE: BP 121/78 Pulse 87 Resp 16 Ht 5' 4.5 (1.64m) Wt 234 lb 5.6 oz (106.3kg) SpO2 99% LMP 10/10/2023 BMI 39.62 kg/(m^2). PHYSICAL EXAM: Mental State : Alert, memory function unremarkable. Attention span and concentration normal for patient's age. Speech normal, no receptive or expressive speech deficit. Recent and remote memory normal. Orientation : Oriented to person, place and time. Higher Cortical Function : Intact speech and language. Spontaneous speech and comprehension normal. Fund of knowledge intact for pt level of education. Cranial Nerves : II: No visual field cut no blurring, Makes and sustains eye contact III, IV, : Normal, no double vision or drooping. Pupils equal and reactive to light. Extraocular muscles intact. No nystagmus V: Normal sensation on the face, normal jaw movements VII: No paresis on either side VIII: No gross hearing deficit IX: Good and equal shoulder shrugs XII: Tongue midline, no fasciculations Sensory: SILT. Normal Sensation in upper and lower extremities and trunk to touch and noxious stimuli. Motor: Normal muscle tone and bulk. No tremor or uncontrollable movements. No spasticity or tremor. Strength: Upper Extremities : R L Deltoid 5/5 5/5 Biceps 5/5 5/5 Triceps 5/5 5/5 Wrist Ext 5/5 5/5 Wrist Flx 5/5 5/5 Hand Int 5/5 5/5 Lower Extremities : Hip Flexors 5/5 5/5 Hip Extensors 5/5 5/5 Hip Abductors 5/5 5/5 Straight leg Neg Neg Ankle dorsiflex 5/5 5/5 Ankle Plantar 5/5 5/5 Heel Walking intact intact Toe Walking intact intact Reflexes : Biceps 2+ 2+ Triceps 2+ 2+ Wrist 2+ 2+ Patellar 2+ 2+ Achilles 2+ 2+ Felipe's Neg Neg Tinel's Neg Neg Phalen's Neg Neg Cerebellar Function : Normal finger to nose. Normal rapid alternating movements. No ataxia. Negative Romberg. Gait and Station: Normal gait. No assistive device usage. Pulmonary: Lungs without cough, audible wheeze. Respirations unlabored. Cardiac: Regular rate and rhythm. No murmer, gallop or rub. . IMAGING: MRI brain WO/W IVCON performed on 10/24/2023 demonstrates: IMPRESSION: No significant change in size of a CSF intensity well-defined structure centered at the inferior aspect of the fourth ventricle and extending towards the right foramen of Luschka/foramen of Magendie. Imaging characteristics suggest intraventricular arachnoid cyst. No obstructive hydrocephalus. Otherwise, unremarkable contrast enhanced MRI of brain. ASSESSMENT/PLAN: 1. 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 She previously was followed by Dr. Ramirez then I took her care over he transferred his practice to [place]. Patient has been well with no symptoms or neurological findings by examination. The MRI scan as reported above shows no change compared to the prior year however I have measured from 2017 through 2019 and 2023 and noted that there has been a slight decrease in the maximum size of the cyst described. I assured the patient that no surgical intervention is going to be undertaken unless we demonstrate that this has enlarged or causing symptoms. We will see her in 1 year from now with an MRI scan. Jose Encarnacion MD FOLLOW UP: Return in about 1 year (around 10/31/2024) for review of MRI. Please Note: This note has been partially generated using [employer], a speech recognition software program, and may contain errors including punctuation, grammar, spelling, gender, and inappropriate words or phrases that pertain to the system. documented in this encounter [facility] 08-12-2023 Miscellaneous Notes August 12, 2023 PID: [id number] Norma Romero [address] [place] [address] Dear Chari Heather, We are pleased to inform you that the results of your recent breast imaging exam on 08/11/2023 are normal. Early detection of cancer is very important. We also understand recommendations regarding breast cancer screening are controversial. Please discuss with your primary care provider which strategy is best for you and whether a mammogram is right for you. Your imaging studies and report will be kept on file at [facility] as part of your permanent medical record and are available for your continuing care. Thank you for allowing us to help in meeting your health care needs. Sincerely, Dr. Killian Interpreting Radiologist [facility] (Normal over 40) documented in this encounter [facility] 08-11-2023 History of Present illness Narrative Radiology Service Progress Note PATIENT NAME: Norma Romero DATE OF SERVICE: August 11, 2023 TIME: 8:53 AM PATIENT IDENTITY VERIFICATION COMPLETED USING TWO (2) IDENTIFIERS: Name and Date of confirmed by patient verbally. FALL SCREENING: Has the patient had 2 falls in the last year or 1 fall with injury or currently using an Ambulatory Assistive Device (Walker, Cane, Wheelchair, Crutches, etc.)? No PATIENT GENDER DATA: Female. status: : No status: NO. PATIENT RELEVANT IMPLANT DATA REVIEWED: Not Applicable RADIOLOGY DEPARTMENT: Mammography PERIPHERAL IV DATA: Not applicable SIGNED BY: Simone Kim August 11, 2023 8:53 AM documented in this encounter [facility] 07-02-2023 Miscellaneous Notes Pharmacy verified in [facility] Patient has been identified by name and date of : Yes Patient aware RX will be sent to pharmacy. No need to notify patient. Pharmacy phones for refill(s): Requested Prescriptions Pending Prescriptions Disp Refills pantoprazole DR (PROTONIX) 40 mg tablet [Pharmacy Med Name: PANTOPRAZOLE SODIUM DR TABS 40MG] 90 tablet 3 Sig: take 1 tablet daily Date of last office visit : Visit date not found Date of next office visit : Visit date not found Last 2 Encounter Wt Readings: Date: Wt: 04/08/2023 105.7 kg (233 lb) 02/20/2023 104.3 kg (230 lb) Not applicable Please adviseChari Murray documented in this encounter [facility] 06-12-2023 Miscellaneous Notes Pharmacy verified in [facility] Patient has been identified by name and date of : Yes Patient aware RX will be sent to pharmacy. No need to notify patient. Pharmacy phones for refill(s): Requested Prescriptions Pending Prescriptions Disp Refills hydroCHLOROthiazide 25 mg tablet [Pharmacy Med Name: HYDROCHLOROTHIAZIDE TABS 25MG] 90 tablet 3 Sig: take 1 tablet daily Date of last office visit : 04/08/2023 Date of next office visit : Visit date not found Last 2 Encounter Wt Readings: Date: Wt: 04/08/2023 105.7 kg (233 lb) 02/20/2023 104.3 kg (230 lb) Blood Pressure: BUN (mg/dL) Date Value 10/03/2022 17 10/16/2021 13 Creatinine (mg/dL) Date Value 10/03/2022 0.76 10/16/2021 0.72 Sodium (mmol/L) Date Value 10/03/2022 140 10/16/2021 138 Potassium (mmol/L) Date Value 10/03/2022 4.0 10/16/2021 4.1 Last 1 Encounter BP Readings: Date: BP: 04/08/2023 127/70 Please advise. Joycelyn Marie LPN documented in this encounter [facility] 04-08-2023 History of Present illness Narrative CHIEF COMPLAINT Patient presents with: 6 Month Exam HISTORY OF PRESENT ILLNESS Norma Romero is a 52 year old female who presents here today for 6 month follow up. I last saw this patient on 10/09/2022. Carpal Tunnel Syndrome - S/P Decompression Nerve Median Carpal Tunnel 03/04/2023 - Has painful little white bumps - Bruising still present Hypertension - Currently on Losartan 25 mg tablet and hydrochlorothiazide 25 mg tablet - Compliant with blood pressure medication - Has been checking blood pressure at home every once in a while - May or may not have taken 2 doses yesterday - was endorsing chest pressure, unsure if it was related due to anxiety and reflux symptoms Weight - BMI currently 39.39 kg/m2, gained 2 lbs since last visit - Eats fruit for breakfast and salad for lunch, drinks water - Has been trying to monitor portion sizes, eats little bread and potatoes. Eats about a cup of chicken - Protein diet made her constipation - Was told to ask PCP about medications that can help with weight loss - Currently using Weight Watchers, feels frustrated because she has not been noticing a significant difference - Admits to not walking around the neighborhood as much as she used to. - Does not want weight loss surgery Health Maintenance Due for Hep B (1 of 3- 3 dose series) Due for BP Controlled (<130/80) Due for COVID-19 Vaccine (4- Pfizer series) Labs reviewed. Past medical history, appointments, medications, allergies reviewed. REVIEW OF SYSTEMS General: Feels well, no weight changes, fevers or chills. HEENT: No sinus congestion, earache, sore throat. Cardiac: No chest pain, palpitations Resp: No cough, wheeze, shortness of breath GI: No reflux symptoms, food intolerance, bowel changes. : No urinary frequency, dysuria. MS: No pain or joint complaints. PAST MEDICAL HISTORY 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 GERD (gastroesophageal reflux disease) 10/27/2013 Hypertension Psoriasis Shingles outbreak 09/2017 had for 3.5 weeks PHYSICAL EXAMINATION BP 127/70 Pulse 75 Ht 163.8 cm (5' 4.49) Wt 105.7 kg (233 lb) LMP 03/25/2023 (Approximate) SpO2 96% BMI 39.39 kg/m General: Alert, well developed, well nourished, no distress, pleasant and cooperative. Obese. Heart: Regular rate and rhythm. Normal S1 and S2. No murmurs, rubs, or gallops. Lungs: Clear to auscultation bilaterally. No respiratory distress. No wheezes, rales, or rhonchi. Abdomen: Soft, non-tender, no distention. Extremities: Feet/ankles without edema, posterior tibial pulses full and symmetrical. Data Reviewed Component Latest Ref Rng & Units 10/03/2022 Glucose 74 - 99 mg/dL 98 BUN 7 - 21 mg/dL 17 Creatinine 0.58 - 0.96 mg/dL 0.76 Sodium 136 - 144 mmol/L 140 Potassium 3.7 - 5.1 mmol/L 4.0 Chloride 97 - 105 mmol/L 105 CO2 22 - 30 mmol/L 23 Anion Gap 9 - 18 mmol/L 12 Calcium 8.5 - 10.2 mg/dL 9.8 eGFR >=60 mL/min/1.73m 95 Assessment/Plan (I10) Essential hypertension (primary encounter diagnosis) Comment: Well Controlled Plan: Continue current regimens (R09.81) Sinus congestion Comment: ongoing. Plan: fluticasone (FLONASE) 50 mcg/actuation nasal spray (E66.9) Obesity, Class II, BMI 35-39.9 Comment: Has been struggling to lose weight. Currently using weight watchers with little benefit. Activity level is low. Plan: Encouraged patient to try Noom to switch up approach in weight loss. Discussed that diet alone is more often times, not enough. She needs to increase her activity level. Encouraged her to do some kind of exercise at home if she is not going to walk around the neighborhood as she was doing before. (Z98.890) S/P carpal tunnel release Comment: Healing well, sl pigmentation still present, likely self limited post-op findings. The painful white bumps are not concerning at this time. Plan: Continue to follow post op instructions provided by surgeon (K21.9) Gastroesophageal reflux disease, unspecified whether esophagitis present Comment: Currently managed on Protonix 40 mg tablet Plan: Continue current regimen Requested Prescriptions Signed Prescriptions Disp Refills fluticasone (FLONASE) 50 mcg/actuation nasal spray 18.2 mL 3 Sig: Use 2 Sprays in each nostril once daily. RTO: 6 months Scribe Attestation: By signing my name below, Mandi Yanes, attest that this documentation has been prepared under the direction and in the presence of Shanw Will M.D. Electronically Signed: Maninder Kohli. April 08, 2023 10:04 AM Provider Attestation: Oliverio Yanes MD, personally performed the services described in this documentation. All medical record entries made by the scribe were at my direction and in my presence. I have reviewed the chart and discharge instructions (if applicable), and agree that the record reflects my personal performance and is accurate and complete. Electronically Signed: Oliverio Will MD April 08, 2023 3:27 PM documented in this encounter [facility] 02-25-2023 Miscellaneous Notes Pharmacy verified in [facility] Patient has been identified by name and date of : Yes Patient aware RX will be sent to pharmacy. No need to notify patient. Pharmacy phones for refill(s): Requested Prescriptions Pending Prescriptions Disp Refills losartan (COZAAR) 25 mg tablet [Pharmacy Med Name: LOSARTAN TABS 25MG] 90 tablet 3 Sig: TAKE 1 TABLET DAILY Date of last office visit : 10/09/2022 Date of next office visit : 04/08/2023 Last 2 Encounter Wt Readings: Date: Wt: 02/20/2023 104.3 kg (230 lb) 10/24/2022 104.8 kg (231 lb) Blood Pressure: BUN (mg/dL) Date Value 10/03/2022 17 10/16/2021 13 Creatinine (mg/dL) Date Value 10/03/2022 0.76 10/16/2021 0.72 Sodium (mmol/L) Date Value 10/03/2022 140 10/16/2021 138 Potassium (mmol/L) Date Value 10/03/2022 4.0 10/16/2021 4.1 Last 1 Encounter BP Readings: Date: BP: 10/24/2022 133/84 Please advise. Joycelyn Marie LPN documented in this encounter [facility] 01-02-2023 History of Present illness Narrative Images from the original note were not included. Reason for Visit/Chief Complaint Norma Romero is a 52 year old female who presents today for a new evaluation of following complaint: Patient presents with: Right Hand - New: CTS History of Present Illness: PAIN EVALUATION 12/26/2022 1625 Pain Level: 6 Pain Location: Wrist-Right Description: Aching;Numbness;Tingling Duration Amount of Time: 20 Duration Units: Minutes Frequency: Intermittent Intervention/Comfort measure: Reposition;Pillow support;Positioning HPI: Norma Romero is a 52 year old female presenting today with R CTS. Pt had EMG 11/15/22. Pain has worsened in the last 6 months. 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 Pain history is noted as above. Pt uses a pillow for support and exercises hand with stress ball. Previous Treatments: Ice: Yes Heat: No Brace: No NSAIDs: No Injections: No Surgeries: No Physical Therapy: No Review of Systems: Patient did not have, and does not currently have, any weight loss, malaise, fever, chills, headache, chest pain, chest pressure, palpitations, cough, shortness of breath, orthopnea, paroxsymal nocturnal dyspnea, nausea, vomiting, diarrhea, constipation, melena, hematochezia, urinary difficulties, prolonged bleeding, easily bruising, heat or cold intolerance, new onset joint pain or swelling, new onset extremity weakness or numbness, new onset auditory or visual disturbances, lightheadedness, dizziness, partial loss of consciousness or full loss of consciousness. Current Outpatient Medications on File Prior to Visit Medication Sig hydroCHLOROthiazide 25 mg tablet TAKE 1 TABLET DAILY iv contrast (will be provided with radiology test) MRI Brain Inject, intravenously, once for 1 dose.No IV access, insert saline lock prior to beginning of sedation, infusion, injection of imaging exam.Discontinue saline lock post exam. If Pt. has a central line or IVAD, may access for administration according to line specific nursing protocol.Once exam is complete flush line and de-access according to line specific nursing protocol in the MR contrast administration guidelines link pantoprazole DR (PROTONIX) 40 mg tablet TAKE 1 TABLET DAILY cholecalciferol (VITAMIN D3) 50 mcg (2,000 unit) tablet Take 2,000 Units by mouth once daily. losartan (COZAAR) 25 mg tablet TAKE 1 TABLET DAILY fexofenadine (SUSAN ALLERGY) 180 mg tablet Take 1 tablet by mouth once daily. Betamethasone-Calcipotriene (TACLONEX) external suspension Apply 1 application to affected area once daily. Psoriasis on back of neck fluticasone (FLONASE) 50 mcg/actuation nasal spray Use 2 Sprays in each nostril once daily. ZINC ORAL Take 1 capsule by mouth once daily. ascorbic acid, vitamin C, (VITAMIN C) 250 mg tablet Take 250 mg by mouth once daily. multivitamin tablet Take 1 tablet by mouth once daily. potassium chloride (KLOR-CON 10) 10 mEq tablet Take 1 tablet by mouth daily with breakfast. No current facility-administered medications on file prior to visit. ALLERGIES Allergen Reactions Dotarem [Gadoterate* Rash Pollen Cough Ragweed Pollen Itching Eye itching Valtrex [Valacyclov* Rash Dust Intolerance Mint Dental Floss [* Intolerance Physical Exam: Vitals: LMP 10/03/2022 Psych: Pleasant, good affect and mood General Appearance: Well appearing, alert, in no acute distress, well-hydrated, well nourished.. Skin: Skin color, texture, turgor normal, no suspicious rashes or lesions. Peripheral Pulses: Normal. Neurologic: Gait normal. Reflexes normal and symmetric. Sensation grossly intact.. Lymph Nodes: No cervical lymphadenopathy, No supraclavicular lymphadenopathy, No axillary lymphadenopathy., and No inguinal lymphadenopathy.. Respiratory: No recent pulmonary infection, hemoptysis, chronic cough, or shortness of breath at rest Rheumatologic: Joint deformities: right hand numbness Right Hand Exam Tenderness The patient is experiencing tenderness in the palmar area. Range of Motion The patient has normal right wrist ROM. Wrist Extension: normal Flexion: normal Pronation: normal Supination: normal Muscle Strength The patient has normal right wrist strength. Sternman: 4/5 Tests Phalen s sign: positive Tinel's sign (median nerve): positive Karen's test: negative Other Erythema: absent Sensation: normal Pulse: present Comments: B/l /uln/rad/ax nerves intact Dec 2 pt discrim Left Hand Exam Left hand exam is normal. Tenderness The patient is experiencing no tenderness. Range of Motion The patient has normal left wrist ROM. Wrist Extension: normal Flexion: normal Pronation: normal Supination: normal Muscle Strength The patient has normal left wrist strength. Tests Phalen s Sign: negative Tinel's sign (median nerve): negative Karen's test: negative Other Erythema: absent Sensation: normal Pulse: present Imaging: mild carpal tunnel on EMG Assessment and Plan: Impression: Encounter Diagnosis ICD-10-CM 1. Carpal tunnel syndrome, right G56.01 Plan: Today, in detail, through a thorough evaluation, we discussed possible etiologies of pain and our plans for further diagnostic and therapeutic interventions. We discussed strategies for decreasing pain and improving strength, stability and motion. Patient's questions were answered in detailed. Patient verbalizes understanding and agrees with the treatment plan as discussed. Risks and benefits vs alternatives to treatment were discussed with patient. Risks including but not limited to blood loss, blood clot, infection, neurovascular injury, failure of procedure, need for revision operation, loss of life and loss of limb. Patient aware of risks and benefits and agrees to proceed with written consent for surgical intervention. 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 All questions answered. documented in this encounter [facility] 11-18-2022 Miscellaneous Notes Addressed in MyChart encounter. Jhonny Quesada APRN.CNP Norma would like someone from Dr. Will's office to call and go over the results from the testing she had last . Please call her at [phone] documented in this encounter [facility] 11-15-2022 History of Present illness Narrative UNIVERSAL PROTOCOL / SAFETY CHECKLIST Procedure to be Performed: EMG Sign In: A Moment of CARE was completed. Personnel directly involved with the procedure wore the appropriate PPE (Personal Protective Equipment). Patient/Surrogate Stated/Verified: PATIENT VERIFIED(optional for EMERGENT procedures): Patient name, Date of , Relevant allergies, and The intended procedure Time Out Communication: Intended patient and procedure match the source documents. Correct side/site marked and visible. Sign Out: SIGN OUT (optional for EMERGENT procedures): Post-procedure follow-up management communicated and Plan of Care Visit completed when applicable. Rody Mason DO documented in this encounter [facility] 10-24-2022 History of Present illness Narrative NEUROSURGERY FOLLOW UP OFFICE NOTE Dr. Jose Encarnacion MD, FACS Date of visit: October 24, 2022 Patient Name: Ms.Misty Pauline Romero Date of : 1970 Current Age: [age] year old Sex: female MRN/E# [id number] Last Office Visit: October 25, 2021 Chief Complaint: Patient presents with: Established Patient SUBJECTIVE: The patient presents as a follow-up with imaging (MRI B) for evaluation. This is a 52-year-old female with a PMHx of GERD, HTN, psoriasis and cerebral cyst. 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 This has been nonsurgical in nature. She has been seen over the years routinely for evaluation with imaging and has overall remained stable. She was last seen in September 2021 and denied any new or concerning issues. Neurologically she was intact on exam without focal deficit. MRI was reviewed and showed that the cyst in the right foramen of Luschka with a CSF signal density had not changed when compared to prior imaging. Once again no surgical intervention was advised. Recommendation was to follow-up in 1 year with repeat MRI prompting her visit today. Since last visit she states she is overall doing well. She denies any new or concerning issues since last visit. She presents for image review, evaluation and plan of care. Symptoms: None PREVIOUS CONSERVATIVE TREATMENTS: None PREVIOUS SURGERY: None PAIN EVALUATION No data found in the last 1 encounters. 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 GERD (gastroesophageal reflux disease) 10/27/2013 Hypertension Psoriasis Shingles outbreak 09/2017 had for 3.5 weeks PAST SURGICAL HISTORY Procedure Laterality Date CHOLECYSTECTOMY 02/2017 COLONOSCOPY AND BIOPSY 11/02/2018 EGD x 2 EGD BIOPSY SING OR MULT 11/02/2018 ESSURE 03/12/2012 LAPROSCOPIC REPAIR UMBILICAL HERNIA 2016 SKIN BX, 1 LESION 11/1997 scar tissue r buttocks FAMILY HISTORY Problem Relation Age of Onset Diabetes Mother Heart Mother hx of MD Hypertension Mother other (endometrosis) Mother Hysterectomy Hypertension Father Prostate Cancer Father Hypertension Brother Diabetes Brother Heart Maternal Grandmother Colon Cancer Paternal Grandmother 74 Cancer Paternal Grandfather prostate other (Other) Paternal Grandfather No breast/media center assistant cancer No Known Problems Daughter No Known Problems Son ALLERGIES Allergen Reactions Dotarem [Gadoterate* Rash Pollen Cough Ragweed Pollen Itching Eye itching Valtrex [Valacyclov* Rash Dust Intolerance Mint Dental Floss [* Intolerance Current Outpatient Medications Medication Sig Dispense Refill pantoprazole DR (PROTONIX) 40 mg tablet TAKE 1 TABLET DAILY 90 tablet 3 cholecalciferol (VITAMIN D3) 50 mcg (2,000 unit) tablet Take 2,000 Units by mouth once daily. losartan (COZAAR) 25 mg tablet TAKE 1 TABLET DAILY 90 tablet 3 hydroCHLOROthiazide (HYDRODIURIL, ESIDRIX) 25 mg tablet TAKE 1 TABLET DAILY 90 tablet 3 fexofenadine (SUSAN ALLERGY) 180 mg tablet Take 1 tablet by mouth once daily. Betamethasone-Calcipotriene (TACLONEX) external suspension Apply 1 application to affected area once daily. Psoriasis on back of neck 120 g 3 fluticasone (FLONASE) 50 mcg/actuation nasal spray Use 2 Sprays in each nostril once daily. 18.2 mL 1 ZINC ORAL Take 1 capsule by mouth once daily. ascorbic acid, vitamin C, (VITAMIN C) 250 mg tablet Take 250 mg by mouth once daily. multivitamin tablet Take 1 tablet by mouth once daily. potassium chloride (KLOR-CON 10) 10 mEq tablet Take 1 tablet by mouth daily with breakfast. 0 iv contrast (will be provided with radiology test) MRI Brain Inject, intravenously, once for 1 dose.No IV access, insert saline lock prior to beginning of sedation, infusion, injection of imaging exam.Discontinue saline lock post exam. If Pt. has a central line or IVAD, may access for administration according to line specific nursing protocol.Once exam is complete flush line and de-access according to line specific nursing protocol in the MR contrast administration guidelines link 1 Each 0 No current facility-administered medications for this visit. REVIEW OF SYSTEMS Review of Systems Constitutional: Negative for chills, diaphoresis (Negative for night sweats.) and fever. HENT: Negative for ear discharge and rhinorrhea. Eyes: Negative for discharge. Respiratory: Negative for cough, shortness of breath and wheezing. Cardiovascular: Negative for chest pain, palpitations and leg swelling. Gastrointestinal: Negative for constipation, diarrhea, nausea and vomiting. Endocrine: Negative for cold intolerance and heat intolerance. Genitourinary: Negative for frequency. Negative for urinary incontinence and urinary retention. Musculoskeletal: Negative for back pain, joint swelling, myalgias and neck pain. Skin: Negative for rash (Negative for hives and skin lesions.). Allergic/Immunologic: Negative for environmental allergies and food allergies. Negative for contact allergy, seasonal allergies. Neurological: Negative for dizziness, seizures, syncope, weakness, light-headedness, numbness (Negative for numbness in extremities.) and headaches. Hematological: Does not bruise/bleed easily. Psychiatric/Behavioral: The patient is not nervous/anxious. Negative for depression. OBJECTIVE: BP 133/84 Pulse 83 Ht 5' 4.49 (1.64m) Wt 231 lb (104.8kg) LMP 10/03/2022 BMI 39.05 kg/(m^2). PHYSICAL EXAM: Mental State : Alert, memory function unremarkable. Attention span and concentration normal for patient's age. Speech normal, no receptive or expressive speech deficit. Recent and remote memory normal. Orientation : Oriented to person, place and time. Higher Cortical Function : Intact speech and language. Spontaneous speech and comprehension normal. Fund of knowledge intact for pt level of education. Cranial Nerves : II: No visual field cut no blurring, Makes and sustains eye contact III, IV, : Normal, no double vision or drooping. Pupils equal and reactive to light. Extraocular muscles intact. No nystagmus V: Normal sensation on the face, normal jaw movements VII: No paresis on either side VIII: No gross hearing deficit IX: Good and equal shoulder shrugs XII: Tongue midline, no fasciculations Sensory: Normal Sensation in upper and lower extremities and trunk to touch and noxious stimuli. Motor: Normal muscle tone and bulk. No tremor or uncontrollable movements. No spasticity or tremor. Strength: Upper Extremities : R L Deltoid 5/5 5/5 Biceps 5/5 5/5 Triceps 5/5 5/5 Wrist Ext 5/5 5/5 Wrist Flx 5/5 5/5 Hand Int 5/5 5/5 Lower Extremities : Hip Flexors 5/5 5/5 Hip Extensors 5/5 5/5 Hip Abductors 5/5 5/5 Straight leg Neg Neg Ankle dorsiflex 5/5 5/5 Ankle Plantar 5/5 5/5 Heel Walking intact intact Toe Walking intact intact Reflexes : Biceps 2+ 2+ Triceps 2+ 2+ Wrist 2+ 2+ Patellar 2+ 2+ Achilles 2+ 2+ Felipe's Neg Neg Tinel's Neg Neg Phalen's Neg Neg Cerebellar Function : Normal finger to nose. Normal rapid alternating movements. No ataxia. Negative Romberg. Gait and Station: Normal gait. No assistive device usage. Pulmonary: Lungs without cough, audible wheeze. Respirations unlabored. Cardiac: Regular rate and rhythm. No murmer, gallop or rub. IMAGING: MRI Brain WO/W IVCON performed on 10/16/22 demonstrates: IMPRESSION: 1. Unchanged benign appearing CSF signal intensity lesion centered in the foramen of Luschka on the right, most consistent with an arachnoid cyst. No obstruction. 2. Otherwise negative examination. 3. No interval change in the study when compared with 10/17/2021. ASSESSMENT/PLAN: 1. Intracranial arachnoid cysts - ICD9: 348.0, ICD10: G93.0 Patient is here for a follow-up visit. She had an MRI scan and September 2022 and the findings are as above. I reviewed the images and noted no change in the described small arachnoid cyst in the region of the foramen of Luschka. She has no neurological complaints and no focal neurological deficit. I discussed with her the findings and the comparison and told her that no surgical intervention is required. I recommended that we do follow-ups on this by imaging with MRI scan once a year. Should she develop any symptoms of a neurological nature she can call and let us know. - MRI BRAIN WO/W IVCON - IV CONTRAST (RADIOLOGY PROCEDURE) Jose Encarnacion MD Follow Up: Return in about 1 year (around 10/24/2023) for review of MRI. This note was partially generated using [employer] voice recognition system, and there may be some incorrect words, spellings, and punctuation that were not noted in checking the note before saving. documented in this encounter [facility] 10-16-2022 History of Present illness Narrative Radiology Service Progress Note DATE OF SERVICE: October 16, 2022 TIME: 8:40 AM PATIENT IDENTITY VERIFICATION COMPLETED USING TWO (2) STANDARD IDENTIFIERS: Name and Date of confirmed by patient verbally. FALL SCREENING: Has the patient had 2 falls in the last year or 1 fall with injury or currently using an Ambulatory Assistive Device (Walker, Cane, Wheelchair, Crutches, etc.)? No PATIENT GENDER DATA: Female. status: : No status: NO. PATIENT RELEVANT IMPLANT DATA REVIEWED: Yes ALLERGIES: Reviewed and unchanged CONTRAST ALLERGY: NO. EXAM: MRI - CONTRAST TYPE: GROUP II PERIPHERAL IV DATA: Ambulatory: A peripheral IV was started in the Right antecubital site with a Butterfly: 25 gauge. RADIOLOGY DEPARTMENT: MR; Exam(s) Completed: Head: Routine Brain SIGNATURE: RT Hima(R) PATIENT NAME: Norma Romero DATE: October 16, 2022 TIME: 8:40 AM documented in this encounter [facility] 10-09-2022 History of Present illness Narrative CHIEF COMPLAINT Patient presents with: 6 Month Exam HISTORY OF PRESENT ILLNESS Norma Romero is a 52 year old female who presents here today for a follow up management of multiple medical issues. I last saw this patient on 04/08/2022. Obesity Patient has started taking OTC diet pills She is not following any dietary restrictions. 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 Past medical history, appointments, medications, allergies reviewed. REVIEW OF SYSTEMS Pertinent positives/ negatives: General: Feels well, no fever, no chills, +obesity. HEENT: No sinus congestion, earache, sore throat. Cardiac: No chest pain, palpitations Resp: No cough, wheeze, shortness of breath GI: No reflux symptoms, food intolerance, bowel changes, +GI pain : No urinary frequency, dysuria, +menorrhagia MS: +hand pain PAST MEDICAL HISTORY 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 GERD (gastroesophageal reflux disease) 10/27/2013 Hypertension Psoriasis Shingles outbreak 09/2017 had for 3.5 weeks PHYSICAL EXAMINATION BP 115/75 Pulse 86 Ht 163.8 cm (5' 4.49) Wt 104.8 kg (231 lb) LMP 10/03/2022 (Approximate) SpO2 97% BMI 39.05 kg/m General: Alert, well developed, well nourished, no distress, pleasant and cooperative. Obese. Heart: Regular rate and rhythm. Normal S1 and S2. No murmurs, rubs, or gallops. Lungs: Clear to auscultation bilaterally. No respiratory distress. No wheezes, rales, or rhonchi. Abdomen: sl epigastric pain . Minimal gap between rectus muscles without bulge, no hernia. Mild pain on palpation at the midline. Extremities: Feet/ankles without edema, posterior tibial pulses full and symmetrical. Data Reviewed Latest Reference Range & Units 04/09/22 10:18 10/03/22 07:00 Sodium 136 - 144 mmol/L 140 Potassium 3.7 - 5.1 mmol/L 4.0 Chloride 97 - 105 mmol/L 105 CO2 22 - 30 mmol/L 23 BUN 7 - 21 mg/dL 17 Creatinine 0.58 - 0.96 mg/dL 0.76 Glucose 74 - 99 mg/dL 98 Glucose, Fasting 74 - 99 mg/dL 104 (H) Calcium 8.5 - 10.2 mg/dL 9.8 Anion Gap 9 - 18 mmol/L 12 eGFR >=60 mL/min/1.73m 95 Hemoglobin A1C 4.3 - 5.6 % 5.2 Estimated Average Glucose mg/dL 103 (H): Data is abnormally high Assessment/Plan (I10) Essential hypertension (primary encounter diagnosis) Comment: controlled, her BP was 115/75 today Plan: continue current regimen (J30.2) Seasonal allergic rhinitis, unspecified trigger Comment: she says she does not take any allergy medications Plan: continue to monitor (E66.9) Obesity, Class II, BMI 35-39.9 Comment: she says she is taking OTC diet pills, does not follow a strict diet, eats late at night Plan: Advised to try intermittent fasting and encouraged to use weight loss/meal tracking apps (R73.9) Hyperglycemia Comment: high blood glucose per March 2022 labs Plan: continue to monitor Requested Prescriptions No prescriptions requested or ordered in this encounter RTO: 6 months Scribe Attestation: By signing my name below, ILisa, attest that this documentation has been prepared under the direction and in the presence of Shawn Will M.D. Electronically Signed: Maninder uDtton. October 09, 2022 8:10 AM Provider Attestation: Oliverio Yanes MD, personally performed the services described in this documentation. All medical record entries made by the scribe were at my direction and in my presence. I have reviewed the chart and discharge instructions (if applicable) and agree that the record reflects my personal performance and is accurate and complete. Electronically Signed: Oliverio Will MD October 09, 2022 4:59 PM documented in this encounter [facility] 06-10-2022 Miscellaneous Notes June 10, 2022 PID: [id number] Norma Romero [address] [id number] Dear Ms. Romero, We are pleased to inform you that the results of your recent breast imaging exam on 06/10/2022 are normal. Early detection of cancer is very important. We also understand recommendations regarding breast cancer screening are controversial. Please discuss with your primary care provider which strategy is best for you and whether a mammogram is right for you. Your imaging studies and report will be kept on file at [facility] as part of your permanent medical record and are available for your continuing care. Thank you for allowing us to help in meeting your health care needs. Sincerely, Dr. Lu Interpreting Radiologist [facility] (Normal over 40) documented in this encounter [facility] 06-10-2022 History of Present illness Narrative Radiology Service Progress Note PATIENT NAME: Norma Romero DATE OF SERVICE: June 10, 2022 TIME: 9:32 AM PATIENT IDENTITY VERIFICATION COMPLETED USING TWO (2) IDENTIFIERS: Name and Date of confirmed by patient verbally. FALL SCREENING: Has the patient had 2 falls in the last year or 1 fall with injury or currently using an Ambulatory Assistive Device (Walker, Cane, Wheelchair, Crutches, etc.)? No PATIENT GENDER DATA: Female. status: : No status: NO. PATIENT RELEVANT IMPLANT DATA REVIEWED: Not Applicable RADIOLOGY DEPARTMENT: Mammography PERIPHERAL IV DATA: Not applicable SIGNED BY: RT Moni(R) June 10, 2022 9:32 AM documented in this encounter [facility] 05-31-2022 History of Present illness Narrative Norma Romero presents for hysteroscopy. Indication: DUB. Age: [age] year old LMP: Patient's last menstrual period was 05/24/2022. Contraception: Essure test: negative VS: BP 110/70 Wt 228 lb 12.8 oz (103.8kg) LMP 05/24/2022 UNIVERSAL PROTOCOL / SAFETY CHECKLIST Procedure to be Performed: Endosee Sign In: A Moment of CARE was completed. Personnel directly involved with the procedure wore the appropriate PPE (Personal Protective Equipment). Patient/Surrogate Stated/Verified: PATIENT VERIFIED(optional for EMERGENT procedures): Patient name, Date of , Relevant allergies, and The intended procedure Time Out Communication: Intended patient and procedure match the source documents. Consent documented and matches the intended procedure. Sign Out: SIGN OUT (optional for EMERGENT procedures): All specimen containers correctly labeled. All instruments, equipment, possible retained foreign bodies accounted for. Post-procedure follow-up management communicated and Plan of Care Visit completed when applicable. OBJECTIVE: Cervix cleaned with betadine. A single tooth tenaculum was used to grasp cervix. Cervix was dilated. Under sterile conditions, using 30 mL normal saline as distention, ENDOSEE hysteroscopy performed without incident. No endocervical lesions seen. Endometrial lining is normal. No intrauterine lesions. Tubal ostia visualized and normal. Endometrial biopsy performed. PROCEDURE SUMMARY: Patient tolerated procedure well. ASSESMENT: Irregular Bleeding with no lesions on hysteroscopy. PLAN: Follow up endometrial biopsy results. Discussed option for progesterone IUD for adenomyosis. Domonique Sharma DO documented in this encounter [facility] 04-29-2022 Miscellaneous Notes Patient notified. Kaci Abreu RN No ok to do on cycle day 10 thanks Patient is scheduled 05/08 for Endosee. States she started her menses today, earlier than she expected. Should end on Friday, 05/03. Do we need to move up her Endosee appointment to nearer to the end of her menses? Kaci Abreu RN documented in this encounter [facility] 04-24-2022 History of Present illness Narrative Norma is a 51 year old who presents for an annual gynecologic exam without complaints. 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 Menses: regular, monthly menstrual cycles and 3 days of flow. 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 No heavy menses. Occasional spotting a few days after menses has ended - EMB benign 2020 with possible polyp - Possible adenomyosis on pelvic US in 2020 - Has used OCP's in the past Contraception: Essure HPV vaccine: N/A Last Pap: 12/03/2017 normal HPV: 11/26/2017 negative History of abnormal pap: No Last mammogram: 2020 Sexually active: Yes Patient concerns for STD exposure: No. 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 History Comments: Sexual Activity: Yes; Male; Essure Contraception: No contraception data on record 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 GERD (gastroesophageal reflux disease) 10/27/2013 Hypertension Psoriasis Shingles outbreak 09/2017 had for 3.5 weeks PAST SURGICAL HISTORY Procedure Laterality Date CHOLECYSTECTOMY 02/2017 COLONOSCOPY AND BIOPSY 11/02/2018 EGD x 2 EGD BIOPSY SING OR MULT 11/02/2018 ESSURE 03/12/2012 LAPROSCOPIC REPAIR UMBILICAL HERNIA 2016 SKIN BX, 1 LESION 11/1997 scar tissue r buttocks FAMILY HISTORY Problem Relation Age of Onset Diabetes Mother Heart Mother hx of MD Hypertension Mother other (endometrosis) Mother Hysterectomy Hypertension Father Prostate Cancer Father Hypertension Brother Diabetes Brother Heart Maternal Grandmother Colon Cancer Paternal Grandmother 74 Cancer Paternal Grandfather prostate other (Other) Paternal Grandfather No breast/media center assistant cancer No Known Problems Daughter No Known Problems Son SOCIAL HISTORY Social History Tobacco Use Smoking status: Never Smoker Smokeless tobacco: Never Used Vaping Use Vaping Use: Never used Substance Use Topics Alcohol use: Yes Comment: Occasionally Drug use: No REVIEW OF SYSTEMS Abdomen: No abdominal pain, nausea, vomiting, diarrhea, or constipation. No bloating, early satiety, indigestion, or increased flatulence. Bladder: No dysuria, gross hematuria, urinary frequency, urinary urgency, or incontinence. Breast: No breast lumps, nipple d/c, overlying skin changes, redness or skin retraction. Allergies and current medication updated:Yes EXAM: LMP 04/03/2022 GENERAL: pleasant, female in no apparent distress HEENT: Normocephalic, atraumatic, mucus membranes moist and no lesions NECK: Supple, full range of motion, no adenopathy and thyroid normal DERMATOLOGY: Normal, without lesions, non-icteric and non-hirsute BREAST: soft, non-tender, symmetric, no dominant mass, normal nipple-areolar complex, no lymphadenopathy and no nipple discharge CHEST: Normal inspiratory effort ABDOMEN: soft, non-tender and no masses PELVIC: external genitalia normal, normal Bartholin's glands, urethra, Plummer's glands, no vulvar lesions, no cervical lesions, good vaginal support, physiologic discharge present, normal appearing perineal body and perianal region BIMANUAL: uterus normal size, shape and consistency, no adnexal masses and non-tender RECTOVAGINAL: deferred. NEURO: exam grossly non-focal EXTREMITIES: normal ASSESSMENT/PLAN: 1) Health maintenance: Pap done with HPV. Mammogram ordered by PCP. Nutrition, exercise and routine health maintenance exams reviewed. Intermenstrual spotting: No longer having heavy menses. Menses are lightening. Discussed possible perimenopause. Discussed in office diagnostic hysteroscopy and other alternatives to this. She would like to proceed. Order placed and to schedule at end of menses. Pap today. She understands is polyp found at time of hysteroscopy, cannot remove in office. 2) Contraception: Essure. Contraceptive options reviewed and information provided. She does not desire Essure device removal at this time unless there is another indication for surgery. 3) STD screening: Declined STD check. 4) Follow up one year or sooner as needed Domonique Sharma DO documented in this encounter [facility] 02-28-2022 Miscellaneous Notes Patient phones requesting refills as follows: Pending Prescriptions Disp Refills LOSARTAN 25 MG TABLET 90 tablet 3 Sig: TAKE 1 TABLET DAILY SANDRA: Yes Please review and advise. Ana Rodriguez LPN documented in this encounter [facility] 01-07-2022 Miscellaneous Notes Pharmacy verified in [facility] Patient has been identified by name and date of : Yes Patient aware RX will be sent to pharmacy. No need to notify patient. Patient phones for refill(s): Pending Prescriptions Disp Refills PANTOPRAZOLE 40 MG TABLET,DELAYED RELEASE 90 tablet 0 Sig: Take 1 tablet by mouth once daily. SANDRA: No Date of last office visit : 10/19/2021 Date of next office visit : 04/08/2022 Last 2 Encounter Wt Readings: Date: Wt: 10/25/2021 101.2 kg (223 lb) 10/19/2021 101.4 kg (223 lb 8 oz) Not applicable Please advise. Joycelyn Marie LPN documented in this encounter [facility] 01-04-2022 Miscellaneous Notes Patient's request for medication has been refused. See reason and notify patient. Refused Prescriptions Disp Refills pantoprazole DR (PROTONIX) 40 mg tablet [Pharmacy Med Name: PANTOPRAZOLE SODIUM DR TABS 40MG] 90 tablet 3 Sig: TAKE 1 TABLET DAILY SANDRA: No Refused By: SHAWN WILL Reason for Refusal: Patient needs appointment Oliverio Will MD Pharmacy verified in [facility] Patient has been identified by name and date of : Yes Patient aware RX will be sent to pharmacy. No need to notify patient. Pharmacy phones for refill(s): Pending Prescriptions Disp Refills PANTOPRAZOLE 40 MG TABLET,DELAYED RELEASE 90 tablet 3 Sig: TAKE 1 TABLET DAILY SANDRA: Yes Date of last office visit :10/19/2021 Date of next office visit : Visit date not found Last 2 Encounter Wt Readings: Date: Wt: 10/25/2021 101.2 kg (223 lb) 10/19/2021 101.4 kg (223 lb 8 oz) Not applicable Please advise. Maritza Metzger documented in this encounter [facility] 12-19-2021 Miscellaneous Notes Pharmacy verified in Epic Patient has been identified by name and date of : Yes Patient aware RX will be sent to pharmacy. No need to notify patient. Patient phones for refill(s): Pending Prescriptions Disp Refills HYDROCHLOROTHIAZIDE 25 MG TABLET 90 tablet 3 Sig: TAKE 1 TABLET DAILY SANDRA: Yes Date of last office visit : 10/19/2021 Date of next office visit : 04/08/2022 Last 2 Encounter Wt Readings: Date: Wt: 10/25/2021 101.2 kg (223 lb) 10/19/2021 101.4 kg (223 lb 8 oz) Blood Pressure: BUN (mg/dL) Date Value 10/16/2021 13 Creatinine (mg/dL) Date Value 10/16/2021 0.72 Sodium (mmol/L) Date Value 10/16/2021 138 Potassium (mmol/L) Date Value 10/16/2021 4.1 Last 1 Encounter BP Readings: Date: BP: 10/25/2021 128/84 Please advise. Joycelyn Marie LPN documented in this encounter [facility] 10-19-2018 History of Past i llness Narrative Problem Noted Date Resolved Date Abdominal pain 10/19/2018 11/20/2018 Overview: Added automatically from request for surgery [id number] Biliary colic 03/16/2017 04/07/2017 Thickening of wall of gallbladder 03/16/2017 04/07/2017 Unspecified urinary incontinence 10/06/2006 03/10/2013 documented as of this encounter (statuses as of 12/19/2021) [facility]-21-2019 History of Past illness Narrative* Problem Noted Date Resolved Date Abdominal pain 10/19/2018 11/20/2018 Overview: Added automatically from request for surgery [id number] Biliary colic 03/16/2017 04/07/2017 Thickening of wall of gallbladder 03/16/2017 04/07/2017 Unspecified urinary incontinence 10/06/2006 03/10/2013 documented as of this encounter (statuses as of 01/04/2022) [facility]2019 History of Past illness Narrative* Problem Noted Date Resolved Date Abdominal pain 10/19/2018 11/20/2018 Overview: Added automatically from request for surgery [id number] Biliary colic 03/16/2017 04/07/2017 Thickening of wall of gallbladder 03/16/2017 04/07/2017 Unspecified urinary incontinence 10/06/2006 03/10/2013 documented as of this encounter (statuses as of 01/07/2022) [facility] History of Past illness Narrative* Problem Noted Date Resolved Date Abdominal pain 10/19/2018 11/20/2018 Overview: Added automatically from request for surgery [id number] Biliary colic 03/16/2017 04/07/2017 Thickening of wall of gallbladder 03/16/2017 04/07/2017 Unspecified urinary incontinence 10/06/2006 03/10/2013 documented as of this encounter (statuses as of 02/28/2022) [facility] History of Past illness Narrative* Problem Noted Date Resolved Date Abdominal pain 10/19/2018 11/20/2018 Overview: Added automatically from request for surgery [id number] Biliary colic 03/16/2017 04/07/2017 Thickening of wall of gallbladder 03/16/2017 04/07/2017 Unspecified urinary incontinence 10/06/2006 03/10/2013 documented as of this encounter (statuses as of 04/24/2022) [facility] History of Past illness Narrative* Problem Noted Date Resolved Date Abdominal pain 10/19/2018 11/20/2018 Overview: Added automatically from request for surgery [id number] Biliary colic 03/16/2017 04/07/2017 Thickening of wall of gallbladder 03/16/2017 04/07/2017 Unspecified urinary incontinence 10/06/2006 03/10/2013 documented as of this encounter (statuses as of 04/29/2022) [facility] History of Past illness Narrative* Problem Noted Date Resolved Date Abdominal pain 10/19/2018 11/20/2018 Overview: Added automatically from request for surgery [id number] Biliary colic 03/16/2017 04/07/2017 Thickening of wall of gallbladder 03/16/2017 04/07/2017 Unspecified urinary incontinence 10/06/2006 03/10/2013 documented as of this encounter (statuses as of 05/31/2022) [facility] History of Past illness Narrative* Problem Noted Date Resolved Date Abdominal pain 10/19/2018 11/20/2018 Overview: Added automatically from request for surgery [id number] Biliary colic 03/16/2017 04/07/2017 Thickening of wall of gallbladder 03/16/2017 04/07/2017 Unspecified urinary incontinence 10/06/2006 03/10/2013 documented as of this encounter (statuses as of 06/11/2022) [facility] History of Past illness Narrative* Problem Noted Date Resolved Date Abdominal pain 10/19/2018 11/20/2018 Overview: Added automatically from request for surgery [id number] Biliary colic 03/16/2017 04/07/2017 Thickening of wall of gallbladder 03/16/2017 04/07/2017 Unspecified urinary incontinence 10/06/2006 03/10/2013 documented as of this encounter (statuses as of 06/12/2022) [facility] History of Past illness Narrative* Problem Noted Date Resolved Date Abdominal pain 10/19/2018 11/20/2018 Overview: Added automatically from request for surgery [id number] Biliary colic 03/16/2017 04/07/2017 Thickening of wall of gallbladder 03/16/2017 04/07/2017 Unspecified urinary incontinence 10/06/2006 03/10/2013 documented as of this encounter (statuses as of 10/02/2022) [facility] History of Past illness Narrative* Problem Noted Date Resolved Date Abdominal pain 10/19/2018 11/20/2018 Overview: Added automatically from request for surgery [id number] Biliary colic 03/16/2017 04/07/2017 Thickening of wall of gallbladder 03/16/2017 04/07/2017 Unspecified urinary incontinence 10/06/2006 03/10/2013 documented as of this encounter (statuses as of 10/09/2022) [facility] History of Past illness Narrative* Problem Noted Date Resolved Date Abdominal pain 10/19/2018 11/20/2018 Overview: Added automatically from request for surgery [id number] Biliary colic 03/16/2017 04/07/2017 Thickening of wall of gallbladder 03/16/2017 04/07/2017 Unspecified urinary incontinence 10/06/2006 03/10/2013 documented as of this encounter (statuses as of 10/17/2022) [facility] History of Past illness Narrative* Problem Noted Date Resolved Date Abdominal pain 10/19/2018 11/20/2018 Overview: Added automatically from request for surgery [id number] Biliary colic 03/16/2017 04/07/2017 Thickening of wall of gallbladder 03/16/2017 04/07/2017 Unspecified urinary incontinence 10/06/2006 03/10/2013 documented as of this encounter (statuses as of 10/24/2022) [facility] History of Past illness Narrative* Problem Noted Date Resolved Date Abdominal pain 10/19/2018 11/20/2018 Overview: Added automatically from request for surgery [id number] Biliary colic 03/16/2017 04/07/2017 Thickening of wall of gallbladder 03/16/2017 04/07/2017 Unspecified urinary incontinence 10/06/2006 03/10/2013 documented as of this encounter (statuses as of 11/15/2022) [facility] History of Past illness Narrative* Problem Noted Date Resolved Date Abdominal pain 10/19/2018 11/20/2018 Overview: Added automatically from request for surgery [id number] Biliary colic 03/16/2017 04/07/2017 Thickening of wall of gallbladder 03/16/2017 04/07/2017 Unspecified urinary incontinence 10/06/2006 03/10/2013 documented as of this encounter (statuses as of 11/19/2022) [facility] History of Past illness Narrative* Problem Noted Date Resolved Date Abdominal pain 10/19/2018 11/20/2018 Overview: Added automatically from request for surgery [id number] Biliary colic 03/16/2017 04/07/2017 Thickening of wall of gallbladder 03/16/2017 04/07/2017 Unspecified urinary incontinence 10/06/2006 03/10/2013 documented as of this encounter (statuses as of 12/21/2022) [facility] History of Past illness Narrative* Problem Noted Date Resolved Date Abdominal pain 10/19/2018 11/20/2018 Overview: Added automatically from request for surgery [id number] Biliary colic 03/16/2017 04/07/2017 Thickening of wall of gallbladder 03/16/2017 04/07/2017 Unspecified urinary incontinence 10/06/2006 03/10/2013 documented as of this encounter (statuses as of 01/02/2023) [facility] History of Past illness Narrative* Problem Noted Date Resolved Date Abdominal pain 10/19/2018 11/20/2018 Overview: Added automatically from request for surgery [id number] Biliary colic 03/16/2017 04/07/2017 Thickening of wall of gallbladder 03/16/2017 04/07/2017 Unspecified urinary incontinence 10/06/2006 03/10/2013 documented as of this encounter (statuses as of 01/03/2023) [facility] History of Past illness Narrative* Problem Noted Date Resolved Date Abdominal pain 10/19/2018 11/20/2018 Overview: Added automatically from request for surgery [id number] Biliary colic 03/16/2017 04/07/2017 Thickening of wall of gallbladder 03/16/2017 04/07/2017 Unspecified urinary incontinence 10/06/2006 03/10/2013 documented as of this encounter (statuses as of 02/25/2023) [facility] History of Past illness Narrative* Problem Noted Date Diagnosed Date Resolved Date Abdominal pain 10/19/2018 11/20/2018 Overview: Added automatically from request for surgery [id number] Biliary colic 03/16/2017 04/07/2017 Thickening of wall of gallbladder 03/16/2017 04/07/2017 Unspecified urinary incontinence 10/06/2006 03/10/2013 documented as of this encounter (statuses as of 04/09/2023) [facility] History of Past illness Narrative* Problem Noted Date Diagnosed Date Resolved Date Abdominal pain 10/19/2018 11/20/2018 Overview: Added automatically from request for surgery [id number] Biliary colic 03/16/2017 04/07/2017 Thickening of wall of gallbladder 03/16/2017 04/07/2017 Unspecified urinary incontinence 10/06/2006 03/10/2013 documented as of this encounter (statuses as of 06/12/2023) [facility] History of Past illness Narrative* Problem Noted Date Diagnosed Date Resolved Date Abdominal pain 10/19/2018 11/20/2018 Overview: Added automatically from request for surgery [id number] Biliary colic 03/16/2017 04/07/2017 Thickening of wall of gallbladder 03/16/2017 04/07/2017 Unspecified urinary incontinence 10/06/2006 03/10/2013 documented as of this encounter (statuses as of 07/03/2023) [facility] History of Past illness Narrative* Problem Noted Date Diagnosed Date Resolved Date Abdominal pain 10/19/2018 11/20/2018 Overview: Added automatically from request for surgery [id number] Biliary colic 03/16/2017 04/07/2017 Thickening of wall of gallbladder 03/16/2017 04/07/2017 Unspecified urinary incontinence 10/06/2006 03/10/2013 documented as of this encounter (statuses as of 07/21/2023) [facility] History of Past illness Narrative* Problem Noted Date Diagnosed Date Resolved Date Abdominal pain 10/19/2018 11/20/2018 Overview: Added automatically from request for surgery [id number] Biliary colic 03/16/2017 04/07/2017 Thickening of wall of gallbladder 03/16/2017 04/07/2017 Unspecified urinary incontinence 10/06/2006 03/10/2013 documented as of this encounter (statuses as of 08/12/2023) [facility] History of Past illness Narrative* Problem Noted Date Diagnosed Date Resolved Date Abdominal pain 10/19/2018 11/20/2018 Overview: Added automatically from request for surgery [id number] Biliary colic 03/16/2017 04/07/2017 Thickening of wall of gallbladder 03/16/2017 04/07/2017 Unspecified urinary incontinence 10/06/2006 03/10/2013 documented as of this encounter (statuses as of 2023) [facility] History of Past illness Narrative* Problem Noted Date Diagnosed Date Resolved Date Abdominal pain 10/19/2018 11/20/2018 Overview: Added automatically from request for surgery [id number] Biliary colic 03/16/2017 04/07/2017 Thickening of wall of gallbladder 03/16/2017 04/07/2017 Unspecified urinary incontinence 10/06/2006 03/10/2013 documented as of this encounter (statuses as of 10/31/2023) [facility] History of Past illness Narrative* Problem Noted Date Diagnosed Date Resolved Date Abdominal pain 10/19/2018 11/20/2018 Overview: Added automatically from request for surgery [id number] Biliary colic 03/16/2017 04/07/2017 Thickening of wall of gallbladder 03/16/2017 04/07/2017 Unspecified urinary incontinence 10/06/2006 03/10/2013 documented as of this encounter (statuses as of 12/01/2023) [facility] History of Past illness Narrative* Problem Noted Date Diagnosed Date Resolved Date Abdominal pain 10/19/2018 11/20/2018 Overview: Added automatically from request for surgery [id number] Biliary colic 03/16/2017 04/07/2017 Thickening of wall of gallbladder 03/16/2017 04/07/2017 Unspecified urinary incontinence 10/06/2006 03/10/2013 documented as of this encounter (statuses as of 12/08/2023) [facility] note* Diagnosis Essential hypertension Unspecified essential hypertension [facility] Diagnosis Gastroesophageal reflux disease, unspecified whether esophagitis present [facility] Diagnosis Gastroesophageal reflux disease, unspecified whether esophagitis present [facility] Diagnosis Encounter for gynecological examination (general) (routine) without abnormal findings- Primary Pap smear for cervical cancer screening Screening for malignant neoplasm of the cervix Intermenstrual spotting Metrorrhagia DUB (dysfunctional uterine bleeding) Other disorder of menstruation and other abnormal bleeding from female genital tract [facility] Diagnosis DUB (dysfunctional uterine bleeding)- Primary Other disorder of menstruation and other abnormal bleeding from female genital tract [facility] Diagnosis History of abnormal mammogram Other specified personal history presenting hazards to health [facility] Diagnosis Essential hypertension Unspecified essential hypertension [facility] Essential hypertension- Primary Unspecified essential hypertension Seasonal allergic rhinitis, unspecified trigger Obesity, Class II, BMI 35-39.9 Obesity, unspecified Hyperglycemia Other abnormal glucose Paresthesia and pain of both upper extremities Disturbance of skin sensation [facility] Diagnosis Intracranial arachnoid cysts Cerebral cysts Cerebral cysts [facility] Diagnosis Intracranial arachnoid cysts- Primary Cerebral cysts [facility] Carpal tunnel syndrome, right upper limb- Primary Paresthesia and pain of both upper extremities Disturbance of skin sensation Paresthesia of skin Disturbance of skin sensation [facility] Carpal tunnel syndrome, right- Primary Carpal tunnel syndrome [facility] Diagnosis Pain- Primary Generalized pain [facility] Diagnosis Carpal tunnel syndrome, right Carpal tunnel syndrome [facility] Diagnosis Carpal tunnel syndrome, right- Primary Carpal tunnel syndrome Carpal tunnel syndrome, right Carpal tunnel syndrome [facility] Essential hypertension- Primary Unspecified essential hypertension Sinus congestion Other diseases of nasal cavity and sinuses Obesity, Class II, BMI 35-39.9 Obesity, unspecified S/P carpal tunnel release Other postprocedural status Gastroesophageal reflux disease, unspecified whether esophagitis present [facility] Diagnosis Essential hypertension Unspecified essential hypertension [facility] Diagnosis Gastroesophageal reflux disease, unspecified whether esophagitis present [facility] Diagnosis Encounter for screening mammogram for breast cancer [facility] Diagnosis Encounter for screening mammogram for breast cancer documented [facility] Diagnosis Intracranial arachnoid cysts- Primary Cerebral cysts [facility] Diagnosis Pharyngitis, unspecified etiology- Primary Acute viral syndrome Unspecified viral infection, in conditions classified elsewhere and of unspecified site [facility] Diagnosis Acute non-recurrent maxillary sinusitis- Primary Middle ear effusion, right [facility] Diagnosis Essential hypertension- Primary Unspecified essential hypertension [facility] Diagnosis Well adult exam- Primary Routine general medical examination at a health care facility Essential hypertension Unspecified essential hypertension Gastroesophageal reflux disease without esophagitis Esophageal reflux Acute pain of right knee Hearing loss of right ear, unspecified hearing loss type Obesity, Class II, BMI 35-39.9 Obesity, unspecified Screening for depression Encounter for screening examination for other mental health and behavioral disorders Screening mammogram for breast cancer Encounter for immunization Need for other specified prophylactic vaccination against single bacterial disease [facility] Diagnosis Cellulitis of skin- Primary Cellulitis and abscess of unspecified site Poison marta Contact dermatitis and other eczema due to plants (except food) [facility] Diagnosis Rash- Primary Rash and other nonspecific skin eruption [facility] Diagnosis Essential hypertension Unspecified essential hypertension [facility] Diagnosis Gastroesophageal reflux disease, unspecified whether esophagitis present documented in this encounter [facility] note* Diagnosis Acute left-sided low back pain without sciatica- Primary Lower thoracic back pain Left flank pain Abdominal pain, unspecified site documented in this encounter [facility] note* Diagnosis Screening mammogram for breast cancer documented in this encounter [facility] note* Diagnosis Sore throat- Primary Acute pharyngitis Acute cough URI with cough and congestion Acute cough documented in this encounter [facility] note* Diagnosis Acute cough documented in this encounter [facility] note* Diagnosis Dietary counseling- Primary Dietary surveillance and counseling Obesity, Class II, BMI 35-39.9 Obesity, unspecified documented in this encounter [facility] note* Diagnosis Traumatic injury of head, initial encounter- Primary documented in this encounter [facility] note* Diagnosis Obesity, Class II, BMI 35-39.9- Primary Obesity, unspecified Hypertension, unspecified type Dietary counseling Dietary surveillance and counseling documented in this encounter [facility] note* Diagnosis Intracranial arachnoid cysts- Primary Cerebral cysts documented in this encounter [facility] note* Diagnosis Intracranial arachnoid cysts Cerebral cysts documented in this encounter [facility] note* Diagnosis Intracranial arachnoid cysts- Primary Cerebral cysts documented in this encounter [facility] note* Diagnosis Encounter for gynecological examination (general) (routine) without abnormal findings- Primary Encounter for screening mammogram for breast cancer Abnormal uterine bleeding (AUB) Dysmenorrhea Pelvic pain in female Unspecified symptom associated with female genital organs documented in this encounter [facility] note* Diagnosis Pelvic pain in female- Primary Unspecified symptom associated with female genital organs Abnormal uterine bleeding (AUB) documented in this encounter [facility] note* Diagnosis Abnormal uterine bleeding (AUB) documented in this encounter [facility] note* Diagnosis Abnormal uterine bleeding (AUB)- Primary Submucous uterine fibroid Submucous leiomyoma of uterus Pre-op exam Preoperative examination, unspecified documented in this encounter [facility] note* Diagnosis Essential hypertension Unspecified essential hypertension documented in this encounter [facility] note* Diagnosis Abnormal uterine bleeding- Primary Unspecified disorder of menstruation and other abnormal bleeding from female genital tract Preop general physical exam Other specified pre-operative examination Essential (primary) hypertension Unspecified essential hypertension Gastroesophageal reflux disease without esophagitis Esophageal reflux Overweight documented in this encounter [facility] for referral (narrative)* Diagnostic Procedure Only (Routine) - Closed Specialty Diagnoses / Procedures Referred By Yeniferac t Referred To Contact [facility] Diagnoses History of abnormal mammogram Procedures MARY ELLEN SCREENING W BIB SCREENING DIGITAL BREAST TOMOSYNTHESIS BI SCREENING MAMMOGRAPHY BI 2-VIEW BREAST INC CAD Oliverio Will MD [address] [facility] [place] [address] [facility] [address] [place] [address] Referral ID Status Reason Start Date Expiration Date V isits Requested Visits Authorized [id number] Closed Auto-Generate d Referral 04/08/2022 05/08/2023 1 1 [facility] for referral (narrative)* Outpatient Procedure (Routine) - Pending Review Specialty Diagnoses / Procedures Referred By Yeniferac t Referred To Contact [facility] Diagnoses Paresthesia and pain of both upper extremities Procedures EMG(NEURO/NI) NERVE CONDUCTION STUDIES 9-10 STUDIES Oliverio Will MD [address] [facility] [place] [address] [facility] [address] [place] [id number] Referral ID Status Reason Start Date Expiration Date Visits Requested Visits Authorized [id number] Pending Review Auto-Generat ed Referral 10/09/2022 10/09/2023 1 1 [facility] for referral (narrative)* Diagnostic Procedure Only (Routine) - Authorized Specialty Diagnoses / Procedures Referred By Contac t Referred To Contact X[facility] IMAGING Diagnoses Pain Procedures XR HAND GENERAL 3V PA/LAT/OBL RIGHT RADEX HAND MINIMUM 3 VIEWS Nory Sevilla DO [address] [place] [address] Xr Imaging Referral ID Status Reason Start Date Expiration Date Visits Requested Visits Authorized [id number] Authorized Auto-Generat ed Referral 11/19/2022 12/19/2023 1 1 [facility] for referral (narrative)* Diagnostic Procedure Only (Routine) - Pending Review Specialty Diagnoses / Procedures Referred By Contac t Referred To Contact [facility] Diagnoses Encounter for screening mammogram for breast cancer Procedures MARY ELLEN SCREENING W BIB SCREENING DIGITAL BREAST TOMOSYNTHESIS BI SCREENING MAMMOGRAPHY BI 2-VIEW BREAST INC CAD Oliverio Will MD [address] [facility] [address] [facility] [address] [place] [address] Referral ID Status Reason Start Date Expiration Date Visits Requested Visits Authorized [id number] Pending Review Auto-Generat ed Referral 3 2024 1 1 [facility] for visit Narrative* Diagnostic Procedure Only (Routine) - Closed Specialty Diagnoses / Procedures Referred By Contac t Referred To Contact [facility] Diagnoses History of abnormal mammogram Procedures MARY ELLEN SCREENING W BIB SCREENING DIGITAL BREAST TOMOSYNTHESIS BI SCREENING MAMMOGRAPHY BI 2-VIEW BREAST INC Oliverio Perla MD [address] [facility] [address] [place] [address] [facility] [address] [place] [address] Referral ID Status Reason Start Date Expiration Date V isits Requested Visits Authorized [id number] Closed Auto-Generate d Referral 04/08/2022 05/08/2023 1 1 [facility] for visit Narrative* Diagnostic Procedure Only (Routine) - Closed Specialty Diagnoses / Procedures Referred By Contac t Referred To Contact [facility] Diagnoses Encounter for screening mammogram for breast cancer Procedures MARY ELLEN SCREENING W BIB SCREENING DIGITAL BREAST TOMOSYNTHESIS BI SCREENING MAMMOGRAPHY BI 2-VIEW BREAST INC Oliverio Perla MD [address] [facility] [address] [facility] [address] [place] [address] Referral ID Status Reason Start Date Expiration Date V isits Requested Visits Authorized [id number] Closed Auto-Generate d Referral 07/16/2023 2024 1 1 [facility] for visit Narrative* Diagnostic Procedure Only (Routine) - Closed Specialty Diagnoses / Procedures Referred By Contac t Referred To Contact [facility] Diagnoses Screening mammogram for breast cancer Procedures MARY ELLEN SCREENING W BIB SCREENING DIGITAL BREAST TOMOSYNTHESIS BI SCREENING MAMMOGRAPHY BI 2-VIEW BREAST INC CAD Jhonny Costello, CAR PACKER.PUPPET MAKER [address] [facility] [place] [address] [facility] [address] [place] [address] Referral ID Status Reason Start Date Expiration Date V isits Requested Visits Authorized [id number] Closed Auto-Generate d Referral 08/12/2024 05/28/2025 1 1 [facility] for visit Narrative* Diagnostic Procedure Only (Routine) - Closed Specialty Diagnoses / Procedures Referred By Contnorris t Referred To Contact [facility] Diagnoses Abnormal uterine bleeding (AUB) Procedures PELVIC US I US PELVIC NONOBSTETRIC REAL-TIME IMAGE COMPLETE Isela Dorman, CAR PACKER.CN [address] [place] [address] Phone: tel: fax: [address] [address] Referral ID Status Reason Start Date Expiration Date V isits Requested Visits Authorized [id number] Closed Auto-Generate d Referral 03/24/2025 09/28/2025 1 1 [facility] Summary Purpose Family History No Family History Records FoundNo Family History Records FoundNo Family History Records FoundNo Family History Records FoundNo Family History Records FoundNo Family History Records Found Advance Directives No Advanced Directives Records FoundDocuments on File Type Date Recorded 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 Advance Directive(s) 11/02/2018 12:01 PM Advance Directive(s) 10/19/2018 10:46 AM Advance Directive(s) 08/01/2017 8:07 AM Advance Directive(s) 03/21/2017 9:06 AM Documents on File Type Date Recorded 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 Advance Directive(s) 08/01/2017 8:07 AM Documents on File Type Date Recorded 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 Advance Directive(s) 08/01/2017 8:07 AM Reason for Referral Specialty Diagnoses / Procedures Referred By Contac t Referred To Contact [facility] Diagnoses Intracranial arachnoid cysts Cerebral cysts Procedures MRI BRAIN WO/W IVCON MRI BRAIN BRAIN STEM W/O W/CONTRAST MATERIAL Mar Winter, CAR PACKER.PUPPET MAKER [address] [place] [address] [facility] Referral ID Status Reason Start Date Expiration Date V isits Requested Visits Authorized [id number] Closed Auto-Generate d Referral 10/08/2022 04/06/2023 1 1 Specialty Diagnoses / Procedures Referred By Contac t Referred To Contact [facility] Diagnoses Intracranial arachnoid cysts Procedures MRI BRAIN WO/W IVCON MRI BRAIN BRAIN STEM W/O W/CONTRAST MATERIAL Mar Winter, CAR PACKER.PUPPET MAKER [address] [place] [address] [facility] Referral ID Status Reason Start Date Expiration Date Visits Requested Visits Authorized [id number] Pending Review Auto-Generat ed Referral 10/24/2022 11/23/2023 1 1 Specialty Diagnoses / Procedures Referred By Contac t Referred To Contact Orthopedics Diagnoses Carpal tunnel syndrome, right Procedures CONSULT TO ORTHOPAEDICS OFFICE/OUTPATIENT [facility] 60-74 MINUTES Jhonny Quesada APRN.PUPPET MAKER [address] [place] [address] Referral ID Status Reason Start Date Expiration Date Visits Requested Visits Authorized [id number] Authorized PCP Requested Referral 11/18/2022 11/18/2023 1 1 Specialty Diagnoses / Procedures Referred By Contac t Referred To Contact Ent - Otolaryngology Diagnoses Hearing loss of right ear, unspecified hearing loss type Procedures CONSULT TO ENT OFFICE/OUTPATIENT [facility] 60 MINUTES Jhonny Quesada APRN.PUPPET MAKER [address] [facility] [place] [address] Referral ID Status Reason Start Date Expiration Date Visits Requested Visits Authorized [id number] Authorized PCP Requested Referral 04/28/2024 04/28/2025 1 1 Specialty Diagnoses / Procedures Referred By Contac t Referred To Contact Nutrition Diagnoses Obesity, Class II, BMI 35-39.9 Procedures CONSULT TO NUTRITION THERAPY MEDICAL NUTRITION ASSMT&IVNTJ INDIV EACH 15 MD Jhonny Quesada, ANTOINE.PUPPET MAKER [address] [facility] [address] Referral ID Status Reason Start Date Expiration Date Visits Requested Visits Authorized [id number] Authorized PCP Requested Referral 04/28/2024 04/28/2025 1 4 Specialty Diagnoses / Procedures Referred By Contac t Referred To Contact [facility] Diagnoses Screening mammogram for breast cancer Procedures MARY ELLEN SCREENING W BIB SCREENING DIGITAL BREAST TOMOSYNTHESIS BI SCREENING MAMMOGRAPHY BI 2-VIEW BREAST INC CAD Jhonny Quesada, ANTOINE.PUPPET MAKER [address] [facility] [place] [address] [facility] [address] [place] [address] Referral ID Status Reason Start Date Expiration Date Visits Requested Visits Authorized [id number] New Request Auto-Generat ed Referral 05/28/2025 1 1 Specialty Diagnoses / Procedures Referred By Contac t Referred To Contact [facility] Diagnoses Intracranial arachnoid cysts Procedures MRI BRAIN WO/W IVCON MRI BRAIN BRAIN STEM W/O W/CONTRAST MATERIAL Mar Winter, ANTOINE.PUPPET MAKER [address] [facility] [place] [address] [place] [address] Referral ID Status Reason Start Date Expiration Date V isits Requested Visits Authorized [id number] Closed Auto-Generate d Referral 10/26/2024 11/25/2025 1 1 Referral ID Status Reason Start Date Expiration Date Visits Requested Visits Authorized [id number] New Request Auto-Generat ed Referral 11/02/2024 12/02/2025 1 1 Additional Source Comments INFORMATION SOURCE (unrecogn ized section and content) DATE CREATED AUTHOR 03/24/2018 [facility] DATE CREATED AUTHOR AUTHOR'S ORGANIZ ATION 10/17/2020 [facility] DATE CREATED AUTHOR AUTHOR'S ORGANIZ ATION 03/09/2023 [facility] DATE CREATED AUTHOR AUTHOR'S ORGANIZ ATION 11/04/2024 [facility] DATE CREATED AUTHOR AUTHOR'S ORGANIZ ATION 04/30/2025 [facility] DATE CREATED AUTHOR AUTHOR'S ORGANIZ ATION 05/01/[address] [facility] Source Comments (unrecognize d section and content) In the event this informatio n is protected by the Federal Confidentiality of Alcohol and Drug Abuse Patient Records regulations: The Federal rules restrict any use of the information to criminally investigate or prosecute any alcohol or drug abuse patient.[facility] the event this information is protected by the Federal Confidentiality of Alcohol and Drug Abuse Patient Records regulations: The Federal rules restrict any use of the information to criminally investigate or prosecute any alcohol or drug abuse patient.[facility] the event this information is protected by the Federal Confidentiality of Alcohol and Drug Abuse Patient Records regulations: The Federal rules restrict any use of the information to criminally investigate or prosecute any alcohol or drug abuse patient.[facility] HospitalIn the event this information is protected by the Federal Confidentiality of Alcohol and Drug Abuse Patient Records regulations: The Federal rules restrict any use of the information to criminally investigate or prosecute any alcohol or drug abuse patient.[facility]In the event this information is protected by the Federal Confidentiality of Alcohol and Drug Abuse Patient Records regulations: The Federal rules restrict any use of the information to criminally investigate or prosecute any alcohol or drug abuse patient.[facility]In the event this information is protected by the Federal Confidentiality of Alcohol and Drug Abuse Patient Records regulations: The Federal rules restrict any use of the information to criminally investigate or prosecute any alcohol or drug abuse patient.[facility]In the event this information is protected by the Federal Confidentiality of Alcohol and Drug Abuse Patient Records regulations: The Federal rules restrict any use of the information to criminally investigate or prosecute any alcohol or drug abuse patient.[facility] HospitalIn the event this information is protected by the Federal Confidentiality of Alcohol and Drug Abuse Patient Records regulations: The Federal rules restrict any use of the information to criminally investigate or prosecute any alcohol or drug abuse patient.[facility] HospitalIn the event this information is protected by the Federal Confidentiality of Alcohol and Drug Abuse Patient Records regulations: The Federal rules restrict any use of the information to criminally investigate or prosecute any alcohol or drug abuse patient.[facility] HospitalIn the event this information is protected by the Federal Confidentiality of Alcohol and Drug Abuse Patient Records regulations: The Federal rules restrict any use of the information to criminally investigate or prosecute any alcohol or drug abuse patient.[facility] HospitalIn the event this information is protected by the Federal Confidentiality of Alcohol and Drug Abuse Patient Records regulations: The Federal rules restrict any use of the information to criminally investigate or prosecute any alcohol or drug abuse patient.[facility] HospitalIn the event this information is protected by the Federal Confidentiality of Alcohol and Drug Abuse Patient Records regulations: The Federal rules restrict any use of the information to criminally investigate or prosecute any alcohol or drug abuse patient.[facility] HospitalIn the event this information is protected by the Federal Confidentiality of Alcohol and Drug Abuse Patient Records regulations: The Federal rules restrict any use of the information to criminally investigate or prosecute any alcohol or drug abuse patient.[facility] HospitalIn the event this information is protected by the Federal Confidentiality of Alcohol and Drug Abuse Patient Records regulations: The Federal rules restrict any use of the information to criminally investigate or prosecute any alcohol or drug abuse patient.[facility] HospitalIn the event this information is protected by the Federal Confidentiality of Alcohol and Drug Abuse Patient Records regulations: The Federal rules restrict any use of the information to criminally investigate or prosecute any alcohol or drug abuse patient.[facility] HospitalIn the event this information is protected by the Federal Confidentiality of Alcohol and Drug Abuse Patient Records regulations: The Federal rules restrict any use of the information to criminally investigate or prosecute any alcohol or drug abuse patient.[facility] HospitalIn the event this information is protected by the Federal Confidentiality of Alcohol and Drug Abuse Patient Records regulations: The Federal rules restrict any use of the information to criminally investigate or prosecute any alcohol or drug abuse patient.[facility] HospitalIn the event this information is protected by the Federal Confidentiality of Alcohol and Drug Abuse Patient Records regulations: The Federal rules restrict any use of the information to criminally investigate or prosecute any alcohol or drug abuse patient.[facility] HospitalIn the event this information is protected by the Federal Confidentiality of Alcohol and Drug Abuse Patient Records regulations: The Federal rules restrict any use of the information to criminally investigate or prosecute any alcohol or drug abuse patient.[facility] HospitalIn the event this information is protected by the Federal Confidentiality of Alcohol and Drug Abuse Patient Records regulations: The Federal rules restrict any use of the information to criminally investigate or prosecute any alcohol or drug abuse patient.[facility] HospitalIn the event this information is protected by the Federal Confidentiality of Alcohol and Drug Abuse Patient Records regulations: The Federal rules restrict any use of the information to criminally investigate or prosecute any alcohol or drug abuse patient.[facility] HospitalIn the event this information is protected by the Federal Confidentiality of Alcohol and Drug Abuse Patient Records regulations: The Federal rules restrict any use of the information to criminally investigate or prosecute any alcohol or drug abuse patient.[facility] HospitalIn the event this information is protected by the Federal Confidentiality of Alcohol and Drug Abuse Patient Records regulations: The Federal rules restrict any use of the information to criminally investigate or prosecute any alcohol or drug abuse patient.[facility] HospitalIn the event this information is protected by the Federal Confidentiality of Alcohol and Drug Abuse Patient Records regulations: The Federal rules restrict any use of the information to criminally investigate or prosecute any alcohol or drug abuse patient.[facility] HospitalIn the event this information is protected by the Federal Confidentiality of Alcohol and Drug Abuse Patient Records regulations: The Federal rules restrict any use of the information to criminally investigate or prosecute any alcohol or drug abuse patient.[facility] HospitalIn the event this information is protected by the Federal Confidentiality of Alcohol and Drug Abuse Patient Records regulations: The Federal rules restrict any use of the information to criminally investigate or prosecute any alcohol or drug abuse patient.[facility] HospitalIn the event this information is protected by the Federal Confidentiality of Alcohol and Drug Abuse Patient Records regulations: The Federal rules restrict any use of the information to criminally investigate or prosecute any alcohol or drug abuse patient.[facility] HospitalIn the event this information is protected by the Federal Confidentiality of Alcohol and Drug Abuse Patient Records regulations: The Federal rules restrict any use of the information to criminally investigate or prosecute any alcohol or drug abuse patient.[facility] HospitalIn the event this information is protected by the Federal Confidentiality of Alcohol and Drug Abuse Patient Records regulations: The Federal rules restrict any use of the information to criminally investigate or prosecute any alcohol or drug abuse patient.[facility] HospitalIn the event this information is protected by the Federal Confidentiality of Alcohol and Drug Abuse Patient Records regulations: The Federal rules restrict any use of the information to criminally investigate or prosecute any alcohol or drug abuse patient.[facility] HospitalIn the event this information is protected by the Federal Confidentiality of Alcohol and Drug Abuse Patient Records regulations: The Federal rules restrict any use of the information to criminally investigate or prosecute any alcohol or drug abuse patient.[facility] HospitalIn the event this information is protected by the Federal Confidentiality of Alcohol and Drug Abuse Patient Records regulations: The Federal rules restrict any use of the information to criminally investigate or prosecute any alcohol or drug abuse patient.[facility] HospitalIn the event this information is protected by the Federal Confidentiality of Alcohol and Drug Abuse Patient Records regulations: The Federal rules restrict any use of the information to criminally investigate or prosecute any alcohol or drug abuse patient.[facility] HospitalIn the event this information is protected by the Federal Confidentiality of Alcohol and Drug Abuse Patient Records regulations: The Federal rules restrict any use of the information to criminally investigate or prosecute any alcohol or drug abuse patient.[facility] HospitalIn the event this information is protected by the Federal Confidentiality of Alcohol and Drug Abuse Patient Records regulations: The Federal rules restrict any use of the information to criminally investigate or prosecute any alcohol or drug abuse patient.[facility] HospitalIn the event this information is protected by the Federal Confidentiality of Alcohol and Drug Abuse Patient Records regulations: The Federal rules restrict any use of the information to criminally investigate or prosecute any alcohol or drug abuse patient.[facility] HospitalIn the event this information is protected by the Federal Confidentiality of Alcohol and Drug Abuse Patient Records regulations: The Federal rules restrict any use of the information to criminally investigate or prosecute any alcohol or drug abuse patient.[facility] HospitalIn the event this information is protected by the Federal Confidentiality of Alcohol and Drug Abuse Patient Records regulations: The Federal rules restrict any use of the information to criminally investigate or prosecute any alcohol or drug abuse patient.[facility] HospitalIn the event this information is protected by the Federal Confidentiality of Alcohol and Drug Abuse Patient Records regulations: The Federal rules restrict any use of the information to criminally investigate or prosecute any alcohol or drug abuse patient.[facility] HospitalIn the event this information is protected by the Federal Confidentiality of Alcohol and Drug Abuse Patient Records regulations: The Federal rules restrict any use of the information to criminally investigate or prosecute any alcohol or drug abuse patient.[facility] HospitalIn the event this information is protected by the Federal Confidentiality of Alcohol and Drug Abuse Patient Records regulations: The Federal rules restrict any use of the information to criminally investigate or prosecute any alcohol or drug abuse patient.[facility] HospitalIn the event this information is protected by the Federal Confidentiality of Alcohol and Drug Abuse Patient Records regulations: The Federal rules restrict any use of the information to criminally investigate or prosecute any alcohol or drug abuse patient.[facility] HospitalIn the event this information is protected by the Federal Confidentiality of Alcohol and Drug Abuse Patient Records regulations: The Federal rules restrict any use of the information to criminally investigate or prosecute any alcohol or drug abuse patient.[facility] HospitalIn the event this information is protected by the Federal Confidentiality of Alcohol and Drug Abuse Patient Records regulations: The Federal rules restrict any use of the information to criminally investigate or prosecute any alcohol or drug abuse patient.[facility] HospitalIn the event this information is protected by the Federal Confidentiality of Alcohol and Drug Abuse Patient Records regulations: The Federal rules restrict any use of the information to criminally investigate or prosecute any alcohol or drug abuse patient.[facility] HospitalIn the event this information is protected by the Federal Confidentiality of Alcohol and Drug Abuse Patient Records regulations: The Federal rules restrict any use of the information to criminally investigate or prosecute any alcohol or drug abuse patient.[facility] HospitalIn the event this information is protected by the Federal Confidentiality of Alcohol and Drug Abuse Patient Records regulations: The Federal rules restrict any use of the information to criminally investigate or prosecute any alcohol or drug abuse patient.[facility] HospitalIn the event this information is protected by the Federal Confidentiality of Alcohol and Drug Abuse Patient Records regulations: The Federal rules restrict any use of the information to criminally investigate or prosecute any alcohol or drug abuse patient.[facility] HospitalIn the event this information is protected by the Federal Confidentiality of Alcohol and Drug Abuse Patient Records regulations: The Federal rules restrict any use of the information to criminally investigate or prosecute any alcohol or drug abuse patient.[facility] HospitalIn the event this information is protected by the Federal Confidentiality of Alcohol and Drug Abuse Patient Records regulations: The Federal rules restrict any use of the information to criminally investigate or prosecute any alcohol or drug abuse patient.[facility] HospitalIn the event this information is protected by the Federal Confidentiality of Alcohol and Drug Abuse Patient Records regulations: The Federal rules restrict any use of the information to criminally investigate or prosecute any alcohol or drug abuse patient.[facility] HospitalIn the event this information is protected by the Federal Confidentiality of Alcohol and Drug Abuse Patient Records regulations: The Federal rules restrict any use of the information to criminally investigate or prosecute any alcohol or drug abuse patient.[facility] HospitalIn the event this information is protected by the Federal Confidentiality of Alcohol and Drug Abuse Patient Records regulations: The Federal rules restrict any use of the information to criminally investigate or prosecute any alcohol or drug abuse patient.[facility] HospitalIn the event this information is protected by the Federal Confidentiality of Alcohol and Drug Abuse Patient Records regulations: The Federal rules restrict any use of the information to criminally investigate or prosecute any alcohol or drug abuse patient.[facility] HospitalIn the event this information is protected by the Federal Confidentiality of Alcohol and Drug Abuse Patient Records regulations: The Federal rules restrict any use of the information to criminally investigate or prosecute any alcohol or drug abuse patient.[facility] HospitalIn the event this information is protected by the Federal Confidentiality of Alcohol and Drug Abuse Patient Records regulations: The Federal rules restrict any use of the information to criminally investigate or prosecute any alcohol or drug abuse patient.[facility] HospitalIn the event this information is protected by the Federal Confidentiality of Alcohol and Drug Abuse Patient Records regulations: The Federal rules restrict any use of the information to criminally investigate or prosecute any alcohol or drug abuse patient.[facility] HospitalIn the event this information is protected by the Federal Confidentiality of Alcohol and Drug Abuse Patient Records regulations: The Federal rules restrict any use of the information to criminally investigate or prosecute any alcohol or drug abuse patient.[facility] HospitalIn the event this information is protected by the Federal Confidentiality of Alcohol and Drug Abuse Patient Records regulations: The Federal rules restrict any use of the information to criminally investigate or prosecute any alcohol or drug abuse patient.[facility] HospitalIn the event this information is protected by the Federal Confidentiality of Alcohol and Drug Abuse Patient Records regulations: The Federal rules restrict any use of the information to criminally investigate or prosecute any alcohol or drug abuse patient.[facility] HospitalIn the event this information is protected by the Federal Confidentiality of Alcohol and Drug Abuse Patient Records regulations: The Federal rules restrict any use of the information to criminally investigate or prosecute any alcohol or drug abuse patient.[facility] HospitalIn the event this information is protected by the Federal Confidentiality of Alcohol and Drug Abuse Patient Records regulations: The Federal rules restrict any use of the information to criminally investigate or prosecute any alcohol or drug abuse patient.[facility] HospitalIn the event this information is protected by the Federal Confidentiality of Alcohol and Drug Abuse Patient Records regulations: The Federal rules restrict any use of the information to criminally investigate or prosecute any alcohol or drug abuse patient.[facility] HospitalIn the event this information is protected by the Federal Confidentiality of Alcohol and Drug Abuse Patient Records regulations: The Federal rules restrict any use of the information to criminally investigate or prosecute any alcohol or drug abuse patient.[facility] Reason for Visit (unrecogniz ed section and content) Reason Comments Refill Request Reason Onset Date Comments Refill Request 01/05/2022 Reason Comments Well Woman Reason Comments Patient Question Reason Comments Endosee Reason Comments 6 Month Exam Specialty Diagnoses / Procedures Referred By Contac t Referred To Contact Family Medicine / FAMILY MEDICINE Diagnoses Follow-up exam 6 month follow up Procedures OFFICE/OUTPATIENT ESTABLISHED MOD MDM 30-39 MIN 4C EST Oliverio Will MD [address] [place] [address] [place] [address] Oliverio Will MD [address] [facility] [place] [address] Referral ID Status Reason Start Date Expiration Date Visits Re quested Visits Authorized [id number] Closed 09/29/2022 09/28/2023 1 1 Specialty Diagnoses / Procedures Referred By Contac t Referred To Contact MR IMAGING Diagnoses Intracranial arachnoid cysts Cerebral cysts Procedures MRI BRAIN WO/W IVCON MRI BRAIN BRAIN STEM W/O W/CONTRAST MATERIAL Mar Winter, CAR PACKER.PUPPET MAKER [address] [place] [address] Mr Imaging Referral ID Status Reason Start Date Expiration Date V isits Requested Visits Authorized [id number] Closed Auto-Generate d Referral 10/08/2022 04/06/2023 1 1 Reason Comments Established Patient Specialty Diagnoses / Procedures Referred By Contac t Referred To Contact Neurosurgery / NEUROSURGERY Diagnoses Follow-up exam annual f/u, mri done 10/16 Procedures OFFICE/OUTPATIENT ESTABLISHED MOD MDM 30-39 MIN EST PATIENT Oliverio Will MD [address] [facility] [address] Jose Encarnacion MD [address] [facility] [place] [address] Referral ID Status Reason Start Date Expiration Date Visits Re quested Visits Authorized [id number] Closed 09/29/2022 09/28/2023 1 1 Reason Onset Date Comments EMG 11/15/2022 Specialty Diagnoses / Procedures Referred By Contac t Referred To Contact [facility] Diagnoses Paresthesia and pain of both upper extremities Procedures EMG(NEURO/NI) NERVE CONDUCTION STUDIES 9-10 STUDIES Oliverio Will MD [address] [facility] [place] [address] Neurological [place] [address] [place] [address] Referral ID Status Reason Start Date Expiration Date V isits Requested Visits Authorized [id number] Closed Auto-Generate d Referral 11/01/2022 09/28/2023 1 1 Reason Comments Results Reason Comments New CTS Specialty Diagnoses / Procedures Referred By Contac t Referred To Contact Orthopedics Diagnoses Carpal tunnel syndrome, right Procedures CONSULT TO ORTHOPAEDICS OFFICE/OUTPATIENT NEW HIGH MDM 60-74 MINUTES Jhonny Quesada, CAR PACKER.PUPPET MAKER [address] [place] [address] Referral ID Status Reason Start Date Expiration Date V isits Requested Visits Authorized [id number] Closed PCP Requested Referral 11/18/2022 11/18/2023 1 1 Reason Comments 6 Month Exam Reason Comments Established Patient Reason Comments Sore Throat Right ear pain start ed Friday. Fever yesterday Reason Comments Ear Problem Pain worse at night. Sore throat Reason Comments Physical Reason Comments Rash Reason Comments Opened In Error Reason Comments Rash Right forearm has a spot. Thinks it might be poison marta Reason Onset Date Comments Appointment 06/02/2024 Reason Comments Rash getting worse Reason Comments Overdose Reason Comments Back Pain Reason Comments Cough congestion, drainage and sore throat x 5 days Reason Comments Assessment Patient Education Specialty Diagnoses / Procedures Referred By Contac t Referred To Contact Nutrition Diagnoses Obesity, Class II, BMI 35-39.9 Procedures CONSULT TO NUTRITION THERAPY MEDICAL NUTRITION ASSMT&IVNTJ INDIV EACH 15 MD Jhonny Costello, CAR PACKER.PUPPET MAKER [address] [facility] [place] [address] Referral ID Status Reason Start Date Expiration Date Visits Requested Visits Authorized [id number] Authorized PCP Requested Referral 04/28/2024 04/28/2025 1 4 Specialty Diagnoses / Procedures Referred By Contac t Referred To Contact [facility] Diagnoses Left knee injury Procedures REFERRAL TO [facility] FINANCIAL COUNSELOR EST SAME DAY Self [facility] [address] [place] [address] Referral ID Status Reason Start Date Expiration Date V isits Requested Visits Authorized [id number] Pending Review 09/09/2024 11/08/2024 1 1 Reason Comments Received Outside Medical Records [facility] ED Reason Comments Reassessment Patient Education Specialty Diagnoses / Procedures Referred By Contac t Referred To Contact RAD MRI [employer] LIFT ELECTRICIAN Diagnoses Cerebral cysts MRI BRAIN (need order) Procedures MRI BRAIN BRAIN STEM W/O W/CONTRAST MATERIAL MRI [facility]WO [place] [address] Jose Encarnacion MD [address] [place] [address] Radio Mri [place] Forge Operator Helper [address] [place] [address] Referral ID Status Reason Start Date Expiration Date Visits Re quested Visits Authorized [id number] Closed 10/18/2024 04/16/2025 1 1 Reason Comments Well Woman Reason Comments Endometrial Biopsy Specialty Diagnoses / Procedures Referred By Boom haque Referred To Contact [facility] Diagnoses Abnormal uterine bleeding (AUB) Dysmenorrhea Pelvic pain in female Procedures ENDOMETRIAL BIOPSY ENDOMETRIAL BX W/WO ENDOCERVIX BX W/O DILAT SPX Isela Dorman APRN.CNM [address] [place] [address] Phone: tel: fax: [facility] [address] [place] [address] Referral ID Status Reason Start Date Expiration Date V isits Requested Visits Authorized [id number] Closed Auto-Generate d Referral 03/14/2025 09/28/2025 1 1 Reason Comments Post EMB appointment Reason Comments Pre-Op Exam Reason Comments Received Outside Medical Records [facility] OB/ ECOMMERCE MERCHANDISING MANAGER Reason Comments Follow Up Care Teams (unrecognized sec tion and content) Repair Service Dispatcher Relationship Specialty Start Date End Date Oliverio Will MD [address] [place], [place] [address] PCP - General Family Practice 07/29/11 Tammie Ramirez Consulting Neurosurgery 06/23/17 Repair Service Dispatcher Relationship Specialty Start Date End Date Oliverio Will MD [address] [place], [place] [address] PCP - General Family Practice 07/29/11 Tammie Ramirez Consulting Neurosurgery 06/23/17 Repair Service Dispatcher Relationship Specialty Start Date End Date Oliverio Will MD [address] [facility] [place] [address] PCP - General Family Practice 07/29/11 Tammie Ramirez Consulting Neurosurgery 06/23/17 Repair Service Dispatcher Relationship Specialty Start Date End Date Oliverio Will MD [address] [place] [address] PCP - General Family Practice 07/29/11 Tammie Ramirez Consulting Neurosurgery 06/23/17 Repair Service Dispatcher Relationship Specialty Start Date End Date Oliverio Will MD [address] [place] [address] PCP - General Family Practice 07/29/11 Tammie Ramirez Consulting Neurosurgery 06/23/17 Repair Service Dispatcher Relationship Specialty Start Date End Date Oliverio Will MD [address] [place] [address] PCP - General Family Practice 07/29/11 Tammie Ramirez Consulting Neurosurgery 06/23/17 Repair Service Dispatcher Relationship Specialty Start Date End Date Oliverio Will MD [address] [place] [address] PCP - General Family Medicine 07/29/11 Tammie Ramirez [address] [place] [address] Consulting Neurosurgery 06/23/17 Repair Service Dispatcher Relationship Specialty Start Date End Date Oliverio Will MD [address] [facility] [place] [address] PCP - General Family Medicine 07/29/11 Tammie Ramirez [address] [facility] [place] [address] Consulting Neurosurgery 06/23/17 Repair Service Dispatcher Relationship Specialty Start Date End Date Oliverio Will MD [address] [facility] [place] [address] PCP - General Family Medicine 07/29/11 Tammie Ramirez [address] [facility] [place] [address] Consulting Neurosurgery 06/23/17 Repair Service Dispatcher Relationship Specialty Start Date End Date Oliverio Will MD [address] [facility] [place] [address] PCP - General Family Medicine 07/29/11 Tammie Ramirez [address] [facility] [place] [address] Consulting Neurosurgery 06/23/17 Repair Service Dispatcher Relationship Specialty Start Date End Date Oliverio Will MD [address] [facility] [place] [address] PCP - General Family Medicine 07/29/11 Tammie Ramirez [address] [facility] [place] [address] Consulting Neurosurgery 06/23/17 Repair Service Dispatcher Relationship Specialty Start Date End Date Oliverio Will MD [address] [facility] [place] [address] PCP - General Family Medicine 07/29/11 Tammie Ramirez [address] [facility] [place] [address] Consulting Neurosurgery 06/23/17 Repair Service Dispatcher Relationship Specialty Start Date End Date Oliverio Will MD [address] [facility] [place] [address] PCP - General Family Medicine 07/29/11 Tammie Ramirez [address] [facility] [place] [address] Consulting Neurosurgery 06/23/17 Repair Service Dispatcher Relationship Specialty Start Date End Date Oliverio Will MD [address] [facility] [address] PCP - General Family Medicine 07/29/11 Tammie Ramirez [address] [facility] [place] [address] Consulting Neurosurgery 06/23/17 Repair Service Dispatcher Relationship Specialty Start Date End Date Oliverio Will MD [address] [facility] [address] PCP - General Family Medicine 07/29/11 Tammie Ramirez [address] [facility] [place] [address] Consulting Neurosurgery 06/23/17 Repair Service Dispatcher Relationship Specialty Start Date End Date Oliverio Will MD [address] [facility] [address] PCP - General Family Medicine 07/29/11 Tammie Ramirez [address] [facility] [place] [address] Consulting Neurosurgery 06/23/17 Repair Service Dispatcher Relationship Specialty Start Date End Date Oliverio Will MD [address] [facility] [address] PCP - General Family Medicine 07/29/11 Tammie Ramirez [address] [facility] [address] Consulting Neurosurgery 06/23/17 Repair Service Dispatcher Relationship Specialty Start Date End Date Oliverio Will MD [address] [facility] [address] PCP - General Family Medicine 07/29/11 Tammie Ramirez MD [address] [facility] [address] Consulting Neurosurgery 06/23/17 Repair Service Dispatcher Relationship Specialty Start Date End Date Oliverio Will MD [address] [facility] [address] PCP - General Family Medicine 07/29/11 Tammie Ramirez MD [address] [facility] [place] [address] Consulting Neurosurgery 06/23/17 Repair Service Dispatcher Relationship Specialty Start Date End Date Oliverio Will MD [address] [facility] [address] PCP - General Family Medicine 07/29/11 Tammie Ramirez MD [address] [facility] [address] Consulting Neurosurgery 06/23/17 Repair Service Dispatcher Relationship Specialty Start Date End Date Oliverio Will MD [address] [place] [address] PCP - General Family Medicine 07/29/11 Tammie Ramirez MD [address] [place] [address] Consulting Neurosurgery 06/23/17 Repair Service Dispatcher Relationship Specialty Start Date End Date Oliverio Will MD [address] [place] [address] PCP - General Family Medicine 07/29/11 Tammie Ramirez MD [address] [place] [address] Consulting Neurosurgery 06/23/17 Repair Service Dispatcher Relationship Specialty Start Date End Date Oliverio Will MD [address] [place] [address] PCP - General Family Medicine 07/29/11 Tammie Ramirez MD [address] [place] [address] Consulting Neurosurgery 06/23/17 Repair Service Dispatcher Relationship Specialty Start Date End Date Oliverio Will MD [address] [place] [address] PCP - General Family Medicine 07/29/11 Tammie Ramirez MD [address] [place] [address] Consulting Neurosurgery 06/23/17 Repair Service Dispatcher Relationship Specialty Start Date End Date Oliverio Will MD [address] [place] [address] PCP - General Family Medicine 07/29/11 Tammie Ramirez MD [address] [place], [place] [address] Consulting Neurosurgery 06/23/17 Repair Service Dispatcher Relationship Specialty Start Date End Date Oliverio Will MD [address] [place] [address] PCP - General Family Medicine 07/29/11 Tammie Ramirez MD [address] [place] [address] Consulting Neurosurgery 06/23/17 Repair Service Dispatcher Relationship Specialty Start Date End Date Oliverio Will MD [address] [place] [address] PCP - General Family Medicine 07/29/11 Tammie Ramirez MD [address] [place] [address] Consulting Neurosurgery 06/23/17 Repair Service Dispatcher Relationship Specialty Start Date End Date Oliverio Wlil MD [address] [place] [address] PCP - General Family Medicine 07/29/11 Tammie Ramirez MD [address] [place] [address] Consulting Neurosurgery 06/23/17 Repair Service Dispatcher Relationship Specialty Start Date End Date Oliverio Will MD [address] [place] [address] PCP - General Family Medicine 07/29/11 Tammie Ramirez MD [address] [place] [address] Consulting Neurosurgery 06/23/17 Repair Service Dispatcher Relationship Specialty Start Date End Date Oliverio Will MD [address] [place] [address] PCP - General Family Medicine 07/29/11 Tammie Ramirez MD [address] [place] [address] Consulting Neurosurgery 06/23/17 Repair Service Dispatcher Relationship Specialty Start Date End Date Oliverio Will MD [address] [place] [address] PCP - General Family Medicine 07/29/11 Tammie Ramirez MD [address] [place] [address] Consulting Neurosurgery 06/23/17 Repair Service Dispatcher Relationship Specialty Start Date End Date Oliverio Will MD [address] [place] [address] PCP - General Family Medicine 07/29/11 Tammie Ramirez MD [address] [place] [address] Consulting Neurosurgery 06/23/17 Repair Service Dispatcher Relationship Specialty Start Date End Date Oliverio Will MD [address] [place] [address] PCP - General Family Medicine 07/29/11 Tammie Ramirez MD [address] [place] [address] Consulting Neurosurgery 06/23/17 Repair Service Dispatcher Relationship Specialty Start Date End Date Oliverio Will MD [address] [place] [address] PCP - General Family Medicine 07/29/11 Tammie Ramirez MD [address] [place] [address] Consulting Neurosurgery 06/23/17 Repair Service Dispatcher Relationship Specialty Start Date End Date Oliverio Will MD [address] [place] [address] PCP - General Family Medicine 07/29/11 Tammie Ramirez MD [facility] [place] [address] Consulting Neurosurgery 06/23/17 Jhonny Costello, ANTOINE.PUPPET MAKER [address] [facility] [place] [address] Repair Service Dispatcher Internal Medicine 09/05/24 Repair Service Dispatcher Relationship Specialty Start Date End Date Oliverio Will MD [address] [place] [address] PCP - General Family Medicine 07/29/11 Tammie Ramirez MD [address] [place] [address] Consulting Neurosurgery 06/23/17 Jhonny Costello, CAR PACKER.PUPPET MAKER [address] [facility] [address] [place] [address] Repair Service Dispatcher Internal Medicine 09/05/24 Repair Service Dispatcher Relationship Specialty Start Date End Date Oliverio Will MD [address] [place] [address] PCP - General Family Medicine 07/29/11 Tammie Ramirez MD [address] [place] [address] Consulting Neurosurgery 06/23/17 Jhonny Costello APRN.PUPPET MAKER [address] [facility] [address] Repair Service Dispatcher Internal Medicine 09/05/24 Repair Service Dispatcher Relationship Specialty Start Date End Date Oliverio Will MD [address] [place], [place] 3286[address] PCP - General Family Medicine 07/29/11 Tammie Ramirez MD [address] [place] [address] Consulting Neurosurgery 06/23/17 Jhonny Costello, CAR PACKER.PUPPET MAKER [address] [facility] [address] [place], [place] [address] Repair Service Dispatcher Internal Medicine 09/05/24 Repair Service Dispatcher Relationship Specialty Start Date End Date Oliverio Will MD [address] [place], [place] [address] PCP - General Family Medicine 07/29/11 Tammie Ramirez MD [address] [place] [address] Consulting Neurosurgery 06/23/17 Jhonny Costello, CAR PACKER.PUPPET MAKER [address] [facility] [address] [place], [place] [address] Repair Service Dispatcher Internal Medicine 09/05/24 Repair Service Dispatcher Relationship Specialty Start Date End Date Oliverio Will MD [address] [place], [place] [address]1741 PCP - General Family Medicine 07/29/11 Tammie Ramirez MD [address] [place] [address] Consulting Neurosurgery 06/23/17 Jhonny Costello, CAR PACKER.PUPPET MAKER [address] [facility] [address] [place], [place] [address] Repair Service Dispatcher Internal Medicine 09/05/24 Repair Service Dispatcher Relationship Specialty Start Date End Date Oliverio Will MD [address] [place], [place] [address] PCP - General Family Medicine 07/29/11 Tammie Ramirez MD [address] [place] [address] Consulting Neurosurgery 06/23/17 Jhonny Costello, CAR PACKER.PUPPET MAKER [address] [facility] [address] [place] [address] Repair Service Dispatcher Internal Medicine 09/05/24 Repair Service Dispatcher Relationship Specialty Start Date End Date Oliverio Will MD [address] [place] [address] PCP - General Family Medicine 07/29/11 Tammie Ramirez MD [address] [facility] [address] Consulting Neurosurgery 06/23/17 Jhonny Costello APRN.PUPPET MAKER [address] [facility] [place] [address] Repair Service Dispatcher Internal Medicine 09/05/24 Repair Service Dispatcher Relationship Specialty Start Date End Date Oliverio Will MD [address] [place] [address] PCP - General Family Medicine 07/29/11 Tammie Ramirez MD [address] [place] [address] Consulting Neurosurgery 06/23/17 Jhonny Costello APRN.PUPPET MAKER [address] [facility] [place] [address] Repair Service Dispatcher Internal Medicine 09/05/24 Repair Service Dispatcher Relationship Specialty Start Date End Date Oliverio Will MD [address] [place] [address] PCP - General Family Medicine 07/29/11 Tammie Ramirez MD [address] [place] [address] Consulting Neurosurgery 06/23/17 Jhonny Costello APRN.PUPPET MAKER [address] [facility] [place] [address] Repair Service Dispatcher Internal Medicine 09/05/24 Repair Service Dispatcher Relationship Specialty Start Date End Date Oliverio Will MD [address] [place] [address] PCP - General Family Medicine 07/29/11 Tammie Ramirez MD [address] [place] [address] Consulting Neurosurgery 06/23/17 Jhonny Costello APRN.PUPPET MAKER [address] [facility] [address] Repair Service Dispatcher Internal Medicine 09/05/24 Repair Service Dispatcher Relationship Specialty Start Date End Date Oliverio Will MD [address] [place] [address] PCP - General Family Medicine 07/29/11 Tammie Ramirez MD [facility] [place] [address] Consulting Neurosurgery 06/23/17 Jhonny Costello CAR PACKER.PUPPET MAKER [address] [facility] [address] [place], [place] [address] Repair Service Dispatcher Internal Medicine 09/05/24 Repair Service Dispatcher Relationship Specialty Start Date End Date Oliverio Will MD [address] [place] [address] PCP - General Family Medicine 07/29/11 Tammie Ramirez MD [address] [place] [address] Consulting Neurosurgery 06/23/17 Jhonyn Costello CAR PACKER.PUPPET MAKER [address] [facility] [address] [place] [address] Repair Service Dispatcher Internal Medicine 09/05/24 Repair Service Dispatcher Relationship Specialty Start Date End Date Oliverio Will MD [address] [place] [address] PCP - General Family Medicine 07/29/11 Tammie Ramirez MD [address] [place] [address] Consulting Neurosurgery 06/23/17 Jhonny Costello APRN.PUPPET MAKER [address] [facility] [address] [place], [place] [address] [facility] Internal [facility] 09/05/24 FOR RECORDS PERTAINING TO PATIENTS WHO ARE OR HAVE BEEN ENROLLED IN A CHEMICAL DEPENDENCY/SUBSTANCEABUSE PROGRAM, SOME INFORMATION MAY BE OMITTED. This clinical summary was aggregated from multiple sources. Caution should be exercised in using it in the provision of clinical care. This summary normalizes information from multiple sources, and as a consequence, information in this document may materially change the coding, format and clinical context of patient data. In addition, data may be omitted in some cases. CLINICAL DECISIONS SHOULD BE BASED ON THE PRIMARY CLINICAL RECORDS. [employer] provides no warranty or guarantee of the accuracy or completeness of information in this document.
[2025-05-06] MEDS: Lactated Ringers 1,000 ML 15 ML IV (07:17)
--- NOTE | 2025-05-06 07:24 | PRE.ANES_ITS ---
ASA Classification* ASA Classification ASA Classification: 3 Assessment & Plan Anesthesia* Anesthesia Assessment Anesthesia Assessment: Discussed sedation and/or anesthesia options, risks, benefits, and alternatives with patient/parents/legal guardian/POA. Questions invited. The patient/parents/legal guardian/POA seems to understand and agrees to proceed with anesthesia plan. Reviewed the physical assessment, medical history, allergy history and patient home medications list prior to surgery/procedure/anesthetic and documented any changes. Performed airway and anesthesia risk assessments. Anesthesia Type Anesthesia Type: MAC History Source History Obtained from:: Patient and Chart Anesthesia Focused Assessment* Temperature: 97.8 F Pulse Rate: 80 Blood Pressure: 130/77 Respiratory Rate: 18 Pulse Ox: 98 Oxygen Delivery Method: Room Air Airway Assessment Mouth opens: >3 cm Mallampati Score: II Teeth Condition: Intact Neck Range of motion (ROM): Full ROM Labs Anesthesia Preop lab: CBC WBC 5.4 K/mm3 (4.4-11.0) 10/05/18 09:14 10/05/18 RBC 4.32 M/mm3 (4.2-5.4) 10/05/18 09:14 10/05/18 Hgb 14.3 g/dl (12.0-15.0) 10/05/18 09:14 10/05/18 Hct 42.7 % (37-47) 10/05/18 09:14 10/05/18 Plt Count 288 K/mm3 (150-450) 10/05/18 09:14 10/05/18 CHEMISTRY Potassium 3.8 mmol/L (3.5-5.1) 10/05/18 09:14 10/05/18 Sodium 140 mmol/L (136-145) 10/05/18 09:14 10/05/18 BUN 18 mg/dL (7-18) 10/05/18 09:14 10/05/18 Creatinine 0.66 mg/dL (0.55-1.02) 10/05/18 09:14 10/05/18 Glucose 109 mg/dL (74-106) H 10/05/18 09:14 10/05/18 COAG PT 13.4 SECONDS (11.7-14.9) 01/14/18 03:12 Urine Test Pending 05/06/25 06:55 05/06/25 Pre-Assessment Diagnosis/Proposed Procedure Planned Operative Procedure(s): (N/A) Hysteroscopy,D&C, polypectomy, Symphion, possible myomectomy Anesthesia History Anesthesia History - student liaison officer: Anesthesia History - student liaison officer Hx Hospitalization No 04/27/25 14:57 Any Problems With Anesthesia No 04/27/25 14:57 Cholinesterase deficiency No 04/27/25 14:57 You/Your Family Experience No 04/27/25 14:57 fever (hyperthermia) with Relationship Recent Exposure to Contagious No 05/06/25 07:09 Disease Does patient have nerve No 04/27/25 14:57 stimulator Patient instructed to have device shut off --Does patient have Pacemaker No 05/06/25 07:09 or ICD? When Was Last Pacemaker Check QUESTION #4 FULL TEXT: You/Your Family Experience fever (hyperthermia) with Anesthesia Any additional information?: No Last Oral Intake Last Oral intake: Last Oral Intake NPO since 19:30 05/06/25 07:09 Meds taken in AM with sips of Yes 05/06/25 07:09 water? Meds patient instructed to take am of surgery Any additional information?: No PONV PONV - student liaison officer: PONV - student liaison officer Female Yes 04/27/25 14:57 HX of Motion Sickness No 04/27/25 14:57 HX of N/V After Surgery No 04/27/25 14:57 Non-Smoker Yes 04/27/25 14:57 Duration of Surgery greater No 04/27/25 14:57 than 60 minutes Number of Risk Factors 2 04/27/25 14:57 PONV Score Moderate Risk 04/27/25 14:57 Any additional information?: No Height & Weight Height & Weight: Anesthesia: Height & Weight Height 5 ft 4 in 05/06/25 07:09 Weight: 105 kg 05/06/25 07:09 Body Mass Index (BMI) 39.7 05/06/25 07:09 Respiratory Assessment Respiratory Assessment - student liaison officer: Respiratory Tract Infection Hx - student liaison officer Hx Respiratory Tract Infection No 04/27/25 14:57 Any additional information?: No STOP Sleep Apnea STOP Sleep Apnea - student liaison officer: STOP Sleep Apnea - student liaison officer Hx Hypertension Yes 04/27/25 14:57 Hx Sleep Apnea No 04/27/25 14:57 CPAP BIPAP Do you snore loudly (louder No 04/27/25 14:57 than talking or can be heard Do you often feel tired/ No 04/27/25 14:57 fatigued/ sleepy during daytime? Has anyone observed you stop No 04/27/25 14:57 breathing during sleep? STOP Results Negative 04/27/25 14:57 QUESTION #5 FULL TEXT : Do you snore loudly (louder than talking or can be heard through closed doors)? Any additional information?: No Tobacco Use History Tobacco Use History - student liaison officer: Tobacco Use History - student liaison officer Tobacco Use Smoking Status Never smoker 04/27/25 14:57 Hx Tobacco Use No 04/27/25 14:57 Years Smoking Packs Smoked per Day Smoking Cessation Date was within the last 15 years Hx Smoking Cessation Date Hx Smoking Cessation Counseling Any additional information?: No Hematologic Medial History Hematologic Hx - student liaison officer: Hematologic Medical Hx - director of cardiology service line Hx of Blood Transfusion No 04/27/25 14:57 Hx of Transfusion in last 3 No 04/27/25 14:57 Months Date of Last Transfusion (if within last 3 months) Ever experience any problems No 04/27/25 14:57 with transfusion(s)? Specify any problems Hx of Preganancy in last 3 No 04/27/25 14:57 Months Nurse Filling Out Transfusion [facility] 04/27/25 14:57 & Questions: Date: 04/27/25 04/27/25 14:57 Time: 15:01 04/27/25 14:57 Patient unable to answer at this time (ie. confused, unrespo Any additional information?: No /Reproduction History /Reproductive History - student liaison officer: /Reproductive Hx- student liaison officer Hx Now No 04/27/25 14:57 Gestational Age (in weeks): EDC: Hx Hx Para Hx Section SAB No 04/27/25 14:57 Any additional information?: No Active Medications Active Medications: Current Medications Generic Name Dose Route Start Last Admin Trade Name Freq PRN Reason Stop Dose Admin Lactated Ringer's 1,000 mls @ 15 mls/hr 05/06/25 07:00 05/06/25 07:17 IV 15 mls/hr .Q48H MOHIT Administration PFSH Medical History Wears glasses Alcohol use Injury of head and neck History of hiatal hernia Gastric reflux Non-smoker History of stress test Arachnoid cyst Hypokalemia Hypertension GERD (gastroesophageal reflux disease) Home Medications ?Medication ?Instructions ?Recorded ?Last Taken ?Type hydrochlorothiazide 25 mg tablet 25 mg PO DAILY diuret ic/water pill 03/05/17 05/05/25 History losartan 25 mg tablet 25 mg PO DAILY blood pressur e 01/13/18 05/06/25 History pantoprazole 40 mg tablet,delayed 40 mg PO DAILY 10/0505/06/25 History release potassium 99 mg tablet 99 mg PO DAILY 10/05/1804/22 History albuterol sulfate 90 mcg/actuation 2 puff inhalation Q 6H PRN PRN 04/27/25 Unknown History aerosol inhaler shortness of breath or wheez ing ascorbic acid (vitamin C) 1,000 mg 1,000 mg PO DAILY 0 04/27/25 04/29/25 History tablet,extended release (C Complex) cholecalciferol (vitamin D3) 50 100 mcg PO DAILY 04/2704/29/25 History mcg (2,000 unit) tablet (Thera-D) elderberry fruit 200 mg capsule 200 mg PO DAILY 04/29/25 History zinc 50 mg tablet 50 mg PO DAILY 04/27/2510/23 History Allergy/AdvReac Type Severity Reaction Status Date / Time acyclovir Allergy Intermediate Hives Verified 05/06/25 07:26 Surgical History History of carpal tunnel surgery of right wrist History of cholecystectomy History of hernia repair Social History Smoking Status: Never smoker Addt'l Information Additional Findings: GERD is well controlled, NO symptoms even when laying flat. Patient took Protonix. Review of Systems (Anesthesia) ROS Narrative System reviewed and no additional complaints, except as documented.
[2025-05-06 07:30] LABS: Internal QC Validated? YES +Cl - CLEAR BKGD; Pregnancy, Urine Negative Negative
[2025-05-06 07:31] LABS: Record Kit Lot#,Urine Preg 0000962302
[2025-05-06] MEDS: Lactated Ringers 1,000 ML 1000 ML IV (08:24)
[2025-05-06] MEDS: Midazolam 2 MG/2 ML Syringe IV (08:24)
--- NOTE | 2025-05-06 08:30 | EMB_PTH ---
PATIENT: NORMA PALACIOS LOC: [facility] U#:[id number] AGE/SX: 54/F ROOM: RE05/06/[address]: Dr. Flavia Abad, MDDOB: 1970 BED: DIS: 05/06/2025 SPEC #: [id number] RECD: 05/06/25 10:06 STATUS: ANDER SEKOU #: [id number] ECHO: 05/06/25 08:[address]: Flavia Abad DEPT: SURGICAL PATHOLOGY RECD BY: Silvio Vale ENTERED: 05/06/25 11:17 SP TYPE: ENDOM BX/C LARISA DR: Dr. Shawn Norton MD Tissues: A - Endometrium, NOS Procedures: Surgery Specimen Level IV HEADER OPERATION: Hysteroscopy, D&C PRE-OP DIAGNOSIS: Abnormal uterine bleeding, submucosal fibroid TISSUE SUBMITTED: A- Submucosal fibroid and endometrial curettings MICROSCOPIC DIAGNOSIS A. Endometrium, curettage/ myomectomy: * Fragments of secretory endometrium with condensed/shedding stroma. * Fragments of myometrium suggestive of leiomyoma. MICROSCOPIC DESCRIPTION Slides are reviewed. GROSS DESCRIPTION A. Received in formalin labeled with the patient's name and date of . Designated as submucosal fibroid and endometrial curettings is a 1.5 x 1.1 x 0.2 cm aggregate of pink- red, soft to rubbery tissue fragments. Entirely submitted in 1 cassette. [place] 05/06/2025 CPT:25041
[2025-05-06] MEDS: Lidocaine 1% (5 ml sdv) 5 ML Vial IV (08:33)
--- NOTE | 2025-05-06 08:50 | OP.PCM_ITS ---
Operative Report (Standard) Operative Information Date of Procedure: 05/06/25 Pre-Operative Diagnosis: aub, submucosal fibroid Post-Operative Diagnosis: same Surgery/Procedure Performed: hysteroscopy, D&C, myomectomy with symphion box spring maker: No Type of Anesthesia: MAC RN Documented Start/Stop Times: Operation Date: 05/06/25 08:30 Case Time Into Pre-Op 05/06/25 06:54 Out of Pre-Op 05/06/25 08:23 Anesthesia Start 05/06/25 08:24 Into Room 05/06/25 08:24 Procedure Start 05/06/25 08:40 Procedure Start Time: 08:40 Procedure Stop Time: 08:48 Select all DRAINS/GRAFTS/IMPLANTS that apply: None Estimated Blood Loss: <5cc Fluids Replaced: 500 Specimen collected: Yes Description of specimen(s) removed: endometrial curettings, Submucosal fibroid Description of surgery: Informed consent was obtained the patient was taken the operating room she was placed in supine position. She was given anesthesia. She was then placed in the [facility] where she was prepped and draped in the normal sterile fashion. At this time the weighted speculum was placed in the posterior fornix of vagina. Single-tooth tenaculum was used to gently grasp the anterior lip the cervix. At this time the uterine cavity was sounded to approximately 10 cm. Gentle dilatation was performed once adequate dilatation of the cervix was achieved the hysteroscope using normal saline as a distention medium was placed. Tubal ostia visualized- approximately 1.5cm submucosal fibroid noted on posterior aspect of uterus. no other gross abnormalities. Symphion resecting device used to obtain endometrial curettings and to perform myomectomy. Tissue will be sent to pathology for evaluation. Tenaculum removed. Good hemostasis. Instrument, lap count correct x 2. Vaginal Sweep was negative. Surgical Findings: submucosal fibroid on posterior aspect Complications Complications: No Admit VTE Documentation VTE Present on Admission: Yes VTE Mechan Device Prophylaxis: SCD's VTE Pharm Prophylaxis ordered?: No Reason prophylaxis not ordered: Treatment Not Indicated
--- NOTE | 2025-05-06 08:54 | DCINST_ITS ---
Discharge Instructions DC O2, CPAP, BIPAP needs Home O2 Discharge instructions: No Dressing / Incision May resume sexual activity in: 1 week Dressing / Incision Call your doctor if you observe: Fever of 101 or Higher, Inability to urinate, Using more than 1 pad per hour and Uncontrolled pain Follow Up Care Please Follow Up With: Flavia Abad MD When: I will call you with pathology results in 1-2 weeks, if you feel you need an appointment please call [phone] Test Results: Test results from this visit will be discussed in further detail at your follow- up appointment, if applicable. Discharge Plan Admission Attending Provider: Flavia Abad Primary Care Provider: Shawn Norton Instructions Print Language: Italian Discharge Orders/Prescriptions Prescriptions: No Action hydrochlorothiazide 25 MG tablet 25 mg PO DAILY losartan 25 MG tablet 25 mg PO DAILY Patient Comments: pantoprazole 40 MG tablet 40 mg PO DAILY potassium 99 MG tablet 99 mg PO DAILY albuterol sulfate 90 mcg/actuation HFA aerosol inhaler 2 puff INHALATION Q6H PRN PRN (Reason: shortness of breath or wheezing) zinc 50 mg tablet 50 mg PO DAILY elderberry fruit 200 mg capsule 200 mg PO DAILY C Complex 1,000 mg tablet extended release 1,000 mg PO DAILY cholecalciferol (vitamin D3) [Thera-D] 50 mcg (2,000 unit) tablet 100 mcg PO DAILY Referrals / Follow Up: Shawn Norton MD [Primary Care Provider] - Disposition Disposition (needs filled in before D/C Order can be placed): Home, Self Care
--- NOTE | 2025-05-06 09:00 | PCM.POST.ANE ---
Anesthesia: Postop Eval I Current Vital Signs Temperature: 98.2 F Pulse Rate: 77 Blood Pressure: 116/79 Respiratory Rate: 20 Pulse Ox: 99 Oxygen Delivery Method: Room Air Assessment Airway patent: Yes Spontaneous unlabored respirations: Yes Mental status: Awake and Calm nausea: No Vomiting: No Anesthesia Complication: No Fluid Hydration Crystalloid volume administer (ml): 500 Total IV fluid infused: 500 Progress Note Anesthesia document: Postop Eval 1 completed: Yes
--- NOTE | 2025-05-06 10:32 | POSTOPAN2_ITS ---
Anesthesia Postop Eval I Sum Postop Eval Completion status Anesthesia document: Postop Eval 1 completed: Yes Anesthesia Postop Eval I Summary Anesthesia Postop Eval I Summary: Anesthesia Postop Eval I: Assessment Summary Airway patent Yes 05/06/25 09:01 VP [email or web address] Spontaneous unlabored Yes 05/06/25 09:01 VP [email or web address] respirations Mental status Awake,Calm 05/06/25 09:01 VP [email or web address] nausea No 05/06/25 09:01 VP [email or web address] Vomiting No 05/06/25 09:01 VP [email or web address] Anesthesia Postop Eval I: Fluid Summary Crystalloid volume administer 500 05/06/25 09:01 VP [email or web address] (ml) Colloids volume administered ( ml) Blood Product volume administered (ml) Total IV fluid infused 500 05/06/25 09:01 VP [email or web address] Anesthesia Postop Eval I: Summary Notes Anesthesia Complication No 05/06/25 09:01 VP [email or web address] Anesthesia Complication Comment: Post-operative progress note Anesthesia: Postop Eval II Evaluation Mental status: Awake Pain Level: 2 nausea: No Vomiting: No
--- NOTE | 2025-05-06 10:32 | PCM.POSTANE2 ---
Anesthesia Postop Eval I Sum Postop Eval Completion status Anesthesia document: Postop Eval 1 completed: Yes Anesthesia Postop Eval I Summary Anesthesia Postop Eval I Summary: Anesthesia Postop Eval I: Assessment Summary Airway patent Yes 05/06/25 09:01 [email or web address] [email or web address] Spontaneous unlabored Yes 05/06/25 09:01 COMMUNICATIONS [email or web address] respirations Mental status Awake,Calm 05/06/25 09:01 COMMUNICATIONS [email or web address] nausea No 05/06/25 09:01 COMMUNICATIONS [email or web address] Vomiting No 05/06/25 09:01 COMMUNICATIONS [email or web address] Anesthesia Postop Eval I: Fluid Summary Crystalloid volume administer 500 05/06/25 09:01 COMMUNICATIONS [email or web address] (ml) Colloids volume administered ( ml) Blood Product volume administered (ml) Total IV fluid infused 500 05/06/25 09:01 COMMUNICATIONS [email or web address] Anesthesia Postop Eval I: Summary Notes Anesthesia Complication No 05/06/25 09:01 [email or web address] [email or web address] Anesthesia Complication Comment: Post-operative progress note Anesthesia: Postop Eval II Evaluation Mental status: Awake Pain Level: 2 nausea: No Vomiting: No
== END 2025-05-06 09:55 | disposition home or self-care (01) ==
LOC: SDC 06:47 → AC 06:51
PROVIDERS: Anesthesiology; PCP Family Medicine; Referring Provider Obstetrics & Gynecology; Visit Provider Obstetrics & Gynecology
PROC: 0UB98ZZ Excision of Uterus, Via Natural or Artificial Opening Endoscopic (ICD-10-PCS; CPT 58558; principal; 2025-05-06 08:15)
DX: D25.0 Submucous leiomyoma of uterus (principal); I10 Essential (primary) hypertension; Z79.899 Other long term (current) drug therapy
CPT/HCPCS: 58561; 00952; 81025; 88305; J2405